=== PATIENT | male | born 1945 | race Caucasian/White ===

== ENCOUNTER 2021-01-29 20:56 | Emergency (ER) | payer MEDICARE, SELFPAY ==
[2021-01-29] VITALS (25 sets, daily range): BP systolic 125–192; BP diastolic 71–125; PULSE 84–116; RESP 18–32; TEMP 36.5–38.6; O2SAT 94–97
--- NOTE | 2021-01-29 20:45 | RT.EKG_ITS ---
APPROVED REPORT Exam: Resting ECG Reason for Exam: Syncope Patient Location: E HR:100 bpm ECG Measurements Heart Rate 100 AXIS NM 142 P 31 QRSd 95 QRS -26 QT 344 T 31 QTc 443 Conclusion Sinus tachycardia...rate> 99 Inferior infarct, old...Q >35mS, II III aVF Physician:Rate 100 sinus rhythm, no significant ST elevations or depressions. No evidence of STEMI. Slight atypical QRS morphology in V1.
--- NOTE | 2021-01-29 21:00 | DI.CT_ITS ---
Exam(s) CT THORAX ABDOMEN CTA EXAM: CT THORAX ABDOMEN CTA CLINICAL HISTORY: syncope, hx of AAA. TECHNIQUE: Imaging Protocol: Axial computed tomography images with coronal and sagittal reformatted images were created and reviewed CONTRAST MATERIAL: Intravenous: Omnipaque 350 Contrast volume:100 ml Oral: None COMPARISON: No exams were available for comparison FINDINGS: CHEST: The ascending thoracic aorta is slightly prominent exhibiting diameter of 4 cm. no dissection. diam eter of the aortic arch is 2.9 cm. diameter of the proximal descending thoracic aorta is 2.7 cm. de scending thoracic aorta is moderately atherosclerotic and exhibits an average luminal diameter of 3 c m. There is an abdominal aortic EVAR. Abdominal aorta and aortoiliac segments study is limited as this study does not include the pelvis. In addition, is difficult to assess for endoleaks as there is no delayed sequence. On the lower most image of this study there is a suggestion of possible endoleak. Please note that the limbs of the g raft are not entirely included to the level of their iliac anastomoses on this study. There is some atherosclerotic disease within the graft but without an obvious critical stenosis therein. The diame ter of the aortic sac is 7.8 cm which is somewhat prominent. There are bilateral renal artery ostial stents noted. These appear to be grossly patent. Significant stenosis seen at the origin of the ce liac artery. 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 Dissection flap does not appear to be occlusive and does not propagate more distally and ther e is no evidence of embolus in the SMA. LUNGS: No infiltrates nor pleural effusions. There is a 6 millimeter pleural base nodule in the ante rior basal segment left lower lobe. MEDIASTINUM: There is no hilar nor mediastinal adenopathy. Visualized thyroid unremarkable. CARDIAC: Heart size upper normal. No pericardial effusion. Coronary artery calcification noted. AORTA: As abovethere is no evidence of aortic dissection. ABDOMEN: There is no ascites. LIVER: There are no focal hepatic lesions nor dilatation of intrahepatic ducts. Hepatic steatosis is noted. GALLBLADDER/BILIARY: Multiple gallstones. No evidence of acute cholecystitis. CBD is not dilated. PANCREAS: Abnormal. There is significant area of hypodensity in the pancreatic head and uncinate pro cess concerning for neoplasm. This may be cystic. In addition, there is another lesion in the pancr eatic tail which measures 2 by 1.3 cm, appearing cystic. The main pancreatic duct is not dilated. N o obvious regional lymphadenopathy. No vascular encasement. SPLEEN: Spleen size upper normal. No intrasplenic lesions. Splenic and portal veins are patent. ADRENALS: There are no significant adrenal masses. KIDNEYS: Benign small cyst posterior cortex right kidney. Also a 3 millimeter nonobstructive calculu s in lower pole the right kidney. No other significant focal renal findings. No hydronephrosis. LYMPH NODES: There is no retroperitoneal nor para-aortic adenopathy. No obvious mesenteric masses. T here are few mesenteric densities below the lower pole the right kidney, largest of these measures 1. 3 x 1.0 cm, possibly lymph nodes. ABDOMINAL WALL: No evidence of significant anterior abdominal wall hernia. GI: There is no evidence of bowel obstruction, free air, nor abscess. OSSEOUS: No significant osseous lesions. IMPRESSION: 1. This study is limited because it does not include the pelvis and therefore does not include the di stal aspect of the EVAR graft limbs. In addition, there is no delayed sequence sided difficult to tr barber evaluate for EVAR endoleak. However, I do suspect the possibly of an endoleak here given the caty earance of the lower most image of this study. In addition, the diameter of the [place] aortic sac is 7.8 cm. 2. 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 There is also significant stenosis at the origin of the celiac artery. There ar e no ischemic appearing bowel loops.. No ascites. 3. There are 2 areas of concern in the pancreas. There is a large hypodense area in the pancreatic h ead and uncinate process, suspicious for neoplasm. There is also a smaller 2 x 1.3 centimeter probab le cystic neoplasm in the pancreatic tail. There are no obvious enlarged regional lymph nodes and no obvious vascular encasement. Nevertheless, these concerning pancreatic lesions are to be considered neoplastic and close follow-up recommended appropriate referral and MRI study. 4. Cholelithiasis. Multiple gallstones. No obvious acute cholecystitis. No gross dilatation of the biliary tree. This study was 1st read by [facility]. Report called by myself to emergency room 01/30/2021 at 9:12 a.m.. RADIATION DOSE DELIVERED: 793.94mGy.cm Total DLP DATA REPOSITORY: All CT scans at this facility are submitted to the National Radiology Data Registry (NRDR) Dose Index Registry (DIR) with the [employer] ([employer]). RADIATION OPTIMIZATION: All CT scans at this facility use at least one of these dose optimization te chniques: automated exposure control; mA and/or kV adjustment per patient size (includes targeted exa ms where dose is matched to clinical indication); or iterative reconstruction.
--- NOTE | 2021-01-29 21:00 | DI.CT_ITS ---
Exam(s) CT HEAD WO EXAM: CT HEAD WO CLINICAL HISTORY: dizzy, hit right brow, r/o stroke. TECHNIQUE: Imaging Protocol: Axial computed tomography images with coronal and sagittal reformatted images were created and reviewed COMPARISON: No exams were available for comparison FINDINGS: There are no skull fractures nor fluid in the visualized paranasal sinuses. There is no evidence of intracranial hemorrhage, mass effect, or shift of midline structures. There are no extra-axial fluid collections. The ventricles are not enlarged or shifted and there is no blo od within the ventricular system nor within the basal cisterns. There is symmetrical bifrontal atrophy noted. 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 IMPRESSION: No acute intracranial findings on this noninfused CT scan of the brain. Bifrontal atrophy noted Absence of the right ocular lens noted. RADIATION DOSE DELIVERED: 845.91mGy.cm Total DLP DATA REPOSITORY: All CT scans at this facility are submitted to the National Radiology Data Registry (NRDR) Dose Index Registry (DIR) with the [employer] ([employer]). RADIATION OPTIMIZATION: All CT scans at this facility use at least one of these dose optimization te chniques: automated exposure control; mA and/or kV adjustment per patient size (includes targeted exa ms where dose is matched to clinical indication); or iterative reconstruction.
[2021-01-29 21:25] LABS: Abs Immature Grans 0.02 10^3/uL (0.0-0.06); Absolute Basophil Count 0.02 10^3/uL (0.0-0.2); Absolute Eosinophil Count 0.02 10^3/uL (0.0-0.7); Absolute Monocyte Count 0.75 10^3/uL (0.1-0.8); Absolute Neutrophil Count 6.49 10^3/uL (1.2-6.7); Basophils % 0.2; Eosinophils % 0.2; HCT 47.8 % (40.0-50.0); HGB 15.9 g/dL (13.5-17.5); Immature Grans % 0.2; MCH 31.1 pg (27.0-33.0); MCHC 33.3 % (32.0-36.0); MCV 93.5 fL (80-95); MPV 9.7 fL (8.0-11.0); Monocytes % 8.5; Neutrophils % 73.9; Nucleated RBC 0 %; Platelet Count 183 10^3/uL (130-400); RBC 5.11 10^6/uL (4.36-5.78); RDW 12.9 % (11.8-14.1); RDW-SD 44.7 fL
[2021-01-29] MEDS: Normal Saline 1,000 ML 1000 ML IV ×2 (21:38→23:46)
[2021-01-29 21:39] LABS: INR 1.1 (0.9-1.1); Prothrombin Time 11.1 sec (9.3-11.0)
[2021-01-29 21:43] LABS: ALT 42 U/L (16-63); AST 30 U/L (15-37); Albumin 3.8 g/dL (3.4-5.0); Alkaline Phosphatase 72 U/L (46-116); BUN 22 mg/dL (7-18); Bilirubin, Total 0.9 mg/dL (0.2-1.0); CREATININE 1.6 mg/dL (0.70-1.30); Calcium 8.9 mg/dL (8.5-10.1); Chloride 101 mmol/L (98-107); Estimated GFR 42.12 (mL/min/1.73m2); Glucose 147 mg/dL (74-106); NT-proBNP 405 pg/mL (<300); Potassium 4.1 mmol/L (3.5-5.1); Sodium 137 mmol/L (136-145); Total Protein 8.7 g/dL (6.4-8.2)
[2021-01-29 21:44] LABS: Troponin I < 0.05 ng/mL (<0.06)
--- NOTE | 2021-01-29 22:11 | W.ED.GENAD ---
Discharge Plan Disposition Patient Disposition: HOME Condition: Good Discharge Details Clinical Impression: Fever, Dehydration, Lesion of pancreas Primary Care Provider: Zuleika Moreno ED Provider: Gurpreet Negro Home Meds and New Rx's Prescriptions: New doxycycline hyclate 100 mg tablet 100 mg PO BID Qty: 20 RF: 0 Continued ibuprofen 600 MG tablet 600 mg PO BID RF: 0 atenolol 50 MG tablet 50 mg PO DAILY RF: 0 oxycodone 10 MG tablet 10 mg PO Q6H PRN PRNQty: 14 RF: 0 ondansetron 4 MG tablet,disintegrating 4 mg PO Q8H PRN PRNQty: 30 RF: 0 metformin 1,000 mg tablet 1,000 mg PO DAILY RF: 0 Discharge Instructions Instructions: Dehydration (ED), Fever in Adults (ED) Additional Instructions: At this time the source of your fever is unknown. I have a high concern that it may be from a tickborne illness though. The results from the lab studies evaluating this will not be back for 3 to 5 days. In the meantime please take the antibiotic doxycycline as prescribed. [facility] has been [facility]. Make sure to take it with food to prevent nausea. Please drink plenty of fluid at home, stay well-hydrated. Take Tylenol or Motrin as needed for fever. You will be contacted if any of your results are positive. The CT imaging that we did perform did show evidence of your continued abdominal aneurysm but it also showed evidence of a small abnormality in one of the vessels in your stomach at the superior mesenteric artery. Although this is not the cause of your fever and symptoms today, it is an incidental finding. Please follow-up closely with your vascular surgeon for reassessment of this. Additionally there was evidence of pancreatic cysts/lesions on your CAT scan. This was also an incidental finding. It is unsure the exact etiology of these, so please follow-up closely with your primary care provider for reassessment and potential MRI of these lesions on a nonemergent basis. As we discussed together, you have expressed interest in the Covid vaccine. I would not recommend getting this vaccine while you are ill. Once you are feeling better and if you are still interested in the vaccine, please contact your primary care provider, our Covid center here at the hospital, or any of the local pharmacies or you can receive the coronavirus vaccine. As I discussed with your , my recommendations are for the Moderna vaccine or the Pfizer vaccine. There are risks and benefits with everything that we do in life, please also consider this as you make these decisions moving forward If you notice any worsening of your symptoms, or any new symptoms such as vomiting, diarrhea, fever, chills, shortness of breath, chest pain, numbness, weakness, or fainting , please return immediately to the emergency department for reevaluation. Please follow up with your primary care provider as soon as possible for reassessment and reevaluation. As always, it was a pleasure participating in your medical care today. Referrals: Zuleika Moreno MD [Primary Care Provider] - Medical Decision Making 75-year-old male with a past medical history of hypertension, abdominal aortic aneurysm, diabetes, presents today for chills for the last 3 days, dizziness and lightheadedness whenever he stands up. He has had a decreased appetite, and has not been drinking much. He has not been vaccinated for coronavirus. He denies any exposures though recently. He denies any nausea vomiting or diarrhea. He denies any focal abdominal pain. When the patient stands upright he states that he feels unbalanced, but he denies any room spinning sensation or tunnel vision. Patient did get imbalance and hit the right side of his face earlier tonight which brought about his call to EMS. He denies any headache or neck pain. He denies any other complaints at this time. Physical exam demonstrates unidirectional right-sided horizontal nystagmus, positive head impulse test. Negative test of skew. Dry mucous membranes. Orthostatics were performed by EMS and he had a notable 30 point drop in his blood pressure from lying to standing. No abdominal tenderness, no other focal neurologic. Differential at this time is highest for viral etiology causing diminished appetite and chills. Bacteremia is on the differential but less likely. Patient does have his history of aneurysm, so this certainly does increase the concern for worsening aneurysm and/or dissection although this feels unlikely given his current symptoms. We will rehydrate, CT scan for further aortic evaluation, evaluate for Covid, monitor closely and reassess. We will also add a tick and Lyme panel as the patient is outside often, and is in his garden working frequently. We will get a proBNP for evaluation of fluid status or heart strain status. 1:11 AM Patient was afebrile upon his arrival but did spike a temperature of 101 while here in the ED. Laboratory work-up demonstrates a negative Covid test, no white count bandemia or left shift. Electrolytes stable, creatinine 1.6, BUN 22. Clinically the patient does appear dehydrated. He was given 2 L of IV fluids, and after which point his tachycardia has resolved, his heart rate has normalized, he was given Toradol for his fever and the patient feels much better. proBNP normal, troponin normal. Urinalysis negative for evidence of infection, but there is elevation of ketones. Tick and Lyme send out test pending. Patient continues to demonstrate no meningeal signs, no abdominal tenderness. No vomiting or diarrhea. CT scan shows no evidence of dissection in the chest. CT scan does show continued AAA, with no evidence of leak. There is a small dissection flap in the proximal SMA but no other abnormalities there. Patient's symptoms are inconsistent with acute mesenteric ischemia or abdominal pain whatsoever. He does have 2 incidental cystic pancreatic lesions noted. Although virtual radiology does not discuss comparison to previous films, I did review the previous room from 2017, and the pancreatic lesions appear to be nearly the exact same size. We will recommend further evaluation though on an outpatient basis if indicated with MRI. Patient on reassessment feels much better now, no clear source of his illness. Did not demonstrate evidence of pneumonia or UTI or meningitis clinically at this time. Severe bacteremia less likely as the patient has no white count at this time. I did discuss with the patient his interactions with ticks, and he states that he sees ticks all the time and takes them off with him and his dog as he always is working in his garden. Am concerned that he may be demonstrating symptoms secondary to a tickborne illness. Out of an abundance of precaution as he had the symptoms for 3 days already, we will start the patient on doxycycline out of concern for tickborne illness. Prescription will be sent to his pharmacy. I had a long discussion with his about the plan, as well as red flags which to return. . Additionally the patient did ask for the Covid vaccine on this visit, however I did discuss with him that it was probably unwise to get the vaccine while currently clinically ill. I recommend holding off, but did provide him with options and resources on an outpatient basis if you would like to get the vaccine later when he is well. I have extensively reviewed the treatment plan and discharge instructions with the patient. I have addressed all patient concerns at this time. The patient was made aware of what symptoms to monitor for that would warrant a return to the emergency department. Discussed the plan with the patient, they demonstrate verbal understanding and agreement with our assessment and plan at this time. The documentation in this chart was dictated using [email or web address] dictation software. Please excuse any dictation errors. EKG 21: 09 Rate 100 sinus rhythm, no significant ST elevations or depressions. No evidence of STEMI. Slight atypical QRS morphology in V1. FINDINGS: Brain: Changes of cerebral and cerebellar atrophy. No acute focal intracranial lesions. Cerebral ventricles: No ventriculomegaly. Paranasal sinuses: Visualized sinuses are unremarkable. No fluid levels. Mastoid air cells: Unremarkable as visualized. No mastoid effusion. Bones/joints: No acute fracture. Soft tissues: Unremarkable. IMPRESSION: Changes of cerebral and cerebellar atrophy. No acute focal intracranial lesions. Thank you for allowing us to participate in the care of your patient. Dictated and Authenticated by: Ethan Javier MD 01/29/2021 11:12 PM Eastern Time ([place] & [place]) FINDINGS: Pulmonary arteries: Normal. No pulmonary emboli. Aorta: Aortic valvular calcifications noted. The thoracic aorta demonstrates mild atherosclerosis, but no aneurysm. No evidence of dissection or ulcerating plaque. Mild atheromatous plaque seen in the supra-aortic branches. Lungs: Mild emphysematous changes noted. Mild bilateral dependent atelectasis. A few sub 4 mm nodules are seen. Pleural spaces: Unremarkable. No pneumothorax. No pleural effusion. Heart: Coronary artery calcifications noted. Lymph nodes: Unremarkable. No enlarged lymph nodes. Bones/joints: Unremarkable. No acute fracture. Soft tissues: Unremarkable. IMPRESSION: No evidence of acute vascular abnormality in chest FINDINGS: Aorta: An infrarenal abdominal aortic aneurysm is present. It is incompletely included as the exam does not include the pelvis. The sac measures up to about 8.2 cm in trans luminal dimension. It was reported to measure 7.6 cm in 2017. Clinical correlation and correlation with intermediate priors is recommended. A bifurcated aortic stent graft is seen. There are subtle narrowings in the proximal portion of the proximal bilateral limbs. No evidence of endoleak on this study. Celiac trunk and mesenteric arteries: There is a moderate focal narrowing at the celiac origin. There is a mild narrowing at the origin of the SMA that appears to be due to a small dissection flap. Incidental note of a replaced right hepatic artery. Renal arteries: Bilateral renal artery stents appear to be patent, though some metal artifact does limit exam. Liver: Normal. No mass. Gallbladder and bile ducts: Gallstones noted. Probable phyrigian cap. Pancreas: There is a hypodense lesion in the tail of the pancreas that measures about 18 by 12 mm. Differential includes cystic neoplasm. There is another low-density lesion in the pancreatic neck. This measures about 32 x 14 mm. Again, neoplasm is in the differential. Spleen: Normal. No splenomegaly. Adrenals: Normal. No mass. Kidneys and ureters: Probable cysts in the bilateral kidneys are too small to further characterize. Stomach and bowel: Unremarkable. No obstruction. No mucosal thickening. Lymph nodes: Unremarkable. No enlarged lymph nodes. Bones/joints: Unremarkable. No acute fracture. No dislocation. Soft tissues: Unremarkable. IMPRESSION: 1. A treated infrarenal AAA measures about 8.2 cm in greatest trans luminal dimension no comparison is available. 2. Small dissection flap in the proximal SMA causes mild narrowing here. 3. Moderate narrowing at the origin of the celiac artery. 4. Incidental note of 2 cystic pancreatic lesions. Further characterization with pancreas protocol MRI or CT is recommended on a non emergent basis 5. Gallstones. No CT evidence of acute cholecystitis Thank you for allowing us to participate in the care of your patient. Dictated and Authenticated by: Manny Obrien MD 01/29/2021 11:21 PM Eastern Time ([place] & [place]) HPI General Date/Time Provider Initiated Documentation: 01/29/21 21:12. HPI Narrative: 75-year-old male with a past medical history of hypertension, abdominal aortic aneurysm, diabetes, presents today for chills for the last 3 days, dizziness and lightheadedness whenever he stands up. He has had a decreased appetite, and has not been drinking much. He has not been vaccinated for coronavirus. He denies any exposures though recently. He denies any nausea vomiting or diarrhea. He denies any focal abdominal pain. When the patient stands upright he states that he feels unbalanced, but he denies any room spinning sensation or tunnel vision. Patient did get imbalance and hit the right side of his face earlier tonight which brought about his call to EMS. He denies any headache or neck pain. He denies any other complaints at this time. Related Data Home Medications Medication Instructions Recorded Confirmed atenolol 50 mg PO DAILY 12/14/15 01/29/21 ibuprofen 600 mg PO BID 12/14/15 07/31/16 ondansetron 4 mg PO Q8H PRN PRN #30 tabef 07/31/16 oxycodone 10 mg PO Q6H PRN PRN #14 tab 07/31/16 metformin 1,000 mg PO DAILY 01/29/21 01/29/21 doxycycline hyclate 100 mg PO BID #20 tab 01/30/21 Previous Rx's Medication Instructions Recorded ondansetron 4 mg PO Q8H PRN PRN #30 tabef 07/31/16 oxycodone 10 mg PO Q6H PRN PRN #14 tab 07/31/16 doxycycline hyclate 100 mg PO BID #20 tab 01/30/21 Allergies Allergy/AdvReac Type Severity Reaction Status Date / Time No Known Allergies Allergy Unverified 07/31/16 06:46 General Stated Complaint: Dizzy/Sync JU: 3 Review of Systems All systems reviewed & are unremarkable except as noted in HPI and below PFSH Social History Smoking/Tobacco Use Status: Former Tobacco Use Smoking risk assessment performed?: Yes Drug use: Never Substance use type: does not use Do you feel safe at home: Yes Do you feel safe in your relationship?: Yes Exam Narrative Exam Narrative: 1.Const: Well-nourished, Well-developed, appearing stated age 2.Eyes: PERRL, no conjunctival injection, and symmetrical lids. Mild horizontal nystagmus. No rotatory or vertical nystagmus 3.ENT: Atraumatic external nose and ears. Notably dry MM. Neck: Symmetric, trachea midline, No thyromegaly. Patient demonstrates good movement of cervical neck. There is no nuchal rigidity, no nuchal tenderness. Patient is able to flex the neck without any difficulty or significant pain. Negative Kernig's and Brudzinski sign. 4.CVS: +S1/S2, No murmurs or gallops. Peripheral pulses 2+ and equal in all extremities. Brisk capillary refill in all extremities. 5.RESP: Unlabored respiratory effort. Clear to auscultation bilaterally. No wheezes rales or rhonchi 6.GI: Soft, Nontender/Nondistended, No hepatosplenomegaly. No guarding or rebound. 7.MSK: Normocephalic/Atraumatic, Extremities w/o deformity or ttp No cyanosis or clubbing, Normal movement of all extremities 8.Skin: Warm, Dry. No rashes or lesions. 9.Neuro: fiberglass ski maker II-XII grossly intact. Sensation grossly intact, no focal neurologic deficits. All 6 cardinal planes of vision are fully intact. No evidence of rotatory or vertical nystagmus. The patient demonstrated a normal [id number], good dexterity. There was no evidence of dysdiadochokinesia. Patient was able to ambulate without difficulty. There was no wide-based gait. Romberg testing was normal. Gxxo-pt-[id number] testing was normal. Sensation was intact bilaterally as well as muscle strength bilaterally for all extremities. Patient was able to verbalize butter cup with no slurring, or miss pronunciation. Cerebellar function testing is normal. The patient demonstrates a normal hints exam with no findings concerning for a central event. No vertical nystagmus. The head impulse test is positive with movement to the. Normal test of skew. No suggestion of a central cerebellar event. 10.Psych: (AAO) x3. Appropriate mood and affect Course Vital Signs Vital signs: Vital Signs Temperature 36.5 C 01/29/21 21:01 Pulse 100 H 01/29/21 21:01 Respiratory Rate 18 01/29/21 21:01 Blood Pressure 192/93 H 01/29/21 21:01 Pulse Oximetry 95 01/29/21 21:01 Temperature 36.5 C 01/29/21 21:01 Pulse 100 H 01/29/21 21:01 Respiratory Rate 18 01/29/21 21:05 Respiratory Effort Non-Labored 01/29/21 21:05 Respiratory Depth Normal 01/29/21 21:05 Respiratory Pattern Normal 01/29/21 21:05 Blood Pressure 192/93 H 01/29/21 21:01 Blood Pressure Position Supine 01/29/21 21:01 Pulse Oximetry 95 01/29/21 21:01 Oxygen Delivery Method Room Air 01/29/21 21:01 Oxygen Flow Rate 0 01/29/21 21:01 Pain Level 0 01/29/21 21:01 Lab/Test Results Lab/Test Results: 01/29/21 21:35 Blood Blood Culture - Pending 01/29/21 21:15 Blood Blood Culture - Pending Laboratory Tests Range/Units 01/29/21 01/29/21 01/29/21 20:45 20:45 20:45 WBC (4.4-10.8) 10^3/uL 8.80 RBC (4.36-5.78) 10^6/uL 5.11 Hgb (13.5-17.5) g/dL 15.9 Hct (40.0-50.0) % 47.8 MCV (80-95) fL 93.5 MCH (27.0-33.0) pg 31.1 MCHC (32.0-36.0) % 33.3 RDW (11.8-14.1) % 12.9 Plt Count (130-400) 10^3/uL 183 MPV (8.0-11.0) fL 9.7 Immature Gran % 0.2 Neutrophils % 73.9 Lymphocytes % 17.0 Monocytes % 8.5 Eosinophils % 0.2 Basophils % 0.2 Nucleated RBC % % 0 Absolute Neutrophils (1.2-6.7) 10^3/uL 6.49 Absolute Lymphocytes (1.2-3.4) 10^3/uL 1.50 Absolute Monocytes (0.1-0.8) 10^3/uL 0.75 Absolute Eosinophils (0.0-0.7) 10^3/uL 0.02 Absolute Basophils (0.0-0.2) 10^3/uL 0.02 PT (9.3-11.0) sec 11.1 H INR (0.9-1.1) 1.1 APTT (21.0-27.5) sec 35.0 H Sodium (136-145) mmol/L 137 Potassium (3.5-5.1) mmol/L 4.1 Chloride (98-107) mmol/L 101 Carbon Dioxide (21.0-32.0) mmol/L 27.0 Anion Gap (3-11) mmol/L 9.0 BUN (7-18) mg/dL 22 H Creatinine (0.70-1.30) mg/dL 1.6 H Estimated GFR/1.73 m2 (mL/min/1.73m2) 42.12 Glucose (74-106) mg/dL 147 H Calcium (8.5-10.1) mg/dL 8.9 Total Bilirubin (0.2-1.0) mg/dL 0.9 AST (15-37) U/L 30 ALT (16-63) U/L 42 Alkaline Phosphatase (46-116) U/L 72 Troponin I (<0.06) ng/mL < 0.05 NT-Pro-B Natriuret Pep (<300) pg/mL 405 H Total Protein (6.4-8.2) g/dL 8.7 H Albumin (3.4-5.0) g/dL 3.8 COVID-19 Source Range/Units 01/29/21 21:10 WBC (4.4-10.8) 10^3/uL RBC (4.36-5.78) 10^6/uL Hgb (13.5-17.5) g/dL Hct (40.0-50.0) % MCV (80-95) fL MCH (27.0-33.0) pg MCHC (32.0-36.0) % RDW (11.8-14.1) % Plt Count (130-400) 10^3/uL MPV (8.0-11.0) fL Immature Gran % Neutrophils % Lymphocytes % Monocytes % Eosinophils % Basophils % Nucleated RBC % % Absolute Neutrophils (1.2-6.7) 10^3/uL Absolute Lymphocytes (1.2-3.4) 10^3/uL Absolute Monocytes (0.1-0.8) 10^3/uL Absolute Eosinophils (0.0-0.7) 10^3/uL Absolute Basophils (0.0-0.2) 10^3/uL PT (9.3-11.0) sec INR (0.9-1.1) APTT (21.0-27.5) sec Sodium (136-145) mmol/L Potassium (3.5-5.1) mmol/L Chloride (98-107) mmol/L Carbon Dioxide (21.0-32.0) mmol/L Anion Gap (3-11) mmol/L BUN (7-18) mg/dL Creatinine (0.70-1.30) mg/dL Estimated GFR/1.73 m2 (mL/min/1.73m2) Glucose (74-106) mg/dL Calcium (8.5-10.1) mg/dL Total Bilirubin (0.2-1.0) mg/dL AST (15-37) U/L ALT (16-63) U/L Alkaline Phosphatase (46-116) U/L Troponin I (<0.06) ng/mL NT-Pro-B Natriuret Pep (<300) pg/mL Total Protein (6.4-8.2) g/dL Albumin (3.4-5.0) g/dL COVID-19 Source [facility]OP[facility]
[2021-01-29 22:37] LABS: COVID-19 PCR Negative (Negative)
--- NOTE | 2021-01-29 23:14 | DI.VRAD_ITS ---
PROCEDURE INFORMATION: Exam: CT Head Without Contrast Exam date and time: 01/29/2021 9:14 PM Age: 75 years old Clinical indication: Dizziness; Patient HX: Dizzy, hit right brow, R/O stroke TECHNIQUE: Imaging protocol: Computed tomography of the head without contrast. Radiation optimization: All CT scans at this facility use at least one of these dose optimization techniques: automated exposure control; mA and/or kV adjustment per patient size (includes targeted exams where dose is matched to clinical indication); or iterative reconstruction. COMPARISON: No relevant prior studies available. FINDINGS: Brain: Changes of cerebral and cerebellar atrophy. No acute focal intracranial lesions. Cerebral ventricles: No ventriculomegaly. Paranasal sinuses: Visualized sinuses are unremarkable. No fluid levels. Mastoid air cells: Unremarkable as visualized. No mastoid effusion. Bones/joints: No acute fracture. Soft tissues: Unremarkable. IMPRESSION: Changes of cerebral and cerebellar atrophy. No acute focal intracranial lesions. Dictated and Authenticated by: Ethan Javier MD. Ordering:OCTAVIA Vázquez MD
[2021-01-29] MEDS: Omnipaque 350 MG/ML 100 ML BTL IJ (23:16)
[2021-01-29] MEDS: Normal Saline Flush 10 ML SYR IVP (23:17)
--- NOTE | 2021-01-29 23:22 | DI.VRAD_ITS ---
PROCEDURE INFORMATION: Exam: CTA Chest With Contrast Exam date and time: 01/29/2021 9:14 PM Age: 75 years old Clinical indication: Other: Syncope; Fever; Prior surgery; Surgery date: 6+ months; Surgery type: Aaa; Additional info: Syncope, HX of aaa TECHNIQUE: Imaging protocol: Computed tomographic angiography of the chest with contrast. 3D rendering (Not supervised by radiologist): MIP and/or 3D reconstructed images were created by the technologist. Radiation optimization: All CT scans at this facility use at least one of these dose optimization techniques: automated exposure control; mA and/or kV adjustment per patient size (includes targeted exams where dose is matched to clinical indication); or iterative reconstruction. Contrast material: OMNIPAQUE 350; Contrast volume: 100 ml; Contrast route: INTRAVENOUS (IV); COMPARISON: No relevant prior studies available. FINDINGS: Pulmonary arteries: Normal. No pulmonary emboli. Aorta: Aortic valvular calcifications noted. The thoracic aorta demonstrates mild atherosclerosis, but no aneurysm. No evidence of dissection or ulcerating plaque. Mild atheromatous plaque seen in the supra-aortic branches. Lungs: Mild emphysematous changes noted. Mild bilateral dependent atelectasis. A few sub 4 mm nodules are seen. Pleural spaces: Unremarkable. No pneumothorax. No pleural effusion. Heart: Coronary artery calcifications noted. Lymph nodes: Unremarkable. No enlarged lymph nodes. Bones/joints: Unremarkable. No acute fracture. Soft tissues: Unremarkable. IMPRESSION: No evidence of acute vascular abnormality in chest PROCEDURE INFORMATION: Exam: CT Angiography Abdomen With Contrast Exam date and time: 01/29/2021 9:14 PM Age: 75 years old Clinical indication: Other: Syncope; Fever; Prior surgery; Surgery date: 6+ months; Surgery type: Aaa; Additional info: Syncope, HX of aaa TECHNIQUE: Imaging protocol: Computed tomographic angiography images of the abdomen with intravenous contrast material. 3D rendering (Not supervised by radiologist): MIP and/or 3D reconstructed images were created by the technologist. Radiation optimization: All CT scans at this facility use at least one of these dose optimization techniques: automated exposure control; mA and/or kV adjustment per patient size (includes targeted exams where dose is matched to clinical indication); or iterative reconstruction. Contrast material: OMNIPAQUE 350; Contrast volume: 100 ml; Contrast route: INTRAVENOUS (IV); COMPARISON: No relevant prior studies available. FINDINGS: Aorta: An infrarenal abdominal aortic aneurysm is present. It is incompletely included as the exam does not include the pelvis. The sac measures up to about 8.2 cm in trans luminal dimension. It was reported to measure 7.6 cm in 2017. Clinical correlation and correlation with intermediate priors is recommended. A bifurcated aortic stent graft is seen. There are subtle narrowings in the proximal portion of the proximal bilateral limbs. No evidence of endoleak on this study. Celiac trunk and mesenteric arteries: There is a moderate focal narrowing at the celiac origin. There is a mild narrowing at the origin of the SMA that appears to be due to a small dissection flap. Incidental note of a replaced right hepatic artery. Renal arteries: Bilateral renal artery stents appear to be patent, though some metal artifact does limit exam. Liver: Normal. No mass. Gallbladder and bile ducts: Gallstones noted. Probable phyrigian cap. Pancreas: There is a hypodense lesion in the tail of the pancreas that measures about 18 by 12 mm. Differential includes cystic neoplasm. There is another low-density lesion in the pancreatic neck. This measures about 32 x 14 mm. Again, neoplasm is in the differential. Spleen: Normal. No splenomegaly. Adrenals: Normal. No mass. Kidneys and ureters: Probable cysts in the bilateral kidneys are too small to further characterize. Stomach and bowel: Unremarkable. No obstruction. No mucosal thickening. Lymph nodes: Unremarkable. No enlarged lymph nodes. Bones/joints: Unremarkable. No acute fracture. No dislocation. Soft tissues: Unremarkable. IMPRESSION: 1. A treated infrarenal AAA measures about 8.2 cm in greatest trans luminal dimension no comparison is available. 2. Small dissection flap in the proximal SMA causes mild narrowing here. 3. Moderate narrowing at the origin of the celiac artery. 4. Incidental note of 2 cystic pancreatic lesions. Further characterization with pancreas protocol MRI or CT is recommended on a non emergent basis 5. Gallstones. No CT evidence of acute cholecystitis Dictated and Authenticated by: Manny Obrien MD. Ordering:OCTAVIA Vázquez MD
[2021-01-29] MEDS: Ketorolac 15 MG/ML VIAL IVP (23:46)
[2021-01-29 23:50] LABS: Bilirubin Negative (Negative); Blood Negative (Negative); Clarity Clear (Clear); Glucose Negative (Negative); Ketones 40 mg/dL (Negative); Leukocyte Esterase Negative (Negative); Nitrite Negative (Negative); Specific Gravity 1.015 (1.005-1.025); Urobilinogen 0.2 EU/dL (Up TO 0.2)
[2021-01-30] VITALS (13 sets, daily range): BP systolic 143–162; BP diastolic 76–87; PULSE 82–97; RESP 15–29; TEMP 37.7; O2SAT 93–98
[2021-01-30] MEDS: DOXYCYCLINE 100 MG in Normal Saline 100 ML IVPB (00:06)
--- NOTE | 2021-01-30 17:36 | ED.FU.B_ITS ---
Follow Up Plan: Call back received from Dr. Hancock of radiology regarding CTA performed at patient ED visit last night. Patient was discharged home. Dr. Hancock states that he is concerned that CTA of the aortic aneurysm is abnormal. He has no prior for comparison and request vascular surgery the contacted where patient surgery was performed for comparison to prior. Patient surgery was performed. CTA images were pushed to [facility]. I did discuss patient with Dr. Skelton of vascular surgery, who reviewed images. He states that aneurysm is somewhat larger and needs to be evaluated palpation but there is no acute emergent process based radiologic images at the time. Dr. Skelton states that he will personally call patient to ensure follow-up, I stated denies he was called patient to inform him of the need for follow-up. I called patient. Patient's answered the phone. She stated the patient was sleeping, and that he needed to sleep and she was not going to wake him up at this point for any reason. She is listed on the patient HIPAA form, and I did discuss with her the abnormal imaging and the need for outpatient follow-up with vascular surgery at [facility]. Number to [facility] was provided and all questions were answered. Patient was placed on care management list for outpatient follow-up with vascular surgery at [facility].
--- NOTE | 2021-01-31 09:12 | CMPROGNOTE_ITS ---
- If Service Date Differs Date of service: 01/31/21 Time of Service: 09:12 Care Management Progress Note Sebastien is seen in the ED for a fever. At the request of ED provider, CM coordinates an urgent [place] [facility] [place]
[2021-01-31 10:39] LABS: Lyme Ab w Rflx to Lyme Confirm Negative (Negative)
[2021-02-01 16:49] LABS: Anaplasma phagocytophilum Negative (Negative); B. miyamotoi PCR Negative (Negative); Babesia divergens/MO-1 Negative (Negative); Babesia duncani Negative (Negative); Babesia microti Negative (Negative); Ehrlichia chaffeensis Negative (Negative); Ehrlichia ewingii/canis Negative (Negative); Ehrlichia muris eauclairensis Negative (Negative)
== END 2021-01-30 01:27 | disposition home or self-care (01) ==
PROVIDERS: Emergency Provider Student in an Organized Health Care Education/Training Program
DX: R50.9 Fever, unspecified (principal); E86.0 Dehydration; K86.89 Other specified diseases of pancreas; R93.5 Abnormal findings on diagnostic imaging of other abdominal regions, including retroperitoneum; R55 Syncope and collapse; H55.09 Other forms of nystagmus; I77.811 Abdominal aortic ectasia; Z20.822 Contact with and (suspected) exposure to COVID-19
CPT/HCPCS: 71275; 74175; 80053; 87040; 87635; 87798; 93005; 96361; 96365; 96375; 99285; 70450; 81003; 83880; 84484; 85025; 85610; 85730; 86618; 93010; 99284; J1885; J3490

== ENCOUNTER 2021-08-30 02:17 | Outpatient (CLI) | payer MEDICARE, SELFPAY ==
[2021-08-30 12:06] LABS: Source Nasal/Nares
[2021-08-30 14:26] LABS: COVID-19 PCR Negative (Negative)
== END 2021-08-30 02:18 | disposition home or self-care (01) ==
LOC: LBO 02:17
PROVIDERS: Visit Provider Surgery
DX: Z20.822 Contact with and (suspected) exposure to COVID-19 (principal)
CPT/HCPCS: 87635; U0005

== ENCOUNTER 2022-04-15 06:01 | Emergency (ER) | payer MEDICARE, SELFPAY ==
[2022-04-15] VITALS (88 sets, daily range): BP systolic 61–188; BP diastolic 25–128; PULSE 65–182; RESP 12–35; TEMP 36.4; O2SAT 96–100
--- NOTE | 2022-04-15 06:00 | DI.CT_ITS ---
Exam(s) CT HEAD WO EXAM: CT HEAD WO CLINICAL HISTORY: ams, seizure?fall?. TECHNIQUE: Imaging Protocol: Axial computed tomography images with coronal and sagittal reformatted images were created and reviewed COMPARISON: CT CT HEAD WO from 01/29/2021 FINDINGS: Ventricles and Extra axial spaces: Normal in size and morphology for the patient's age. Hemorrhage: None. Cerebral parenchyma: There is no acute territorial infarct. There are areas of decreased attenuation in the white matter consistent with small vessel ischemic disease. Small lacunar infarcts are seen in the cerebellum. Midline shift: None. Brainstem/Cerebellum: Normal. Calvarium: Normal. Visualized Paranasal sinuses/Mastoids: Clear. Soft Tissues: Unremarkable. IMPRESSION: No acute intracranial process. RADIATION DOSE DELIVERED: Total DLP DATA REPOSITORY: All CT scans at this facility are submitted to the National Radiology Data Registry (NRDR) Dose Index Registry (DIR) with the [employer] (ACR). RADIATION OPTIMIZATION: All CT scans at this facility use at least one of these dose optimization te chniques: automated exposure control; mA and/or kV adjustment per patient size (includes targeted exa ms where dose is matched to clinical indication); or iterative reconstruction.
--- NOTE | 2022-04-15 06:00 | RT.EKG_ITS ---
APPROVED REPORT Exam: Resting ECG Reason for Exam: fall Patient Location: E HR:142 bpm ECG Measurements Heart Rate 142 AXIS IN [id number] P [id number] QRSd 100 QRS -8 QT 317 T 212 QTc 488 Conclusion Atrial fibrillation...? atrial activity Repolarization abnormality, prob rate related...ST dep, T neg, tachycardia afib rvr, normal axis, rate related lateral st segment depressions
--- NOTE | 2022-04-15 06:11 | ED.GENADUL_ITS ---
Discharge Plan Disposition Patient Disposition: Transfer-Acute Inpatient Care Specific Acute Inpt Facility: [facility] Condition: Serious Discharge Details Chief Complaint: Seizure Clinical Impression: Seizures, AMS (altered mental status), Acidemia, Acute hypokalemia Primary Care Provider: Zuleika Moreno ED Provider: Triston Vallejo Home Meds and New Rx's Prescriptions: No Action ibuprofen 600 MG tablet 600 mg PO BID atenolol 50 MG tablet 50 mg PO DAILY oxycodone 10 MG tablet 10 mg PO Q6H PRN PRNQty: 14 0RF ondansetron 4 MG tablet,disintegrating 4 mg PO Q8H PRN PRNQty: 30 0RF metformin 1,000 mg tablet 1,000 mg PO DAILY Label Comments: TAKE ONE TABLET BY MOUTH EVERY DAY doxycycline hyclate 100 mg tablet 100 mg PO BID Qty: 20 0RF Medical Decision Making 76-year-old male history of diabetes hypertension, presents brought in by EMS for altered mental status, possible seizure activity in route, hyperglycemic to greater than 300, hypertensive tachycardic A. fib RVR, right gaze preference, following commands on left side however not moving bilateral lower extremities or right side, superficial laceration to right maxillary soft tissue, consider seizure in the setting of hypertension versus seizure in the setting of hyperglycemia versus primary intracranial process such as hemorrhage or stroke versus metabolic derangement leading to altered mental status such as hyperosmolar nonketotic syndrome versus DKA versus viral syndrome versus less likely primary cardiac process. Screening labs, stat CT, EKG, fluids, diltiazem Keppra close reassessment of symptoms. Admission likely 6: 39 patient began to seize in route to CT. Patient brought back to room 3, patient intubated for airway protection; started on propofol infusion. Will be brought back to CT for stat imaging 7: 07 evidence of metabolic acidosis anion gap and hyperglycemia consider DKA with component of lactic acidosis. Given hypokalemia will need to replete K before administering insulin, will continue with fluid hydration with a second bolus of crystalloid in the interim. 7: 51 no evidence of intracranial hemorrhage. Patient sedated, hemodynamically stable persistently tachycardic A. fib RVR. Continue with fluid and potassium repletion before insulin ministration. Patient to be admitted to the ICU for DKA and seizure 8: 27 given unavailability of EEG services here at the hospital hospitalist team is recommending that patient be transferred to facility with these capabilities. I spoke with Dr. Holm of neurology who says that if patient is following basic commands with sedation reduction a spot EEG will suffice for the time being. In the interim patient became hypotensive to systolic blood pressure in the 60s, family endorses that he does have a history of an aortic aneurysm with a stent in the past, bedside ultrasound showing large hypoechoic structure surrounding stent in aorta concern for thrombus versus extravasation, stat CTA chest abdomen pelvis has been ordered to assess for aortic aneurysm rupture or dissection. 9: 26 patient's blood pressure was dipping, down titrated propofol, blood pressure currently 95/55 heart rate has decreased to what appears to be sinus rhythm 79 bpm, will repeat EKG. We will transition patient to fentanyl and midazolam drip for sedation. We will repeat basic metabolic panel and VBG. Awaiting discussion with residential leasing agent team at [facility] for transfer for DKA and seizures plan 10:04 due to capacity issues patient was not accepted at [facility]. Was able to speak with residential leasing agent team at [facility] Dr. Hurtado who has accepted patient for transfer. Family amenable to transfer. Patient's blood pressure is improving after discontinuing propofol and switching to fentanyl and midazolam. Patient has converted to sinus rhythm 72 bpm, blood pressure 109/62 with a MAP of 74 saturating 99% on the vent. Sign Out No HPI General Date/Time Provider Initiated Documentation: 04/15/22 06:07 . HPI Narrative: 76-year-old male history of hypertension, diabetes, presents brought in by EMS for altered mental status and possible seizure, hypoglycemic in the field, witnessed tonic-clonic seizure in route. Trauma to right face and head Related Data Home Medications Medication Instructions Recorded Confirmed atenolol 50 mg tablet 50 mg PO DAILY 12/14/15 01/29/21 ibuprofen 600 mg tablet 600 mg PO BID 12/14/15 07/31/16 ondansetron 4 mg disintegrating 4 mg PO Q8H PRN PRN ##30 07/31/16 tablet oxycodone 10 mg tablet 10 mg PO Q6H PRN PRN #14 tabs 07/31/16 metformin 1,000 mg tablet 1,000 mg PO DAILY 01/29/21 01/29/21 doxycycline hyclate 100 mg tablet 100 mg PO BID #20 tabs 01/30/21 Previous Rx's Medication Instructions Recorded ondansetron 4 mg disintegrating 4 mg PO Q8H PRN PRN ##30 07/31/16 tablet oxycodone 10 mg tablet 10 mg PO Q6H PRN PRN #14 tabs 07/31/16 doxycycline hyclate 100 mg tablet 100 mg PO BID #20 tabs 01/30/21 Allergies Allergy/AdvReac Type Severity Reaction Status Date / Time No Known Allergies Allergy Unverified 04/15/22 07:06 General JU: 3 Review of Systems Narrative: Review of Systems Constitutional: negative Eyes: negative ENT: Facial lac Cardiovascular: negative Respiratory: negative Gastrointestinal: negative : negative Musculoskeletal: negative Skin: negative Neurologic: Seizure Psych: negative PFSH All Active Problems (Updated 04/15/22 @ 10:07 by Triston Vallejo MD) Fever (Acute) Dehydration (Acute) Lesion of pancreas (Acute) Seizures (Acute) AMS (altered mental status) (Acute) Acidemia (Acute) Acute hypokalemia (Acute) Social History Smoking/Tobacco Use Status: Former Tobacco Use Smoking risk assessment performed?: Yes Drug use: Never Substance use type: does not use Do you feel safe at home: Yes Do you feel safe in your relationship?: Yes Exam Narrative Exam Narrative: Physical Examination General: Opening eyes spontaneously, following some commands, no verbal response HEENT: normocephalic, laceration to right face and maxillary region approximately 1 cm hemostatic, hematoma to right frontotemporal scalp, moist mucous membranes, right gaze preference Neck: supple, trachea midline; full ROM Chest: normal to inspection Respiratory: normal respiratory effort, speaking in full sentences, clear to auscultation, no wheezing, rales or rhonchi Cardiac: Tachycardia, irregular, S1S2 intact, no murmurs rubs or gallops GI: abdomen soft, non-tender, non-distended; no palpable mass or hepatosplenomegaly Skin: no lesions, rashes or trauma appreciated Neuro: Opening eyes spontaneously, no spontaneous speech, following basic commands on his left side upper extremity, not moving bilateral lower extremities or right upper extremity, appears to have right gaze preference Extremities: No signs of trauma Procedures Intubation Time out performed: No sedative: Etomidate Mg Given: 20 paralytic: Rocuronium Mg Given: 100 Laryngoscope: Tere ET Tube Size: 7.5 ET Tube Uncuffed: Yes Tube Placement Confirmation: visualized tube passing through cords, equal breath sounds bilaterally, no breath sounds over epigastrum and confirmation by capnometry Patient Tolerated Procedure: no complications Intubation Complications: none
[2022-04-15 06:19] LABS: HCO3 (Venous) 11 mmol/L (23-28); O2 Sat (Venous) 68 %; TCO2 (Venous) 11 mmol/L (24-29); pCO2 (Venous) 44 mmHg (41-51); pO2 (Venous) 49 mmHg
[2022-04-15 06:22] LABS: Abs Immature Grans 0.04 10^3/uL (0.0-0.06); Absolute Basophil Count 0.06 10^3/uL (0.0-0.2); Absolute Eosinophil Count 0.26 10^3/uL (0.0-0.7); Absolute Monocyte Count 0.77 10^3/uL (0.1-0.8); Basophils % 0.5; Eosinophils % 2.2; HCT 54.4 % (40.0-50.0); HGB 17.2 g/dL (13.5-17.5); Immature Grans % 0.3; Lymphocytes % 40.1; MCH 31.2 pg (27.0-33.0); MCHC 31.6 % (32.0-36.0); MCV 99 fL (80-95); MPV 10.1 fL (8.0-11.0); Monocytes % 6.4; Neutrophils % 50.5; Platelet Count 233 10^3/uL (130-400); RBC 5.52 10^6/uL (4.36-5.78); RDW 12.4 % (11.8-14.1); RDW-SD 45.1 fL; WBC 12.03 10^3/uL (4.4-10.8)
[2022-04-15 06:23] LABS: Absolute Lymphocyte Count 4.82 10^3/uL (1.2-3.4); Absolute Neutrophil Count 6.08 10^3/uL (1.2-6.7)
[2022-04-15] MEDS: LORazepam 2 MG/ML VIAL (06:25)
[2022-04-15] MEDS: Normal Saline 500 ML 1000 ML IV (06:25)
[2022-04-15 06:27] LABS: pH (Venous) 7.01 (7.31-7.41)
[2022-04-15] MEDS: Etomidate 20 MG/10 ML VIAL IVP (06:28)
[2022-04-15] MEDS: Rocuronium 50 MG/5 ML SYR 100 MG IVP (06:29)
--- NOTE | 2022-04-15 06:30 | DI.RAD_ITS ---
Exam(s) XR PORTABLE CHEST AP POST LINE EXAM: XR PORTABLE CHEST AP POST LINE CLINICAL HISTORY: rsi TECHNIQUE: 2D digital imaging was performed of the chest. One image was obtained. An AP view was ob tained. COMPARISON: No exams were available for comparison FINDINGS: MEDIASTINUM: Normal. HEART: Normal. PULMONARY VASCULATURE: Normal. LUNGS: Clear. PLEURAL SPACE: No pleural effusion or pneumothorax. BONE:Within normal limits for the patient's age. OTHER FINDINGS:The tip of the endotracheal tube is 4.7 cm above the raegan. The tip of the nasogastr ic tube is off the image below the diaphragm. IMPRESSION: No acute pulmonary findings. DATA REPOSITORY: RADIATION DOSE DELIVERED:
[2022-04-15 06:35] LABS: Salicylate < 2.8 mg/dL (<2.8)
[2022-04-15] MEDS: levETIRAcetam 1,000 MG in Normal Saline 100 ML 400 MG IVPB (06:35)
[2022-04-15] MEDS: Ondansetron 4 MG/2 ML VIAL IVP (06:35)
[2022-04-15] MEDS: PROPOFOL 1,000 MG/100 ML BTL 5.443 MG IV (06:40)
[2022-04-15 06:42] LABS: PTT Activated 35.2 sec (21.0-27.5); Prothrombin Time 10.1 sec (9.3-11.0)
[2022-04-15 06:51] LABS: ALT 37 U/L (16-63); AST 23 U/L (15-37); Albumin 4.3 g/dL (3.4-5.0); Alkaline Phosphatase 98 U/L (46-116); Anion Gap 28.1 mmol/L (3-11); BUN 21 mg/dL (7-18); Bilirubin, Total 0.8 mg/dL (0.2-1.0); CO2 13.9 mmol/L (21.0-32.0); CREATININE 1.7 mg/dL (0.70-1.30); Calcium 9.6 mg/dL (8.5-10.1); Chloride 96 mmol/L (98-107); Creatine Kinase 83 U/L (39-308); Estimated GFR 40.75 (mL/min/1.73m2); Glucose 364 mg/dL (74-106); Magnesium 2.2 mg/dL (1.8-2.4); Sodium 138 mmol/L (136-145); TSH (W/Ref FT4) 2.77 uIU/mL (0.36-3.74); Total Protein 9.3 g/dL (6.4-8.2); Troponin I < 50 ng/L (<or=60)
[2022-04-15 06:52] LABS: ETHANOL BLOOD < 3.0 mg/dL (<10); Potassium 2.9 mmol/L (3.5-5.1)
[2022-04-15] MEDS: dilTIAZem 25 MG/5 ML VIAL 15 MG IVP (06:52)
--- NOTE | 2022-04-15 07:10 | DI.VRAD_ITS ---
PROCEDURE INFORMATION: Exam: XR Chest Exam date and time: 04/15/2022 6:27 AM Age: 76 years old Clinical indication: Device placement; Other: Et and ng; Patient HX: Post intubation TECHNIQUE: Imaging protocol: Radiologic exam of the chest. Views: 1 view. COMPARISON: CT THORAX ABDOMEN CTA 01/29/2021 10:40 PM FINDINGS: Tubes, catheters and devices: A nasogastric tube is identified which courses below the left diaphragm, though its tip excluded from the field of view. An endotracheal tube is identified, its tip projecting 5 cm above the raegan. Lungs: The lungs are clear and well aerated bilaterally. There is no consolidation, infiltrate, or pulmonary edema. The pulmonary vasculature is normal in caliber. Pleural spaces: No visible pneumothorax or pleural effusion on this single supine view. Heart/Mediastinum: Heart size is normal. The thoracic aorta is uncoiled. Bones/joints: Degenerative changes. No acute osseous abnormality. IMPRESSION: 1. Tip of endotracheal tube projects 5 cm above the raegan. 2. Nasogastric tube courses below the left hemidiaphragm, its tip excluded from the field of view. Dictated and Authenticated by: Joyce Webb MD. Ordering:JOHANN Goldstein MD
[2022-04-15 07:23] LABS: *AMPHETAMINES SCREEN URINE Negative (Negative); *BARBITURATES SCREEN URINE Negative (Negative); *BENZODIAZEPINES SCREEN URINE Negative (Negative); Cannabinoids THC Negative (Negative); Cocaine Screen,Urine Negative (Negative); METHADONE URINE SCREEN Negative (Negative); OPIATES URINE SCREEN Negative (Negative)
[2022-04-15 07:36] LABS: Tricyclic Antidepressants Negative (Negative)
[2022-04-15] MEDS: POTASSIUM CHLORIDE 20 MEQ/100 ML BAG 50 MEQ IVPB (07:39)
[2022-04-15] MEDS: Lactated Ringers 1,000 ML 1000 ML IV (07:40)
--- NOTE | 2022-04-15 07:41 | DI.VRAD_ITS ---
PROCEDURE INFORMATION: Exam: CT Head Without Contrast Exam date and time: 04/15/2022 7:22 AM Age: 76 years old Clinical indication: Other: Seizure TECHNIQUE: Imaging protocol: Computed tomography of the head without contrast. Radiation optimization: All CT scans at this facility use at least one of these dose optimization techniques: automated exposure control; mA and/or kV adjustment per patient size (includes targeted exams where dose is matched to clinical indication); or iterative reconstruction. COMPARISON: CT HEAD WO 01/29/2021 10:37 PM FINDINGS: Brain: Diffuse sulcal enlargement is compatible with age-related cerebral volume loss. There is no intracranial hemorrhage, mass effect, midline shift, or extra-axial collection. King-white matter differentiation is preserved. There is no evidence of acute territorial infarct. Small chronic lacunar infarcts are again noted in both cerebellar hemispheres. Mild patchy hypoattenuation in the periventricular and subcortical white matter is most compatible with underlying mild chronic microangiopathy in a patient of this age. Cerebral ventricles: Diffuse mild ventricular enlargement compatible with age-related cerebral volume loss. No hydrocephalus. Paranasal sinuses: The paranasal sinuses are clear bilaterally, without air-fluid levels. Mastoid air cells: The mastoid air cells are clear bilaterally. Orbital cavities: A right lens prosthesis is noted. Bones/joints: Unremarkable. Soft tissues: Extracranial soft tissues are unremarkable. Vasculature: Atherosclerotic vascular calcifications are noted at the skull base. IMPRESSION: 1. No acute intracranial abnormality. No intracranial hemorrhage or mass effect. 2. 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 3. Age-related involutional changes. Dictated and Authenticated by: Joyce Webb MD. Ordering:JOHANN Goldstein MD
[2022-04-15 08:10] LABS: Bilirubin Negative (Negative); Blood Moderate (Negative); Clarity Clear (Clear); Glucose 500 mg/dL (Negative); Ketones Negative (Negative); Leukocyte Esterase Negative (Negative); Nitrite Negative (Negative); Specific Gravity >= 1.030 (1.005-1.025); Urobilinogen 0.2 EU/dL (Up TO 0.2); pH 5.5 (5-8)
[2022-04-15 08:12] LABS: Source Nasal/Nares
[2022-04-15 08:20] LABS: Bacteria Negative HPF (Negative); C & S Indicated? No; Casts Negative LPF (Negative); Crystals Negative HPF (Negative); Epithelial Cells Rare HPF (Negative); Mucus Trace (Negative); WBC 0-2 HPF (0-5)
--- NOTE | 2022-04-15 08:38 | NUR.NOTE ---
This film writer in patient chart with anticipation of admission to ICU Nursing Note:
--- NOTE | 2022-04-15 08:45 | DI.CT_ITS ---
Exam(s) CT HEAD WO EXAM: CT HEAD WO CLINICAL HISTORY: seizure. TECHNIQUE: Imaging Protocol: Axial computed tomography images with coronal and sagittal reformatted images were created and reviewed COMPARISON: CT CT HEAD WO from 04/15/2022 FINDINGS: The examination is limited due to patient motion artifact. Ventricles and Extra axial spaces: Normal in size and morphology for the patient's age. Hemorrhage: None. Cerebral parenchyma: No evidence of an acute territorial infarct is present. There are areas of decr eased attenuation in the white matter most consistent with small vessel ischemic disease. Lacunar in farcts are seen in the cerebellum. Midline shift: None. Brainstem/Cerebellum: Normal. Calvarium: Normal. Visualized Paranasal sinuses/Mastoids: Clear. Soft Tissues: Unremarkable. IMPRESSION: No acute intracranial process. RADIATION DOSE DELIVERED: Total DLP DATA REPOSITORY: All CT scans at this facility are submitted to the National Radiology Data Registry (NRDR) Dose Index Registry (DIR) with the [employer] (ACR). RADIATION OPTIMIZATION: All CT scans at this facility use at least one of these dose optimization te chniques: automated exposure control; mA and/or kV adjustment per patient size (includes targeted exa ms where dose is matched to clinical indication); or iterative reconstruction.
--- NOTE | 2022-04-15 08:55 | DI.CT_ITS ---
Exam(s) CT THORAX ABDOMEN CTA EXAM: CT THORAX ABDOMEN CTA CLINICAL HISTORY: ams, seizure, hypotension, hx of AAA. TECHNIQUE: Imaging Protocol: Axial CT angiography was performed with multi-slice acquisition and m ulti-planar and/or 3D reconstructions. CONTRAST MATERIAL: Intravenous: Omnipaque 350 contrast volume:100 mL Oral: No COMPARISON: CT CT THORAX ABDOMEN CTA from 01/29/2021 FINDINGS: The examination is limited due to patient motion artifact. CHEST: Tracheobronchial tree: There is an endotracheal tube. The tip lies 2.5 cm above the raegan. Pulmonary parenchyma: No consolidation or dominant measurable mass. Emphysematous changes are present in the lungs. There is dependent atelectasis. Pulmonary Arteries: No evidence of filling defect to suggest pulmonary emboli. Mediastinum and [place]: No dominant adenopathy or fluid collection. There is an orogastric tube. The t ip is in the body of the stomach. The esophagus is unremarkable. Visualized thyroid: Unremarkable. Pleura: No effusion or pneumothorax. Heart: Mild cardiomegaly. Mild coronary artery calcification. No pericardial effusion. Aorta: The ascending thoracic aorta measures 4.0 x 4.2 cm. There is atherosclerosis throughout the t horacic aorta. No evidence of dissection. 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 Soft Tissues: Unremarkable. Tubes, Catheters, and Lines: The patient has both an endotracheal tube and an orogastric tube is desc ribed above. Bones: Within normal limits for the patient's age. ABDOMEN AND PELVIS: Abdomen: The patient has a aorto bi-iliac stent. There are stents at the origins of both renal arter ies. Celiac axis/mesenteric arteries: No evidence of occlusion or significant stenosis. Renal Arteries: No evidence of occlusion or significant stenosis. There is a single renal artery per fusing each kidney. Aorta: No evidence of occlusion or significant stenosis. The aneurysmal sac measures 8.5 x 8.5 cm. Pelvis: Iliac Arteries: No evidence of occlusion or significant stenosis. Mild atherosclerosis is present. ABDOMEN: Liver: Normal density. No measurable mass. Gallbladder and Biliary Tract: Cholelithiasis. No biliary ductal dilatation. Pancreas: There is a 0.8 x 1.7 cm cyst in the tail of the pancreas. There is a persistent area of de creased attenuation in the head of the pancreas measuring at least 2 x 1.7 cm. Spleen: Normal. Adrenals: No masses seen. Kidneys: Bilateral renal cortical atrophy. There is a nonobstructing stone in the lower pole of the right kidney. There is a cyst in the superior pole of the right kidney. Bowel: No obstruction or bowel wall thickening. No evidence of appendicitis. There is diverticulosis in the colon, but no evidence of acute diverticulitis. Peritoneal Cavity: No ascites, collection or mesenteric inflammatory response. No free air. Lymph Nodes: Within normal limits. Bones: Within normal limits for the patient's age. Soft Tissues: Unremarkable. IMPRESSION: 1. In the chest, no evidence of a pulmonary embolism or thoracic aortic dissection. 2. Endotracheal tube and orogastric tube tips are in good position. 3. Mild dependent atelectasis in the lung bases. 4. No abdominal aortic aneurysm with an aorto bi-iliac stent in place. No complications are seen of the stent or the aneurysm. 5. Stable pancreatic cysts. Recommended continued imaging every 2 years x5. (Radha et al, 2017). 6. No acute abdominal process. 7. Findings were discussed with Dr. Vallejo at 9:15 a.m. on 04/15/2022. RADIATION DOSE DELIVERED: Total DLP DATA REPOSITORY: All CT scans at this facility are submitted to the National Radiology Data Registry (NRDR) Dose Index Registry (DIR) with the [employer] (ACR). RADIATION OPTIMIZATION: All CT scans at this facility use at least one of these dose optimization te chniques: automated exposure control; mA and/or kV adjustment per patient size (includes targeted exa ms where dose is matched to clinical indication); or iterative reconstruction.
[2022-04-15] MEDS: Omnipaque 350 MG/ML 100 ML BTL IJ (09:02)
[2022-04-15] MEDS: Normal Saline - Diluent 50 ML VIAL IJ (09:05)
[2022-04-15 09:09] LABS: COVID-19 PCR Negative (Negative)
[2022-04-15 09:33] LABS: BE (Venous) -8 mmol/L (-2-3); HCO3 (Venous) 20 mmol/L (23-28); O2 Sat (Venous) 71 %; TCO2 (Venous) 19 mmol/L (24-29); pCO2 (Venous) 55 mmHg (41-51); pO2 (Venous) 44 mmHg
[2022-04-15] MEDS: fentaNYL 1,000 MCG in Normal Saline 80 ML 2.5 MCG IV (09:33)
[2022-04-15] MEDS: MIDAZOLAM 50 MG in Normal Saline 90 ML IV (09:33)
[2022-04-15 09:38] LABS: pH (Venous) 7.18 (7.31-7.41)
[2022-04-15 09:50] LABS: Anion Gap 8.1 mmol/L (3-11); BUN 20 mg/dL (7-18); CO2 22.9 mmol/L (21.0-32.0); CREATININE 1.5 mg/dL (0.70-1.30); Calcium 7.6 mg/dL (8.5-10.1); Chloride 101 mmol/L (98-107); Estimated GFR 47.36 (mL/min/1.73m2); Glucose 422 mg/dL (74-106); Potassium 5.2 mmol/L (3.5-5.1); Sodium 132 mmol/L (136-145)
[2022-04-15] MEDS: PROPOFOL 1,000 MG/100 ML BTL 25.2 MG (10:20)
[2022-04-15 10:46] LABS: Troponin I 389 ng/L (<or=60)
[2022-04-15] MEDS: LORazepam 2 MG/ML VIAL IVP (10:57)
[2022-04-15] MEDS: INSULIN REGULAR IN 0.9 % NACL 100 UNIT/100 ML BAG IV (11:22)
[2022-04-15] MEDS: SODIUM BICARBONATE 150 MEQ in DEXTROSE 5%-WATER 850 ML IV (11:33)
--- NOTE | 2022-04-15 12:00 | NUR.NOTE ---
Nursing Note: [facility] staff did not want fentynal and midazolam drips, wasted in the waste bin, witnessed by Andrew Chavez RN.
--- NOTE | 2022-04-15 12:20 | NUR.NOTE ---
Witness was of Fentanyl and Versed infusion bags by WILL Palomares.Nursing Note:
--- NOTE | 2022-04-20 07:47 | NUR.NOTE ---
Nursing Note: Accessed patient chart to determine how many EKG orders were in the chart from the ED. There was an outstanding EKG in ordered status. There are no EKG's in the [facility] system that are outstanding. EKG order was deleted.
== END 2022-04-15 11:54 | disposition short-term general hospital (02) ==
PROVIDERS: Emergency Provider Emergency Medicine
DX: R56.9 Unspecified convulsions (principal); R41.82 Altered mental status, unspecified; E87.6 Hypokalemia; E87.20 Acidosis, unspecified; E11.65 Type 2 diabetes mellitus with hyperglycemia; I95.9 Hypotension, unspecified; Z20.822 Contact with and (suspected) exposure to COVID-19; S09.8XXA Other specified injuries of head, initial encounter; W18.39XA Other fall on same level, initial encounter; I48.91 Unspecified atrial fibrillation
CPT/HCPCS: 31500; 36415; 36416; 51702; 71045; 71275; 74175; 80048; 80053; 80307; 82550; 82805; 82962; 87635; 93005; 96361; 96365; 96366; 96367; 96368; 96375; 96376; 99285; 70450; 80320; 80329; 81003; 81015; 83735; 84443; 84484; 85025; 85610; 85730; 93010; J1953; J2060; J2405; J3010; J3480; J3490; J7060

== ENCOUNTER 2023-11-11 08:32 | Emergency (ER) | payer MEDICARE, SELFPAY ==
[2023-11-11 08:33] VITALS: BP 199/102; PULSE 70; RESP 18; TEMP 36.4; O2SAT 98
--- NOTE | 2023-11-11 08:45 | DI.CT_ITS ---
Exam(s) CT BRAIN NECK CTA EXAM: CT BRAIN NECK CTA CLINICAL HISTORY: L sided mild sensory deficit, onset 24 hours. TECHNIQUE: Imaging Protocol: Axial CT angiography was performed with multi-slice acquisition and mu lti-planar and MIP reconstructions. CONTRAST MATERIAL: Intravenous: Omnipaque 350 Contrast volume:85 mL COMPARISON: CT CT HEAD WO from 01/29/[address] THORAX ABDOMEN CTA from 04/15/[address] HEAD WO from 04/15/2022 FINDINGS: CT Head W/O and W contrast: Ventricles and Extra axial spaces: Normal in size and morphology for the patient's age. Hemorrhage: None. Cerebral parenchyma: No evidence of acute infarct or mass. Moderate atrophy. 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 White matter changes of small vessel disease. Midline shift: None. Brainstem/Cerebellum: No acute findings.. Calvarium: Normal. Visualized Paranasal sinuses/Mastoids: Clear. Soft Tissues: Unremarkable. Enhancement: Normal. CTA Brain W: Internal Carotid Arteries: Petrous: Normal. Cavernous: Normal. Cerebral: Normal. Middle Cerebral Arteries: Right: No aneurysm, occlusion or significant stenosis. Left: No aneurysm, occlusion or significant stenosis. Anterior Cerebral Arteries: Right: No aneurysm, occlusion or significant stenosis. Left: No aneurysm, occlusion or significant stenosis. Posterior cerebral Arteries: Right: No aneurysm, occlusion or significant stenosis. Left: No aneurysm, occlusion or significant stenosis. Vertebral Arteries: Right: No aneurysm, occlusion or significant stenosis. Left: No aneurysm, occlusion or significant stenosis. Basilar Artery: Supplied by the right vertebral. No aneurysm, occlusion or significant stenosis. CTA Neck W: Common Carotid: Right: . Plaque at the bulb. No dissection, occlusion or significant stenosis. Left: Plaque at origin, less than 50 percent stenosis. No dissection, occlusion. Heavy plaque at th e bifurcation. External Carotid: Right: No dissection, occlusion or significant stenosis. Left: No dissection, occlusion or significant stenosis. Internal Carotid: Right: No dissection, occlusion. Heavy plaque proximally causing approximately 50 percent stenosis Left: Proximal plaque. No significant stenosis or dissection. Vertebral Artery: Right: Dominant. No dissection, occlusion or significant stenosis. Left: Terminates in PICA. Lung Apices: No acute findings. Emphysematous changes. Bones: No acute abnormality. Degenerative changes. Soft Tissues: Normal. IMPRESSION: 1. CTA brain: Normal CTA examination of the [place]. 2. Head CT: Unremarkable CT Head. 3. CTA neck: Normal CTA examination of the neck. 4. Findings called to Gurpreet Smith of the emergency department. RADIATION DOSE DELIVERED: 2,266.25mGy.cm Total DLP DATA REPOSITORY: All CT scans at this facility are submitted to the National Radiology Data Registry (NRDR) Dose Index Registry (DIR) with the [employer] (ACR). RADIATION OPTIMIZATION: All CT scans at this facility use at least one of these dose optimization te chniques: automated exposure control; mA and/or kV adjustment per patient size (includes targeted exa ms where dose is matched to clinical indication); or iterative reconstruction.
--- NOTE | 2023-11-11 08:45 | RT.EKG_ITS ---
APPROVED REPORT Exam: Resting ECG Reason for Exam: baseline/screening Patient Location: E HR:63 bpm ECG Measurements Heart Rate 63 AXIS SC 162 P 28 QRSd 101 QRS -26 QT 404 T 25 QTc 414 Conclusion Sinus rhythm...normal P axis, V-rate 60- 99 Physician: no stemi
--- NOTE | 2023-11-11 08:48 | ED.GENADUL_ITS ---
Discharge Plan Disposition Patient Disposition: Against Medical Advice Condition: Stable Discharge Details Clinical Impression: Left sided numbness Primary Care Provider: Debbie Lopez ED Provider: Gurpreet Smith Home Meds and New Rx's Prescriptions: Continued ibuprofen 600 MG tablet 600 mg PO BID atenolol 50 MG tablet 50 mg PO DAILY oxycodone 10 MG tablet 10 mg PO Q6H PRN PRNQty: 14 0RF ondansetron 4 MG tablet,disintegrating 4 mg PO Q8H PRN PRNQty: 30 0RF metformin 1,000 mg tablet 1,000 mg PO DAILY Patient Comments: TAKE ONE TABLET BY MOUTH EVERY DAY doxycycline hyclate 100 mg tablet 100 mg PO BID Qty: 20 0RF Discharge Instructions Instructions: Transient ischemic attack, Stroke Additional Instructions: You were seen in the emergency department for your possible small vessel stroke with left-sided facial numbness and left arm numbness without motor deficit. Your NIH stroke score is 1. 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 You state that you do not want to be admitted, do not want an MRI. You do not want your blood pressure which is poorly controlled adjusted by his new medications from inpatient admission. You chose to leave AGAINST MEDICAL ADVICE acknowledging that there is a high risk for having another stroke and possibly coma or or permanent neurologic disability associated with failure to treat your condition. My recommendations would have been to be admitted for MRI, possibility of ultrasound of carotid vessels, medical management including adding a statin-this is a cholesterol-lowering drug, as well as dual antiplatelet therapy with aspirin and clopidogrel, and evaluation of your poorly controlled hypertension. I have placed you on a list to follow-up with our neurology service on an outpatient basis please talk to your primary care provider about all of the medications I have listed above. Please return to the emergency department for any further episodes of unresponsiveness, motor deficits, speech problems, cognitive functioning issues or other suspicions for possible stroke or any other emergent pathology like chest pain, near fainting, shortness of breath, severe abdominal pain. Referrals: [facility] [Provider Group] Debbie Lopez [Primary Care Provider] - Discharge Data Discharge Date/Time-TO BE ENTERED AT DEPARTURE: 11/11/23 11:38 HPI General Date/Time Provider Initiated Documentation: 11/11/23 08:39 . HPI Narrative: 77 year-old male presents to ED today with a chief complaint of left sided facial and arm tingling/numbness with onset yesterday morning upon awakening. Patient has a history of CVA in 2021. Quality described as isolated L sided facial numbness/tingling, and left arm diminished sensation, denies left leg symptoms, no radiation to slurred speech, motor weakness, unstable gait, confusion, visual changes, chest pain, vertigo, shortness of breath, altered mental status. Severity is described as unable to quantify. Palliating factors include nothing specific attempted. Provoking factors include nothing specific- woke up this way yesterday. Events leading up to the incident/Associated Symptoms: Patient is not on a statin, takes 81mg ASA daily, does not take clopidogrel. Patient states he took his atenolol this morning despite his uncontrolled HTN here on arrival- states he gets white coat HTN. Patient not anticoagulated. Related Data Home Medications Medication Instructions Recorded Confirmed atenolol 50 mg tablet 50 mg PO DAILY 12/14/15 01/29/21 ibuprofen 600 mg tablet 600 mg PO BID 12/14/15 07/31/16 ondansetron 4 mg disintegrating 4 mg PO Q8H PRN PRN ##30 07/31/16 tablet oxycodone 10 mg tablet 10 mg PO Q6H PRN PRN #14 tabs 07/31/16 metformin 1,000 mg tablet 1,000 mg PO DAILY 01/29/21 01/29/21 doxycycline hyclate 100 mg tablet 100 mg PO BID #20 tabs 01/30/21 Previous Rx's Medication Instructions Recorded ondansetron 4 mg disintegrating 4 mg PO Q8H PRN PRN ##30 07/31/16 tablet oxycodone 10 mg tablet 10 mg PO Q6H PRN PRN #14 tabs 07/31/16 doxycycline hyclate 100 mg tablet 100 mg PO BID #20 tabs 01/30/21 Allergies Allergy/AdvReac Type Severity Reaction Status Date / Time No Known Allergies Allergy Unverified 04/15/22 07:06 General Stated Complaint: GenMedical JU: 3 Review of Systems All systems reviewed & are unremarkable except as noted in HPI and below Exam Narrative Exam Narrative: GENERAL APPEARANCE: Well-nourished, non-toxic, awake and alert, atraumatic, no acute distress. SKIN: Warm, pink, dry, intact, without rashes/lesions/ulcerations. HEAD: Normocephalic, atraumatic, normal hair distribution for gender/age. EYES: Pupils PERRLA, EOMs intact without nystagmus, normal conjunctiva, no exudates on lids/lashes. ENT: Nares patent, no circumoral cyanosis, no facial swelling NECK: Supple, trachea midline, painless cervical ROM. LUNGS/CHEST: Lungs CTA bilaterally, non-labored respirations, normal A/P diameter, symmetrical expansion, no chest wall deformity HEART (CV/PV): Regular rate and rhythm without murmur, no peripheral edema, no J VD. ABDOMEN: Soft, non-distended, no guarding. MSK: Normal ROM, no swelling/deformity to bilateral UEs or LEs, moving all extremities without weakness, no cyanosis, spine midline without tenderness, n ormal curvature. NEURO: Mental Status AAOx4 - alert to person, place, time, events No facial droop, no forehead involvement, no dysmetria with FNF/heel-cordero Motor: No focal weakness - strength 5/5 in bilateral UEs and LEs, proximal and distal, symmetric, patella DTRs 2/4 bilaterally Sensory: sensation intact to light touch globally- diminished in the L face and L upper extremity, normal bilateral LEs Gait normal: patient ambulated without ataxia into ED room. PSYCH: euthymic, cooperative, pleasant, appropriate speech Course Vital Signs Vital signs: Vital Signs Temperature 36.4 C 11/11/23 08:33 Pulse 70 11/11/23 08:33 Respiratory Rate 18 11/11/23 08:33 Blood Pressure 199/102 H 11/11/23 08:33 Pulse Oximetry 98 11/11/23 08:33 Temperature 36.4 C 11/11/23 08:33 Pulse 70 11/11/23 08:33 Respiratory Rate 18 11/11/23 08:33 Blood Pressure 199/102 H 11/11/23 08:33 Blood Pressure Position Sitting 11/11/23 08:33 Pulse Oximetry 98 11/11/23 08:33 Oxygen Delivery Method Room Air 11/11/23 08:33 Oxygen Flow Rate 0 11/11/23 08:33 Pain Level 0 11/11/23 08:33 Medical Decision Making This dictation utilizes [id number] dictation software and may contain unedited grammatical errors. 77 year-old male presents to ED today with a chief complaint of left sided facial and arm tingling/numbness with onset yesterday morning upon awakening. Patient has a history of CVA in 2021. Quality described as isolated L sided facial numbness/tingling, and left arm diminished sensation, denies left leg symptoms, no radiation to slurred speech, motor weakness, unstable gait, confusion, visual changes, chest pain, vertigo, shortness of breath, altered mental status. Severity is described as unable to quantify. Palliating factors include nothing specific attempted. Provoking factors include nothing specific- woke up this way yesterday. Events leading up to the incident/Associated Symptoms: Patient is not on a statin, takes 81mg ASA daily, does not take clopidogrel. Patient states he took his atenolol this morning despite his uncontrolled HTN here on arrival- states he gets white coat HTN. Patients' medical history: T2DM, hypertension, denies cardiac history, endorses history of CVA. Family and social history: Lives at home with his , eats normal diet, no recent travel or sick contacts. Pertinent exam findings / vital signs include NIH: 1, due to subjective diminished sensation on the left side of the face and upper extremity, no motor weakness, no facial droop, no slurred speech, vision intact, benign cardiopulmonary status, noted poorly controlled hypertension. Differential / pathologies of concern include CVA, TIA, HTNsive Emergency, Neuropathy. Diagnostic studies of: -CBC, CMP, Lactate, Procalcitonin, Trop I, BNP, Magnesium, EKG, CTA Head & Neck w Contrast. -CBC shows no leukocytosis, no anemia -CMP shows no major electrolyte abnormality, baseline SUDHIR improved from priors -Trop I neg, BNP neg -Magnesium WNL -EKG without stemi -CTA shows 50% R ICA stenosis, no large vessel occlusion Interventions of: -none- patient refused admission, refused MRI, refused medical management for likely small CVA not seen on CTA. ED Course/Assessment/Plan: 77-year-old male presents with left-sided facial and arm diminished sensation without overt complete numbness onset yesterday upon awakening. He does have a history of stroke in 2021. He has no significant motor deficits, no visual deficits. Patient is mentating normally. His NIH score is 1 due to the diminished sensation of the face and left upper extremity. 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 I did counselor aide him that I would like him to be admitted for possible small stroke, the only definitive rule out would be MRI, he is not on optimal medications including statin and clopidogrel in combination with his daily baby aspirin. He refuses admission, refuses MRI, states he does not want any of these medicines by prescription, he would like me to put information in his discharge packet about what to talk to his regular doctor about, I did counselor aide him on at least trying to take 325 mg or 1 full-strength aspirin daily. Patient was of sound mind to refuse medical care, he is mentating normally, him and his are both comfortable with this disposition. I did counselor aide him that his blood pressure was likely [id number], he did take his atenolol this morning and is currently sitting at a systolic of 205. I did counselor aide him that this would be also better addressed from the inpatient admission. Patient refuses and states that his hypertension is whitecoat and as soon as he leaves the hospital it will self resolve. Patient did sign AGAINST MEDICAL ADVICE information, I did recommend that he see outpatient neurology here at this facility in the next 1 to 2 weeks. Findings not consistent with ACS, HTNsive Emergency. Disposition of Left Sided Numbness. Patient verbalized understanding of the plan and return to ED criteria and engaged in shared decision making. Medical Records Medical records reviewed: Yes I reviewed the patient's medical records. Imaging Data Radiologic Study: Attestation: I personally reviewed and interpreted this imaging study as follows: Imaging: CT Scan Radiologist's impression: EXAM: CT BRAIN NECK CTA CLINICAL HISTORY: L sided mild sensory deficit, onset 24 hours. TECHNIQUE: Imaging Protocol: Axial CT angiography was performed with multi- slice acquisition and multi-planar and MIP reconstructions. CONTRAST MATERIAL: Intravenous: Omnipaque 350 Contrast volume:85 mL COMPARISON: CT CT HEAD WO from 01/29/[address] THORAX ABDOMEN CTA from 04/15/[address] HEAD WO from 04/15/2022 FINDINGS: CT Head W/O and W contrast: Ventricles and Extra axial spaces: Normal in size and morphology for the patient's age. Hemorrhage: None. Cerebral parenchyma: No evidence of acute infarct or mass. Moderate atrophy. Old infarct left frontal lobe. White matter changes of small vessel disease. Midline shift: None. Brainstem/Cerebellum: No acute findings.. Calvarium: Normal. Visualized Paranasal sinuses/Mastoids: Clear. Soft Tissues: Unremarkable. Enhancement: Normal. CTA Brain W: Internal Carotid Arteries: Petrous: Normal. Cavernous: Normal. Cerebral: Normal. Middle Cerebral Arteries: Right: No aneurysm, occlusion or significant stenosis. Left: No aneurysm, occlusion or significant stenosis. Anterior Cerebral Arteries: Right: No aneurysm, occlusion or significant stenosis. Left: No aneurysm, occlusion or significant stenosis. Posterior cerebral Arteries: Right: No aneurysm, occlusion or significant stenosis. Left: No aneurysm, occlusion or significant stenosis. Vertebral Arteries: Right: No aneurysm, occlusion or significant stenosis. Left: No aneurysm, occlusion or significant stenosis. Basilar Artery: Supplied by the right vertebral. No aneurysm, occlusion or significant stenosis. CTA Neck W: Common Carotid: Right: . Plaque at the bulb. No dissection, occlusion or significant stenosis. Left: Plaque at origin, less than 50 percent stenosis. No dissection, occlusion. Heavy plaque at the bifurcation. External Carotid: Right: No dissection, occlusion or significant stenosis. Left: No dissection, occlusion or significant stenosis. Internal Carotid: Right: No dissection, occlusion. Heavy plaque proximally causing approximately 50 percent stenosis Left: Proximal plaque. No significant stenosis or dissection. Vertebral Artery: Right: Dominant. No dissection, occlusion or significant stenosis. Left: Terminates in PICA. Lung Apices: No acute findings. Emphysematous changes. Bones: No acute abnormality. Degenerative changes. Soft Tissues: Normal. IMPRESSION: 1. CTA brain: Normal CTA examination of the [place] of [place]. 2. Head CT: Unremarkable CT Head. 3. CTA neck: Normal CTA examination of the neck. 4. Findings called to Gurpreet Smith of the emergency department. Lab Data Lab results reviewed: Yes I reviewed the patient's lab results. Labs: Laboratory Tests Range/Units 11/11/23 11/11/23 11/11/23 08:45 08:45 08:45 WBC (4.4-10.8) 10^3/uL 8.18 RBC (4.36-5.78) 10^6/uL 4.96 Hgb (13.5-17.5) g/dL 16.0 Hct (40.0-50.0) % 47.8 MCV (80-95) fL 96 H MCH (27.0-33.0) pg 32.3 MCHC (32.0-36.0) % 33.5 RDW (11.8-14.1) % 12.8 Plt Count (130-400) 10^3/uL 218 MPV (8.0-11.0) fL 9.6 Immature Gran % % 0.2 Neutrophils % % 71.9 Lymphocytes % % 18.1 Monocytes % % 7.0 Eosinophils % % 2.3 Basophils % % 0.5 Nucleated RBC % (0.0-0.3) % 0.0 Absolute Neutrophils (1.2-6.7) 10^3/uL 5.88 Absolute Lymphocytes (1.2-3.4) 10^3/uL 1.48 Absolute Monocytes (0.1-0.8) 10^3/uL 0.57 Absolute Eosinophils (0.0-0.7) 10^3/uL 0.19 Absolute Basophils (0.0-0.2) 10^3/uL 0.04 VBG Lactate (0.6-1.4) mmol/L 1.2 Sodium Cancelled 140 Potassium Cancelled 4.8 Chloride Cancelled Carbon Dioxide Anion Gap BUN Creatinine Est GFR (CKD-EPI 2020) Glucose Calcium Magnesium (1.8-2.4) mg/dL Total Bilirubin AST ALT Alkaline Phosphatase Troponin I (< or =60) ng/L NT-Pro-B Natriuret Pep (<300) pg/mL Total Protein Albumin Procalcitonin ng/mL TSH (0.36-3.74) uIU/mL Range/Units 11/11/23 11/11/23 11/11/23 08:45 08:45 08:45 WBC (4.4-10.8) 10^3/uL RBC (4.36-5.78) 10^6/uL Hgb (13.5-17.5) g/dL Hct (40.0-50.0) % MCV (80-95) fL MCH (27.0-33.0) pg MCHC (32.0-36.0) % RDW (11.8-14.1) % Plt Count (130-400) 10^3/uL MPV (8.0-11.0) fL Immature Gran % % Neutrophils % % Lymphocytes % % Monocytes % % Eosinophils % % Basophils % % Nucleated RBC % (0.0-0.3) % Absolute Neutrophils (1.2-6.7) 10^3/uL Absolute Lymphocytes (1.2-3.4) 10^3/uL Absolute Monocytes (0.1-0.8) 10^3/uL Absolute Eosinophils (0.0-0.7) 10^3/uL Absolute Basophils (0.0-0.2) 10^3/uL VBG Lactate (0.6-1.4) mmol/L Sodium Potassium Chloride 105 Carbon Dioxide Cancelled 27.5 Anion Gap Cancelled 7.5 BUN Cancelled Creatinine Est GFR (CKD-EPI 2020) Glucose Calcium Magnesium (1.8-2.4) mg/dL Total Bilirubin AST ALT Alkaline Phosphatase Troponin I (< or =60) ng/L NT-Pro-B Natriuret Pep (<300) pg/mL Total Protein Albumin Procalcitonin ng/mL TSH (0.36-3.74) uIU/mL Range/Units 11/11/23 11/11/23 11/11/23 08:45 08:45 08:45 WBC (4.4-10.8) 10^3/uL RBC (4.36-5.78) 10^6/uL Hgb (13.5-17.5) g/dL Hct (40.0-50.0) % MCV (80-95) fL MCH (27.0-33.0) pg MCHC (32.0-36.0) % RDW (11.8-14.1) % Plt Count (130-400) 10^3/uL MPV (8.0-11.0) fL Immature Gran % % Neutrophils % % Lymphocytes % % Monocytes % % Eosinophils % % Basophils % % Nucleated RBC % (0.0-0.3) % Absolute Neutrophils (1.2-6.7) 10^3/uL Absolute Lymphocytes (1.2-3.4) 10^3/uL Absolute Monocytes (0.1-0.8) 10^3/uL Absolute Eosinophils (0.0-0.7) 10^3/uL Absolute Basophils (0.0-0.2) 10^3/uL VBG Lactate (0.6-1.4) mmol/L Sodium Potassium Chloride Carbon Dioxide Anion Gap BUN 25 H Creatinine Cancelled 1.4 H Est GFR (CKD-EPI 2020) Cancelled 51.13 Glucose Cancelled Calcium Magnesium (1.8-2.4) mg/dL Total Bilirubin AST ALT Alkaline Phosphatase Troponin I (< or =60) ng/L NT-Pro-B Natriuret Pep (<300) pg/mL Total Protein Albumin Procalcitonin ng/mL TSH (0.36-3.74) uIU/mL Range/Units 11/11/23 11/11/23 11/11/23 08:45 08:45 08:45 WBC (4.4-10.8) 10^3/uL RBC (4.36-5.78) 10^6/uL Hgb (13.5-17.5) g/dL Hct (40.0-50.0) % MCV (80-95) fL MCH (27.0-33.0) pg MCHC (32.0-36.0) % RDW (11.8-14.1) % Plt Count (130-400) 10^3/uL MPV (8.0-11.0) fL Immature Gran % % Neutrophils % % Lymphocytes % % Monocytes % % Eosinophils % % Basophils % % Nucleated RBC % (0.0-0.3) % Absolute Neutrophils (1.2-6.7) 10^3/uL Absolute Lymphocytes (1.2-3.4) 10^3/uL Absolute Monocytes (0.1-0.8) 10^3/uL Absolute Eosinophils (0.0-0.7) 10^3/uL Absolute Basophils (0.0-0.2) 10^3/uL VBG Lactate (0.6-1.4) mmol/L Sodium Potassium Chloride Carbon Dioxide Anion Gap BUN Creatinine Est GFR (CKD-EPI 2020) Glucose 138 H Calcium Cancelled 9.1 Magnesium (1.8-2.4) mg/dL 1.8 Total Bilirubin Cancelled 0.6 AST Cancelled ALT Alkaline Phosphatase Troponin I (< or =60) ng/L NT-Pro-B Natriuret Pep (<300) pg/mL Total Protein Albumin Procalcitonin ng/mL TSH (0.36-3.74) uIU/mL Range/Units 11/11/23 11/11/23 11/11/23 08:45 08:45 08:45 WBC (4.4-10.8) 10^3/uL RBC (4.36-5.78) 10^6/uL Hgb (13.5-17.5) g/dL Hct (40.0-50.0) % MCV (80-95) fL MCH (27.0-33.0) pg MCHC (32.0-36.0) % RDW (11.8-14.1) % Plt Count (130-400) 10^3/uL MPV (8.0-11.0) fL Immature Gran % % Neutrophils % % Lymphocytes % % Monocytes % % Eosinophils % % Basophils % % Nucleated RBC % (0.0-0.3) % Absolute Neutrophils (1.2-6.7) 10^3/uL Absolute Lymphocytes (1.2-3.4) 10^3/uL Absolute Monocytes (0.1-0.8) 10^3/uL Absolute Eosinophils (0.0-0.7) 10^3/uL Absolute Basophils (0.0-0.2) 10^3/uL VBG Lactate (0.6-1.4) mmol/L Sodium Potassium Chloride Carbon Dioxide Anion Gap BUN Creatinine Est GFR (CKD-EPI 2020) Glucose Calcium Magnesium (1.8-2.4) mg/dL Total Bilirubin AST 22 ALT Cancelled 34 Alkaline Phosphatase Cancelled 80 Troponin I (< or =60) ng/L < 50 NT-Pro-B Natriuret Pep (<300) pg/mL 159 Total Protein Cancelled Albumin Procalcitonin ng/mL TSH (0.36-3.74) uIU/mL Range/Units 11/11/23 11/11/23 08:45 08:45 WBC (4.4-10.8) 10^3/uL RBC (4.36-5.78) 10^6/uL Hgb (13.5-17.5) g/dL Hct (40.0-50.0) % MCV (80-95) fL MCH (27.0-33.0) pg MCHC (32.0-36.0) % RDW (11.8-14.1) % Plt Count (130-400) 10^3/uL MPV (8.0-11.0) fL Immature Gran % % Neutrophils % % Lymphocytes % % Monocytes % % Eosinophils % % Basophils % % Nucleated RBC % (0.0-0.3) % Absolute Neutrophils (1.2-6.7) 10^3/uL Absolute Lymphocytes (1.2-3.4) 10^3/uL Absolute Monocytes (0.1-0.8) 10^3/uL Absolute Eosinophils (0.0-0.7) 10^3/uL Absolute Basophils (0.0-0.2) 10^3/uL VBG Lactate (0.6-1.4) mmol/L Sodium Potassium Chloride Carbon Dioxide Anion Gap BUN Creatinine Est GFR (CKD-EPI 2020) Glucose Calcium Magnesium (1.8-2.4) mg/dL Total Bilirubin AST ALT Alkaline Phosphatase Troponin I (< or =60) ng/L NT-Pro-B Natriuret Pep (<300) pg/mL Total Protein 8.6 H Albumin Cancelled 4.2 Procalcitonin ng/mL < 0.1 TSH (0.36-3.74) uIU/mL 2.03 Quality:SDOH Health Related Social Needs: No Data to Display PFSH All Active Problems (Updated 11/11/23 @ 11:16 by NORBERT Mckeon) Left sided numbness (Acute) Lesion of pancreas (Acute) Dehydration (Acute) Fever (Acute) Social History Smoking/Tobacco Use Status: Former Tobacco Use Smoking risk assessment performed?: Yes Alcohol Intake: never Drug use: Never Substance use type: does not use Housing: house Do you feel safe at home: Yes Do you feel safe in your relationship?: Yes
[2023-11-11 09:02] VITALS: RESP 14
[2023-11-11 09:05] LABS: Lactate 1.2 mmol/L (0.6-1.4)
[2023-11-11 09:10] LABS: Abs Immature Grans 0.02 10^3/uL (0.0-0.06); Absolute Basophil Count 0.04 10^3/uL (0.0-0.2); Absolute Eosinophil Count 0.19 10^3/uL (0.0-0.7); Absolute Lymphocyte Count 1.48 10^3/uL (1.2-3.4); Absolute Monocyte Count 0.57 10^3/uL (0.1-0.8); Absolute Neutrophil Count 5.88 10^3/uL (1.2-6.7); Basophils % 0.5 %; Eosinophils % 2.3 %; HCT 47.8 % (40.0-50.0); Immature Grans % 0.2 %; Lymphocytes % 18.1 %; MCH 32.3 pg (27.0-33.0); MCHC 33.5 % (32.0-36.0); MCV 96 fL (80-95); MPV 9.6 fL (8.0-11.0); Neutrophils % 71.9 %; Platelet Count 218 10^3/uL (130-400); RBC 4.96 10^6/uL (4.36-5.78); RDW 12.8 % (11.8-14.1); RDW-SD 45.1 fL; WBC 8.18 10^3/uL (4.4-10.8)
[2023-11-11 09:37] LABS: ALT 34 U/L (16-63); AST 22 U/L (15-37); Albumin 4.2 g/dL (3.4-5.0); Alkaline Phosphatase 80 U/L (46-116); Anion Gap 7.5 mmol/L (3-11); BUN 25 mg/dL (7-18); Bilirubin, Total 0.6 mg/dL (0.2-1.0); CO2 27.5 mmol/L (21.0-32.0); CREATININE 1.4 mg/dL (0.70-1.30); Calcium 9.1 mg/dL (8.5-10.1); Chloride 105 mmol/L (98-107); Estimated GFR 51.13 (mL/min/1.73m2); Glucose 138 mg/dL (74-106); Magnesium 1.8 mg/dL (1.8-2.4); NT-proBNP 159 pg/mL (<300); Potassium 4.8 mmol/L (3.5-5.1); Sodium 140 mmol/L (136-145); TSH (W/Ref FT4) 2.03 uIU/mL (0.36-3.74); Total Protein 8.6 g/dL (6.4-8.2); Troponin I < 50 ng/L (< or =60)
[2023-11-11 09:40] LABS: Procalcitonin < 0.1 ng/mL
[2023-11-11] MEDS: Normal Saline - Diluent 50 ML VIAL IJ (09:53)
[2023-11-11] MEDS: Omnipaque 350 MG/ML 100 ML BTL IJ (09:54)
[2023-11-11 10:33] VITALS: BP 205/95; PULSE 57
[2023-11-11] MEDS: Normal Saline 1,000 ML 1000 ML IV (10:39)
[2023-11-11 11:01] VITALS: BP 209/88; PULSE 55
[2023-11-11 11:02] LABS: Bilirubin Negative (Negative); Blood Negative (Negative); Clarity Clear (Clear); Glucose Negative (Negative); Ketones Negative (Negative); Leukocyte Esterase Negative (Negative); Nitrite Negative (Negative); Specific Gravity 1.015 (1.005-1.025); Urobilinogen 0.2 mg/dL (Up to 0.2); pH 5.5 (5-8)
--- NOTE | 2023-11-11 11:27 | NUR.NOTE ---
Referral faxed to Neurology for an appointment within the next 1-2 weeks for leaving AMA while having a stroke.
== END 2023-11-11 11:38 | disposition left against medical advice (07) ==
LOC: ER 11:30
PROVIDERS: Emergency Provider Physician Assistant; PCP Family Medicine
DX: R20.2 Paresthesia of skin (principal); Z53.29 Procedure and treatment not carried out because of patient's decision for other reasons; Z86.73 Personal history of transient ischemic attack (TIA), and cerebral infarction without residual deficits
CPT/HCPCS: 36415; 70496; 70498; 80053; 84145; 93005; 96360; 99285; 81003; 83605; 83735; 83880; 84443; 84484; 85025; 93010; 99283; J3490

== ENCOUNTER → 2023-11-17 13:29 | Outpatient (BNVA) | payer MEDICARE, SELFPAY | PROVIDERS: PCP Family Medicine; Referring Provider Physician Assistant; Visit Provider Psychiatry & Neurology Neurology | DX: I63.9 Cerebral infarction, unspecified (principal); I48.0 Paroxysmal atrial fibrillation; I65.22 Occlusion and stenosis of left carotid artery | CPT/HCPCS: 99215; G2212 ==

== ENCOUNTER → 2024-01-19 09:59 | Outpatient (BNVA) | payer MEDICARE, SELFPAY | PROVIDERS: PCP Family Medicine; Referring Provider Family Medicine; Visit Provider Psychiatry & Neurology Neurology | DX: I63.9 Cerebral infarction, unspecified (principal); I48.0 Paroxysmal atrial fibrillation; I65.22 Occlusion and stenosis of left carotid artery | CPT/HCPCS: 99214 ==

== ENCOUNTER 2024-02-05 01:31 | Outpatient (CLI) | payer MEDICARE, SELFPAY ==
--- OUTSIDE RECORDS SUMMARY | 2024-02-05 01:37 | XMS_ITS | Referral Summary ---
Author Organization [facility] Address [address] [place] [address] Care Team Providers Care Real Estate Inspector Name Role Phone Debbie Lopez MD Primary Care Provider [phone] Medications Medication Sig Dispensed Refills Start Date End Date Status aspirin chewable 81 mg tablet Take 81 mg by mouth daily. Active insulin pen needles 31G x 3/16 (PEN NEEDLE)Indications:Othe r specified diabetes mellitus with other specified complication, unspecified whether bed bug exterminator insulin use ([facility]) by misc (non-drug; combo route) route daily. 100 Each 1 04/18/2022 Active blood glucose (ONETOUCH VERIO TEST STRIPS) test stripsIndications:Other specified diabetes mellitus with other specified complication, unspecified whether fpc insulin use ([facility]) 1 Strip by misc (non-drug; combo route) route 2 times daily. 70 Each 3 04/18/2022 Active lancets (ONETOUCH ULTRASOFT LANCETS)Indications:Oth er specified diabetes mellitus with other specified complication, unspecified whether bed bug exterminator insulin use ([facility]) Test blood sugar 1-2 times daily. 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 04/18/2022 Carotid stenosis, bilateral 04/18/2022 Lesion of parotid gland 04/18/2022 Hypertension 04/18/2022 DKA, type 2, not at goal ([facility]) 04/15/2022 Resolved Problems Problem Noted Date Diagnosed Date Resolved Date NSTEMI (non-ST elevated myoc ardial infarction) ([facility]) 04/18/2022 04/18/2022 Acute metabolic encephalopathy 04/15/2022 04/18/2022 Acute respiratory failure wi th hypoxia ([facility]) 04/15/2022 04/18/2022 Lactic acidosis 04/15/2022 04/18/2022 Seizure ([facility]) 04/15/2022 04/18/2022 Social History Tobacco Use Types Packs/Day Years Used Date Smoking Tobacco: Never Smokeless Tobacco: Never Tobacco Cessation:Counseling Given: Not Answered Sex and Gender Information Value Date Recorded Sex Assigned at Not on file Gender Identity Male 04/15/2022 10:37 EST Sexual Orientation Not on file Last Filed Vital Signs Vital Sign Reading Time Taken Comments Blood Pressure 130/93 04/18/2022 1104 EST Pulse - - Temperature 36.7 ??C (98.1 ??F) 04/18/2022 0445 EST Respiratory Rate 18 04/17/2022 1550 EST Oxygen Saturation 95% 04/18/2022 0445 EST Inhaled Oxygen Concentration - - Weight 93.1 kg (205 lb 4 oz) 04/15/2022 1317 EST Height 180.3 cm (5' 10.98) 04/16/2022 0500 EST Body Mass Index 28.64 04/15/2022 1317 EST Functional Status Functional Status Response Date of Assess ment Are you deaf or do you have serious difficulty h earing? No 04/16/2022 Are you blind or do you have serious difficulty seeing, even when wearing glasses? No 04/16/2022 Do you have serious difficul ty walking or climbing stairs? (5 years old or older) No 04/16/2022 Do you have difficulty dress ing or bathing? (5 years old or older) No 04/16/2022 Because of a physical, menta l, or emotional condition, do you have difficulty doing errands alone such as visiting a doctor's office or shopping? (15 years old or older) No 04/16/2022 Cognitive Status Response Date of Assessm ent Because of a physical, menta l, or emotional condition, do you have serious difficulty concentrating, remembering, or making decisions? (5 years old or older) No 04/16/2022 Plan of Treatment Not on file Medical Devices Implanted Type Area Machine Sole Leveler Device Identifier Shelf Expiration Date Model / Serial / Lot Icast Stents X2 Mr Conditional1.5 And 3t Stent Description:Patient has (2) 6 X 22 Icast stents. Non-clinical testing demonstrated that the implant/device is MR Conditional. A patient with this implant/device can be scanned safely immediately after placement under the following conditions: ? ? Static magnetic field of 1.5-Katia and 3-Katia, only ? ? Maximum spatial gradient magnetic field of 720-gauss/cm (a higher spatial gradient magnetic field value may apply if properly calculated) ? ? Maximum MR system reported weykp-ibxj-vufeghiy specific absorption rate (ANGIE) of 2-W/kg (i.e., the Normal Operating Mode) for 15 minutes of scanning (per pulse sequence) Per [employer] BSB/AL. Procedures Procedure Name Priority Date/Time Associated Diagnosis Comments HEMOGLOBIN A1C Routine 04/15/2022 13:46 EST from Last 3 Months or Most Recently Relevant to Health Maintenance Results * (ABNORMAL) HEMOGLOBIN A1C (04/15/2022 13:46 EST) Hemoglobin A1c 13.2(H) <5.7 % 04/15/2022 16:08 EST [facility] Comment: Glycemic Status References: Normal: ??<5.7% Pre-Diabetes: ??5.7% - 6.4% Diagnostic of Diabetes: ??> or = 6.5% (if confirmed) Est Avg Glucose 332 mg/dL 16:08 EST [facility] Comment:The eAG represents t he A1c result expressed as average glucose in mg/dL. Blood VENOUS BLOOD / Unknown Venipuncture / Unknown 04/15/2022 13:46 EST 04/15/2022 14:00 EST Fabienne Norris MD CHEMISTRY & BL OOD GAS ORDERABLES [facility] [address] [place] [address] from Last 3 Months or Most Recently Relevant to Health Maintenance Advance Directives For more information, please contact: [phone] Documents on File Type Date Recorded Patient Acid Regenerator Expl anation COLST/MOLST 04/23/2022 10:50 [place] DNR/COLST COLST/MOLST 04/23/2022 10:50 DNR/COLST * Limitation of Treatment (Latest Code Status on File) Date Activated Date Inactivated Comments 04/16/2022 13:40 04/18/2022 13:37 Question Answer Comments When the patient has NO PULSE: DNR When the patient HAS A PULSE and is in respiratory distress/failure: Do not intubate (DNI) Who Made the Decision? Patient * Full Code Date Activated Date Inactivated Comments 04/15/2022 13:03 04/16/2022 13:40 Question Answer Comments When the patient has NO PULSE: Full Code / CPR Who Made the Decision? Default/Not Discussed Care Teams Real Estate Inspector Relationship Specialty Start Date End Date Debbie Lopez MD [address] [place] [phone] PCP - General Family Medicine - Primary Care 04/16/22
--- OUTSIDE RECORDS SUMMARY | 2024-02-05 01:37 | XMS_ITS | Encounter Summary ---
Author Organization [facility] Address [address] [place] [address] Care Team Providers Care Carbon Setter Name Role Phone Debbie Lopez MD Primary Care Provider [phone] Reason for Visit * Auth/Cert (Routine) Specialty Diagnoses / Procedures Referred By Contac t Referred To Contact Diagnoses DKA, type 2, not at goal ([facility]) Seizures Referral ID Status Reason Start Date Expiration Date Visits Re quested Visits Authorized [id number] 1 1 Encounter Details Date Type Department Care Team (Late st Contact Info) Description 04/16/2022 13:35 EST Ancillary Procedure [facility] Vascular Surgery - [address] [address] Bautista Hurtado MD [address] [place] [place] [phone] aLtonya Marx MD [address] [place] [phone] Social History Tobacco Use Types Packs/Day Years Used Date Smoking Tobacco: Never Smokeless Tobacco: Never Sex and Gender Information Value Date Recorded Sex Assigned at Not on file Gender Identity Male 04/15/2022 10:37 EST Sexual Orientation Not on file COVID-19 Exposure Response Date Recorded In the last 10 days, have yo u been in contact with someone who was confirmed or suspected to have Coronavirus/COVID-19? Unable to assess 04/15/2022 10:04 EST documented as of this encounter Functional Status Functional Status Response Date of [...] (5 years old or older) No 04/16/2022 documented as of this encounter Plan of Treatment Not on file documented as of this encounter Procedures Procedure Name Priority Date/Time Associated Diagnosis Comments US CAROTID-VERTEBRAL DUPLEX Routine 04/16/2022 15:30 EST documented in this encounter Results * US CAROTID-VERTEBRAL DUPLEX BILATERAL (04/16/2022 15:30 EST) Left CCA dist sys 87 cm/s [facility] Left CCA dist rosado 25 cm/s [facility] Left CCA prox sys 71 cm/s [facility] Left CCA prox rosado 15 cm/s [facility] POINT [facility] Left ICA dist sys -55 cm/s [facility] POINT [facility] Left ICA dist rosado -21 cm/s [facility] POINT [facility] C[facility] Left ICA prox sys -255 cm/s [facility] POINT [facility] C[facility] Left ICA prox rosado -82 cm/s [facility] POINT OF CARE Left ECA sys 203 cm/s [facility] P OINT OF CARE LEFT EXTERNAL CAROTID ARTERY D 23 cm/s [facility] POINT OF C[facility] Left subclavian sys 92 cm/s [facility] POINT [facility] Left vertebral sys 25 cm/s [facility] LEFT VERTEBRAL ARTERY D 8 cm/s [facility] Left prox ICA/distal CCA sys ratio 2.93 [facility] POINT [facility] Right cca dist sys 156 cm/s [facility]INT [facility] Right CCA dist rosado 32 cm/s [facility] POINT [facility] Right CCA prox sys -88 cm/s [facility]INT [facility] Right CCA prox rosado -17 cm/s [facility] POINT [facility] Right ICA dist sys -83 cm/s [facility]INT [facility] Right ICA dist rosado -29 cm/s [facility] POINT [facility] C[facility] Right ICA prox sys -140 cm/s [facility] POINT OF [facility] Right ICA prox rosado -29 cm/s [facility] POINT OF C[facility] Right eca sys -181 cm/s [facility] POINT OF CARE RIGHT EXTERNAL CAROTID ARTERY D -23 cm/s [facility] POINT OF CARE Right subclavian sys 125 cm/s [facility] POINT O F CARE Right vertebral sys 63 cm/s [facility] POINT OF C[facility] RIGHT VERTEBRAL ARTERY D 21 cm/s [facility] POINT OF C[facility] Right CCA dist sys ratio 1.5 [facility] POINT OF C[facility] Right prox ICA/distal CCA sys ratio 1.39 [facility] POINT OF CARE Anatomical Region Laterality Modality Vascular Ultrasound Narrative 04/21/2022 9:28 EST ?The right proximal internal carotid artery demonstrated 50-79% stenosis. ?The left proximal internal carotid artery demonstrated 50-79% stenosis. ?The bilateral vertebral arteries demonstrated antegrade flow. Right Carotid The right proximal internal carotid artery demonstrated 50-79% stenosis. Plaque in the right proximal internal carotid was smooth and heterogeneous. The right vertebral artery had antegrade flow. Left Carotid The left proximal internal carotid artery demonstrated 50-79% stenosis. Plaque in the left proximal internal carotid was smooth and homogeneous. The left vertebral artery had antegrade flow. Cerebrovascular HPI and Indications Syncope Cerebrovascular Past Medical History Hypertension and Diabetes Mellitus. Kyree JONES VASCULAR FERNANDA BARRY documented in this encounter Visit Diagnoses Not on filedocumented in this encounter Care Teams Carbon Setter Relationship Specialty Start Date End Date Debbie Lopez MD [address] [place] [phone] PCP - General Family Medicine - Primary Care 04/16/22 documented as of this encounter
--- OUTSIDE RECORDS SUMMARY | 2024-02-05 01:37 | XMS_ITS | Encounter Summary ---
Author Organization [facility] Address [address] [place] [address] Care Team Providers Care Nursing Student Name Role Phone Zuleika Moreno MD Primary Care Provider [phone] Reason for Visit * (Routine/Next Available) - Receiving Office to Obtain Authorization Specialty Diagnoses / Procedures Referred By Lorenzo peralta Referred To Contact Procedures CT OUTSIDE IMAGES NEURO Imaging, External Referral ID Status Reason Start Date Expiration Date Visits Requested Visits Authorized [id number] Receiving Office to Obtain Authorization 2 1 1 Encounter Details Date Type Department Care Team (Latest Contact Info) Description 04/15/2022 9:55 EST Hospital Encounter [facility] Secondary Reads [place] Discharge Disposition: Home or Self Care Social History Tobacco Use Types Packs/Day Years Used Date Smoking Tobacco: Never Assessed Sex and Gender Information Value Date Recorded Sex Assigned at Not on file Gender Identity Male 04/15/2022 10:37 EST Sexual Orientation Not on file documented as of this encounter Medications at Time of Discharge Medication Sig Dispensed Refills Start Date End Date aspirin chewable 81 mg tablet Take 81 mg by mouth daily. blood glucose (ONETOUCH VERIO TEST STRIPS) test stripsIndications:Other specified diabetes mellitus with other specified complication, unspecified whether skilled nursing insulin use (HCC-CMS) 1 Strip by misc (non-drug; combo route) route 2 times daily. 70 Each 3 04/18/2022 insulin pen needles 31G x 3/16 (PEN NEEDLE)Indications:Othe r specified diabetes mellitus with other specified complication, unspecified whether skilled nursing insulin use (HCC-CMS) by misc (non-drug; combo route) route daily. 100 Each 1 04/18/2022 lancets (ONETOUCH ULTRASOFT LANCETS)Indications:Oth er specified diabetes mellitus with other specified complication, unspecified whether regional intermodal truck driver insulin use ([facility]) Test blood sugar 1-2 times daily. 100 Each 3 04/18/2022 atenoloL (TENORMIN) 50 mg tablet Take 50 mg by mouth daily. 04/18/2022 atorvastatin (LIPITOR) 40 mg tablet Take 1 Tablet by mouth daily for 30 days. 30 Tablet 3 04/19/2022 05/19/2022 blood glucose (ONETOUCH VERIO TEST STRIPS) test strips 1 Strip by misc (non-drug; combo route) route 2 times daily. 70 Each 3 04/18/2022 04/18/2022 insulin glargine (LANTUS SOLOSTAR/SEMGLEE) 100 unit/mL (3 mL) injection pen Inject 14 Units into the skin at bedtime for 30 days. 4 Each 3 04/18/2022 05/18/2022 lancets (ONETOUCH ULTRASOFT LANCETS) Test blood sugar 1-2 times daily. 100 Each 3 04/18/2022 04/18/2022 lisinopriL (PRINIVIL) 5 mg tablet Take 1 Tablet by mouth daily for 30 days. 30 Tablet 3 04/19/2022 05/19/2022 metFORMIN (GLUCOPHAGE) 500 mg tablet Take 1 Tablet by mouth 2 times daily with breakfast and dinner for 30 days. 60 Tablet 3 04/18/2022 05/18/2022 documented as of this encounter Discharge Disposition Disposition Code Departure Means Destination Home or Self Care documented in this encounter Plan of Treatment Not on file documented as of this encounter Procedures Procedure Name Priority Date/Time Associated Diagnosis Comments CT OUTSIDE IMAGES NEURO Routine 04/15/2022 9:57 EST documented in this encounter Results * CT OUTSIDE IMAGES NEURO (04/15/2022 9:57 EST) Narrative 04/15/2022 9:57 EST This is a non-reportable exam. External Imaging IMG OTHER IMAGING OR DERABLES documented in this encounter Visit Diagnoses Not on filedocumented in this encounter Care Teams Nursing Student Relationship Specialty Start Date End Date Zuleika Moreno MD [address] [place] [phone] PCP - General 04/15/22 04/15/22 documented as of this encounter
--- OUTSIDE RECORDS SUMMARY | 2024-02-05 01:37 | XMS_ITS | Encounter Summary ---
Author Organization [facility] Address [address] [place] [address] Care Team Providers Care Steel Box Toe Inserter Name Role Phone Zuleika Moreno MD Primary Care Provider [phone] Encounter Details Date Type Department Care Team (Latest Contact Info) Description 04/15/2022 Travel Social History Tobacco Use Types Packs/Day Years [...] 10:04 EST documented as of this encounter Plan of Treatment Not on file documented as of this encounter Visit Diagnoses Not on filedocumented in this encounter Care Teams Steel Box Toe Inserter Relationship Specialty Start Date End Date Zuleika Moreno MD [address] [place] [phone] PCP - General 04/15/22 04/15/22 documented as of this encounter
--- OUTSIDE RECORDS SUMMARY | 2024-02-05 01:37 | XMS_ITS | Encounter Summary ---
Author Organization [facility] Address [address] [place] [address] Care Team Providers Care Stone Banker Name Role Phone Zuleika Moreno MD Primary Care Provider [phone] Debbie Lopez MD Primary Care Provider [phone] Reason for Visit * Reason Onset Date Comments Discuss Possible Transfer 04/15/2022 Encounter Details Date Type Department Care Team (Late st Contact Info) Description 04/15/2022 Telephone [facility] [address] [place], [place] [address] Bautista Hurtado MD [address] [facility], [address] [place] [address] Discuss Possible Transfer Social History Tobacco Use Types Packs/Day Years [...] 10:04 EST documented as of this encounter Miscellaneous Notes * Telephone Encounter - Bautista Hurtado MD - 04/15/2022 0908 EST DATE: 04/15/2022 TIME: 9:48 REFERRING FACILITY: [facility] REFERRING PHYSICIAN: ED Provider REASON FOR TRANSFER (CC): DKA, seizures, intubated, [facility] refused transfer BRIEF HISTORY: 76 AAA s/p repair, DKA, hypertension, presented with seizure episode (witnessed) with fall, with multiple seizures en route, and in ED. Intubated for airway protection. CTH - negative for intracranial hemorrhage, old lacunar infarcts. 7.01 AG 20s Glu 300s Atrial fibrillation, converted to sinus rhythm Tox: negative CXR: no consolidation Swab: COVID neg Repeat CTA - mural thrombus without extravasation Loaded with chito mazariegos from CT - decision maker, notes if there is meaningful recovery, ok to continue. If futile care, wouldwant to transition to comfort measures. CODE STATUS: Full Code EXAM: Vitals: O2/airway: Vent settings: 480 12 5 50% Vascular access: 2 peripheral IVs, 20 and 18g Relevant physical exam: LABS: Electrolytes: Blood count: Blood gas: Trops/CK: Cultures (prior): EKG: Other procedures: IMAGING: CXR: CT: MRI: Images pushed? ASSESSMENT: Expectations for patient care at [employer]? (i.e. what will we do additionally or differently?) Goals of care? Does patient need to come? PRIOR TO TRANSPORT Abx given?: Fluid resuscitation?: Additional labs?: Need better access prior to transport?: Need better respiratory support/intubation prior to transport?: Precautions? (MRSA, VRE, airborne, etc.): Transport Considerations (outside facility coordinates) ALS ambulance What needs to go in the transport vehicle in case? (?pressors, blood, etc.) If not accepting to MICU, what is the disposition?: Bautista Hurtado MD 04/15/2022 documented in this encounter Plan of Treatment Not on file documented as of this encounter Visit Diagnoses Not on filedocumented in this encounter Care Teams Stone Banker Relationship Specialty Start Date End Date Zuleika Moreno MD [address] [place] [address] PCP - General 04/15/22 04/15/22 Debbie Lopez MD [address] [place] [phone] PCP - General Family Medicine - Primary Care 04/16/22 documented as of this encounter
--- OUTSIDE RECORDS SUMMARY | 2024-02-05 01:37 | XMS_ITS | Clinical Summary ---
Author Organization [facility] Address [address] [place] [address] Care Team Providers Care Primer Charging Tool Setter Name Role Phone Debbie Lopez MD Primary Care Provider [phone] Medications Medication Sig Dispensed Refills Start Date End Date Status aspirin chewable 81 mg tablet Take 81 mg by mouth daily. Active insulin pen needles 31G x 3/16 (PEN NEEDLE)Indications:Othe r specified diabetes mellitus with other specified complication, unspecified whether tip mender insulin use ([facility]) by misc (non-drug; combo route) route daily. 100 Each 1 04/18/2022 Active blood glucose (ONETOUCH VERIO TEST STRIPS) test stripsIndications:Other specified diabetes mellitus with other specified complication, unspecified whether fdc insulin use ([facility]) 1 Strip by misc (non-drug; combo route) route 2 times daily. 70 Each 3 04/18/2022 Active lancets (ONETOUCH ULTRASOFT LANCETS)Indications:Oth er specified diabetes mellitus with other specified complication, unspecified whether tip mender insulin use ([facility]) Test blood sugar 1-2 times daily. 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 04/18/2022 Carotid stenosis, bilateral 04/18/2022 Lesion of parotid gland 04/18/2022 Hypertension 04/18/2022 DKA, type 2, not at goal ([facility]) 04/15/2022 Resolved Problems Problem Noted Date Diagnosed Date Resolved Date NSTEMI (non-ST elevated myoc ardial infarction) ([facility]) 04/18/2022 04/18/2022 Acute metabolic encephalopathy 04/15/2022 04/18/2022 Acute respiratory failure wi th hypoxia ([facility]) 04/15/2022 04/18/2022 Lactic acidosis 04/15/2022 04/18/2022 Seizure ([facility]) 04/15/2022 04/18/2022 Social History Tobacco Use Types Packs/Day Years Used Date Smoking Tobacco: Never Smokeless Tobacco: Never Tobacco Cessation:Counseling Given: Not Answered Sex and Gender Information Value Date Recorded Sex Assigned at Not on file Gender Identity Male 04/15/2022 10:37 EST Sexual Orientation Not on file Obstetrics History Last Filed Vital Signs Vital Sign Reading [...] Body Mass Index 28.64 04/15/2022 1317 EST Plan of Treatment Health Maintenance Due Date Last Done Comments Eye Exam 1945 Foot Exam 1945 Microalbumin/Creatinine Ratio 1943 Lipid Profile Screening (Cholesterol) 12/24/1946 RSV Immunization ( o r 60+ Years) (1 - 1-dose 60+ series) 2003 Fall Risk Screening 12/24/2008 Hemoglobin A1C (Ha1C) 10/13/2022 04/15/2022 COVID-19 Vaccine ( season) 2024 Medical Devices Implanted Type Area Driver Education Road Instructor Device Identifier Shelf Expiration Date Model / [...] calculated) ? ? Maximum MR system reported hhjzp-cfld-ohcakuer specific absorption rate (ANGIE) of 2-W/kg (i.e., the Normal Operating Mode) for 15 minutes of scanning (per pulse sequence) Per [employer] BSB/AL. Procedures Procedure Name Priority Date/Time Associated Diagnosis Comments HEMOGLOBIN A1C Routine 04/15/2022 13:46 EST from Last 3 Months or Most Recently Relevant to Health Maintenance Results * (ABNORMAL) HEMOGLOBIN A1C (04/15/2022 13:46 EST) Hemoglobin A1c 13.2(H) <5.7 % 04/15/2022 16:08 EST [facility] Comment: Glycemic Status References: Normal: ??<5.7% Pre-Diabetes: ??5.7% - 6.4% Diagnostic of Diabetes: ??> or = 6.5% (if confirmed) Est Avg Glucose 332 mg/dL 16:08 EST [facility] Comment:The eAG represents t he A1c result expressed as average glucose in mg/dL. Blood VENOUS BLOOD / Unknown Venipuncture / Unknown 04/15/2022 13:46 EST 04/15/2022 14:00 EST Fabienne Norris MD CHEMISTRY & BL OOD GAS ORDERABLES [facility] [address] [place] [address] from Last 3 Months or Most Recently Relevant to Health Maintenance Advance Directives For more information, please contact: [phone] Documents on File Type Date Recorded Patient Pulp Screen Operator Expl anation COLST/MOLST 04/23/2022 10:50 [place] DNR/COLST [...] Made the Decision? Default/Not Discussed Care Teams Primer Charging Tool Setter Relationship Specialty Start Date End Date Debbie Lopez MD [address] [place] [phone] PCP - General Family Medicine - Primary Care 04/16/22
--- OUTSIDE RECORDS SUMMARY | 2024-02-05 01:37 | XMS_ITS | Encounter Summary ---
Author Organization [facility] Address [address] [place] [address] Care Team Providers Care Doper Name Role Phone Zuleika Moreno MD Primary Care Provider [phone] Debbie Lopez MD Primary Care Provider [phone] Encounter Details Date Type Department Care Team (Late st Contact Info) Description 01/30/2021 Lab Requisition [facility] Pathology & Laboratory Medicine - [address] [id number] Outr Resulting Lab, Provider Social History Tobacco Use Types Packs/Day Years Used Date Smoking Tobacco: Never Assessed Sex and Gender Information Value Date Recorded Sex Assigned at Not on file Gender Identity Male 04/15/2022 10:37 EST Sexual Orientation Not on file documented as of this encounter Plan of Treatment Not on file documented as of this encounter Procedures Procedure Name Priority Date/Time Associated Diagnosis Comments LYME AB Routine 01/29/2021 22:18 EDT documented in this encounter Results * LYME AB (01/29/2021 22:18 EDT) Lyme Ab Negative Negative 01/31/2021 10:34 EDT [facility] Blood VENOUS BLOOD / Unknown 01/29/2021 22:18 EDT 01/30/2021 16:39 EDT Provider Outr Resulting Lab IMMUNOLOGY A ND SEROLOGY ORDERABLES [facility] [address] [place] [id number] documented in this encounter Visit Diagnoses Not on filedocumented in this encounter Care Teams Doper Relationship Specialty Start Date End Date Zuleika Moreno MD [address] [place] [address] PCP - General 04/15/22 04/15/22 Debbie Lopez MD [address] [place] [id number] PCP - General Family Medicine - Primary Care 04/16/22 documented as of this encounter
--- OUTSIDE RECORDS SUMMARY | 2024-02-05 01:37 | XMS_ITS | Encounter Summary ---
Author Organization [facility] Address [address] [place] [address] Care Team Providers Care Charge Entry Specialist Name Role Phone Debbie Lopez MD Primary Care Provider [phone] Encounter Details Date Type Department Care Team (Late st Contact Info) Description 04/18/2022 Orders Only [facility] Radiology - [address] [place] [address] [place], [place] [id number] Darek Dubon MD [address] [place] [address] Social History Tobacco Use Types Packs/Day [...] on filedocumented in this encounter Care Teams Charge Entry Specialist Relationship Specialty Start Date End Date Debbie Lopez MD [address] [place] [address] PCP - General Family Medicine - Primary Care 04/16/22 documented as of this encounter
--- OUTSIDE RECORDS SUMMARY | 2024-02-05 01:37 | XMS_ITS | Encounter Summary ---
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 Referral ID Status Reason Start Date Expiration Date Visits Re quested Visits Authorized [id number] Closed 04/18/2022 05/24/2022 1 1 * Consult (Routine/Next Available) - Authorization Not Required Specialty Diagnoses / Procedures Referred By Contac t Referred To Contact Otolaryngology Diagnoses Mass of parotid gland Eunice Peck MD [address] [place] [phone] [facility] Ent [address] [place] [id number] Referral ID Status Reason Start Date Expiration Date Visits Requested Visits Authorized [id number] Authorization Not Required Specialty Services Required 04/18/20 22 1 1 Question Answer Reason for Request: Other Please specify: incidental finding of 1.3cm parotid gland nodule on MRI head Expected Discharge Date (Inpatient Only): 04/21/2022 * Consult (Routine/Next Available) - Authorization Not Required Specialty Diagnoses / Procedures Referred By Lorenzo t Referred To Contact Vascular Surgery Diagnoses 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 Carotid stenosis, bilateral Eunice Peck MD [address] [place] [phone] [facility] V[facility] Surgery [address] [place] [address] Referral ID Status Reason Start Date Expiration Date Visits Requested Visits Authorized [id number] Authorization Not Required Specialty Services Required 04/18/20 22 1 1 Question Answer Reason for Request: hospitalization follow-up; bilateral carotid stenosis 50-79%; recent embolic stroke Expected Discharge Date (Inpatient Only): 04/21/2022 * Follow Up (Routine/Next Available) - Authorization Not Required Specialty Diagnoses / Procedures Referred By Lorenzo t Referred To Contact Diagnoses Seizure ([facility]) Acute metabolic encephalopathy 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 Manage new DM, HTN, HLD meds. Coordinate vasc surg, ENT, endocrine (referrals sent). F/u repeat hea MRI and zio patch (orders placed) Expected Discharge Date (Inpatient Only): 04/21/2022 Reason for Visit * Auth/Cert (Routine) Specialty Diagnoses / Procedures Referred By Lorenzo t Referred To Contact Diagnoses DKA, type 2, not at goal ([facility]) Seizures Referral ID Status Reason Start Date Expiration Date Visits Re quested Visits Authorized [id number] 1 1 Encounter Details Date Type Department Care Team (Late st Contact Info) Description 04/15/2022 12:54 EST - 04/18/2022 11:32 EST Hospital Encounter [facility] 6 General Medicine Telemetry Unit [address] [place] [phone] Bautista Hurtado MD [address] [place] [phone] Latonya Marx MD [address] [place] [phone] Mattie Villanueva MD [address] [place] [phone] Matt Keen MD [address] [place] [phone] Eulogio Weller MD [address] [place] [phone] 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 (Primary Dx); Seizure ([facility]); Acute respiratory failure with hypoxia ([facility]); Acute metabolic encephalopathy; Lactic acidosis; DKA, type 2, not at goal ([facility]); Carotid stenosis, bilateral; Mass of parotid gland; Other specified diabetes mellitus with other specified complication, unspecified whether fpc insulin use ([facility]) Discharge Disposition: Home or Self Care Social [...] 10:04 EST documented as of this encounter Last Filed Vital Signs Vital Sign Reading [...] Body Mass Index 28.64 04/15/2022 1317 EST documented in this encounter Functional Status Functional Status Response [...] No 04/16/2022 documented as of this encounter Discharge Summaries * Eulogio Weller MD - 04/18/2022 1132 EST HOSPITAL MEDICINE DISCHARGE SUMMARY Primary Care Provider: Debbie Lopez Attending Physician: Eulogio Weller Admit Date: 04/15/22 Discharge Date: 04/18/2022 Disposition (location): Home/self care Condition at Discharge: Stable Reason for Admission (chief complaint): Altered mental status; concern for seizure vs syncope Principal/Final Diagnosis: Acute metabolic encephalopathy Additional Problems Managed in the Hospital: Active Hospital Problems Diagnosis Date Noted ??? *Acute metabolic encephalopathy 04/15/2022 ??? DKA, type 2, not at goal ([facility]) ([facility]) 04/15/2022 ??? Acute respiratory failure with hypoxia ([facility]) ([facility]) 04/15/2022 ??? Lactic acidosis 04/15/2022 ??? Seizure ([facility]) ([facility]) 04/15/2022 Resolved Hospital Problems No resolved problems to display. Transition of care: [facility] Transition of Care report automatically routed to PCP office on discharge. Clinical Issues Needing Follow-up 1. Pertinent medication changes: --Started: - Lisinopril 5mg once daily in place of FARM MACHINE OPERATOR atenolol for better BP control - Atorvastatin 40mg once daily - Metformin - FARM MACHINE OPERATOR med that pt had not been taking for several months. Restarted at reduced dose dueto concern for GI upset. - Glargine 14units once daily for better BG control --Stopped: - FARM MACHINE OPERATOR atenolol 2. Recommended follow-up tests/procedures needed: - Zio patch ordered - Repeat MRI head w &wo contrast in 3 weeks (has been ordered) - Ambulatory consult with ENT to follow up on parotid gland mass (incidental finding on MRI head) - Ambulatory consult with Vascular Surgery to follow up on bilateral carotid stenosis - Recommend consultation with Endocrinology for A1C 13.2 (referral was not placed as pt prefers to see an Dock Supervisor closer to his home) 3. Anticoagulation on discharge: No 4. Changes to goals of care at time of discharge (if applicable): None Hospital Course: Izabel Cloud is a 76 y.o. male with past medical history notable for AAA s/p repair, HTN and T2DM transferred from [facility] 04/15/22 after event concerning for syncope vs seizure. ?? Izabel was reportedly in his usual state of health when he was found to have worsening confusion on the day of admission. reported that he was standing in front of the fridge, started groaning and passed out. ?? At the [facility] ED, pt was hypotensive with BP 88/34, VS otherwise stable. Labs notable for WBC12, Hgb 17.2, VBG pH 7.01, pCO2 44, BG 364, Cr 1.7, bicarb 14.9, AG 28, trop 0.389 (peaked at 0.463, likely type 2 demand ischemia), BHB 0.5. UA was negative for ketones. Salicylate level was negative. EtOH undetectable. UDS was negative. COVID negative. CTA C/A/P revealed no acute pathology in thechest besides atelectasis, stable pancreatic cysts and a patent bi-iliac aortic stent in place. CT Head without contrast revealed no acute pathology. A sodium bicarbonate drip was started. ?? At [facility], he went into A fib which resolved with fluid resuscitation, potassium repletion, and a bolus of diltiazem. Pt was intubated, loaded with Keppra given concern for seizure in the setting of suspected DKA, and started on an insulin gtt. He was transferred to the [facility] MICU for furthercare. ?? Arrived to [facility] MICU intubated and sedation. Of note, anion gap had closed by the time of patient's arrival to [facility]. Insulin gtt was stopped given low concern for DKA. LP performed, CSF studies were bland. Neurology was consulted, recommended 24-hr continuous EEG monitoring, which did not show any seizure activity, as well as MRI head w/ & w/o contrast which pt initially declined due to claustrophobia. Neurology decided to hold of on initiating antiseizure meds given negative EEG and probability that seizure event was provoked in the setting of DKA. Pt was successfully extubated on the morning of 04/16 and weaned to room air. He was subsequently transferred to the General Medicine service for continued care. Syncope work-up included carotid duplex US which revealed stenosis of bilateral carotid arteries of50-79%. TTE demonstrated normal EF (55-60%), dilated RV, and dilated ascending aorta. No arrhythmias recorded on telemetry throughout pt's hospitalization. Pt eventually agreed to have MRI of his head with pre-medication. This revealed a subacute left frontal lobe ischemic stroke with associated cerebral microbleeds. Neurology was re-engaged given thesenew findings. Etiology of stroke was felt to be embolic. Recommended risk factor optimization with daily ASA, good BP control (started lisinopril), tighter BG control, addition of statin, as well as extended cardiac monitoring for arrhythmia with Zio patch. Pt met with Mission Systems Engineer prior to DC. Prescriptions were routed to his local pharmacy (including Diabetes supplies), medication changes/additions as outlined above. Referrals to Vascular Surgery and ENT place. Order for repeat MRI head w/ & w/o contrast in 3 weeks per Neurology recommendations to assess evolution of stroke (no ambulatory follow-up with Neurology required). Pt expressed concern regarding possible need for life-long insulin. Recommended discussing starting non-insulin med (GLP-1, SGLT2) with PCP. Also recommended follow-up with Endocrinology, but pt declined referral to [facility] provider, preferred to set up appointment with physician closer to his home. Relevant Imaging/Procedures Performed: MRI HEAD W/ W/O CONTRAST 04/17 IMPRESSION Irregular region of enhancement and signal abnormality in the left frontal lobe centered in the middle frontal gyrus, favored to represent a region of evolving subacute infarction with evidence of petechial hemorrhage. Additional adjacent foci of cortical enhancement also likely represent subacute infarcts. A short interval follow-up MRI is recommended to exclude an alternate etiology. 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 ?? 1.3 cm circumscribed lesion in the right parotid gland which could represent an enlarged lymph nodeor parotid neoplasm. Additional smaller lesions in both parotid glands likely represent lymph nodes. ENT consultation suggested for further management, including assessment by ultrasound and possiblebiopsy. US BILATERAL CAROTID DUPLEX 04/16 ??? The right proximal internal carotid artery demonstrated 50-79% stenosis. ??? The left proximal internal carotid artery demonstrated 50-79% stenosis. ??? The bilateral vertebral arteries demonstrated antegrade flow. TTE 04/16 ??? Left??Ventricle: Left ventricular systolic function was normal with an ejection fraction of 55-60%. There was mild hypertrophy of the left ventricle. Left ventricular wall motion was normal; there were no regional wall motion abnormalities. ??? Right??Ventricle: Right ventricle was suboptimally visualized but appeared mildly dilated in size. Right ventricular systolic function was mildly reduced. ??? Aorta: The aortic root was normal in size. The ascending aorta was mildly dilated (4.3cm). Results Pending at Discharge: Test results still pending from this admission Procedure Component Value Units Date/Time Bacterial Culture, Blood [[id number]] Collected: 04/16/22 0306 Lab Status: In process Specimen: Blood, Venous Updated: 04/16/22 035 Bacterial Culture/Smear, Fluid [[id number]] Collected: 04/15/221817 Lab Status: Preliminary result Specimen: Fluid, Cerebrospinal Fluid Updated: 04/15/222106 Smear No Neutrophils Seen No bacteria seen Bacterial Culture, Blood [[id number]] Collected: 04/15/221838 Lab Status: In process Specimen: Blood, Venous Updated: 04/15/221913 LDH, CSF [[id number]] Collected: 04/15/221817 Lab Status: In process Specimen: Fluid, Cerebrospinal Fluid Updated: 04/15/221832 [employer] PLUMBING AND HEATING MECHANIC Infection IgG with Ab Index Reflex [[id number]] Collected: 04/15/221817 Lab Status: In process Specimen: Fluid, Cerebrospinal Fluid Updated: 04/15/221832 Upcoming Appointments May 02, 2022 10:45 (Arrive by 10:35) [facility] [address] [place] [phone] Please arrive 10 minutes early to allow for time to complete new patient paperwork. Follow-up appointments and procedures Amb Consult/Follow Up ENT Reason for Request: Other Please specify: incidental finding of 1.3cm parotid gland nodule on MRI head Expected Discharge Date (Inpatient Only): 04/21/2022 Authorizing Provider: Eunice Peck MD Amb Consult/Follow Up Primary Care Physician Outside of Network Reason for Request: Follow up hospitalization. Manage new DM, HTN, HLD meds. Coordinate vasc surg, ENT, endocrine (referrals sent). F/u repeat hea MRI and zio patch (orders placed) Expected Discharge Date (Inpatient Only): 04/21/2022 Authorizing Provider: Eunice Peck MD Amb Consult/Follow Up Vascular Surgery Reason for Request: hospitalization follow-up; bilateral carotid stenosis 50- 79%; recent embolic stroke Expected Discharge Date (Inpatient Only): 04/21/2022 Authorizing Provider: Eunice Peck MD Follow-up labs and tests ZIO PATCH Complete by: Apr 25, 2022 (Approximate) Authorizing Provider: Eunice Peck MD MR HEAD W WO CONTRAST Complete by: May 09, 2022 Process Instructions: Each individual MRI exam takes 30-45 minutes. Outpatients should bring meds for pain and/or claustrophobia so they can remain still for the entire exam. They must also have a safe ride home should they require medication. All metal will need to be removed (hair pins, piercings, jewelry, dentures). Patients are required to change from their street clothes into a hospital gown. Patients receiving contrast with their MRI and have risk factors for renal disease (including: Dialysis, Kidney transplant, Single kidney, Kidney surgery, History of known renal cancer, HTN requiringmedical therapy, Diabetes mellitus). They need to be screened for estimated GFR (eGFR) using serum creatinine within 60 days of MRI exam. For patients with severe renal disease (eGFR <30 ml/min or on dialysis), recommended to perform MRI without gadolinium due to risks of Nephrogenic Systemic Fibrosis (NSF). A consultation with Nephrology is required for approval of the use of gadolinium and to ensure prompt scheduling of dialysisafter MRI (within 2 hours). Authorizing Provider: Eunice Peck MD SABRINA WIRTH, MD 04/20/2022 20:26 Attending Attestation I interviewed and examined the patient. I have personally reviewed interval events, laboratory data, and imaging. I discussed the case with the resident team and agree with the plan of care as documented in the resident discharge summary above (or have edited in blue). The patient is medically stable for discharge today. I reviewed the discharge instructions and follow up plan with the patient. I personally spent >30 minutes reviewing the chart, evaluating and examining the patient, and counseling and preparing the patient for discharge. Eulogio Weller MD Internal Medicine Hospitalist 04/21/22 21:55 documented in this encounter Discharge Instructions * Discharge Instr - AVS First Page* Mikayla Hallman MD - 04/18/2022 7:23 EST Follow-up: Please follow-up (referral has been ordered) with your Primary Care Physician (PCP) Dr. Debbie Lopez as soon as able, preferably within 1 week. We have also referred you for follow up with: - Vascular Surgery clinic (for narrowing of the blood vessels in your neck) - Ear Nose & Throat clinic (for follow up on the parotid gland nodule) You should receive phone calls in the next few days regarding scheduling your appointments. If you do not hear anything, please reach out to their office directly, or call the [facility] general number [phone]. We did not place a referral to the Endocrinology clinic (for follow up on the diabetes). Please reach out to the local bottle inspector to schedule your appointment. Imaging/Procedures/Testing: We have ordered a repeat MRI scan of your head to be done in approximately 3 weeks to follow up on your stroke. You will be contacted by schedulers in the next few days regarding scheduling your appointment. If you do not hear anything, please reach out to their office directly, or call the [facility] general number at [phone]. Please speak to your PCP about these results. We have ordered a Zio patch, a 24-hour heart rate monitor that you should wear for a total of 7 days. This monitor will be mailed to your home with specific instructions on how to apply it. You should follow up with your PCP about the results of this study. Medication changes: Please speak to your PCP about any questions you have regarding your medications. Please START taking: Lisinopril 5mg 1 tablet once daily for blood pressure Atorvastatin 40mg 1 tablet once daily for cholesterol Metformin - please take one 500mg tablet twice daily for diabetes Glargine insulin daily for diabetes It is also very important that you continue taking your daily baby aspirin (81mg tablet). Please STOP taking: Atenolol It is recommended that you test your blood sugar at least once daily, preferably in the morning before breakfast. You should also test your blood sugar if you feel symptoms of low blood sugar (sweats, dizziness, lightheadedness, confusion, headache, fast heartbeat, feeling shaky). Otherwise, please continue taking your other medications as you were prior to being admitted. Return criteria: Please call your primary care physician with any questions or concerns, including if you experienceany new or concerning symptoms. If you feel these symptoms could possibly represent a medical emergency, please seek urgent care such as at an emergency department. Thank you for choosing [facility] for your care! * Attachments The following attachments cannot be sent through Care Everywhere. * Statins: Diabetes: General Info (Haitian) * Insulin Pen: How to Use: General Info (Haitian) * CHARLES Inhibitors and ARBs: General Info (Haitian) * Diabetes: Type 2: General Info (Haitian) * Diabetes: Type 2: Metformin: General Info (Haitian) documented in this encounter Medications at Time of Discharge Medication Sig Dispensed Refills Start Date End Date aspirin chewable 81 mg tablet Take 81 mg by mouth daily. blood glucose (ONETOUCH VERIO TEST STRIPS) test stripsIndications:Other specified diabetes mellitus with other specified complication, unspecified whether exterminator helper termite insulin use ([facility]) 1 Strip by misc (non-drug; combo route) route 2 times daily. 70 Each 3 04/18/2022 insulin pen needles 31G x 3/16 (PEN NEEDLE)Indications:Othe r specified diabetes mellitus with other specified complication, unspecified whether fpc insulin use ([facility]) by misc (non-drug; combo route) route daily. 100 Each 1 04/18/2022 lancets (ONETOUCH ULTRASOFT LANCETS)Indications:Oth er specified diabetes mellitus with other specified complication, unspecified whether exterminator helper termite insulin use ([facility]) Test blood sugar 1-2 times daily. 100 Each 3 04/18/2022 atorvastatin (LIPITOR) 40 mg tablet Take 1 Tablet by mouth daily for 30 days. 30 Tablet 3 04/19/2022 05/19/2022 insulin glargine (LANTUS SOLOSTAR/SEMGLEE) 100 unit/mL (3 mL) injection pen Inject 14 Units into the skin at bedtime for 30 days. 4 Each 3 04/18/2022 05/18/2022 lisinopriL (PRINIVIL) 5 mg tablet Take 1 Tablet by mouth daily for 30 days. 30 Tablet 3 04/19/2022 05/19/2022 metFORMIN (GLUCOPHAGE) 500 mg tablet Take 1 Tablet by mouth 2 times daily with breakfast and dinner for 30 days. 60 Tablet 3 04/18/2022 05/18/2022 documented as of this encounter Ordered Prescriptions Prescription Sig Dispensed Refills Start Date End Da te lancets (ONETOUCH ULTRASOFT LANCETS)Indications:Oth er specified diabetes mellitus with other specified complication, unspecified whether exterminator helper termite insulin use ([facility]) Test blood sugar 1-2 times daily. 100 Each 3 04/18/2022 blood glucose (ONETOUCH VERIO TEST STRIPS) test stripsIndications:Other specified diabetes mellitus with other specified complication, unspecified whether exterminator helper termite insulin use ([facility]) 1 Strip by misc (non-drug; combo route) route 2 times daily. 70 Each 3 04/18/2022 insulin pen needles 31G x 3/16 (PEN NEEDLE)Indications:Othe r specified diabetes mellitus with other specified complication, unspecified whether fpc insulin use ([facility]) by misc (non-drug; combo route) route daily. 100 Each 1 04/18/2022 lancets (ONETOUCH ULTRASOFT LANCETS) Test blood sugar 1-2 times daily. 100 Each 3 04/18/2022 04/18/2022 blood glucose (ONETOUCH VERIO TEST STRIPS) test strips 1 Strip by misc (non-drug; combo route) route 2 times daily. 70 Each 3 04/18/2022 04/18/2022 metFORMIN (GLUCOPHAGE) 500 mg tablet Take 1 Tablet by mouth 2 times daily with breakfast and dinner for 30 days. 60 Tablet 3 04/18/2022 05/18/2022 lisinopriL (PRINIVIL) 5 mg tablet Take 1 Tablet by mouth daily for 30 days. 30 Tablet 3 04/19/2022 05/19/2022 insulin glargine (LANTUS SOLOSTAR/SEMGLEE) 100 unit/mL (3 mL) injection pen Inject 14 Units into the skin at bedtime for 30 days. 4 Each 3 04/18/2022 05/18/2022 atorvastatin (LIPITOR) 40 mg tablet Take 1 Tablet by mouth daily for 30 days. 30 Tablet 3 04/19/2022 05/19/2022 documented in this encounter Discharge Disposition Disposition Code Departure Means Destination Home or Self Longterm documented in this encounter Progress Notes * Keya Suazo, PT - 04/18/2022 0659 EST [facility] Rehabilitation Therapy Acute Therapy [facility] Physical Therapy Contact Note Date of Service: 04/18/2022 PT referral discontinued by team. Please re refer if a PT evaluation is indicated. KEYA SUAZO, PT 04/18/2022 6:59 * Sena Hawthorne RN - 04/17/2022 1810 EST D: Patient transferred from and admission database was completed. A: (Sena RN 1) and (Gillian RN 2) performed a complete assessment of the patient's skin on admission and skin breakdown was noted, LDA was entered, and wound consult was entered. Small scab on face,and small birthmark on L foot. R: Will continue to monitor skin integrity and if Edison Scale is below 18 will implement the q2 hour pink paper initiative * Jr Hendrix MD - 04/17/2022 0641 EST MICU Progress Note Admission Date: 04/15/2022 PCP: Debbie Lopez Date of Service: 04/17/2022 Hospital Day: LOS: 2 days Room: [place] [id number] Time of Evaluation:6:41 CC: Izabel Cloud is a 76 y.o. male with past medical history notable for AAA s/p repair, HTN and T2DM transferred from [facility] 04/15/22 after seizure. Subjective When we spoke, patient was lying in bed. He wanted to go home. He had no other complaints. Review of Systems: A complete 10 point ROS was performed and pertinent positive and negative findings listed in HPI, otherwise negative. Objective VITALS: BP (!) 164/96 Temp 36.7 ??C (98 ??F) (Axillary) Resp 18 Ht 180.3 cm (70.98) Wt 93.1 kg (205 lb 4 oz) SpO2 97% BMI 28.64 kg/m?? I&O: Intake/Output Summary (Last 24 hours) at 04/17/2022 0641 Last data filed at 04/17/2022 0600 Gross per 24 hour Intake 200 ml Output 1775 ml Net -1575 ml Physical Exam: ??? Gen: AAOx3, no acute distress ??? HEENT: Atraumatic, pupils equally round and reactive to light, no scleral icterus, Oropharynx benign ??? Neck: Supple with full range of motion, trachea midline ??? Pulm: Clear to auscultation bilaterally, no rhonchi, rales or wheezes ??? CV: No JVD, no carotid bruits, regular rate and rhythm, no murmurs, rubs, or gallops, S1 and [id number] ??? Abd: Soft, non-tender, non-distended, positive bowel sounds, no splenohepatomegaly ??? : west in place, No CVA tenderness ??? Neuro: No focal deficits, Moving all extremities ??? Ext: No lower extremity edema, good distal pulses, normal cap refill, no clubbing or cyanosis noted Lines: PIV x2 CBC: Recent Labs 04/16/22 0306 WBC 9.05 HGB 13.4* HCT 37.5* MCV 90 PLT 148 BMP: Recent Labs 04/15/22 1346 04/16/22 0306 NA 137 139 K 4.6 3.4* CL 104 107 CO2 23 21* BUN 16 14 CREATININE 1.16 1.12 MG -- 2.1 PHOS 2.1* 2.9 CALCIUM 7.6* 7.8* SERGLU 251* 173* Coagulation: No results for input(s): PROTIME, INR, PTT in the last 72 hours. LFTs: Recent Labs 04/15/22 1346 04/16/22 0306 ALT 26 26 AST 28 41 ALKPHOS 61 61 TBIL <0.5 0.8 TP 5.2* 5.7* LABALBU 2.9* 3.0* Cardiac Biomarkers: Recent Labs 04/15/22 1346 04/15/22 1835 04/16/22 0306 04/16/22 1441 CK 208 -- 636* -- TROPONINI 0.463* 0.783* 0.812* 0.606* Hemoglobin A1C: Lab Results Component Value Date HGBA1C 13.2 (H) 04/15/2022 FSBS: No results for input(s): GLUCOSEFINGE in the last 72 hours. ABGs: Recent Labs 04/15/22 1237 POCFIO2 40 VBGs: No results for input(s): PHVENOUS, [id number] in the last 72 hours. Incorrect component name entered: [id number] Lactic Acid: Recent Labs 04/15/22 1346 04/15/22 1835 LACTICACID 2.5* 2.2* Incorrect component name entered: POCTLACTATE RADIOLOGY: XR OUTSIDE IMAGES CHEST Result Date: 04/15/2022 This is a non-reportable exam. CT OUTSIDE IMAGES BODY Result Date: 04/15/2022 This is a non-reportable exam. CT OUTSIDE IMAGES NEURO Result Date: 04/15/2022 This is a non-reportable exam. ASSESSMENT: Izabel Cloud is a 76 y.o. male with past medical history notable for AAA s/p repair, HTN and T2DM transferred from [facility] 04/15/22 after seizure of unclear etiology. Patient has been extubatedand is mentating well. We will try to transfer him back to [facility] for further management of syncope. PLAN: Pulmonology # No acute concerns Cardiology # Suspected syncope Per patient's family, he has had multiple episodes of syncope in the past. - Carotid artery duplex US revealed: ??? The right proximal internal carotid artery demonstrated 50-79% stenosis. ??? The left proximal internal carotid artery demonstrated 50-79% stenosis. ??? The bilateral vertebral arteries demonstrated antegrade flow. 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 He was loaded with Keppra before arrival to [facility]. Labs at [facility] were notable for negative UDS and salicylate level. LP unrevealing for infection. Ethanol level negative. - Ordered MRI Head, however patient is refusing Endocrine # T2DM Initially there was concern for DKA given elevated anion gap however gap resolved at the time of admission and BHB was minimally elevated at 0.5. - Continue insulin glargine at 0.15 units/kg - SSI Prophylaxis ??? Enoxaparin ??? HOB elevated ??? Maintain SCDs ??? Famotidine / pepcid Consults: # Neurology Safety Planning ??? Code: Full but does not want life sustaining interventions ??? Discharge Plan: TBD ??? Contact: Debbie Cloud ([phone]) is his and DPOA. Jr Hendrix MD Internal Medicine PGY-3 04/17/22 6:41 Associated attestation - Mattie Villanueva MD - 04/17/2022 3434 EST Attending attestation statement: I saw and examined the patient with the resident/medical student and agree with the findings and plans as documented, and as amended in blue. Clinical Condition: Izabel Cloud is a critically ill 76 y.o. male. Over the past 24 hours, there has been a high probability of sudden, clinically significant or life threatening deterioration in the patient???s condition, which include the following diagnoses which I have managed: 1. Seizure (HCC-CMS) (HCC) 2. Acute respiratory failure with hypoxia (HCC-CMS) (HCC) 3. Acute metabolic encephalopathy 4. Lactic acidosis Mattie Villanueva MD Pulmonary & Critical Care Medicine 04/17/2022 * Navjot Becerra - 04/16/2022 1058 EST Initial Case Management/Social Work Assessment and Discharge Plan/Readmission Risk Assessment REASON FOR ADMISSION: Acute metabolic encephalopathy Patient understands reason for admission: PATIENT INFO VERIFIED: PCP, Contact Info, Address Type of housing (single family, condo, apartment, longterm, single room occupancy, [facility] funded hotel room, group long term) Single family home Who does the patient live with? His , Debbie. Does the patient have access to their own bedroom/bathroom/kitchen - or is it shared with others? Shared Name of housing complex (ex [place], [facility], etc)- N/A Housing Authority/Managing Organization - N/A Community Care Providers (business case analyst, [facility] nurse, etc) name and contact information- None noted LIVING ARRANGEMENTS AND ACCESSIBILITY ISSUES: Living Arrangements: Private residence, Spouse / significant other Levels: 1 Stairs to enter: 1 Handicap access: None Bathroom located on bedroom level?: Yes What in home social supports are available to the patient? Spouse / significant other Is / care available? No (Depends on level of care needed.) ADVANCED DIRECTIVES, POA &/or COLST IN PLACE: Healthcare Directive: Yes, patient has advance directive for healthcare treatment Copy in Chart: No, copy requested from family I called [facility] and they are faxing over patients COLST from 2017 stating he is DNR. DIRECTIVES FOR FINANCES: TRANSPORTATION: Transportation: Family, Self Expected Discharge on IV Antibiotics: No Transportation Additional Details: Patients or dtr. Final Discharge Destination: To be determined pending clinical course Patient expects to be discharged to: To be determined CULTURAL, CONGREGATIONAL and/or LANGUAGE factors affecting health care/discharge planning: Sabianism. Declined visit from [facility]. Insurance Information: Medicare and [email or web address] [facility] AAR Nutrition: DISCHARGE RISK ASSESSMENT: Diagnosis of Diabetes Total # selected above: Score of 1 - 2: This patient is at LOW RISK for re-hospitalization Tentative plan to address the risk of re-hospitalization for those at HIGH MODERATE RISK: RAPT TOOL: Age: >75 Gender: Male Ambulation distance: 2 or more blocks (600ft) Gait device: None Community Services: Home health, MOW, SASH-none of one time a week Will you live with someone who will care for you?: No (depends on the level of care needed.) RAPT Tool Score: 7 Patient expects to be discharged to: To be determined SBIRT: SASQ (Single Alcohol Screening Question) How many times in the past year have you had 5 or more drinks in a single day?: Never How many times in the past year have you used an illegal drug or used a prescription medication fornon-medical reasons?: Never Intervention in place/initiated?: No, not indicated FUNCTIONAL STATUS: Activities patient requires assistance: None Assistive Devices: None COMMUNITY RESOURCES/SUPPORTS: Primary Care Provider: Debbie Lpoez PCP Verified: [place] [facility] [place] Type of Home Health Services: None DME Provider: Pharmacy: No Pharmacies Listed Home Health: Other: POST HOSPITAL TRANSITION PLAN: To be determined pending clinical course. CM will follow and assist as needed. Chart reviewed. From H & P Izabel Cloud is a 76 y.o. male with past medical history notable for AAA s/p repair, HTN and T2DM transferred from [facility] 04/15/22 after seizure of unclear etiology. We will admit, start video EEG monitoring and consult Neurology for further recommendations. I met with patient, his , Debbie and their dtr. Carin this morning to explain CMSW role and to complete the above. Patient was awake and alert. When I asked him who was visiting with him he stated my mother and father. In reality it was his and dtr.. Patient lives with his in a singlefloor home that has 1 step to enter. He is normally independent. He uses a walking stick when he walks his small dog who they call Pug. Otherwise he hasn't needed any DME. He and his still drive. 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 They have one dtr. Carin who lives about 45 minutes from them. NAVJOT BECERRA 04/16/2022 10:58 * Maverick Smith, RT - 04/16/2022 0904 EST Respiratory Consult/Progress Note Indications for Respiratory therapy: ICU ADMISSION Data Vitals: Heart Rate: 87 BPM, Resp: 22, SpO2: 97 % FIO2/O2 Device: O2 Flow Rate (L/min): 2 l/min, , O2 Device: Nasal cannula, FIO2 %: 50 % RT Orders: Q12 EVAL Protocol Scoring: Bronchodilator/Inhalation Therapy Frequency Bronchodilator - Clinical Indications: No clinical indications Breath Sounds: Clear Response: No change / no treatment Pulse: <100 Resp Rate: <18 SOB: None Total Score: 0 Comment:: no hx Frequency Based On Total Score: 0-4 = PRN 5-7 = QID 8-10 = Q4H 11-12 = Q2H Airway Clearance Therapy Frequency Airway Clearance - Clinical Indications: No clinical indications Breath Sounds: Clear / diminished Sputum: Small (tsp) / None Consistency: None Cough Effort: Strong/ non-productive Color: None Total Score: 0 Frequency Based On Total Score: 0-3 = PRN 4-6 = QID and PRN 7-9 = Q4H and PRN 10-11 = Q2H and PRN Hyperinflation Therapy Frequency Hyperinflation - Clinical Indications: Prevent atelectasis Breath Sounds: Clear Surgery: No X-Ray / Atelectasis: No O2 Requirements: 0-2 L above baseline Mobility Status: In bed Total: 4 Comment: is at bedside Frequency Based On Total Score: 0-3 = PRN 4-6 = QID and PRN 7-9 = Q4H and PRN 10-12 = Q2H and PRN Action/Events Respiratory events; 0900: Patient denies home 02, resp meds, lorrie or smoking hx. BBS clear/diminished. Patient able to use IS well, pulling 750mL consistently. Q12 eval at this time for RT. MAVERICK SMITH, RT 04/16/22 * Jr Hendrix MD - 04/16/2022 0857 EST MICU Progress Note Admission Date: 04/15/2022 PCP: Debbie Lopez Date of Service: 04/16/2022 Hospital Day: LOS: 1 day Room: [place] [id number] Time of Evaluation:11:35 CC: Izabel Cloud is a 76 y.o. male with past medical history notable for AAA s/p repair, HTN and T2DM transferred from [facility] 04/15/22 after seizure. Subjective When we spoke, patient was resting comfortably in bed. He did not have any complaints at this time. Review of Systems: A complete 10 point ROS was performed and pertinent positive and negative findings listed in HPI, otherwise negative. Objective VITALS: BP 123/75 Temp 37 ??C (98.6 ??F) (Axillary) Resp 21 Ht 180.3 cm (70.98) Wt 93.1 kg (205 lb4 oz) SpO2 96% BMI 28.64 kg/m?? I&O: Intake/Output Summary (Last 24 hours) at 04/16/2022 1135 Last data filed at 04/16/2022 0933 Gross per 24 hour Intake 1548.35 ml Output 2225 ml Net -676.65 ml Physical Exam: ??? Gen: AAOx3, no acute distress ??? HEENT: Atraumatic, pupils equally round and reactive to light, no scleral icterus, Oropharynx benign ??? Neck: Supple with full range of motion, trachea midline ??? Pulm: Clear to auscultation bilaterally, no rhonchi, rales or wheezes ??? CV: No JVD, no carotid bruits, regular rate and rhythm, no murmurs, rubs, or gallops, S1 and [id number] ??? Abd: Soft, non-tender, non-distended, positive bowel sounds, no splenohepatomegaly ??? : west in place, No CVA tenderness ??? Neuro: No focal deficits, Moving all extremities ??? Ext: No lower extremity edema, good distal pulses, normal cap refill, no clubbing or cyanosis noted Lines: PIV x2 CBC: Recent Labs 04/16/22 0306 WBC 9.05 HGB 13.4* HCT 37.5* MCV 90 PLT 148 BMP: Recent Labs 04/15/22 1346 04/16/22 0306 NA 137 139 K 4.6 3.4* CL 104 107 CO2 23 21* BUN 16 14 CREATININE 1.16 1.12 PHOS 2.1* 2.9 CALCIUM 7.6* 7.8* SERGLU 251* 173* Coagulation: No results for input(s): PROTIME, INR, PTT in the last 72 hours. LFTs: Recent Labs 04/15/22 1346 04/16/22 0306 ALT 26 26 AST 28 41 ALKPHOS 61 61 TBIL <0.5 0.8 TP 5.2* 5.7* LABALBU 2.9* 3.0* Cardiac Biomarkers: Recent Labs 04/15/22 1346 04/15/22 1835 04/16/22 0306 CK 208 -- -- TROPONINI 0.463* 0.783* 0.812* Hemoglobin A1C: Lab Results Component Value Date HGBA1C 13.2 (H) 04/15/2022 FSBS: No results for input(s): GLUCOSEFINGE in the last 72 hours. ABGs: Recent Labs 04/15/22 1237 POCFIO2 40 VBGs: No results for input(s): PHVENOUS, [id number] in the last 72 hours. Incorrect component name entered: [id number] Lactic Acid: Recent Labs 04/15/22 1346 04/15/22 1835 LACTICACID 2.5* 2.2* Incorrect component name entered: POCTLACTATE RADIOLOGY: XR OUTSIDE IMAGES CHEST Result Date: 04/15/2022 This is a non-reportable exam. CT OUTSIDE IMAGES BODY Result Date: 04/15/2022 This is a non-reportable exam. CT OUTSIDE IMAGES NEURO Result Date: 04/15/2022 This is a non-reportable exam. ASSESSMENT: Izabel Cloud is a 76 y.o. male with past medical history notable for AAA s/p repair, HTN and T2DM transferred from [facility] 04/15/22 after seizure of unclear etiology. Patient has been extubatedand is mentating well. PLAN: Pulmonology # No acute concerns Cardiology # Elevated troponin # Suspected syncope Per patient's family, he has had multiple episodes of syncope in the past. Most recent troponin was0.789 -> 0.812. 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 He was loaded with Keppra before arrival to [facility]. Labs at [facility] were notable for negative UDS and salicylate level. LP unrevealing for infection. Ethanol level negative. - Neurology following, no need for further AED therapy and may be able to DC video EEG later this afternoon - Ordered MRI Head Endocrine # T2DM Initially there was concern for DKA given elevated anion gap however gap resolved at the time of admission and BHB was minimally elevated at 0.5. - Continue insulin glargine at 0.15 units/kg Prophylaxis ??? Enoxaparin ??? HOB elevated ??? Maintain SCDs ??? Famotidine / pepcid Consults: # Neurology Safety Planning ??? Code: Full but does not want life sustaining interventions ??? Discharge Plan: TBD ??? Contact: Debbie Cloud ([phone]) is his and DPOA. Jr Hendrix MD Internal Medicine PGY-3 04/16/22 11:35 Associated attestation - Latonya Marx MD - 04/16/20221956 EST Attending attestation statement: I saw and examined the patient with the resident and agree with the findings and plans as documented, and as amended in blue. Clinical Condition: Izabel Cloud is a critically ill 76 y.o. male. Over the past 24 hours, there has been a high probability of sudden, clinically significant or life threatening deterioration in the patient???s condition, which include the following diagnoses which I have managed: Principal Problem: Acute metabolic encephalopathy - likely post-ictal from seizure prior to admission - LP negative - passed sedation interruption and extubated this morning. - declining MRI of brain (Neuro recommendation). Active Problems: Acute respiratory failure with hypoxia - passed SBT and extubated this morning. - Seizure ([facility]) - presentation sounds much more like syncope - no tonic clonic activity, woke up one minute later (not postictal). - seizure noted at OSH and en route (in setting of head trauma during fall). - two other episodes predated this one. - ordered Echo and carotid ultrasound (known PVDz). - may need event monitor DKA, type 2, not at goal - billed as DKA, but no AG and negative betaHB Lactic acidosis - resolved. Critical Care time was provided in the form of interventions to treat and prevent further life threatening deterioration of the patient???s condition including: Management of mechanical ventilation, Observation before/during/after ventilator weaning, Management of pain and sedation, Fluid and electrolyte management, and Updating family during rounds, and high complexity decision making regarding candidacy for extubation and the need for critical procedures, such as: MRI, Echo, and Carotid US . My bedside involvement was required to monitor and direct the critical care that has been provided.Exclusive of procedures, my critical care time is 40 minutes. Latonya Marx III, MD MICU Attending 04/16/2022 * Nancy Miller, RT - 04/16/2022 0635 EST Respiratory Extubation Note Pre-procedure - The extubation order and correct patient verified. The procedure was coordinated with the RN. Procedure - The patient's oral pharynx and ETT were suctioned for Secretion Amount: Moderate Secretion Color: White, Clear and Secretion Consistency: Thick, Thin. A cuff leak was present. The patientwas placed on 100% resuscitation bag and the ventilator placed in standby. The patient was extubated and placed on nc @ 2L No stridor was noted and the patient was able to produce voice. BBS clear Comments : tolerated well Continue to monitor and eval Q12 RT BRAVO 04/16/22 * Tahir Dan RN - 04/15/2022 2153 EST Spoke with regarding MRI screening. Updated on pt condition. Paperwork faxed to MRI. * Tahir Dan RN - 04/15/2022 1939 EST Data: pt extremely restless, Vent continiously alarming asyncronous attempting to pull ET tube. Action: Attempted redirect and increased propofol infusion. See MAR Response: Was unable to redirect but did become more somnolent with increased Vent compliance. Appears comfortable. TAHIR DAN RN 04/16/2022 5:29 * Jaelyn Pierson RN - 04/15/2022 1842 EST Pt arrived to MICU this afternoon, intubated and sedated on propofol. When propofol off, pt able tofollow commands in all extremities. EEG started, LP completed at bedside. VS per flowsheet. BG controlled with subcutaneous insulin. Adequate UOP. Pt turned q2 for PI prevention. FOUR EYES SKIN ASSESSMENT Four Eyes skin assessment was performed on admission to the unit by Jaelyn Cooper RN and Annemarie Schrader RN Scattered bruising present as well as scabbed facial abrasion. Patient has the following devices at the time of this assessment: x2 PIV, ICU Suzie, West. Device related pressure injury present? No ??? identified 04/15/2022 18:44 * Shaina Terry, RT - 04/15/2022 1611 EST Respiratory Progress Note Indications for Respiratory therapy: VENT Data Vitals: Heart Rate: 63 BPM (Simultaneous filing. User may not have seen previous data.), Resp: 20 (Simultaneous filing. User may not have seen previous data.), SpO2: 100 % (Simultaneous filing. User may not have seen previous data.) FIO2/O2 Device: , , O2 Device: Intubated, FIO2 %: 50 % RT Orders: AC 600x16 +5 50% #7.5@ 24cm Action/Events Respiratory events; Pt arrived from OSH intubated on AC 480x20 +5 50%, VBG obtained on these settings 7.33/43/15/24/17/-3. VT increased to 600 (8cckg) and RR decreased to 16bpm (maintaining the same MV as previous settings). ET tube withdrawn 2cm, now taped at 24cm. [facility] Shaina Terry, RT 04/15/22 * Leslie Clay MD - 04/15/2022 1600 EST vEEG PRELIM REPORT This study has been reviewed from 15:20-15:57. The background in this intubated and sedated patientis diffusely slow, continuous, poorly organized and poorly reactive. There are no interictal discharges, seizures or clinical push button events. Recording ongoing with full report to follow. Alexandra Clay MD, MSCE Oracle Technical Architect, Epilepsy Division Department of Neurological Sciences documented in this encounter H&P Notes * Eulogio Weller MD - 04/17/2022 1225 EST Adult Hospital Medicine Transfer Summary Service Date: 04/17/2022 Admit Date: 04/15/22 Primary Care Provider: Debbie Lopez Chief Complaint: syncope HPI From Dr. Hurtado's H&P on 04/15/2022: Izabel Cloud is a 76 y.o. male with past medical history notable for AAA s/p repair, HTN and [id number] from [facility] 04/15/22 after seizure. ?? Izabel was reportedly in his usual state of health when he was found to have worsening confusion on the day of admission. He was reportedly at his fridge and groaning before passing out. He had lostconsciousness. He did not have loss of bladder or bowel function. He tried to get back into bed buthe was very lethargic and did not know his name. He called EMS, who sent him to the [facility] ED for further management. ?? At the [facility] ED, vitals were notable for hypotension with BP 88/34, HR 68, RR 12, O2 saturation 100. Labs were notable for WBC 12, Hb 17.2, INR 1, PTT 35.2. VBG pH 7.01, pCO2 44. Electrolytes were notable for glucose 364, Cr 1.7, K 2.9, bicarbonate 14.9, AG 28.1, AST 23, ALT 37, ethyl alcohol level wnl, Mg 2.2, TSH 2.77, troponin wnl -> 0.389. UA was negative for ketones. Salicylate level was negative. UDS was negative. A sodium bicarbonate drip was started and subsequent VBG revealedpH 7.18 and pCO2 55. COVID negative. CTA C/A/P revealed no acute pathology in the chest besides atelectasis, stable pancreatic cysts and a patent bi-iliac aortic stent in place. CT Head without contrast revealed no acute pathology. ?? At [facility], he reportedly went into atrial fibrillation which resolved with fluid resuscitation with 1L NS and 1L LR, potassium repletion and a bolus of diltiazem. He was intubated and sedated with ativan, midazolam, fentanyl and propofol. He was loaded with Keppra given concern for seizure inthe setting of suspected DKA and was started on an insulin dtt. He was transferred to the [facility] MICU for further evaluation. ?? Patient was intubated and sedated at the time of arrival to the MICU. Per his , he was more tired and spacy over the past week. She reports that this has happened a few times over the past few years but has never dizzy. She did not know why he was taking an antibiotic. He is a rare drinker, with his last two weeks ago. He has not smoked in 40 years. He denies illicit drug use. No recent travel history. Neurology was consulted on arrival and recommended continuous EEG & MRI head. No epileptiform activity observed on EEG, thus was discontinued after 24hrs. LP performed on 04/15 was bland. Neurology recommended against continuing treatment with antiseizure medications with contingency to add keppra if pt seizure recurrence. Syncope work-up notable for 50-79% stenosis on ultrasound of bilateralcarotid arteries. TTE revealed EF 55-60% with dilated RV & ascending aorta. When I saw patient he was initially requesting to leave the hospital. Prolonged discussion with patient, , and daughter outlining my concerns about patient leaving the hospital today. Discussed waiting for MRI results to see if there were further neurology recommendations regarding his syncope/seizure episodes, need to teach insulin given his poorly controlled diabetes, and further time to optimize medications for HTN, HLD, etc. Also need to ensure patient is strong enough to get around at home with assistance of . Ultimately patient agreed to stay overnight in the hospital but insists he will leave in the AM. Reports he currently takes a baby aspirin, atenolol, an OTC pain medication (unsure name/brand). Patient lives with who helps provide for him, not interested in PT eval. Would be willing to take once daily insulin and some oral medications but does not want too many pills. Review of Systems A complete 10 point ROS was performed and pertinent positive and negative findings listed in HPI, otherwise negative. No past medical history on file. No past surgical history on file. Social History Tobacco Use ??? Smoking status: Never ??? Smokeless tobacco: Never Substance Use Topics ??? Alcohol use: Not on file No family history on file. Not on File Objective Vitals Temp: [36.7 ??C (98 ??F)-37.2 ??C (99 ??F)] , Heart Rate: [70 BPM-112 BPM] , Pulse: --, Resp: [17-26] , BP: (104-188)/(56-115) , SpO2: [94 %-98 %] , O2 Flow Rate (L/min): 2 l/min Numeric Pain Level (Scale 1-10): 0 Weight: Weight : 93.1 kg (205 lb 4 oz) Body mass index is 28.64 kg/m??. Physical Exam General: Awake, alert, no acute distress. HEENT: Small ecchymosis on cheek, MMM, no scleral icterus, PERRL, EOMI. Neck: Supple, trachea midline, full range of motion. CVS: RRR, S1+S2 normal, no murmurs/rubs/gallops appreciated. Resp: Normal work of breathing, speaking in full sentences. Clear to ausculation bilaterally, no adventitious lung sounds. Abdomen: Soft, non-tender, non-distended. No organomegaly or masses appreciated, normoactive bowel sounds. Extremities: No cyanosis or peripheral edema, strong distal pulses. Warm & well perfused. Neuro: Alert and oriented x4, answers questions appropriately, cranial nerves II-XII grossly in tact, moving all extremities symmetrically against gravity, light touch sensation grossly in tact in distal upper and lower extremities, follows commands. Skin: No rashes, lesions, petechiae on exposed skin. No jaundice. Psych: Appropriate mood and affect. Labs CBC: Recent Labs 04/16/22 0306 WBC 9.05 RBC 4.17* HGB 13.4* HCT 37.5* MCV 90 MCH 32.1 MCHC 35.7 PLT 148 BMP: Recent Labs 04/15/22 1346 04/16/22 0306 NA 137 139 K 4.6 3.4* CL 104 107 CO2 23 21* BUN 16 14 CREATININE 1.16 1.12 CALCIUM 7.6* 7.8* MG -- 2.1 PHOS 2.1* 2.9 LABALBU 2.9* 3.0* LFT: Recent Labs 04/15/22 1346 04/16/22 0306 TBIL <0.5 0.8 ALKPHOS 61 61 AST 28 41 ALT 26 26 Cardiac Markers: Recent Labs 04/15/22 1346 04/15/22 1835 04/16/22 0306 04/16/22 1441 CK 208 -- 636* -- TROPONINI 0.463* 0.783* 0.812* 0.606* Hemoglobin A1c: Recent Labs 04/15/22 1346 HGBA1C 13.2* Imaging MRI HEAD W/WO 04/17 IMPRESSION Irregular region of enhancement and signal abnormality in the left frontal lobe centered in the middle frontal gyrus, favored to represent a region of evolving subacute infarction with evidence of petechial hemorrhage. Additional adjacent foci of cortical enhancement also likely represent subacute infarcts. A short interval follow-up MRI is recommended to exclude an alternate etiology. 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 ?? 1.3 cm circumscribed lesion in the right parotid gland which could represent an enlarged lymph nodeor parotid neoplasm. Additional smaller lesions in both parotid glands likely represent lymph nodes. ENT consultation suggested for further management, including assessment by ultrasound and possiblebiopsy. Micro Data 04/15/22 blood cultures x2 NGTD Cardiology Data TTE 04/16/22 ??? Left??Ventricle: Left ventricular systolic function was normal with an ejection fraction of 55-60%. Left ventricular wall motion was normal; there were no regional wall motion abnormalities. ??? Right??Ventricle: Right ventricle was suboptimally visualized but appeared mildly dilated in size. Right ventricular systolic function was mildly reduced. ??? Aorta: The aortic root was normal in size. The ascending aorta was mildly dilated (4.3cm). Assessment Izabel Cloud is a 76 y.o. male with a PMHx notable for AAA s/p repair, HTN, poorly controlled T2DM(A1c 13.2) transferred from [facility] after multiple episodes concerning for syncope vs seizure in the setting of suspected DKA. New finding on MRI Head today of evolving left frontal lobe subacute infarction with evidence of hemorrhagic transformation. Pt remains neurologically intact with resolution of encephalopathy. Will plan to re-engage Neurology for further management recommendations inlight of these new imaging findings and work on treatments of diabetes and HTN that patient will accept. Plan Suspected Seizures vs. Syncopal episodes Subacute left frontal lobe ischemic stroke with associated cerebral microbleeds Acute metabolic encephalopathy, resolved - Neurology following, we appreciate recommendations - Will re-engage with Neurology regarding timing of repeat imaging and need for long-term AED due to new stroke finding - holding DVT ppx given imaging evidence of hemorrhagic transformation - risk factor optimization with continuation of FARM MACHINE OPERATOR daily ASA, addition of lisinopril for BP control, addition of glargine for better glucose control - patient initially refused statin, we re-address in AM - Recommend zio patch or alternative on discharge to evaluate for paroxysmal afib given mutliple infarcts if patient accepts NSTEMI Likely Type 2 demand ischemia. Trop peak 0.812. EKG without ischemic changes. TTE w/ RWMA. - Trop trended to peak - ASA daily, statin if patient accepts Bilateral carotid stenosis - Risk factor modification is mainstay of medical management (BP control, glucose control, control) - Recommend starting high-intensity statin (pt refusing) - Switch from FARM MACHINE OPERATOR atenolol to lisinopril - Recommend follow-up with PCP for potential referral to Vascular surgery for possible carotid revascularization (recommended for symptomatic pts with > 50% stenosis) Right parotid gland lesion Incidental finding on MRI head. 1.3cm circumscribed. - Recommend follow-up with PCP for potential referral to ENT for ultrasound & possible biopsy HTN - DC FARM MACHINE OPERATOR atenolol - start lisinopril 5mg daily T2DM Poorly controlled. A1C 13.2 - 14u glargine once daily - SSI aspart, will not do mealtime insulin on discharge to simplify regimen for patient - start FARM MACHINE OPERATOR metformin at reduced dose 500mg BID to minimize side effects (FARM MACHINE OPERATOR dose 1g BID, but pt states he hasn't been taking it since june) - Diabetes education consult ordered but pt requesting to leave early tomorrow morning. Will provide diabetes educational materials to pt and his if not able to meet with development educator priorto discharge. RN providing insulin administration education in the interim. - F/u with PCP for consideration of additional non-insulin daibetic medications (GLP1, SGLT2, etc) Checklist: Consults: Neurology Diet: DIET REGULAR VTE Prophylaxis: Holding as above Med rec status: Completed on admission Lines: Telemetry: Required Code status: Full code PT/OT: Patient refuses Discharge Plan: Patient reports he will go home tomorrow morning Mikayla Hallman MD PGY-1, Internal Medicine Pager# [phone] Attending Attestation I interviewed and examined the patient. I have personally reviewed interval events, laboratory data, and imaging. I discussed the case with the inpatient resident team. I agree with findings and planof care as documented by the resident (or have edited in blue). Eulogio Weller MD Internal Medicine Hospitalist 04/17/22 16:30 * Bautista Hurtado MD - 04/15/2022 1318 EST MICU Admission H&P Admission Date: 04/15/2022 PCP: Zuleika Moreno Date of Service: 04/15/2022 Hospital Day: LOS: 0 days Room: [place] [id number] Time of Evaluation:15:42 CC: No chief complaint on file. HPI: Izabel Cloud is a 76 y.o. male with past medical history notable for AAA s/p repair, HTN and T2DM transferred from [facility] 04/15/22 after seizure. Izabel was reportedly in his usual state of health when he was found to have worsening confusion on the day of admission. He was reportedly at his fridge and groaning before passing out. He had lostconsciousness. He did not have loss of bladder or bowel function. He tried to get back into bed buthe was very lethargic and did not know his name. He called EMS, who sent him to the [facility] ED for further management. At the [facility] ED, vitals were notable for hypotension with BP 88/34, HR 68, RR 12, O2 saturation 100. Labs were notable for WBC 12, Hb 17.2, INR 1, PTT 35.2. VBG pH 7.01, pCO2 44. Electrolytes were notable for glucose 364, Cr 1.7, K 2.9, bicarbonate 14.9, AG 28.1, AST 23, ALT 37, ethyl alcohol level wnl, Mg 2.2, TSH 2.77, troponin wnl -> 0.389. UA was negative for ketones. Salicylate level was negative. UDS was negative. A sodium bicarbonate drip was started and subsequent VBG revealedpH 7.18 and pCO2 55. COVID negative. CTA C/A/P revealed no acute pathology in the chest besides atelectasis, stable pancreatic cysts and a patent bi-iliac aortic stent in place. CT Head without contrast revealed no acute pathology. At [facility], he reportedly went into atrial fibrillation which resolved with fluid resuscitation with 1L NS and 1L LR, potassium repletion and a bolus of diltiazem. He was intubated and sedated with ativan, midazolam, fentanyl and propofol. He was loaded with Keppra given concern for seizure inthe setting of suspected DKA and was started on an insulin dtt. He was transferred to the [facility] MICU for further evaluation. Patient was intubated and sedated at the time of arrival to the MICU. Per his , he was more tired and spacy over the past week. She reports that this has happened a few times over the past few years but has never dizzy. She did not know why he was taking an antibiotic. He is a rare drinker, with his last two weeks ago. He has not smoked in 40 years. He denies illicit drug use. No recent travel history. Home Medications - Ibuprofen 600mg BID - Atenolol 50mg daily - Oxycodone 10mg q6h - Zofran 4mg PO q8h - Metformin 1g BID - Doxycycline 100mg BID Review of Systems: A complete 10 point ROS was performed and pertinent positive and negative findings listed in HPI, otherwise negative. PMH PSH No past medical history on file. No past surgical history on file. Social History Family History Social History Tobacco Use ??? Smoking status: Not on file ??? Smokeless tobacco: Not on file Substance Use Topics ??? Alcohol use: Not on file No family history on file. Allergies Not on File Objective VITALS: BP 122/75 Temp 36.7 ??C (98.1 ??F) (Oral) Resp 20 Ht 180.3 cm (71) Wt 93.1 kg (205 lb 4 oz) SpO2 100% BMI 28.63 kg/m?? I&O: Intake/Output Summary (Last 24 hours) at 04/15/2022 1542 Last data filed at 04/15/2022 1400 Gross per 24 hour Intake 176.55 ml Output 100 ml Net 76.55 ml Physical Exam: ??? Gen: AAOx0, intubated and sedated ??? HEENT: Atraumatic, pupils equally round and reactive to light, no scleral icterus, Oropharynx benign ??? Neck: Supple with full range of motion, trachea midline ??? Pulm: Clear to auscultation bilaterally, no rhonchi, rales or wheezes ??? CV: No JVD, no carotid bruits, regular rate and rhythm, no murmurs, rubs, or gallops, S1 and I5rweue ??? Abd: Soft, non-tender, non-distended, positive bowel sounds, no splenohepatomegaly ??? : west in place, No CVA tenderness ??? Neuro: No focal deficits, Moving all extremities ??? Ext: No lower extremity edema, good distal pulses, normal cap refill, no clubbing or cyanosis noted Ventilator Settings Mode: VC-AC RR: 20 Tidal volume: 480 PEEP: 5 FiO2: 40 Lines: PIV x2 CBC: No results for input(s): WBC, HGB, HCT, MCV, PLT in the last 72 hours. BMP: Recent Labs 04/15/22 1346 NA 137 K 4.6 CL 104 CO2 23 BUN 16 CREATININE 1.16 PHOS 2.1* CALCIUM 7.6* SERGLU 251* Coagulation: No results for input(s): PROTIME, INR, PTT in the last 72 hours. LFTs: Recent Labs 04/15/22 1346 ALT 26 AST 28 ALKPHOS 61 TBIL <0.5 TP 5.2* LABALBU 2.9* Cardiac Biomarkers: Recent Labs 04/15/22 1346 CK 208 TROPONINI 0.463* Hemoglobin A1C: No results found for: HGBA1C FSBS: No results for input(s): GLUCOSEFINGE in the last 72 hours. ABGs: Recent Labs 04/15/22 1237 POCFIO2 40 VBGs: No results for input(s): PHVENOUS, [id number] in the last 72 hours. Incorrect component name entered: [id number] Lactic Acid: Recent Labs 04/15/22 1346 LACTICACID 2.5* Incorrect component name entered: [id number] RADIOLOGY: XR OUTSIDE IMAGES CHEST Result Date: 04/15/2022 This is a non-reportable exam. CT OUTSIDE IMAGES BODY Result Date: 04/15/2022 This is a non-reportable exam. CT OUTSIDE IMAGES NEURO Result Date: 04/15/2022 This is a non-reportable exam. ASSESSMENT: Izabel Cloud is a 76 y.o. male with past medical history notable for AAA s/p repair, HTN and T2DM transferred from [facility] 04/15/22 after seizure of unclear etiology. We will admit, start videoEEG monitoring and consult Neurology for further recommendations. PLAN: Pulmonology # Airway protection - Currently intubated and sedated with propofol, wean as able following neuro assessment Cardiology # Hypotension Concern that this may be related to propofol. - Weaned off levophed - Trend lactate - Ordered blood and urine cultures - Ordered CXR # Elevated troponin Noted to have a troponin increase from 0.389 -> 0.463. Etiology unknown. Could be ACS v Type 2 demand ischemia in the setting of suspected seizure. EKG revealed sinus bradycardia. - Trend troponin to peak # HTN - Hold FARM MACHINE OPERATOR atenolol Nephrology # Lactic acidosis Admission lactate 2.5. Could be elevated in the setting of seizure. - Trend lactate for now # MONICA Reportedly had a gap of 28 at [facility] but has now improved to 10. Concern that this may have been related to DKA but could have been related to seizure as well. - CTM CMP daily # Hypophosphatemia Admission phosphate 2.1. - CTM phosphate # General information - Strict I/Os - Daily weights - IVF / diuresis - Monitor daily Ca, Mg, Phos - Replete electrolytes as needed GI / Nutrition - Start GI prophylaxis given intubation and coagulopathy - OG is in place, ordered AXR to confirm placement Infectious Disease - No clear evidence of infection - Patient is afebrile Hematology # Leukocytosis - CTM CBC daily Neurology # Suspected seizure # Acute metabolic encephalopathy Noted to have seizure en route to [facility] as well as at the ED. He was loaded with Keppra before arrival to [facility]. Labs at [facility] were notable for negative UDS and salicylate level. - Consult Neurology for seizure management - Patient will likely need a LP - Ordered a video EEG - Follow up ethanol level Endocrine # T2DM # Hyperglycemia Initially there was concern for DKA given elevated anion gap however gap resolved at the time of admission and BHB was minimally elevated at 0.5. - Stopped insulin dtt - Start insulin glargine at 0.15 units/kg Prophylaxis ??? Enoxaparin ??? HOB elevated ??? Maintain SCDs ??? Famotidine / pepcid Consults: # Neurology Safety Planning ??? Code: Full but does not want life sustaining interventions ??? Discharge Plan: TBD ??? Contact: Debbie Cloud ([phone]) is his and DPOA. Jr Hendrix MD Internal Medicine PGY-3 04/15/22 15:42 ATTENDING ATTESTATION STATEMENT: I saw and examined the patient with the resident and agree with the findings and plans as documented, and as amended in blue. CLINICAL CONDITION: Izabel Cloud is a critically ill 76 y.o. male. Over the past 24 hours, there has been a high probability of sudden, clinically significant or life threatening deterioration in the patient???s condition, which include the following diagnoses which I have managed: 1. Seizure (HCC-CMS) (HCC) 2. Acute respiratory failure with hypoxia (HCC-CMS) (HCC) Critical Care time was provided in the form of interventions to treat and prevent further life threatening deterioration of the patient???s condition including: Management of mechanical ventilation, Observation before/during/after ventilator weaning, Neurological monitoring, Anticonvulsive therapy,Management of pain and sedation, Fluid and electrolyte management, Antimicrobial therapy and Management of vasopressors, and high complexity decision making regarding candidacy for extubation and need for additional imaging studies and / or interventional radiology interventions and the need for critical procedures, such as: lumbar puncture. My bedside involvement was required to monitor and direct the critical care that has been provided.Exclusive of procedures, my critical care time is 60 minutes. Bautista Hurtado MD Attending Physician Critical Care Medicine [facility] 04/15/2022 documented in this encounter Procedure Notes * Leslie Clay MD - 04/15/2022 5702 ESTAssociated Order(s): EEG WITH PROLONGED BEDSIDE VIDEO MONITORING Procedure(s): EEG WITH PROLONGED BEDSIDE VIDEO MONITORING Images from the original note were not included. [facility] Name: Izabel Cloud Clinical Neurophysiology Laboratory [address] : 1945 [place], [place] Date: 04/15/2022 Video-Electroencephalographic Monitoring Report Referring Physician: Triston Vallejo V, * Clinical Indication: 76 y.o.??male??with past medical history notable for AAA s/p repair, HTN and T2DM, transferred from an outside hospital after having DKA and seizure witnessed by EMS. Medications: Current Facility-Administered Medications Medication Route Frequency ??? acetaminophen (TYLENOL) tablet 650 mg oral Q4H PRN ??? dextrose 50 % solution 12.5 g intravenous PRN ??? enoxaparin (LOVENOX) injection 40 mg subcutaneous DAILY ??? famotidine (PEPCID) injection 20 mg intravenous BID ??? glucagon injection 1 mg intramuscular PRN ??? insulin glargine (LANTUS SOLOSTAR/SEMGLEE) injection pen 14 Units subcutaneous DAILY ??? insulin regular (NOVOLIN R) injection subcutaneous Q6H ??? lidocaine (PF) 10 mg/mL (1 %) injection 2 mg intradermal PRN ??? magnesium sulfate 2 g in water 50 mL intravenous PRN ??? potassium chloride in water infusion 20 mEq intravenous PRN Technical Description: Continuous digital video-digital electroencephalographic monitoring is performed. Silver/silver chloride EEG electrodes are placed according to the International 10-20 system as well as anterior temporal electrodes, a CPz recording reference and FCz ground contract. An ECG channel is also monitored. Caregivers are encouraged to maintain an event diary and to press and Event Button in the event ofa seizure-like spell (Target Event). The entire EEG dataset is reviewed by the attending physician.No pain assessment for this procedure is necessary. Findings: The monitoring period begins 04/15/2022 at 15:15 and ends 04/16/2022 at 13:26. The background in this intubated and sedated patient is diffusely slow, continuous, poorly organized and poorly reactive, composed of medium amplitude alpha-beta frequencies. The patient is extubatedaround 06:30 with improvement in reactivity of the background and a posterior dominant rhythm of 7-8 Hz. There is occasional intermittent polymorphic delta-theta frequencies, lasting on average 1-5 seconds in the left temporal chain as shown below: State changes are seen. After extubation, brief N2 sleep is represented by vertex waves. There are no interictal discharges, seizures or clinical push button events. ?? Single lead EKG shows regular rhythm. Impression: This is an abnormal EEG due to diffuse severe slowing in an intubated and sedated patient with further left temporal focal slowing seen occasionally. After extubation, the background markedly improves. Clinical Correlation: Generalized global dysfunction is nonspecific but can be seen in the context of centrally acting medications, metabolic or toxic encephalopathy, postictal state, among other considerations.Focal slowing indicates focal cerebrocortical dysfunction and can be seen in the contextof an underlying structural abnormality, post-ictal state, etc. Leslie Clay MD ABPN Certified, Neurology and Epilepsy 10:16 04/16/2022 * Shruti Garvin MBBS - 04/15/2022 1758 ESTProcedure(s): LUMBAR PUNCTURE BEDSIDE OR CLINIC PERFORMED Pre-Procedure Diagnose(s): Seizure ([facility] Pulmonary/Critical Care Medicine MICU Fellow Procedure Note Procedure Type: Bedside Lumbar Puncture Date Performed: 04/15/2022. Time Performed: 1800 Performed by: Dr Shruti Garvin Procedure Details: Consent: Informed consent was obtained. Risks of the procedure were discussed including: infection,bleeding, pain, and bowel perforation. A time out was performed. Indications and/or Provisional Diagnosis: Rule out PLUMBING AND HEATING MECHANIC infection Type of Anesthesia/Sedation: Propofol Time Out: A time-out was completed prior to procedure verifying correct patient, procedure, site, positioning, and special equipment if applicable. Fluids Given: Not applicable Procedure Technique/Description of Procedure: Izabel Cloud was prepped with CHG and patient was draped in usual sterile fashion. A 22 gauge spinal needle was inserted at the L 4-5 interspace. 10 cc of Lidocaine 1% was used. Findings: An opening pressure of 23 cm H2O was obtained. Clear fluid was obtained after 5 attempt(s). A total of 10 ml of spinal fluid was obtained and sent for pertinent studies. Complications: None; patient tolerated the procedure well. Post Procedure Diagnosis and Findings:Pending fluid analysis. Complications: None. Condition: stable. Attending: Dr Latonya Marx. Unless otherwise noted, there was no blood loss, specimens removed, cultures obtained, or drains retained. SHRUTI GARVIN MD PGY-4, Pager: [phone] Pulmonary & Critical Care Medicine Fellow Associated attestation - Latonya Marx MD - 04/15/2022 2119 EST I was present during the entire course of the Procedure and agree with the above documentation. LATONYA MARX MD MICU Attending 04/15/2022 documented in this encounter Consult Notes * Rossy Viveros, RN - 04/18/2022 5256 ESTAssociated Order(s): CONSULT DIABETES EDUCATION Diabetes Nurse Clinician Consult/Education Note: current A1C= 13.2 Type of DM: T2DM SMBG: not checking FARM MACHINE OPERATOR Medications: metformin FARM MACHINE OPERATOR states not taking DM Provider: PCP DM Hx: T2DM few years Assessment/Education: Met with patient and daughter at bedside for consult for diabetes ed andinsulin pen. Ricci Tells me he is ready to go home and he is accepting to take a one shot of lantus a day check his blood sugar and takes metformin. Ricci tells me he is pretty big on his candy of all kinds in the evening. Discussed with him consideration of cutting down or perhaps cutting out sweetson particular days or to only one day and how important this is to him and his lifestyle managementof his diabetes care.Ricci will consider. Provided Caring for Diabetes Packet and review of diabetessurvival skill curriculum. Provided one touch verio reflect meter with R/D and teach.Ricci is happy about this new meter and will check BG 3 times a day and when he feels unwell and report out of target BGs to PCP. Provided information review and R/D of how to give an insulin injection with 6 step method. Provided easy 6 step sheet for to have as resource at home. Reviewed both hypo and hyperglycemia and when to call for out of range results. Reviewed a sick day plan. Insulin Pen Injection six step method for patients 1. Clean stopper with alcohol attach the needle remove 2 caps. 2. Clear the air by priming the pen with 2 units check the window (return to zero.). 3. Dial desired dose cleanse your skin with alcohol prep pad. 4. Inject, push, count to ten. 5. Check the window that it returned to zero to ensure you received all your dose. 6. Remove the pen needle with larger plastic cap and dispose safely in sharps container.( If you are using 2 different insulins make sure you are injecting at least 2 inches apart on your body. Also important to mykel pens using a rubber band to avoid mixing them up. Injection location sites Abdomen Upper and outer arm Front and sides of thighs Buttocks Keep your unopened pens in the refrigerator they are good until expiration on box. After open can be left out room temperature for up to 28 days. Avoid very hot or very cold temperatures. Can try keeping your supplies in a pouch such as pencil case to keep it all together and place on your placemat while setting the table for meals. This will be your reminder to check your BG and take your insulin just prior to your meal. Hypoglycemia - what is it and how to treat ? This is low blood sugar generally we consider this to be below 70 mg/dl or below this may vary fromperson to person. The only sure way to know whether you are experiencing low blood sugar is to check your blood sugar. Some symptoms you might notice are shaking sweating clamminess anxiety rapid heartbeat chills or feeling lightheaded. Blurred vision difficulty concentrating, slurred speech numbness drowsiness, cancome on when the blood sugar level continues to drop, the brain does not get enough glucose and stops functioning as it should. Treatment-- 15-15 Rule The 15-15 rule--have 15 grams of carbohydrate to raise your blood sugar and check it after 15 minutes. If it's still below 70 mg/dL, have another serving. Repeat these steps until your blood sugar is at least 70 mg/dL. Once your blood sugar is back to normal, eat a meal or snack to make sure it doesn't lower again. This may be: ??? Glucose tablets 3-4 ??? Gel tube ??? 4 ounces (1/2 cup) of juice or regular soda (not diet) ??? 1 tablespoon of sugar, honey, or corn syrup ??? Hard candies, jellybeans or gumdrops--see food label for how many to consume Monitoring blood sugar, with either a meter or a CGM, is the tried and true method for preventing hypoglycemia. Studies consistently show that the more a person checks blood sugar, the lower his or her risk of hypoglycemia. This is because you can see when blood sugar levels are dropping and can treat it before it gets too low. If you can, check often! Check before and after meals. ??? Check before and after exercise (or during, if it's a long or intense session). ??? Check before bed. ??? After intense exercise, also check in the middle of the night. ??? Check more if things around you change such as, a new insulin routine, a different work schedule, an increase in physical activity, or travel across time zones. Hyperglycemia (high blood sugar)-what is it and how to treat? You may have no symptoms, which is why it is important to check blood sugars! Hyperglycemia is a blood sugar over 150 mg/dl. How you might feel: Tired Dry mouth or skin Thirsty Frequent urination Headache Frequent infection Irritable Poor healing What to do: 1. Drink 6-8 ounces of water or sugar free fluids every 1-2 hours. 2. Eat less food. 3. Be more physically active; go for a walk. 4. Be sure you have taken your diabetes medication. a. Call your health care provider for advice if you forgot to take it. 5. Check your blood sugar 3-4 times a day for 3-5 days in a row to see if blood sugars remain high. 6. If you have type 1 diabetes, check urine ketones when blood sugar is over 250 mg/dl 7. Call your doctor if: a. Blood sugar numbers stay over 150 mg/dl for 5 days. b. You have unexplained blood sugar of 300 mg/dl or higher. c. You are sick: ill, infection, injury, or are unable to keep fluids down. d. Urine ketones are moderate or large. What causes Hyperglycemia? Food: more food than usual; hidden sugars; too many carbohydrates or fats. Activity: less activity than usual or not exercising enough. Diabetes Medication: not enough insulin or diabetes medication; forgetting to take it. Other medication: taking other medications especially steroids. Illness, Infection or Injury: short or fpc illness, even a migraine. Sick Day Management Handout Review: ?? Why worry about sick days? High blood sugars may occur when you're sick or stressed ?? Examples of a sick day ?? Illness ?? Infection ?? Surgery ?? Injury ?? Major emotional stress ?? Sick Day Plan ?? Take your diabetes medication ?? Check your blood sugar before meals and bedtime ?? If you have T1DM, check urine ketones when blood sugar is 250 or higher ?? If you can eat your meals: Every 1-2 hours drink 6-8 ounces of fluids ( sugar and caffeine free) ?? If you are unable to eat your usual meal plan: Replace the carbohydrates in your meal plan by eating small amounts of the list of items provided on the handout. (15 grams of carbohydrate) ?? REST! ?? When to call your health care provider: vomiting or diarrhea that lasts for 4 hours or more, blood sugar values of 250 or greater on 2 or more occasions in one day, a temperature >101, and moderate or large ketones. ?? Blood sugar goals Fastin-130 mg/dl During the day: 100-180 mg/dl Before bed: less than 140 mg/dl Use of the Pointstic Reflect Blood Glucose Monitoring System 8. WASH your hands with soap and water and dry well. Contaminants on the skin may affect the results 9. Prepare the testing supplies: The meter, a test strip, a lancet, the Delica lancing device and atissue to wipe the first drop of blood off from your finger 10. Prepare the Delica lancing device by rotating the cap - then pulling it straight off, and inserting a new lancet until it clicks in place for each test. Twist the lancet cover one full turn untilit separates from the lancet 11. Replace the lancing device cap by snapping it on 12. Adjust the depth setting on the base of the lancing device 13. Cock the lancing device by pulling the slider back until it clicks 14. Prepare the meter by inserting a new test strip, silver prongs first, gold side up - to turn the meter ON 15. Puncture either side of your finger by holding the lancing device firmly against your finger, press the round green release button, and remove the lancing device from your finger. 16. Gently squeeze your finger tip until a round drop of blood forms, and wipe that first drop off,and test the second drop by touching it to the dark channel on the side of the strip, wicking it upcompletely. The channel turns red, and the meter will count down from 5 to1. It is recommended to remove the lancet over plastic receptacle by sliding the slider forward towards the round green release button, until it drops out 17. View the result, and write it down in a logbook if desired. Your meter stores 750 test results.Refer to the Compliance Analyst's Booklet for acquiring control solution from your pharmacy see page 68, 74, 76 for more details. 18. A new feature of this meter provides the ColorSure Dynamic Range Indicator and Blood Sugar [place] Messages along with other feature you can explore in your cia agent's manual. Recommendations: Please order one touch verio gold test strips and delica plus lancets at d/c. Would recommend close f/u with PCP /consider referral to OP endocrinology if pt willing. Rossy JEANN pumping station engineer Nurse Clinician #[id number] * Ean Mosquera MD - 04/15/2022 1451 EST Neurology Consult Note Admit Date: 04/15/2022 Date of Service: 04/15/2022 Hospital Day: LOS: 0 days PCP: Zuleika Moreno Specialty Completing Consult: Neurology Code Status: Full Code Reason for Consult: Seizure HPI: Izabel Cloud is a 76 y.o. male with past medical history notable for AAA s/p repair, HTN and T2DM , transferred from [facility] 04/15/22 after having DKA and seizure witnessed by EMS. ?? He woke up at 4 AM this morning. A little later his heard him moaning. When she arrived he wason the floor unresponsive. He slowly gained the consciousness and got up and tried to go back to bed. When EMS arrived, he was still lethargic and confused. This is his 3rd episode of LOC ( describes as seizure) over past few years. has never witnessed any tonic clonic activity or shaking or tongue bite, foaming out of mouth etc. She describes it as being unresponsive on the floor and some confusion afterwards. is reporting that he has stopped his diabetes and BP medications recently. He usually does not check his BG at home and she is not sure if his BG is high or low. Sh does not know why he has stopped his metformin but she will call his PCP. From chart review: At the [facility] ED, vitals were notable for hypotension with BP 88/34, HR 68, RR 12, O2 saturation 100. Labs were notable for WBC 12, Hb 17.2. Electrolytes were notable for glucose 364, Cr 1.7, K2.9, bicarbonate 14.9, AG 28.1, UDS was negative. A sodium bicarbonate drip was started and subsequent VBG revealed pH 7.18 and pCO2 55. COVID negative. CT C/A/P revealed no acute pathology in the chest besides atelectasis, stable pancreatic cysts and a patent bi-iliac aortic stent in place. CT Head without contrast revealed no acute pathology. Reportedly he had some shaking at [facility]. ?? He also had episode of atrial fibrillation which resolved with fluid resuscitation with 1L NS and 1L LR, potassium repletion and a bolus of diltiazem. He was intubated and sedated with ativan, midazolam, fentanyl and propofol. He was loaded with Keppra given concern for seizure in the setting of suspected DKA and was started on an insulin dtt. He was transferred to the [facility] MICU for further evaluation. ?? Neurology consulted for possible seizure activity. No history of seizure found on chart review. No h/o head trauma. 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 No h/o known stroke. Review of Systems: Unable to assess Objective/Physical Exam: Vital Signs: Temp: 36.7 ??C (98.1 ??F) Resp: 20 BP: 122/75 SpO2: 100 % FIO2 %: 50 % Pain: No data found. Weight: Patient Vitals for the past 24 hrs: Weight 04/15/22 1317 93.1 kg (205 lb 4 oz) Body mass index is 28.63 kg/m??. Exam: Intubated and sedated on Propofol Pupils reactive to light and symmetric Corneal reflex present Gag reflex present Babinski down He is withdrawing from pian stimuli symmetrically Data Review: Latest Reference Range & Units 04/15/22 13:46 Lactic Acid <=2.0 mmol/L 2.5 (HH) Sodium 136 - 145 mmol/L 137 Potassium 3.5 - 5.0 mmol/L 4.6 Chloride 96 - 110 mmol/L 104 CO2 22 - 32 mmol/L 23 Anion Gap 5 - 14 10 BUN 10 - 26 mg/dL 16 Creatinine 0.66 - 1.25 mg/dL 1.16 GFR, Calculated >60 mL/min/1.73m2 64 Glucose, Serum 70 - 100 mg/dL 251 (H) Calcium 8.5 - 10.5 mg/dL 7.6 (L) Phosphorus 2.5 - 4.5 mg/dL 2.1 (L) Total Protein 6.3 - 8.2 g/dL 5.2 (L) Albumin 3.4 - 4.9 g/dL 2.9 (L) ALBUMIN/GLOBULIN RATIO - PMC 1.0 - 2.5 1.3 ALT <50 U/L 26 AST 15 - 46 U/L 28 Bilirubin, Total <1.4 mg/dL <0.5 Total Alkaline Phosphatase 38 - 126 U/L 61 Osmolality Marli 275 - 295 mOsm/kg 301 (H) CK <=250 U/L 208 Troponin I (ng/mL) <0.034 ng/mL 0.463 (H) Beta Hydroxybutyrate <0.4 mmol/L 0.5 (H) Ethanol <10 mg/dL mg/dL <10 (HH): Data is critically high (H): Data is abnormally high (L): Data is abnormally low Assessment: Izabel Cloud is a 76 y.o. male with past medical history notable for AAA s/p repair, HTN and T2DM , transferred from [facility] 04/15/22 after having DKA and seizure witnessed by EMS. Per his , he had an episode of syncope (LOC) earlier today. Per [facility] report, pt had some shaking while doing CT scan and was loaded with Keppra concern for seizure. Labs notable for DKA(AG 28) and he was started on Bicarb and insulin gtt. Per his , he has not been taking his diabetes medications recently. HbA1c>13 Patient' episode of loss of consciousness and possible shaking most likley in setting of hyperglycemia however I would recommend considering MRI head w/wo contrast to r/o any intracranial abnormalityas cause of his possible seizure. He has been already loaded with Keppra at [facility], can hold on continuing Keppra for now. Recommendations: -- Start VEEG monitoring -- Hold AED for now -- Consider MRI head w/wo contrast seizure protocol -- Low threshold for LP if developed fever or any other concern for infectious causes -- Treating underlying metabolic causes per MICU team JENNIFER SANON MD 04/15/2022 14:51 04/16/22 AM Addendum: Exubated to MI overnight. This AM patient is feeling ok other than throat soreness from intubation.States that he was brought to the hospital because he was weak. I asked him about his 's reportof recurrent episodes of LOC over the past few years, but he does not recall this. Per review of paper documents from [facility] patient reportedly had witnessed tonic-clonic seizure en route to the hospital. At [facility] exam was reportedly notable for R gaze preference, not following commands w/ R side. Hadanother witnessed seizure en route to CT. CT head reportedly unremarkable at OSH, but images not available for review. Exam today notable for hypophonia and leftward-beating end-gaze nystagmus when looking towards L, but otherwise nonfocal w/ intact mentation, full strength, sensation, hyporeflexia throughout, no pathologic reflexes. The multiple episodes of LOC witnessed by over the past few years sound more consistent w/ syncope than seizure. While the witnessed seizure events by EMS and at [facility] were described as generalized tonic-clonic activity, his exam at [facility] (post- ictal R gaze preference and R sided deficits) would suggest L hemispheric seizure focus. Despite that semiology-suggested localization, his CT head reportedly did not show any focal lesion and his EEG did not show asymmetry. FATOU mendoza.Would be reasonable to obtain MR head w/ and w/o contrast, but patient told me that he is not amenable 2/2 claustrophobia even w/ pre-medication. Therefore to our best approximation his presentation is most consistent w/ provoked seizure in setting of DKA. No indication for antiseizure medication at this time, but if recurrent seizure would start keppra. Recommendations: - Discontinue EEG - Ideally MR head w/ and w/o contrast, but patient not amenable - No further antiseizure medications unless further seizure activity Ean Mosquera MD Chief Resident, Neurology Pager [phone] after 7PM Discussed and seen w/ Neurology attending, Dr. Pollard. Associated attestation - Eva Pollard MD - 04/16/2022 1225 EST Attestation: I performed or was present during the chun or critical portions of the visit and participated in the management of the patient on 04/16/2022. I agree with the findings and plan of care documented in the resident's/fellow's note and ADDENDUM from when patient was seen this am. Call with any questions. Eva Pollard MD 04/16/2022 12:24 documented in this encounter Miscellaneous Notes * Plan of Care - Kandi Bridges RN - 04/18/2022 1114 EST Nursing Discharge Note D: Patient noted with discharge orders to: Home. A: Prescriptions faxed to pharmacy. Reviewed discharge instructions and prescriptions with Patient and Family IV d/c'd. Belongings collected and sent home with patient. R: Patient and Family verbalized understanding of discharge instructions and denied further questions. KANDI BRIDGES RN 04/18/2022 11:15 Problem: High Fall Risk: Goal: Patient will Remain Free of Falls due to Med. Side Effects Outcome: Completed Problem: High Fall Risk: Goal: Patient Will Remain Free from Fall-Related Injury Outcome: Completed Problem: High Fall Risk: Goal: Patient will Remain Free of Falls due to Altered Elimination Outcome: Completed Problem: High Fall Risk: Goal: Patient will Remain Free of Falls due to Altered Mobility Outcome: Completed Problem: High Fall Risk: Goal: Patient will Remain Free of Falls due to Confusion Outcome: Completed Problem: SKIN INTEGRITY Goal: Skin integrity will improve or be maintained Outcome: Completed Problem: Pressure Ulcer Prevention Goal: Absence Of Pressure Ulcer Outcome: Completed Problem: Risk For Imapaired Skin Integrity Goal: Incontinence Is Managed Outcome: Completed Problem: Impaired Skin Integrity Goal: Signs of wound healing will improve Outcome: Completed Problem: Safety: Description: Module scope: For the purpose of this module, the definition for restraint comes from the Medicare and Medicaid Programs; Hospital Conditions of Participation. A restraint is any manual,physical, or mechanical device, material, or equip ... Goal: Complications related to restraint use will be avoided or minimized Outcome: Completed Problem: Daily Care Plan Goals Goal: Care Plan Documentation Outcome: Completed Problem: GLYCEMIA IMBALANCE Goal: Clinical Indication Of Glycemia Balance Is Achieved Outcome: Completed Goal: Patient's Continuum Of Care Needs Are Met Outcome: Completed Problem: High Fall Risk: Goal: Patient will Remain Free of Falls due to Dizziness/Vertigo Outcome: Completed Problem: Safety: Goal: Will remain free from falls Outcome: Completed Goal: Will remain free from infection Outcome: Completed Goal: Ability to remain free from injury will improve Outcome: Completed Problem: Pain: Goal: Pain level will decrease Outcome: Completed Problem: Infection: Goal: Signs and symptoms of infection will decrease Outcome: Completed Problem: Cognitive/ Neuro: Goal: Will regain or maintain usual level of consciousness Outcome: Completed Goal: Mental status will return to base line Outcome: Completed Goal: Ability to maintain clinical measurements within normal limits will improve Outcome: Completed Problem: Cardiac: Goal: Ability to maintain clinical measurements within defined limits will improve Outcome: Completed Goal: Risk of venous thrombosis will decrease Outcome: Completed Problem: Respiratory: Goal: Ability to maintain a clear airway will improve Outcome: Completed Goal: Ability to maintain adequate ventilation will improve Outcome: Completed Problem: Bowel/Gastric: Goal: Gastrointestinal status for postoperative course will improve Outcome: Completed Goal: Occurrences of nausea will decrease Outcome: Completed Goal: Occurrences of diarrhea will decrease Outcome: Completed Goal: Ability to achieve a regular elimination pattern will improve Outcome: Completed Goal: Occurrences of constipation will decrease Outcome: Completed Problem: Nutritional: Goal: Ability to attain and maintain optimal nutritional status will improve Outcome: Completed Goal: Ability to chew and swallow food without choking will improve Outcome: Completed Problem: Urinary Elimination: Goal: Ability to reestablish a normal urinary elimination pattern will improve Outcome: Completed Goal: Ability to recognize the need to void and respond appropriately will improve Outcome: Completed Goal: Will remain free from infection Outcome: Completed Problem: Activity: Goal: Ability to avoid complications of mobility impairment will improve Outcome: Completed Goal: Ability to tolerate increased activity will improve Outcome: Completed Problem: Physical Regulation: Goal: Complications related to the disease process, condition or treatment will be avoided or minimized Outcome: Completed Goal: Diagnostic test results will improve Outcome: Completed Problem: Coping: Goal: Patient's and family's ability to cope will improve Outcome: Completed Goal: Level of anxiety will decrease Outcome: Completed Goal: Ability to develop realistic plans in adapting to changes will improve Outcome: Completed Problem: Role Relationship: Goal: Ability to express an understanding of role expectations in relation to illness will improve Outcome: Completed Goal: Ability to interact with others will improve Outcome: Completed * Plan of Care - Saturnino Cortes RN - 04/18/2022 0401 EST Problem: Daily Care Plan Goals Goal: Care Plan Documentation Flowsheets (Taken 04/17/2022 2019) Area of Focus: Safety Goal This Shift: Pt remains free of falls during shift Data: A/OX3, pt resistant to hospitalization, expressed want to leave AMA on previous shift, recentfall with head strike, T2DM (new DX), on room air, continent. Action: Bed alarm on, Q4 vitals, T2DM education, call nix within reach. Response: Pt remained free of falls during shift. SATURNINO CORTES RN 04/18/2022 4:01 * Plan of Care - Sj Hein RN - 04/17/2022 1103 EST Problem: High Fall Risk: Goal: Patient Will Remain Free from Fall-Related Injury Outcome: Ongoing Problem: SKIN INTEGRITY Goal: Skin integrity will improve or be maintained Outcome: Ongoing Problem: Daily Care Plan Goals Goal: Care Plan Documentation Outcome: Ongoing Assumed care at 0700. Data: Pt admitted 04/15 for syncopal and seizure activity. Action: Pt transferred to medicine service. Pt refusing morning labs. Tried multiple times. MD aware. Pt refused Lovenox. Pt transported to MRI on monitor with nursing. 0.5mg ativan given prior. Vitals stable. Pt's and daughter at bedside. Multiple updates given regarding pts course of care. Pt transferred to . RN report given. Pt transported on monitor. Response: Planning on transferring to [facility]. SJ HEIN RN 04/17/2022 11:03 * Plan of Care - Magalys Queen RN - 04/17/2022 0531 EST Data: Assumed care 1900, pt AOx3 but drowsy. VSS on RA-2L Action: Pt able to reposition independently. Refused am lab draw and hygiene. Response: Pt remains asleep and withdrawn with flat affect during reassessments. Continuing to monitor. MAGALYS QUEEN RN 04/17/2022 5:31 * Plan of Care - Sj Hein RN - 04/16/2022 3617 EST Problem: High Fall Risk: Goal: Patient Will Remain Free from Fall-Related Injury Outcome: Ongoing Problem: Impaired Skin Integrity Goal: Signs of wound healing will improve Outcome: Ongoing Problem: Daily Care Plan Goals Goal: Care Plan Documentation Outcome: Ongoing Assumed care at 0700. Data: Pt admitted 04/15 for syncopal and seizure activity. Action: West discontinued. Pt refusing MRI. MD at bedside to discuss reasons and options. Pt still refusing. Bilateral carotid ultrasound. Bedside swallow performed by RN. Pt passed. Regular diet started. Continuous EEG discontinued. Code status changed to DNR/DNI per pt. Response: Pt not longer requiring ICU level care but still being followed by MICU team. Plan to transfer soon. SJ HEIN RN 04/16/2022 14:57 * Plan of Care - Tahir Dan RN - 04/16/2022 0520 EST Problem: High Fall Risk: Goal: Patient will Remain Free of Falls due to Med. Side Effects Outcome: Ongoing Problem: High Fall Risk: Goal: Patient Will Remain Free from Fall-Related Injury Outcome: Ongoing Problem: High Fall Risk: Goal: Patient will Remain Free of Falls due to Altered Elimination Outcome: Ongoing Problem: High Fall Risk: Goal: Patient will Remain Free of Falls due to Altered Mobility Outcome: Ongoing Problem: High Fall Risk: Goal: Patient will Remain Free of Falls due to Confusion Outcome: Ongoing Problem: SKIN INTEGRITY Goal: Skin integrity will improve or be maintained Outcome: Ongoing Problem: Pressure Ulcer Prevention Goal: Absence Of Pressure Ulcer Outcome: Ongoing Problem: Risk For Imapaired Skin Integrity Goal: Incontinence Is Managed Outcome: Ongoing Problem: Impaired Skin Integrity Goal: Signs of wound healing will improve Outcome: Ongoing Problem: Safety: Description: Module scope: For the purpose of this module, the definition for restraint comes from the Medicare and Medicaid Programs; Hospital Conditions of Participation. A restraint is any manual,physical, or mechanical device, material, or equip ... 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 Expected: 04/25/2022 (Approximate), Expires: 04/18/2024 Scheduled Referrals Name Type Priority Associated Diagnoses Orde r Schedule AMB CONS/FOLLOW UP PRIMARY CARE PHYSICIAN - EXTERNAL Outpatient Referral Routine/Next Available Seizure ([facility]) Acute metabolic encephalopathy 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 DKA, type 2, not at goal ([facility]) Expected: 04/25/2022 (Approximate), Expires: 04/18/2023 AMB CONS/FOLLOW UP VASCULAR SURGERY Outpatient Referral Routine/Next Available 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 Carotid stenosis, bilateral Expected: 04/25/2022 (Approximate), Expires: 04/18/2023 AMB CONS/FOLLOW UP ENT Outpatient Referral Routine/Next Available Mass of parotid gland Expected: 04/25/2022 (Approximate), Expires: 04/18/2023 documented as of this encounter Procedures Procedure Name Priority Date/Time Associated Diagnosis Comments ECG REPORT - SCANNED 04/22/2022 10:57 EST ECG REPORT - SCANNED 04/22/2022 10:57 EST ECG REPORT - SCANNED 04/21/2022 6:31 EST COMPLETE BLOOD COUNT Routine 04/18/2022 10:41 EST MAGNESIUM Routine 04/18/2022 10:41 EST COMPREHENSIVE METABOLIC PANEL (CMP) Routine 04/18/2022 10:41 EST POCT GLUCOSE, INTERFACED Routine 04/18/2022 9:41 EST COMPLETE BLOOD COUNT Routine 04/17/2022 21:01 EST COMPREHENSIVE METABOLIC PANEL (CMP) Routine 04/17/2022 21:01 EST POCT GLUCOSE, INTERFACED Routine 04/17/2022 20:03 EST POCT GLUCOSE, INTERFACED Routine 04/17/2022 17:42 EST MR HEAD W WO CONTRAST STAT 04/17/2022 14:19 EST POCT GLUCOSE, INTERFACED Routine 04/17/2022 11:54 EST ZZCOVID-19 TEST [facility] PCR Today 04/17/2022 9:44 EST COVID-19 TESTING Routine 04/17/2022 9:44 EST POCT GLUCOSE, INTERFACED Routine 04/17/2022 8:05 EST POCT GLUCOSE, INTERFACED Routine 04/16/2022 23:42 EST POCT GLUCOSE, INTERFACED Routine 04/16/2022 17:21 EST TRANSTHORACIC ECHO (TTE) COMPLETE Routine 04/16/2022 15:30 EST US CAROTID-VERTEBRAL DUPLEX Routine 04/16/2022 15:30 EST TROPONIN I Routine 04/16/2022 14:41 EST POCT GLUCOSE, INTERFACED Routine 04/16/2022 11:54 EST EXTUBATION Routine 04/16/2022 6:00 EST POCT GLUCOSE, INTERFACED Routine 04/16/2022 5:16 EST BACTERIAL CULTURE, BLOOD Routine 04/16/2022 3:06 EST TROPONIN I Routine 04/16/2022 3:06 EST COMPLETE BLOOD COUNT Routine 04/16/2022 3:06 EST PHOSPHORUS Add-On 04/16/2022 3:06 EST MAGNESIUM Add-On 04/16/2022 3:06 EST CK Add-On 04/16/2022 3:06 EST COMPREHENSIVE METABOLIC PANEL (CMP) Routine 04/16/2022 3:06 EST POCT GLUCOSE, INTERFACED Routine 04/16/2022 0:34 EST EEG WITH PROLONGED BEDSIDE VIDEO MONITORING STAT 04/15/2022 23:59 EST POCT GLUCOSE, INTERFACED Routine 04/15/2022 20:09 EST BACTERIAL CULTURE, BLOOD STAT 04/15/2022 18:39 EST TROPONIN I Routine 04/15/2022 18:35 EST LACTIC ACID Routine 04/15/2022 18:35 EST CSF MANUAL DIFFERENTIAL Today 04/15/20 18:18 EST CELL COUNT, CSF Routine 04/15/2022 18:18 EST VARICELLA ZOSTER VIRUS MOLECULAR DETECTION, PCR Routine 04/15/2022 18:18 EST HSV (HERPES SIMPLEX VIRUS) MOLECULAR DETECTION, PCR Routine 04/15/2022 18:18 EST ENTEROVIRUS MOLECULAR DETECTION PCR, CSF Routine 04/15/2022 18:18 EST BACTERIAL CULTURE/SMEAR Routine 04/15/20 18:18 EST LDH, CSF Routine 04/15/2022 18:18 EST VDRL,CSF Routine 04/15/2022 18:18 EST HOLD FLUID Routine 04/15/2022 18:18 EST CELL COUNT TUBE 1, CSF - RBC ONLY, INDICATED FOR A BLOODY TAP Routine 04/15/2022 18:18 EST IGG, CSF Routine 04/15/2022 18:18 EST LYME PLUMBING AND HEATING MECHANIC INFECTION IGG WITH AB INDEX REFLEX, CSF Routine 04/15/2022 18:18 EST CELL COUNT,CSF Routine 04/15/2022 18:18 EST TOTAL PROTEIN, CSF Routine 04/15/2022 18 :18 EST LACTIC ACID, CSF Routine 04/15/2022 18:1 8 EST GLUCOSE CSF Routine 04/15/2022 18:18 EST POCT GLUCOSE, INTERFACED Routine 04/15/2022 17:47 EST POCT GLUCOSE, INTERFACED Routine 04/15/2022 16:01 EST POCT BLOOD GAS, EG6 I-STAT STAT 04/15/2022 16:00 EST POCT GLUCOSE, INTERFACED Routine 04/15/2022 15:21 EST XR CHEST PORTABLE 1 VIEW STAT 04/15/2022 15:18 EST EKG 12-LEAD STAT 04/15/2022 14:57 EST XR FEEDING TUBE PLACEMENT STAT 04/15/2022 14:18 EST URINE CHEMICAL (DIP) & SEDIMENT (MICRO) WITH REFLEX TO CULTURE Routine 04/15/2022 14:17 EST POCT GLUCOSE, INTERFACED Routine 04/15/2022 14:13 EST MRSA PCR Routine 04/15/2022 13:48 EST HOLD SST Routine 04/15/2022 13:46 EST BETA HYDROXYBUTYRATE STAT 04/15/2022 13:46 EST TROPONIN I Routine 04/15/2022 13:46 EST LACTIC ACID Routine 04/15/2022 13:46 EST OSMOLALITY Routine 04/15/2022 13:46 EST PHOSPHORUS Routine 04/15/2022 13:46 EST HEMOGLOBIN A1C Routine 04/15/2022 13:46 EST CK STAT Add-on 04/15/2022 13:46 EST ETHANOL, BLOOD STAT Add-on 04/15/2022 13:46 EST COMPREHENSIVE METABOLIC PANEL (CMP) Routine 04/15/2022 13:46 EST POCT GLUCOSE, INTERFACED Routine 04/15/2022 13:11 EST POCT BLOOD GAS, CG8 I-STAT Routine 04/15/2022 12:37 EST POCT BLOOD GAS, CG8 I-STAT Routine 04/15/2022 11:22 EST documented in this encounter Results * ECG REPORT - SCANNED (04/22/2022 10:57 EST) 04/22/2022 10:5 7 EST Scan 2 Box Blank Machine Operator PROCEDURE/MINOR BALDEMAR GICAL ORDERABLES * ECG REPORT - SCANNED (04/22/2022 10:57 EST) 04/22/2022 10:5 7 EST Scan 2 Box Blank Machine Operator PROCEDURE/MINOR BALDEMAR GICAL ORDERABLES * ECG REPORT - SCANNED (04/21/2022 6:31 EST) 04/21/2022 6:31 EST Scan 2 Box Blank Machine Operator PROCEDURE/MINOR BALDEAMR GICAL ORDERABLES * COMPLETE BLOOD COUNT (04/18/2022 10:41 EST) WBC 6.91 4.00 - 10.40 K/cmm 04/18/2022 11:[address] [facility] RBC 4.89 4.36 - 5.78 M/cmm 04/18/2022 11:[address] [facility] Hemoglobin 15.5 13.8 - 17.3 gm/dL 04/18/2022 11:[address] [facility] HCT 45.1 39.5 - 50.2 % 04/18/2022 11:[address] [facility] MCV 92 81 - 95 fl 04/18/2022 11:[address] [facility] MCH 31.7 27.6 - 33.0 pg 04/18/2022 11:[address] [facility] MCHC 34.4 32.8 - 36.4 gm/dL 04/18/2022 11:[address] [facility] RDW-CV 12.3 <14.2 % 04/18/2022 11:[address] [facility] RDW-SD 41.4 <46.0 fl 04/18/2022 11:[address] [facility] PLT 166 141 - 377 K/cmm 04/18/2022 11:[address] [facility] MPV 10.1 9.5 - 12.7 fl 04/18/2022 11:[address] [facility] Blood VENOUS BLOOD / Unknown Venipuncture / Unknown 04/18/2022 10:41 EST 04/18/2022 11:29 EST Fabienne Norris MD HEMATOLOGY & P F4 ORDERABLES [facility] [address] [place] [address] * (ABNORMAL) COMPREHENSIVE METABOLIC PANEL (CMP) (04/18/2022 10:41 EST) Sodium 139 136 - 145 mmol/L 04/18/2022 12:[address] [facility] Potassium 4.4 3.5 - 5.0 mmol/L 04/18/2022 12:[address] [facility] Chloride 104 96 - 110 mmol/L 04/18/2022 12:[address] [facility] CO2 Total 25 22 - 32 mmol/L 04/18/2022 12:[address] [facility] Glucose 211(H) 70 - 100 mg/dL 04/18/2022 12:[address] [facility] BUN 16 10 - 26 mg/dL 04/18/2022 12:[address] [facility] Creatinine 1.02 0.66 - 1.25 mg/dL 04/18/2022 12:[address] [facility] eGFR 75 >60 mL/min/1.7 3m2 04/18/2022 12:[address] [facility] Total Protein 6.3 6.3 - 8.2 g/dL 04/18/2022 12:[address] [facility] Albumin 3.4 3.4 - 4.9 g/dL 04/18/2022 12:[address] [facility] Alkaline Phosphatase 75 38 - 126 U/L 04/18/2022 12:[address] [facility] AST 33 15 - 46 U/L 04/18/2022 12:[address] [facility] ALT 23 <50 U/L 04/18/2022 12:[address] [facility] Bilirubin, Total 1.0 <1.4 mg/dL 04/18/20 12:[address] [facility] Calcium 8.7 8.5 - 10.5 mg/dL 04/18/2022 12:[address] [facility] Albumin/Globulin Ratio 1.2 1.0 - 2.5 04/18/2022 12:[address] [facility] Anion Gap 10 5 - 14 04/18/2022 12:[address] [facility] Blood VENOUS BLOOD / Unknown Venipuncture / Unknown 04/18/2022 10:41 EST 04/18/2022 11:31 EST Fabienne Norris MD CHEMISTRY & BL OOD GAS ORDERABLES Performing Organization Address City/[facility]/ZIP Co de Phone Number [facility] [address] [place] [address] * MAGNESIUM (04/18/2022 10:41 EST) Pathologist [facility] Magnesium 1.8 1.7 - 2.8 mg/dL 04/18/2022 12:04 EST [facility] Blood VENOUS BLOOD / Unknown Venipuncture / Unknown 04/18/2022 10:41 EST 04/18/2022 11:31 EST Mikayla Hallman MD CHEMISTRY & BLOOD GA S ORDERABLES Performing Organization Address [facility] de Phone Number [facility] [address] [place] [address] * (ABNORMAL) POCT GLUCOSE, INTERFACED (04/18/2022 9:41 EST) Pathologist [facility] Glucose, POC 184(H) 70 - 100 mg/dL 04/18/2022 9:42 EST [facility] HN LAB POC COMMENT (GLUCOSE) Test Performed by Nursing Services 04/18/2022 9:42 EST [facility] Blood CAPILLARY BLOOD / Unknown 04/18/2022 9:41 EST 04/18/2022 9:42 EST Adeel Cohen MD POINT OF CARE TEST O RDERABLES Performing Organization Address City/[facility]/ZIP Co de Phone Number [facility] [address] [place] [address] * COMPLETE BLOOD COUNT (04/17/2022 21:01 EST) WBC 9.22 4.00 - 10.40 K/cmm 04/17/2022 21:24 EST [facility] RBC 4.78 4.36 - 5.78 M/cmm 04/17/2022 21:24 EST [facility] Hemoglobin 15.3 13.8 - 17.3 gm/dL 04/17/2022 21:[address] [facility] HCT 42.7 39.5 - 50.2 % 04/17/2022 21:[address] [facility] MCV 89 81 - 95 fl 04/17/2022 21:[address] [facility] MCH 32.0 27.6 - 33.0 pg 04/17/2022 21:[address] [facility] MCHC 35.8 32.8 - 36.4 gm/dL 04/17/2022 21:[address] [facility] RDW-CV 12.2 <14.2 % 04/17/2022 21:[address] [facility] RDW-SD 40.3 <46.0 fl 04/17/2022 21:[address] [facility] PLT 166 141 - 377 K/cmm 04/17/2022 21:[address] [facility] MPV 9.9 9.5 - 12.7 fl 04/17/2022 21:[address] [facility] Blood VENOUS BLOOD / Unknown Venipuncture / Unknown 04/17/2022 21:01 EST 04/17/2022 21:16 EST Fabienne Norris MD HEMATOLOGY & P F4 ORDERABLES [facility] [address] [place] [address] * (ABNORMAL) COMPREHENSIVE METABOLIC PANEL (CMP) (04/17/2022 21:01 EST) Sodium 141 136 - 145 mmol/L 04/17/2022 21:[address] [facility] Potassium 4.2 3.5 - 5.0 mmol/L 04/17/2022 21:[address] [facility] Chloride 105 96 - 110 mmol/L 04/17/2022 21:[address] [facility] CO2 Total 25 22 - 32 mmol/L 04/17/2022 21:[address] [facility] Glucose 177(H) 70 - 100 mg/dL 04/17/2022 21:[address] [facility] BUN 15 10 - 26 mg/dL 04/17/2022 21:[address] [facility] Creatinine 1.10 0.66 - 1.25 mg/dL 04/17/2022 21:[address] [facility] eGFR 69 >60 mL/min/1.7 3m2 04/17/2022 21:[address] [facility] Total Protein 6.1(L) 6.3 - 8.2 g/dL 04/17/2022 21:[address] [facility] Albumin 3.3(L) 3.4 - 4.9 g/dL 04/17/2022 21:[address] [facility] Alkaline Phosphatase 70 38 - 126 U/L 04/17/2022 21:[address] [facility] AST 38 15 - 46 U/L 04/17/2022 21:[address] [facility] ALT 24 <50 U/L 04/17/2022 21:[address] [facility] Bilirubin, Total 0.8 <1.4 mg/dL 04/17/20 21:[address] [facility] Calcium 8.9 8.5 - 10.5 mg/dL 04/17/2022 21:[address] [facility] Albumin/Globulin Ratio 1.2 1.0 - 2.5 04/17/2022 21:[address] [facility] Anion Gap 11 5 - 14 04/17/2022 21:[address] [facility] Blood VENOUS BLOOD / Unknown Venipuncture / Unknown 04/17/2022 21:01 EST 04/17/2022 21:16 EST Fabienne Norris MD CHEMISTRY & BL OOD GAS ORDERABLES [facility] [address] [place] [address] * (ABNORMAL) POCT GLUCOSE, INTERFACED (04/17/2022 20:03 EST) Glucose, POC 189(H) 70 - 100 mg/dL 04/17/2022 20:[address] [facility] HN LAB POC COMMENT (GLUCOSE) Test Performed by Nursing Services 04/17/2022 20:04 EST [facility] Blood CAPILLARY BLOOD / Unknown 04/17/2022 20:03 EST 04/17/2022 20:04 EST Adeel Cohen MD POINT OF CARE TEST O RDERABLES Performing Organization Address [facility] Co de Phone Number [facility] [address] [place] [address] * (ABNORMAL) POCT GLUCOSE, INTERFACED (04/17/2022 17:42 EST) Glucose, POC 219(H) 70 - 100 mg/dL 04/17/2022 17:46 EST [facility] HN LAB POC COMMENT (GLUCOSE) Test Performed by Nursing Services 04/17/2022 17:46 EST [facility] Blood CAPILLARY BLOOD / Unknown 04/17/2022 17:42 EST 04/17/2022 17:46 EST Adeel Cohen MD POINT OF CARE TEST O RDERABLES Performing Organization Address [facility] Co de Phone Number [facility] [address] [place] [address] * MR HEAD W WO CONTRAST (04/17/2022 14:19 EST) Anatomical Region Laterality Modality Head Magnetic Resonan ce 04/17/2022 14:4 3 EST Impressions 04/17/2022 14:43 EST Irregular region of enhancement and signal abnormality in the left frontal lobe centered in the middle frontal gyrus, favored to represent a region of evolving subacute infarction with evidence of petechial hemorrhage. Additional adjacent foci of cortical enhancement also likely represent subacute infarcts. A short interval follow-up MRI is recommended to exclude an alternate etiology. 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 1.3 cm circumscribed lesion in the right parotid gland which could represent an enlarged lymph node or parotid neoplasm. Additional smaller lesions in both parotid glands likely represent lymph nodes. ENT consultation suggested for further management, including assessment by ultrasound and possible biopsy. Narrative 04/17/2022 14:43 EST EXAM: MRI HEAD WO/W CONTRAST HISTORY: Mental status change, unknown cause; to rule out structural brain issues TECHNIQUE: MRI head without and with intravenous gadolinium contrast. Structured report code: [id number] COMPARISON: Head CT 04/15/2022. FINDINGS: PARENCHYMA: A small area of DWI hyperintensity, irregular FLAIR hyperintensity, and susceptibility artifact in the left frontal lobe, centered in the middle frontal gyrus, enhances heterogeneously and corresponds to a region of hypodensity on the prior CT. A few additional foci of enhancement in the adjacent cortex show corresponding T2-FLAIR hyperintensity without restricted diffusion. Regions of signal abnormality are largely volume neutral, without significant local mass effect. 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 No midline shift. Mild diffuse parenchymal volume loss. Scattered foci of T2-FLAIR hyperintensity in the supratentorial white matter are non-specific but typically represent the sequela of chronic microangiopathy. EXTRA-AXIAL SPACES: No evidence of extra-axial hemorrhage. No extra-axial collection. No extra-axial mass. VENTRICLES: No obstructive hydrocephalus. No evidence of intraventricular hemorrhage. VESSELS: The flow voids of the major intracranial vasculature are present. Asymmetric FLAIR hyperintensity in the left sigmoid sinus likely represents artifact from slow flow. BONES: Unremarkable. ORBITS: No concerning abnormality. Prior lens replacement on the right. PARANASAL SINUSES/MASTOID AIR CELLS: Minor mural thickening in the paranasal sinuses and mastoid air cells. EXTRACRANIAL SOFT TISSUES: A 1.3 cm circumscribed T2 hypointense lesion is present in the right parotid gland, not significantly changed compared to the preceding CT (e.g. series 501, image 1). Several additional, smaller FLAIR hyperintense lesions in the parotid glands likely represent lymph nodes. Mild edema noted in the premaxillary soft tissues on the right. Procedure Note Steve West MD - 04/17/2022 EXAM: MRI HEAD WO/W CONTRAST HISTORY: Mental status change, unknown cause; to rule out structural brainissues TECHNIQUE: MRI head without and with intravenous gadolinium contrast.Structured report code: [id number] COMPARISON: Head CT 04/15/2022. FINDINGS: PARENCHYMA: A small area of DWI hyperintensity, irregular FLAIR hyperintensity, andsusceptibility artifact in the left frontal lobe, centered in the middlefrontal gyrus, enhances heterogeneously and corresponds to a region ofhypodensity on the prior CT. A few additional foci of enhancement in theadjacent cortex show corresponding T2-FLAIR hyperintensity withoutrestricted diffusion. Regions of signal abnormality are largely volumeneutral, without significant local mass effect. Remote infarcts arepresent in the cerebellum and left thalamus. No midline shift. Mild diffuse parenchymal volume loss. Scattered foci of T2-FLAIRhyperintensity in the supratentorial white matter are non-specific buttypically represent the sequela of chronic microangiopathy. EXTRA-AXIAL SPACES: No evidence of extra-axial hemorrhage. No extra-axial collection. Noextra-axial mass. VENTRICLES: No obstructive hydrocephalus. No evidence of intraventricularhemorrhage. VESSELS: The flow voids of the major intracranial vasculature are present.Asymmetric FLAIR hyperintensity in the left sigmoid sinus likelyrepresents artifact from slow flow. BONES: Unremarkable. ORBITS: No concerning abnormality. Prior lens replacement on the right. PARANASAL SINUSES/MASTOID AIR CELLS: Minor mural thickening in the paranasal sinuses and mastoid air cells. EXTRACRANIAL SOFT TISSUES: A 1.3 cm circumscribed T2 hypointense lesion is present in the rightparotid gland, not significantly changed compared to the preceding CT(e.g. series 501, image 1). Several additional, smaller FLAIR hyperintenselesions in the parotid glands likely represent lymph nodes. Mild edemanoted in the premaxillary soft tissues on the right. IMPRESSION Irregular region of enhancement and signal abnormality in the left frontallobe centered in the middle frontal gyrus, favored to represent a regionof evolving subacute infarction with evidence of petechial hemorrhage.Additional adjacent foci of cortical enhancement also likely representsubacute infarcts. A short interval follow-up MRI is recommended toexclude an alternate etiology. Remote infarcts are present in thecerebellum and left thalamus. 1.3 cm circumscribed lesion in the right parotid gland which couldrepresent an enlarged lymph node or parotid neoplasm. Additional smallerlesions in both parotid glands likely represent lymph nodes. ENTconsultation suggested for further management, including assessment byultrasound and possible biopsy. Fabienne Norris MD IMG MRI ORDERA BLES * (ABNORMAL) POCT GLUCOSE, INTERFACED (04/17/2022 11:54 EST) Glucose, POC 258(H) 70 - 100 mg/dL 04/17/2022 11:56 EST [facility] HN LAB POC COMMENT (GLUCOSE) Test Performed by Nursing Services 04/17/2022 11:56 EST [facility] Blood CAPILLARY BLOOD / Unknown 04/17/2022 11:54 EST 04/17/2022 11:56 EST Adeel Cohen MD POINT OF CARE TEST O RDERABLES Performing Organization Address [facility] Co de Phone Number [facility] [address] [place] [address] * COVID-19 TEST [facility] PCR (04/17/2022 9:44 EST) Swab ENTIRE NASOPHARYNX / Unknown Swab / Unknown 04/17/2022 9:44 EST 04/17/2022 9:53 EST Fabienne Norris MD MICROBIOLOGY - GENERAL ORDERABLES Performing Organization Address [facility] Co de Phone Number [facility] [address] [place] [address] * COVID-19 TESTING (04/17/2022 9:44 EST) Pathologist [facility] COVID-19 rt-PCR Result Negative Negative 04/17/2022 13:19 EST [facility] Comment: This test has not been FDA cleared or approved. This test has been authorized by FDA under an EUA for use by authorized laboratories. This test has been authorized only for detection of nucleic acid from 2019-nCoV, not for any other viruses or pathogens. This test is only authorized for the duration of the declaration that circumstances exist justifying the authorization of emergency use of in vitro diagnostic tests for detection and/or diagnosis of 2019-nCoV under section 564(b)(1) of Act, 21 U.S.C ?? 360bbb-3(b) (1), unless the authorization is terminated or revoked sooner. Negative results do not preclude 2019-nCoV infection and should not be used as the sole basis for treatment or other patient management decisions. Negative results must be combined with clinical observations, patient history, and epidemiological information. Performed on the [facility] Fusion instrument Performing Lab [place] 04/17/2022 13:19 EST [facility] Swab ENTIRE NASOPHARYNX / Unknown Swab / Unknown 04/17/2022 9:44 EST 04/17/2022 9:53 EST Fabienne Norris MD MICROBIOLOGY - GENERAL ORDERABLES Performing Organization Address City/[facility] Co de Phone Number [facility] [address] [place] [address] * (ABNORMAL) POCT GLUCOSE, INTERFACED (04/17/2022 8:05 EST) Glucose, POC 134(H) 70 - 100 mg/dL 04/17/2022 8:16 EST [facility] HN LAB POC COMMENT (GLUCOSE) Test Performed by Nursing Services 04/17/2022 8:16 EST [facility] Blood CAPILLARY BLOOD / Unknown 04/17/2022 8:05 EST 04/17/2022 8:16 EST Adeel Cohen MD POINT OF CARE TEST O RDERABLES Performing Organization Address [facility] Co de Phone Number [facility] [address] [place] [address] * (ABNORMAL) POCT GLUCOSE, INTERFACED (04/16/2022 23:42 EST) Glucose, POC 112(H) 70 - 100 mg/dL 04/16/2022 23:43 EST [facility] HN LAB POC COMMENT (GLUCOSE) Test Performed by Nursing Services 04/16/2022 23:43 EST [facility] Blood CAPILLARY BLOOD / Unknown 04/16/2022 23:42 EST 04/16/2022 23:43 EST Fabienne Norris MD POINT OF CARE TEST ORDERABLES Performing Organization Address City/[facility]/ZIP Co de Phone Number [facility] [address] [place] [address] * (ABNORMAL) POCT GLUCOSE, INTERFACED (04/16/2022 17:21 EST) Pathologist [facility] Glucose, POC 205(H) 70 - 100 mg/dL 04/16/2022 17:22 EST [facility] HN LAB POC COMMENT (GLUCOSE) Test Performed by Nursing Services 04/16/2022 17:22 EST [facility] Blood CAPILLARY BLOOD / Unknown 04/16/2022 17:21 EST 04/16/2022 17:22 EST Fabienne Norris MD POINT OF CARE TEST ORDERABLES [facility] [address] [place] [address] * TRANSTHORACIC ECHO (TTE) COMPLETE W/DOPPLER W/CF W/ CONTRAST (04/16/2022 15:30 EST) Pathologist [facility] [place] Atrial Length A2C 3.9 cm [facility] [place] Atrial Area A4C 11.0 cm2 [facility] LA ID/bsa, A-P 1.8 cm/m2 [facility] LV ID, ED, PLAX 4.8 3.5 - 6.0 cm [facility] LVIDD BY MMODE 4.8 cm [facility] LV ID, ES, PLAX 3.5 2.1 - 4.0 cm [facility] LA ID, A-P, ES 3.8 cm [facility] LV PW thickness, ED, PLAX 1.1 0.6 - 1.1 cm [facility] Aortic root ID 3.4 cm [facility] LV ejection fraction, 1-p A4C 60 % [facility] LVOT mean gradient, S 3 mmHg [facility] AV LVOT peak gradient 5 mmHg [facility] LV e', lateral 0.06 m/s [facility] Mitral deceleration time 271 ms [facility] LVOT area 3.1 cm2 [facility] LVOT peak velocity, S 1.2 m/s [facility] LVOT VTI, S 22.3 cm [facility] PO INT OF CARE Stroke volume (SV), LVOT DP 70 ml [facility] LVOT mean velocity, S 0.9 m/s [facility] Mitral E-wave peak velocity 0.6 m/s [facility] Mitral A-wave peak velocity 1.0 m/s [facility] LV Systolic Volume Index 15.0 mL/m2 [facility] LV Diastolic Volume Index 35.0 mL/m2 [facility] LA Atrial Length A4C 4.3 cm [facility] LVOT ID, S 2.0 cm [facility] POI NT OF CARE EF 56 % [facility] LA volume, ES, BP 23.0 ml [facility] LA volume/bsa, ES, A4C 11.0 ml/m2 [facility] LA volumes, ES, A4C 24.0 ml [facility] LA volume/bsa, ES, BP 11.0 ml/m2 [facility] LV Systolic Volume 33 mL [facility] LV Diastolic Volume 74 mL [facility] Stroke index (SV/bsa) LVOT DP 33.0 ml/m2 [facility] Interventricular Septum to Posterior Wall Thickness Ratio 0.9 [facility] P OINT OF CARE IVS thickness, ED, PLAX 1.0 cm [facility] LV e', medial 0.05 m/s [facility] LV e', average 0.06 m/s [facility] Pulmonic valve mean velocity, S 1 cm/s [facility] Ascending aorta ID, a-p 4.3 cm [facility] LA Atrial Area A2C 11.0 cm2 [facility] LA/aortic root ratio 1.12 [facility] LV end diastolic volume 1-p A2C 65 ml [facility] LV ejection fraction, 1-p A2C 54 % [facility] LV E/e', lateral 9.0 [facility] LV E/e', medial 0.1 [facility] POINT OF C[facility] LV E/e', average 5 [facility] LV end-diastolic volume, 1-p A4C 82 ml [facility] Anatomical Region Laterality Modality Ultrasound Narrative 04/16/2022 16:00 EST ?Left??Ventricle: Left ventricular systolic function was normal with an ejection fraction of 55-60%. Left ventricular wall motion was normal; there were no regional wall motion abnormalities. ?Right??Ventricle: Right ventricle was suboptimally visualized but appeared mildly dilated in size. Right ventricular systolic function was mildly reduced. ?Aorta: The aortic root was normal in size. The ascending aorta was mildly dilated (4.3cm). Left Ventricle The left ventricular cavity was normal in size. Left ventricular systolic function was normal with an ejection fraction of 55-60%. Left ventricular diastolic parameters were not diagnostic. There was mild hypertrophy of the left ventricle. Left ventricular wall motion was normal; there were no regional wall motion abnormalities. Right Ventricle Right ventricle was suboptimally visualized but appeared mildly dilated in size. Right ventricular systolic function was mildly reduced. Left Atrium The left atrium was normal in size. Right Atrium Right atrium was not well visualized. IVC/SVC The inferior vena cava was not well visualized. Mitral Valve Mitral valve structure was grossly normal. There was no significant mitral valve stenosis or regurgitation. Tricuspid Valve The tricuspid valve was not well visualized. There was no evidence of significant tricuspid valve regurgitation. There was no tricuspid valve stenosis. Aortic Valve The aortic valve structure was probably trileaflet. The aortic leaflets were mildly thickened and mildly calcified. There was no aortic valve stenosis. There was no aortic valve regurgitation. Pulmonic Valve There was trace pulmonic valve regurgitation. There was no pulmonic valve stenosis. Ascending Aorta The aortic root was normal in size. The ascending aorta was mildly dilated (4.3cm). Pericardium There was no significant pericardial effusion. Pulmonic Artery Unable to assess PA pressure. Study Details Study status: Routine. Transthoracic echocardiography. M-Mode, complete 2D, complete spectral Doppler, and color Doppler.The study was interpreted by [facility]. Pertinent images and digital data are archived for permanent storage and are available for subsequent review. Scanning was performed from the apical, parasternal and subcostal acoustic windows. Definity contrast was used during the study. Overall the study quality was adequate. Images were obtained using cardiac ultrasound machine EPIQ #[id number]. Kyree Walker CARDIAC ECHO ORDERAB LES * US CAROTID-VERTEBRAL DUPLEX BILATERAL (04/16/2022 15:30 [...] Medical History Hypertension and Diabetes Mellitus. Kyree Walker [facility] V[facility]ULAR ORDBela BARRY * (ABNORMAL) TROPONIN I (04/16/2022 14:41 EST) [facility] Troponin I (ng/mL) 0.606(H) <0.034 ng/mL 04/16/2022 15:19 EST [facility] Blood VENOUS BLOOD / Unknown Venipuncture / Unknown 04/16/2022 14:41 EST 04/16/2022 14:52 EST Narrative [facility] - 04/16/2022 15:19 EST The results of this assay can be falsely lowered due to the consumption of Biotin. Fabienne Norris MD CHEMISTRY & BL OOD GAS ORDERABLES [facility] [address] [place] [address] * (ABNORMAL) POCT GLUCOSE, INTERFACED (04/16/2022 11:54 EST) Pathologist [facility] Glucose, POC 154(H) 70 - 100 mg/dL 04/16/2022 11:57 EST [facility] HN LAB POC COMMENT (GLUCOSE) Test Performed by Nursing Services 04/16/2022 11:57 EST [facility] Blood CAPILLARY BLOOD / Unknown 04/16/2022 11:54 EST 04/16/2022 11:57 EST Fabienne Norris MD POINT OF CARE TEST ORDERABLES Performing Organization Address City/[facility]/ZIP Co de Phone Number [facility] [address] [place] [address] * (ABNORMAL) POCT GLUCOSE, INTERFACED (04/16/2022 5:16 EST) Glucose, POC 173(H) 70 - 100 mg/dL 04/16/2022 5:38 EST [facility] HN LAB POC COMMENT (GLUCOSE) Test Performed by Nursing Services 04/16/2022 5:38 EST [facility] Blood CAPILLARY BLOOD / Unknown 04/16/2022 5:16 EST 04/16/2022 5:38 EST Fabienne Norris MD POINT OF CARE TEST ORDERABLES Performing Organization Address City/[facility]/ZIP Co de Phone Number [facility] [address] [place] [address] * MAGNESIUM (04/16/2022 3:06 EST) Magnesium 2.1 1.7 - 2.8 mg/dL 04/16/2022 12:26 EST [facility] Blood VENOUS BLOOD / Unknown Venipuncture / Unknown 04/16/2022 3:06 EST 04/16/2022 3:12 EST Fabienne Norris MD CHEMISTRY & BL OOD GAS ORDERABLES [facility] [address] [place] [address] * (ABNORMAL) CK (04/16/2022 3:06 EST) CK 636(H) <=250 U/L 04/16/2022 12:26 EST [facility] Blood VENOUS BLOOD / Unknown Venipuncture / Unknown 04/16/2022 3:06 EST 04/16/2022 3:12 EST Shruti KAYE CHEMISTRY & BLOOD GAS ORDERABLES Performing Organization Address City/[facility]/ZIP Co de Phone Number [facility] [address] [place] [address] * PHOSPHORUS (04/16/2022 3:06 EST) Pathologist [facility] Phosphorus 2.9 2.5 - 4.5 mg/dL 04/16/2022 7:51 EST [facility] Blood VENOUS BLOOD / Unknown Venipuncture / Unknown 04/16/2022 3:06 EST 04/16/2022 3:12 EST Surendra Claros MD CHEMISTRY & BLOOD GA S ORDERABLES Performing Organization Address [facility] Co de Phone Number [facility] [address] [place] [address] * (ABNORMAL) TROPONIN I (04/16/2022 3:06 EST) [facility] Troponin I (ng/mL) 0.812(H) <0.034 ng/mL 04/16/2022 3:52 EST [facility] Blood VENOUS BLOOD / Unknown Venipuncture / Unknown 04/16/2022 3:06 EST 04/16/2022 3:12 EST Narrative [facility] - 04/16/2022 3:52 EST The results of this assay can be falsely lowered due to the consumption of Biotin. Fabienne Norris MD CHEMISTRY & BL OOD GAS ORDERABLES Performing Organization Address [facility]/ZIP Co de Phone Number [facility] [address] [place] [address] * (ABNORMAL) COMPLETE BLOOD COUNT (04/16/2022 3:06 EST) WBC 9.05 4.00 - 10.40 K/cmm 04/16/2022 3:[address] [facility] RBC 4.17(L) 4.36 - 5.78 M/cmm 04/16/2022 3:[address] [facility] Hemoglobin 13.4(L) 13.8 - 17.3 gm/dL 04/16/2022 3:[address] [facility] HCT 37.5(L) 39.5 - 50.2 % 04/16/2022 3:[address] [facility] MCV 90 81 - 95 fl 04/16/2022 3:[address] [facility] MCH 32.1 27.6 - 33.0 pg 04/16/2022 3:[address] [facility] MCHC 35.7 32.8 - 36.4 gm/dL 04/16/2022 3:[address] [facility] RDW-CV 12.6 <14.2 % 04/16/2022 3:[address] [facility] RDW-SD 41.1 <46.0 fl 04/16/2022 3:[address] [facility] PLT 148 141 - 377 K/cmm 04/16/2022 3:[address] [facility] MPV 10.3 9.5 - 12.7 fl 04/16/2022 3:[address] [facility] Blood VENOUS BLOOD / Unknown Venipuncture / Unknown 04/16/2022 3:06 EST 04/16/2022 3:12 EST Fabienne Norris MD HEMATOLOGY & P F4 ORDERABLES [facility] [address] [place] [address] * (ABNORMAL) COMPREHENSIVE METABOLIC PANEL (CMP) (04/16/2022 3:06 EST) Sodium 139 136 - 145 mmol/L 04/16/2022 3:[address] [facility] Potassium 3.4(L) 3.5 - 5.0 mmol/L 04/16/2022 3:[address] [facility] Chloride 107 96 - 110 mmol/L 04/16/2022 3:[address] [facility] CO2 Total 21(L) 22 - 32 mmol/L 04/16/2022 3:[address] [facility] Glucose 173(H) 70 - 100 mg/dL 04/16/2022 3:[address] [facility] BUN 14 10 - 26 mg/dL 04/16/2022 3:[address] [facility] Creatinine 1.12 0.66 - 1.25 mg/dL 04/16/2022 3:[address] [facility] eGFR 67 >60 mL/min/1.7 3m2 04/16/2022 3:[address] [facility] Total Protein 5.7(L) 6.3 - 8.2 g/dL 04/16/2022 3:[address] [facility] Albumin 3.0(L) 3.4 - 4.9 g/dL 04/16/2022 3:[address] [facility] Alkaline Phosphatase 61 38 - 126 U/L 04/16/2022 3:[address] [facility] AST 41 15 - 46 U/L 04/16/2022 3:[address] [facility] ALT 26 <50 U/L 04/16/2022 3:[address] [facility] Bilirubin, Total 0.8 <1.4 mg/dL 04/16/20 3:[address] [facility] Calcium 7.8(L) 8.5 - 10.5 mg/dL 04/16/2022 3:[address] [facility] Albumin/Globulin Ratio 1.1 1.0 - 2.5 04/16/2022 3:[address] [facility] Anion Gap 11 5 - 14 04/16/2022 3:[address] [facility] Blood VENOUS BLOOD / Unknown Venipuncture / Unknown 04/16/2022 3:06 EST 04/16/2022 3:12 EST Fabienne Norris MD CHEMISTRY & BL OOD GAS ORDERABLES [facility] [address] [place] [address] * BACTERIAL CULTURE, BLOOD (04/16/2022 3:06 EST) Organism ID No Growth at 5 days 04/21/2022 4:01 EST [facility] Blood VENOUS BLOOD / Unknown Venipuncture / Unknown 04/16/2022 3:06 EST 04/16/2022 3:57 EST Fabienne Norris MD MICROBIOLOGY - GENERAL ORDERABLES [facility] [address] [place] [address] * (ABNORMAL) POCT GLUCOSE, INTERFACED (04/16/2022 0:34 EST) Glucose, POC 124(H) 70 - 100 mg/dL 04/16/2022 0:36 EST [facility] HN LAB POC COMMENT (GLUCOSE) Test Performed by Nursing Services 04/16/2022 0:36 EST [facility] Blood CAPILLARY BLOOD / Unknown 04/16/2022 0:34 EST 04/16/2022 0:36 EST Fabienne Norris MD POINT OF CARE TEST ORDERABLES [facility] [address] [place] [address] * EEG WITH PROLONGED BEDSIDE VIDEO MONITORING (04/15/2022 23:59 EST) Narrative [facility] POINT OF CARE - 04/15/2022 23:59 EST Leslie Clay MD ? 04/16/2022 19:25 [facility] ??Name: [facility] ?? [address] [place] [address] ? : 1945 [place], [place] ?Date: 04/15/2022 Video-Electroencephalographic Monitoring Report Referring Physician: Triston Vallejo V, * Clinical Indication: ?? 76 y.o.??male??with past medical history notable for AAA s/p repair, HTN and T2DM, transferred from an outside hospital after having DKA and seizure witnessed by EMS. Medications: Current Facility-Administered Medications Medication Route Frequency ? ? acetaminophen (TYLENOL) tablet 650 mg oral Q4H PRN ? ? dextrose 50 % solution 12.5 g intravenous PRN ? ? enoxaparin (LOVENOX) injection 40 mg subcutaneous DAILY ? ? famotidine (PEPCID) injection 20 mg intravenous BID ? ? glucagon injection 1 mg intramuscular PRN ? ? insulin glargine (LANTUS SOLOSTAR/SEMGLEE) injection pen 14 Units subcutaneous DAILY ? ? insulin regular (NOVOLIN R) injection subcutaneous Q6H ? ? lidocaine (PF) 10 mg/mL (1 %) injection 2 mg intradermal PRN ? ? magnesium sulfate 2 g in water 50 mL intravenous PRN ? ? potassium chloride in water infusion 20 mEq intravenous PRN Technical Description: Continuous digital video-digital electroencephalographic monitoring is performed. Silver/silver chloride EEG electrodes are placed according to the International 10-20 system as well as anterior temporal electrodes, a CPz recording reference and FCz ground contract. An ECG channel is also monitored. Caregivers are encouraged to maintain an event diary and to press and Event Button in the event of a seizure-like spell (Target Event). The entire EEG dataset is reviewed by the attending physician. No pain assessment for this procedure is necessary. Findings: The monitoring period begins 04/15/2022 at 15:15 and ends 04/16/2022 at 13:26. The background in this intubated and sedated patient is diffusely slow, continuous, poorly organized and poorly reactive, composed of medium amplitude alpha-beta frequencies. The patient is extubated around 06:30 with improvement in reactivity of the background and a posterior dominant rhythm of 7-8 Hz. There is occasional intermittent polymorphic delta-theta frequencies, lasting on average 1-5 seconds in the left temporal chain as shown below: State changes are seen. After extubation, brief N2 sleep is represented by vertex waves. There are no interictal discharges, seizures or clinical push button events. ?? Single lead EKG shows regular rhythm. Impression: This is an abnormal EEG due to diffuse severe slowing in an intubated and sedated patient with further left temporal focal slowing seen occasionally. After extubation, the background markedly improves. Clinical Correlation: ??Generalized global dysfunction is nonspecific but can be seen in the context of centrally acting medications, metabolic or toxic encephalopathy, postictal state, among other considerations.Focal slowing indicates focal cerebrocortical dysfunction and can be seen in the context of an underlying structural abnormality, post-ictal state, etc. Leslie Clay MD ABPN Certified, Neurology and Epilepsy 10:16 ??04/16/2022 Fabienne Norris MD NEUROLOGY ORDE RABLES Performing Organization Address City/[facility] Co de Phone Number [facility] POINT OF CARE * (ABNORMAL) POCT GLUCOSE, INTERFACED (04/15/2022 20:09 EST) Glucose, POC 139(H) 70 - 100 mg/dL 04/15/2022 20:13 EST [facility] HN LAB POC COMMENT (GLUCOSE) Test Performed by Nursing Services 04/15/2022 20:13 EST [facility] Blood CAPILLARY BLOOD / Unknown 04/15/2022 20:09 EST 04/15/2022 20:13 EST Bautista Hurtado MD POINT OF CARE TEST O RDERABLES Performing Organization Address [facility] Co de Phone Number [facility] [address] [place] [address] * BACTERIAL CULTURE, BLOOD (04/15/2022 18:39 EST) Organism ID No Growth at 5 days 04/20/2022 19:16 EST [facility] Blood VENOUS BLOOD / Unknown Venipuncture / Unknown 04/15/2022 18:39 EST 04/15/2022 19:14 EST Fabienne Norris MD MICROBIOLOGY - GENERAL ORDERABLES Performing Organization Address [facility] Co de Phone Number [facility] [address] [place] [address] * (ABNORMAL) TROPONIN I (04/15/2022 18:35 EST) Troponin I (ng/mL) 0.783(H) <0.034 ng/mL 04/15/2022 19:22 EST [facility] Blood VENOUS BLOOD / Unknown Venipuncture / Unknown 04/15/2022 18:35 EST 04/15/2022 18:50 EST Narrative [facility] - 04/15/2022 19:22 EST The results of this assay can be falsely lowered due to the consumption of Biotin. Fabienne Norris MD CHEMISTRY & BL OOD GAS ORDERABLES Performing Organization Address [facility] Co de Phone Number [facility] [address] [place] [address] * (ABNORMAL) LACTIC ACID (04/15/2022 18:35 EST) Lactic Acid 2.2(HH) <=2.0 mmol/L 04/15/2022 19:14 EST [facility] Blood VENOUS BLOOD / Unknown Venipuncture / Unknown 04/15/2022 18:35 EST 04/15/2022 18:50 EST Fabienne Norris MD CHEMISTRY & BL OOD GAS ORDERABLES Performing Organization Address [facility] Co de Phone Number [facility] [address] [place] [address] * CSF MANUAL DIFFERENTIAL (04/15/2022 18:18 EST) Lymphocytes, CSF 71 40 - 80 % 04/15/2022 20:35 EST [facility] Riley/Macro, CSF 29 15 - 45 % 04/15/2022 20:35 EST [facility] Fluid CEREBROSPINAL FLUID SPECIMEN / Unknown 04/15/2022 18:18 EST 04/15/2022 18:33 EST Kyree Walker HEMATOLOGY & PF4 ORD ERABLES Performing Organization Address [facility] Co de Phone Number [facility] [address] [place] [address] * CELL COUNT, CSF (04/15/2022 18:18 EST) RBC, CSF 1 /cmm 04/15/2022 19:19 EST [facility] Nucleated Cells, CSF 2 0 - 5 /cmm 04/15/2022 19:19 EST [facility] Total Volume CSF 10.0 ml 04/15/2022 19:19 EST [facility] Tube Cntd. 4 04/15/2022 19:19 EST [facility] Comment, CSF Clear and colorless 04/15/2022 19:19 EST [facility] Tube Vol. 2.0 ml 04/15/2022 19:19 EST [facility] Fluid CEREBROSPINAL FLUID SPECIMEN / Unknown 04/15/2022 18:18 EST 04/15/2022 18:33 EST Kyree Walker HEMATOLOGY & PF4 ORD ERABLES Performing Organization Address City/[facility]/ZIP Co de Phone Number [facility] [address] [place] [address] * VDRL,CSF (04/15/2022 18:18 EST) Pathologist [facility] VDRL,CSF Negative Negative 04/16/2022 15:25 EST [facility] Comment: Test Performed by: [facility] [address] [place] [id number] Chief Controller Center: Maurisio Mazariegos M.D. Ph.D.; CLIA# [id number] Fluid CEREBROSPINAL FLUID SPECIMEN / Unknown 04/15/2022 18:18 EST 04/15/2022 18:33 EST Kyree Walker GEN LAB UNIT COLLECT ORDERABLES [facility] [address] [place] [address] * LYME PLUMBING AND HEATING MECHANIC INFECTION IGG WITH AB INDEX REFLEX (04/15/2022 18:18 EST) LymeCNSInfectionIgG,CSF Negative Negative 1 2 17:07 EST [facility] LymeCNSInfectionIgGInterp SEE NOTE 2 17:07 EST [facility] Comment: No antibodies to Lyme Borrelia species detected in cerebrospinal fluid. A negative result in a patient with appropriate exposure history and symptoms consistent with neuroinvasive Lyme disease should not be used to exclude infection. If not already performed, testing for antibodies to Lyme Borrelia species in serum should be performed. ADDITIONAL INFORMATION This test was developed and its performance characteristics determined by [facility] in a manner consistent with CLIA requirements. This test has not been cleared or approved by the U.S. Food and Drug Administration. LymeCNSInfectionIgG,S SEE NOTE 2 17:07 EST [facility] Comment: CSF screen was negative for IgG-class antibodies to Lyme Borrelia species. Testing for IgG-class antibodies to Borrelia in serum is not indicated and was not performed. Test Performed by: [place] [address] Chief Controller Center: Maurisio Mazariegos M.D. Ph.D.; CLIA# [id number] Fluid CEREBROSPINAL FLUID SPECIMEN / Unknown 04/15/2022 18:18 EST 04/15/2022 18:33 EST yKree Walker GEN LAB UNIT COLLECT ORDERABLES Performing Organization Address City/[facility]/ZIP Co de Phone Number [facility] [address] [place] [address] * ENTEROVIRUS MOLECULAR DETECTION PCR, CSF (04/15/2022 18:18 EST) Enterovirus PCR Rslt (ENVRES) Negative Negative 04/15/2022 22:14 EST [facility] Fluid CEREBROSPINAL FLUID SPECIMEN / Unknown 04/15/2022 18:18 EST 04/15/2022 18:33 EST Kyree Walker MICROBIOLOGY - GENER AL ORDERABLES [facility] [address] [place] [address] * VARICELLA ZOSTER VIRUS MOLECULAR DETECTION, PCR (04/15/2022 18:18 EST) VARICELLA ZOSTER VIRUS MOLECULAR DETECTION, PCR Negative Negative, Invalid 04/16/2022 0:09 EST [facility] [facility] Fluid CEREBROSPINAL FLUID SPECIMEN / Unknown 04/15/2022 18:18 EST 04/15/2022 18:33 EST Narrative [facility] - 04/16/2022 0:09 EST This test was developed and its performance characteristics determined by [facility]. It has not been cleared or approved by the US Food and Drug Administration. FDA does not require this test to go through premarket FDA review. This test is used for clinical purposes. It should not be regarded as investigational or research. This laboratory is certified under the Clinical Laboratory Improvement Amendments (CLIA) as qualified to perform high complexity clinical laboratory testing. Kyree Walker MICROBIOLOGY - GENER AL ORDERABLES Performing Organization Address [facility] Co de Phone Number [facility] [address] [place] [address] * HSV (HERPES SIMPLEX VIRUS) MOLECULAR DETECTION, PCR (04/15/2022 18:18 EST) Herpes Simplex Virus Molecular Detection 1, PCR Negative Negative 04/16/2022 0:08 EST [facility] Herpes Simplex Virus Molecular Detection 2, PCR Negative Negative 04/16/2022 0:08 EST [facility] Fluid CEREBROSPINAL FLUID SPECIMEN / Unknown 04/15/2022 18:18 EST 04/15/2022 18:33 EST Narrative [facility] - 04/16/2022 0:08 EST This test was developed and its performance characteristics determined by [facility]. It has not been cleared or approved by the US Food and Drug Administration. FDA does not require this test to go through premarket FDA review. This test is used for clinical purposes. It should not be regarded as investigational or research. This laboratory is certified under the Clinical Laboratory Improvement Amendments (CLIA) as qualified to perform high complexity clinical laboratory testing. Kyree Walker MICROBIOLOGY - GENER AL ORDERABLES Performing Organization Address [facility] Co de Phone Number [facility] [address] [place] [address] * HOLD FLUID (04/15/2022 18:18 EST) Hold Hold 04/15/2022 19:46 EST [facility] Fluid BODY FLUID / Unknown 04/15/2022 18:18 EST 04/15/2022 18:33 EST Kyree Walker LAB INFO SERVICE AND SUPPORT & PHONE RESULT Performing Organization Address City/[facility] Co de Phone Number [facility] [address] [place] [address] * BACTERIAL CULTURE/SMEAR (04/15/2022 18:18 EST) Organism ID No Growth 04/17/2022 10:31 EST [facility] Smear No Neutrophils Seen 04/17/2022 10:31 EST [facility] Smear No bacteria seen 04/17/2022 10:31 EST [facility] Fluid CEREBROSPINAL FLUID SPECIMEN / Unknown 04/15/2022 18:18 EST 04/15/2022 18:33 EST Kyree Walker MICROBIOLOGY - GENER AL ORDERABLES Performing Organization Address [facility] Co de Phone Number [facility] [address] [place] [address] * LDH, CSF (04/15/2022 18:18 EST) FluidType CSF 04/18/2022 7:42 EST [facility] [employer] [employer] Comment: Test Performed by: [facility] [employer] - [address] [address] Chief Controller Center: Maurisio Mazariegos M.D. Ph.D.; CLIA# [id number] Lactate Dehydrogenase (LD), BF 17 See Comment U/L 04/18/2022 7:42 EST [facility] [employer] Comment: ADDITIONAL INFORMATION Pleural fluid lactate dehydrogenase (LDH) to serum LDH ratio >0.6 are most consistent with exudative effusions. Peritoneal fluid LDH > 220 U/L suggest secondary rather than spontaneous bacterial peritonitis in conjunction with other laboratory, imaging, and clinical findings. Synovial fluid lactate dehydrogenase (LDH) may be elevated greater than plasma or serum LDH due to inflammatory causes. Values should be interpreted in conjunction with other clinical findings. All other fluids refer to [email or web address] for further interpretive information. This test has been modified from the play reader's instructions. Its performance characteristics were determined by [facility] in a manner consistent with CLIA requirements. This test has not been cleared or approved by the U.S. Food and Drug Administration. Fluid CEREBROSPINAL FLUID SPECIMEN / Unknown 04/15/2022 18:18 EST 04/15/2022 18:33 EST [facility] LAB UNIT COLLECT ORDERABLES [facility] [address] [place] [address] * (ABNORMAL) IGG, CSF (04/15/2022 18:18 EST) IgG, CSF 6.60(H) <=5.00 mg/dL 04/16/2022 8:56 EST [facility] Fluid CEREBROSPINAL FLUID SPECIMEN / Unknown 04/15/2022 18:18 EST 04/15/2022 18:33 EST [facility] LAB UNIT COLLECT ORDERABLES [facility] [address] [place] [address] * LACTIC ACID, CSF (04/15/2022 18:18 EST) Lactic Acid, CSF 2.9 See Comment mmol/L 04/15/2022 19:23 EST [facility] Comment: A Reference Range for this assay for CSF has not been defined. ?? Interpretation of this result depends on the context in which it is used. Reference range unavailable. Clinical correlation required. This CSF Lactic Acid assay was developed and its performance characteristics determined by [facility]. ??It has not been cleared or approved by the US Food and Drug Administration. Fluid CEREBROSPINAL FLUID SPECIMEN / Unknown 04/15/2022 18:18 EST 04/15/2022 18:33 EST Kyree Walker GEN LAB UNIT COLLECT ORDERABLES [facility] [address] [place] [address] * (ABNORMAL) TOTAL PROTEIN, CSF (04/15/2022 18:18 EST) Total Protein, CSF 84(H) 12 - 60 mg/dL 04/15/2022 19:22 EST [facility] Fluid CEREBROSPINAL FLUID SPECIMEN / Unknown 04/15/2022 18:18 EST 04/15/2022 18:33 EST Kyree Weir[employer] Duck [employer]ryan GEN LAB UNIT COLLECT ORDERABLES Performing Organization Address City/[facility] Co de Phone Number [facility] [address] [place] [address] * GLUCOSE CSF (04/15/2022 18:18 EST) Glucose, CSF 188 See Note mg/dL 04/15/2022 19:22 EST [facility] Comment: NOTE: Reference range for Glucose in CSF: 60% - 80% of the Serum/Plasma Glucose Fluid CEREBROSPINAL FLUID SPECIMEN / Unknown 04/15/2022 18:18 EST 04/15/2022 18:33 EST Kyree Walker [email or web address] LAB UNIT COLLECT ORDERABLES Performing Organization Address City/[facility]/ZIP Co de Phone Number [facility] [address] [place] [address] * CELL COUNT TUBE 1, CSF - RBC ONLY, INDICATED FOR A BLOODY TAP (04/15/2022 18:18 EST) RBC, CSF Tube#1 3 /cmm 04/15/2022 19:18 EST [facility] Specimen Volume 2.0 ml 04/15/2022 19:18 EST [facility] Fluid CEREBROSPINAL FLUID SPECIMEN / Unknown 04/15/2022 18:18 EST 04/15/2022 18:33 EST Shruti KAYE GEN LAB UNIT COLLE CT ORDERABLES Performing Organization Address [facility]/ZIP Co de Phone Number [facility] [address] [place] [address] * (ABNORMAL) POCT GLUCOSE, INTERFACED (04/15/2022 17:47 EST) Glucose, POC 144(H) 70 - 100 mg/dL 04/15/2022 17:48 EST [facility] HN LAB POC COMMENT (GLUCOSE) Test Performed by Nursing Services 04/15/2022 17:48 EST [facility] Blood CAPILLARY BLOOD / Unknown 04/15/2022 17:47 EST 04/15/2022 17:48 EST Bautista Hurtado MD POINT OF CARE TEST O RDERABLES Performing Organization Address [facility]/ZIP Co de Phone Number [facility] [address] [place] [address] * (ABNORMAL) POCT GLUCOSE, INTERFACED (04/15/2022 16:01 EST) Glucose, POC 190(H) 70 - 100 mg/dL 04/15/2022 16:03 EST [facility] HN LAB POC COMMENT (GLUCOSE) Test Performed by Nursing Services 04/15/2022 16:03 EST [facility] Blood CAPILLARY BLOOD / Unknown 04/15/2022 16:01 EST 04/15/2022 16:03 EST Fabienne Norris MD POINT OF CARE TEST ORDERABLES Performing Organization Address [facility] Co de Phone Number [facility] [address] [place] [address] * (ABNORMAL) POCT BLOOD GAS, EG6 I-STAT (04/15/2022 16:00 EST) pH, Venous, i-STAT 7.33 7.31 - 7.41 04/15/2022 16:[address] [facility] pCO2, Venous, i-STAT 43 41 - 51 mmHg 04/15/2022 16:[address] [facility] pO2, Venous, i-STAT 15(L) 30 - 50 mmHg 04/15/2022 16:[address] [facility] TCO2, Venous, i-STAT 24 22 - 28 mmol/L 04/15/2022 16:[address] [facility] O2 Saturation, Venous, i-STAT 17(L) 60 - 85 % 04/15/2022 16:[address] [facility] Base Excess(+) / Deficit(-), Venous, i-STAT -3(L) -2 - 3 mmol/L 04/15/2022 16:[address] [facility] Blood VENOUS BLOOD / Unknown 04/15/2022 16:00 EST 04/15/2022 16:09 EST Narrative [facility] - 04/15/2022 16:09 EST Test Performed by Respiratory Fabienne Norris MD POINT OF CARE TEST ORDERABLES Performing Organization Address City/[facility]/ZIP Co de Phone Number [facility] [address] [place] [address] * (ABNORMAL) POCT GLUCOSE, INTERFACED (04/15/2022 15:21 EST) Glucose, POC 239(H) 70 - 100 mg/dL 04/15/2022 15:23 EST [facility] HN LAB POC COMMENT (GLUCOSE) Test Performed by Nursing Services 04/15/2022 15:23 EST [facility] Blood CAPILLARY BLOOD / Unknown 04/15/2022 15:21 EST 04/15/2022 15:23 EST Fabienne Norris MD POINT OF CARE TEST ORDERABLES Performing Organization Address City/[facility]/ZIP Co de Phone Number [facility] [address] [place] [address] * XR CHEST PORTABLE 1 VIEW (04/15/2022 15:18 EST) Anatomical Region Laterality Modality Computed Radiogr aphy 04/15/2022 15:5 7 EST Impressions 04/15/2022 15:57 EST 1. ??Endotracheal tube projects in the distal trachea courses toward the right mainstem bronchus. Recommend retraction. 2. ??Trace right pleural effusion. I have personally reviewed the images and the above interpretation and agree with the findings. Narrative 04/15/2022 15:57 EST XR CHEST PORTABLE 1 VIEW ??04/15/2022 2:45 PM CLINICAL HISTORY/COMMENTS: to rule out aspiration COMPARISON: Chest x-ray 04/15/2022 at 0627. TECHNIQUE: Single portable AP view of the chest. FINDINGS: Lines/tubes: ??Endotracheal tube projects in the distal trachea, coursing towards the right mainstem bronchus. Transesophageal tube with the side-port beyond the GE junction. Soft tissues, bones and extrathoracic findings: Partially visualized aortic stent graft. Cardiac and mediastinal contours: The cardiomediastinal contours likely normal considering low lung volumes and portable technique Lungs: The lungs are clear accounting for low lung volumes. Linear opacities in the left lower lung, likely atelectasis. Pleura: Likely trace right pleural effusion Procedure Note Varun Wade MD - 04/15/2022 XR CHEST PORTABLE 1 VIEW 04/15/2022 2:45 PM CLINICAL HISTORY/COMMENTS: to rule out aspiration COMPARISON: Chest x-ray 04/15/2022 at 0627. TECHNIQUE: Single portable AP view of the chest. FINDINGS: Lines/tubes: Endotracheal tube projects in the distal trachea, coursingtowards the right mainstem bronchus. Transesophageal tube with theside-port beyond the GE junction. Soft tissues, bones and extrathoracic findings: Partially visualizedaortic stent graft. Cardiac and mediastinal contours: The cardiomediastinal contours likelynormal considering low lung volumes and portable technique Lungs: The lungs are clear accounting for low lung volumes. Linearopacities in the left lower lung, likely atelectasis. Pleura: Likely trace right pleural effusion IMPRESSION 1. Endotracheal tube projects in the distal trachea courses toward theright mainstem bronchus. Recommend retraction. 2. Trace right pleural effusion. I have personally reviewed the images and the above interpretation andagree with the findings. Fabienne Norris MD IMG DIAGNOSTIC IMAGING ORDERABLES * EKG 12-LEAD (04/15/2022 14:57 EST) 04/15/2022 14:5 7 EST Narrative [facility] E[facility] - 04/16/2022 13:49 EST ? [facility] ? Test Date: ?2022-04-15 Pat Name: ? IZABEL CLOUD ?Department: ?? PRIEST 4 ? Room: ? M420 Gender: ? Male ? 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 [id number] : ?1945 ? Requested By: CARYL NORRIS Order Number: [id number] ? Sabrina MARIE: ?? MAHESH DO MD ? Measurements Intervals ?[place] ? Rate: ? 58 ? P: ?19 NE: ? 148 ?QRS: ?-13 QRSD: ? 102 ?T: ?8 QT: ? 398 ? QTc: ?391 ? Interpretive Statements SINUS BRADYCARDIA Otherwise Within Normal Limits No previous ECG available for comparison I reviewed the tracing and have either agreed or edited the findings in this report. Electronically Signed On 04-16-2022 13:49:46 EST by MAHESH DO MD. Procedure Note Mahesh Do MD - 04/16/2022 [facility] Test Date: 2022-04-15 Pat Name: IZABEL CLOUD Department: [place] [address] Room: 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 Electronically Signed On 04-16-2022 13:49:46 EST by MAHESH MCDOWELL. Fabienne Norris MD CARDIAC ECG OR DERABLES [facility] EKG * XR FEEDING TUBE PLACEMENT (04/15/2022 14:18 EST) Anatomical Region Laterality Modality Abdomen Computed Radiogr aphy 04/15/2022 14:4 6 EST Impressions 04/15/2022 14:46 EST Interval placement of a transesophageal tube that passes through the GE junction with tip projecting over the gastric body an side port below the diaphragm. I have personally reviewed the images and the above interpretation and agree with the findings. Narrative 04/15/2022 14:46 EST XR FEEDING TUBE PLACEMENT ??04/15/2022 2:10 PM CLINICAL HISTORY/COMMENTS: to assess OG tube placement. TECHNIQUE: AP portable radiograph abdomen COMPARISON: CT abdomen and pelvis 04/15/2022 FINDINGS: Interval placement of a transesophageal tube that passes through the GE junction with tip projecting over the gastric body and side port below the diaphragm. Status post abdominal aortic aneurysm stent. No small or large bowel distention in the visualized portion of the abdomen. Procedure Note Digna Bah MD - 04/15/2022 XR FEEDING TUBE PLACEMENT 04/15/2022 2:10 PM CLINICAL HISTORY/COMMENTS: to assess OG tube placement. TECHNIQUE: AP portable radiograph abdomen COMPARISON: CT abdomen and pelvis 04/15/2022 FINDINGS: Interval placement of a transesophageal tube that passes through the GEjunction with tip projecting over the gastric body and side port below thediaphragm. Status post abdominal aortic aneurysm stent. No small or large bowel distention in the visualized portion of theabdomen. IMPRESSION Interval placement of a transesophageal tube that passes through the GEjunction with tip projecting over the gastric body an side port below thediaphragm. I have personally reviewed the images and the above interpretation andagree with the findings. Fabienne Norris MD IMG DIAGNOSTIC IMAGING ORDERABLES * (ABNORMAL) URINE CHEMICAL (DIP) & SEDIMENT (MICRO) WITH REFLEX TO CULTURE (04/15/2022 14:17 EST) Color UA Yellow Colorless, Yellow 04/15/2022 14:[address] [facility] Clarity UA Hazy(A) Clear 04/15/2022 14:[address] [facility] Glucose UA 3+(A) Negative 04/15/2022 14:[address] [facility] Bilirubin UA Negative Negative 04/15/2022 14:[address] [facility] Ketones UA Negative Negative 04/15/2022 14:[address] [facility] Specific [place], Urine 1.034 1.001 - 1.035 04/15/2022 14:[address] [facility] Blood UA 1+(A) Negative 04/15/2022 14:[address] [facility] Urobilinogen UA Normal Normal mg/dL 04/15/2022 14:[address] [facility] Nitrite UA Negative Negative 04/15/2022 14:[address] [facility] Leukocyte Esterase UA Negative Negative 04/15/2022 14:[address] [facility] Protein UA Trace(A) Negative 04/15/2022 14:[address] [facility] pH, UA 5.5 4.6 - 8.0 04/15/2022 14:[address] [facility] Urine RBC Count, Auto 11 - 50(A) 0 - 2 Cells/HPF 04/15/2022 14:[address] [facility] Urine WBC Count, Auto 0 - 3 0 - 3 Cells/HPF 04/15/2022 14:[address] [facility] Urine Squamous Count, Auto Few(A) None Seen Cells/HPF 04/15/2022 14:[address] [facility] Urine Hyaline Cast Count, Auto <=10 <=10 Casts/LPF 04/15/2022 14:[address] [facility] Urine Bacteria Count, Auto None Seen None Seen Bacteria/HP F 04/15/2022 14:[address] [facility] Urine Crystals Few Uric Acid Crystals(A) None Seen 04/15/2022 14:[address] [facility] Urine URINE SPECIMEN COLLECTION, CLEAN CATCH / Unknown Urine Collect / Unknown 04/15/2022 14:17 [facility] 04/15/2022 14:31 EST Narrative [facility] - 04/15/2022 14:46 EST NOTE: Reflex to Urine Culture test is not indicated based on Urine Sediment Analysis results. Urine Sediment Analysis results are unreliable on urines that are unrefrigerated for >2 hrs or refrigerated >8 hrs. Fabienne Norris MD URINALYSIS ORD ERABLES Performing Organization Address City/[facility]/ZIP Co de Phone Number [facility] [address] [place] [address] * (ABNORMAL) POCT GLUCOSE, INTERFACED (04/15/2022 14:13 EST) Glucose, POC 252(H) 70 - 100 mg/dL 04/15/2022 14:14 EST [facility] HN LAB POC COMMENT (GLUCOSE) Test Performed by Nursing Services 04/15/2022 14:14 EST [facility] Blood CAPILLARY BLOOD / Unknown 04/15/2022 14:13 EST 04/15/2022 14:14 EST Fabienne Norris MD POINT OF CARE TEST ORDERABLES Performing Organization Address City/[facility]/ZIP Co de Phone Number [facility] [address] [place] [address] * MRSA PCR (04/15/2022 13:48 EST) MRSA/Staph aureus Result No Staphylococcus aureus detected by PCR 04/15/2022 20:31 EST [facility] Swab ENTIRE NARIS / Unknown Swab / Unknown 04/15/2022 13:48 EST 04/15/2022 15:42 EST Fabienne Norris MD MICROBIOLOGY - GENERAL ORDERABLES Performing Organization Address City/[facility]/ZIP Co de Phone Number [facility] [address] [place] [address] * ETHANOL, BLOOD (04/15/2022 13:46 EST) Ethanol, Blood <10 <10 mg/dL mg/dL 04/15/2022 14:54 EST [facility] Comment:Healthy, non-drinkin g individuals will have an ethanol concentration of <10 mg/dL. Blood VENOUS BLOOD / Unknown Venipuncture / Unknown 04/15/2022 13:46 EST 04/15/2022 13:53 EST Fabienne Norris MD CHEMISTRY & BL OOD GAS ORDERABLES Performing Organization Address City/[facility]/ZIP Co de Phone Number [facility] [address] [place] [address] * CK (04/15/2022 13:46 EST) CK 208 <=250 U/L 04/15/2022 14:54 EST [facility] Blood VENOUS BLOOD / Unknown Venipuncture / Unknown 04/15/2022 13:46 EST 04/15/2022 13:53 EST Fabienne Norris MD CHEMISTRY & BL OOD GAS ORDERABLES Performing Organization Address City/[facility]/ZIP Co de Phone Number [facility] [address] [place] [address] * HOLD SST (04/15/2022 13:46 EST) Hold Hold 04/15/2022 15:00 EST [facility] Blood VENOUS BLOOD / Unknown 04/15/2022 13:46 EST 04/15/2022 13:53 EST Bautista Hurtado MD LAB INFO SERVICE AND SUPPORT & PHONE RESULT Performing Organization Address [facility] Co de Phone Number [facility] [address] [place] [address] * (ABNORMAL) TROPONIN I (04/15/2022 13:46 EST) Troponin I (ng/mL) 0.463(H) <0.034 ng/mL 04/15/2022 14:26 EST [facility] Blood VENOUS BLOOD / Unknown Venipuncture / Unknown 04/15/2022 13:46 EST 04/15/2022 13:54 EST Narrative [facility] - 04/15/2022 14:26 EST The results of this assay can be falsely lowered due to the consumption of Biotin. Fabienne Norris MD CHEMISTRY & BL OOD GAS ORDERABLES Performing Organization Address City/[facility]/ZIP Co de Phone Number [facility] [address] [place] [address] * (ABNORMAL) LACTIC ACID (04/15/2022 13:46 EST) Lactic Acid 2.5(HH) <=2.0 mmol/L 04/15/2022 14:15 EST [facility] Blood VENOUS BLOOD / Unknown Venipuncture / Unknown 04/15/2022 13:46 EST 04/15/2022 13:54 EST Fabienne Norris MD CHEMISTRY & BL OOD GAS ORDERABLES Performing Organization Address [facility] Co de Phone Number [facility] [address] [place] [address] * (ABNORMAL) BETA HYDROXYBUTYRATE (04/15/2022 13:46 EST) Beta Hydroxybutyrate 0.5(H) <0.4 mmol/L 04/15/2022 14:19 EST [facility] Blood VENOUS BLOOD / Unknown Venipuncture / Unknown 04/15/2022 13:46 EST 04/15/2022 13:53 EST Fabienne Norris MD CHEMISTRY & BL OOD GAS ORDERABLES Performing Organization Address [facility]/ZIP Co de Phone Number [facility] [address] [place] [address] * (ABNORMAL) PHOSPHORUS (04/15/2022 13:46 EST) Phosphorus 2.1(L) 2.5 - 4.5 mg/dL 04/15/2022 14:13 EST [facility] Blood VENOUS BLOOD / Unknown Venipuncture / Unknown 04/15/2022 13:46 EST 04/15/2022 13:53 EST Fabienne Norris MD CHEMISTRY & BL OOD GAS ORDERABLES Performing Organization Address [facility] de Phone Number [facility] [address] [place] [address] * (ABNORMAL) OSMOLALITY (04/15/2022 13:46 EST) Osmolality, Serum 301(H) 275 - 295 mOsm/kg 04/15/2022 14:46 EST [facility] Blood VENOUS BLOOD / Unknown Venipuncture / Unknown 04/15/2022 13:46 EST 04/15/2022 13:53 EST Fabienne Norris MD CHEMISTRY & BL OOD GAS ORDERABLES Performing Organization Address [facility] [facility] de Phone Number [facility] [address] [place] [address] * (ABNORMAL) HEMOGLOBIN A1C (04/15/2022 13:46 EST) Hemoglobin A1c 13.2(H) <5.7 % 04/15/2022 16:[address] [facility] Comment: Glycemic Status References: Normal: ??<5.7% Pre-Diabetes: ??5.7% - 6.4% Diagnostic of Diabetes: ??> or = 6.5% (if confirmed) Est Avg Glucose 332 mg/dL 16:[address] [facility] Comment:The eAG represents t he A1c result expressed as average glucose in mg/dL. Blood VENOUS BLOOD / Unknown Venipuncture / Unknown 04/15/2022 13:46 EST 04/15/2022 14:00 EST Fabienne Norris MD CHEMISTRY & BL OOD GAS ORDERABLES [facility] [address] [place] [address] * (ABNORMAL) COMPREHENSIVE METABOLIC PANEL (CMP) (04/15/2022 13:46 EST) Sodium 137 136 - 145 mmol/L 04/15/2022 14:[address] [facility] Potassium 4.6 3.5 - 5.0 mmol/L 04/15/2022 14:[address] [facility] Chloride 104 96 - 110 mmol/L 04/15/2022 14:[address] [facility] CO2 Total 23 22 - 32 mmol/L 04/15/2022 14:[address] [facility] Glucose 251(H) 70 - 100 mg/dL 04/15/2022 14:[address] [facility] BUN 16 10 - 26 mg/dL 04/15/2022 14:[address] [facility] Creatinine 1.16 0.66 - 1.25 mg/dL 04/15/2022 14:[address] [facility] eGFR 64 >60 mL/min/1.7 3m2 04/15/2022 14:[address] [facility] Total Protein 5.2(L) 6.3 - 8.2 g/dL 04/15/2022 14:[address] [facility] Albumin 2.9(L) 3.4 - 4.9 g/dL 04/15/2022 14:[address] [facility] Alkaline Phosphatase 61 38 - 126 U/L 04/15/2022 14:[address] [facility] AST 28 15 - 46 U/L 04/15/2022 14:[address] [facility] ALT 26 <50 U/L 04/15/2022 14:[address] [facility] Bilirubin, Total <0.5 <1.4 mg/dL 04/15/20 14:[address] [facility] Calcium 7.6(L) 8.5 - 10.5 mg/dL 04/15/2022 14:[address] [facility] Albumin/Globulin Ratio 1.3 1.0 - 2.5 04/15/2022 14:[address] [facility] Anion Gap 10 5 - 14 04/15/2022 14:[address] [facility] Blood VENOUS BLOOD / Unknown Venipuncture / Unknown 04/15/2022 13:46 EST 04/15/2022 13:53 EST Fabienne Norris MD CHEMISTRY & BL OOD GAS ORDERABLES [facility] [address] [place] [address] * (ABNORMAL) POCT GLUCOSE, INTERFACED (04/15/2022 13:11 EST) Glucose, POC 285(H) 70 - 100 mg/dL 04/15/2022 13:[address] [facility] HN LAB POC COMMENT (GLUCOSE) Test Performed by Nursing Services 04/15/2022 13:[address] [facility] Blood CAPILLARY BLOOD / Unknown 04/15/2022 13:11 EST 04/15/2022 13:12 EST Fabienne Norris MD POINT OF CARE TEST ORDERABLES [facility] [address] [place] [address] * (ABNORMAL) POCT BLOOD GAS, CG8 I-STAT (04/15/2022 12:37 EST) pH, Venous, i-STAT 7.28(L) 7.31 - 7.41 04/15/2022 13:[address] [facility] pCO2, Venous, i-STAT 56(H) 41 - 51 mmHg 04/15/2022 13:[address] [facility] pO2, Venous, i-STAT 16(L) 30 - 50 mmHg 04/15/2022 13:[address] [facility] TCO2, Venous, i-STAT 28 22 - 28 mmol/L 04/15/2022 13:[address] [facility] O2 Saturation, Venous, i-STAT 18(L) 60 - 85 % 04/15/2022 13:[address] [facility] Sodium, Venous, i-STAT 138 136 - 145 mmol/L 04/15/2022 13:[address] [facility] Potassium, Venous, i-STAT 5.1(H) 3.5 - 5 mmol/L 04/15/2022 13:[address] [facility] Glucose, Venous, i-STAT 303(H) 70 - 100 mg/dL 04/15/2022 13:[address] [facility] Hematocrit, Venous, i-STAT 37(L) 40 - 50 % PCV 04/15/2022 13:[address] [facility] Ionized Calcium, Venous, i-STAT 1.18 1.12 - 1.32 mmol/L 04/15/2022 13:[address] [facility] Base Excess(+) / Deficit(-), Venous, i-STAT -1 -2 - 3 mmol/L 04/15/2022 13:[address] [facility] FIO2, Venous, i-STAT 40 % 04/15/2022 13:[address] [facility] Blood VENOUS BLOOD / Unknown 04/15/2022 12:37 EST 04/15/2022 13:00 EST Narrative [facility] - 04/15/2022 13:00 EST Test Performed by [facility] Critical Care Transport Provider Unknown POINT OF CARE TEST O RDERABLES Performing Organization Address City/State/[facility] Co de Phone Number [facility] [address] [place] [address] * (ABNORMAL) POCT BLOOD GAS, CG8 I-STAT (04/15/2022 11:22 EST) pH, Venous, i-STAT 7.20(L) 7.31 - 7.41 04/21/2022 9:[address] [facility] pCO2, Venous, i-STAT 56(H) 41 - 51 mmHg 04/21/2022 9:[address] [facility] pO2, Venous, i-STAT 37 30 - 50 mmHg 04/21/2022 9:[address] [facility] TCO2, Venous, i-STAT 23 22 - 28 mmol/L 04/21/2022 9:[address] [facility] O2 Saturation, Venous, i-STAT 57(L) 60 - 85 % 04/21/2022 9:[address] [facility] Sodium, Venous, i-STAT 136 136 - 145 mmol/L 04/21/2022 9:[address] [facility] Potassium, Venous, i-STAT 5.6(H) 3.5 - 5 mmol/L 04/21/2022 9:[address] [facility] Glucose, Venous, i-STAT 380(H) 70 - 100 mg/dL 04/21/2022 9:[address] [facility] Hematocrit, Venous, i-STAT 42 40 - 50 % PCV 04/21/2022 9:[address] [facility] Ionized Calcium, Venous, i-STAT 1.18 1.12 - 1.32 mmol/L 04/21/2022 9:[address] [facility] Base Excess(+) / Deficit(-), Venous, i-STAT -6(L) -2 - 3 mmol/L 04/21/2022 9:[address] [facility] Blood VENOUS BLOOD / Unknown 04/15/2022 11:22 EST 04/21/2022 9:05 EST Narrative [facility] - 04/21/2022 9:05 EST Test Performed by [facility] Critical Care Transport Provider Unknown MD POINT OF CARE TEST O RDERABLES [facility] [address] [place] [address] documented in this encounter Visit Diagnoses Diagnosis Acute metabolic encephalopathy- Primary Seizure (HCC-CMS) Other convulsions Acute respiratory failure with hypoxia ([facility]) Acute respiratory failure Acute metabolic encephalopathy Lactic acidosis Acidosis 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 DKA, type 2, not at goal ([facility]) Type II or unspecified type diabetes mellitus with ketoacidosis, uncontrolled Carotid stenosis, bilateral Occlusion and stenosis of carotid artery without mention of cerebral infarction Mass of parotid gland Swelling, mass, or lump in head and neck Other specified diabetes mellitus with other specified complication, unspecified whether fpc insulin use ([facility]) DKA, type 2, not at goal ([facility]) Type II or unspecified type diabetes mellitus with ketoacidosis, uncontrolled Acute respiratory failure with hypoxia ([facility]) Acute respiratory failure Lactic acidosis Acidosis Seizure ([facility]) Other convulsions 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 NSTEMI (non-ST elevated myocardial infarction) ([facility]) Acute myocardial infarction, subendocardial infarction, episode of care unspecified Carotid stenosis, bilateral Occlusion and stenosis of carotid artery without mention of cerebral infarction Lesion of parotid gland Hypertension Unspecified essential hypertension documented in this encounter Admitting Diagnoses Diagnosis DKA, type 2, not at goal ([facility]) Type II or unspecified type diabetes mellitus with ketoacidosis, uncontrolled documented in this encounter Administered Medications Inactive Administered Medications - up to 3 most recent administrations Medication Order MAR Action Action Date Dose Rate Site acetaminophen (TYLENOL) tablet 650 mg 650 mg, oral, EVERY 4 HOURS PRN, Starting on Thu04/16/22 at 0132, Until Thu04/18/22 at 1332, Pain, Routine aspirin chewable tablet 81 mg 81 mg, oral, DAILY, First dose (after last modification) on Thu04/17/22 at 1415, Until Discontinued, Routine Given 04/18/2022 8:32 EST 81 mg Given 04/17/2022 17:02 EST 81 mg atorvastatin (LIPITOR) tablet 40 mg 40 mg, oral, DAILY, First dose (after last modification) on Thu04/17/22 at 1415, Until Discontinued, Routine Given 04/18/2022 8:32 EST 40 mg dextrose 5 %-0.45 % sodium chloride infusion 150 mL/hr, intravenous, CONTINUOUS, Starting on Thu04/15/22 at 1330, Until Thu04/15/22 at 1532, Routine New Bag 04/15/2022 13:52 EST 150 mL/hr 150 mL/ hr dextrose 50 % solution 12.5 g 12.5 g (25 mL), intravenous, PRN, Starting on Thu04/15/22 at 1533, Until Thu04/18/22 at 1332, Low Blood Sugar, Routine enoxaparin (LOVENOX) injection 40 mg 40 mg, subcutaneous, DAILY, First dose on Thu04/16/22 at 0900, Until Discontinued, Routine Given 04/16/2022 8:35 EST 40 mg famotidine (PEPCID) injection 20 mg 20 mg, intravenous, 2 TIMES DAILY, First dose on Thu04/15/22 at 2100, Until Discontinued, Routine Given 04/16/2022 8:35 EST 20 mg Given 04/15/2022 20:16 EST 20 mg gadoterate meglumine solution 1-30 mL 1-30 mL, intravenous, Once in imaging, 1 dose, Starting on Thu04/17/22 at 1346, Until Thu04/17/22 at 1355, Routine, Imaging Protocol Orders Given 04/17/2022 13:55 EST 18 mL glucagon injection 1 mg 1 mg, intramuscular, PRN, Starting on Thu04/15/22 at 1533, Until Thu04/18/22 at 1332, Other, Low blood sugar, Routine insulin aspart U-100 (NOVOLOG FLEXPEN) injection subcutaneous, 3 TIMES DAILY WITH MEALS, First dose on Thu04/17/22 at 0800, Until Discontinued, Routine Given 04/18/2022 9:42 EST 3 Units Given 04/17/2022 17:44 EST 5 Units Given 04/17/2022 13:11 EST 7 Units insulin aspart U-100 (NOVOLOG FLEXPEN) injection subcutaneous, AT BEDTIME, First dose on Thu04/17/22 at 2100, Until Discontinued, Routine insulin glargine (LANTUS SOLOSTAR/SEMGLEE) injection pen 14 Units 14 Units (rounded from 13.965 Units = 0.15 Units/kg/day ? 93.1 kg), subcutaneous, DAILY, First dose on Thu04/15/22 at 1600, Until Discontinued, Routine Given 04/17/2022 18:19 EST 14 Units Given 04/16/2022 16:24 EST 14 Units Given 04/15/2022 16:13 EST 14 Units insulin regular (NOVOLIN R) 100 Units in sodium chloride (NS) 0.9 % 100 mL infusion 0.1 Units/kg/hr ? 93.1 kg (9.31 mL/hr), intravenous, CONTINUOUS, Starting on Thu04/15/22 at 1330, Until Thu04/15/22 at 1532, STAT New Bag 04/15/2022 13:52 EST 9 Units/hr 9 mL/hr insulin regular (NOVOLIN R) injection subcutaneous, EVERY 6 HOURS, First dose on Thu04/15/22 at 1800, Until Discontinued Given 04/16/2022 17:45 EST 3 Units Given 04/16/2022 11:55 EST 2 Units Given 04/16/2022 5:23 EST 2 Units lactated ringers (LR) infusion 300 mL/hr, intravenous, CONTINUOUS, Starting on Thu04/15/22 at 1330, Until Thu04/15/22 at 1532, Routine New Bag 04/15/2022 13:30 EST 300 mL/hr 300 mL/ hr lidocaine (PF) 10 mg/mL (1 %) injection 5 mL 5 mL, other, NOW X1, 1 dose, On Thu04/15/22 at 1730, STAT Given 04/15/2022 17:49 EST 5 mL lidocaine (PF) 10 mg/mL (1 %) injection 1 dose, Starting on Thu04/15/22 at 1702, Until Thu04/15/22 at 1749 lisinopriL (PRINIVIL) tablet 5 mg 5 mg, oral, DAILY, First dose (after last modification) on Thu04/17/22 at 1615, Until Discontinued, Routine Given 04/18/2022 8:32 EST 5 mg Given 04/17/2022 17:02 EST 5 mg LORazepam (ATIVAN) injection 0.5 mg 0.5 mg, intravenous, NOW X1, 1 dose, On Thu04/17/22 at 1100, Routine Given 04/17/2022 13:16 EST 0.5 mg metFORMIN (GLUCOPHAGE) tablet 500 mg 500 mg, oral, 2 TIMES DAILY WITH BREAKFAST & DINNER, First dose on Thu04/17/22 at 1700, Until Discontinued, Routine Given 04/18/2022 10:35 EST 500 mg Given 04/17/2022 17:03 EST 500 mg norepinephrine (LEVOPHED) 8 mg in D5W 250 mL infusion 2-30 mcg/min (3.75-56.25 mL/hr, rounded to 3.8-56.3 mL/hr), intravenous, CONTINUOUS, Starting on Thu04/15/22 at 1400, Until Thu04/16/22 at 0133, Routine Rate Change 04/15/2022 14:00 EST 1 mcg/min 1.9 mL/ hr New Bag 04/15/2022 13:37 EST 2 mcg/min 3.8 mL/hr norepinephrine (LEVOPHED) in D5W 32 mcg/ml 250 ml 8 mg/250 mL (32 mcg/mL) infusion solution 1 dose, Starting on Thu04/15/22 at 1333, Until Thu04/15/22 at 1337 perflutren lipid microspheres (DEFINITY) 0.165 mg in sodium chloride (PF) 1 mL 0.165 mg, intravenous, Once (Without Time Specified), 1 dose, Starting on Thu04/16/22 at 1530, Until Thu04/16/22 at 1531, Routine Given 04/16/2022 15:31 EST 2 mL polyethylene glycol 3350 (MIRALAX) packet 17 g 17 g, oral, DAILY, First dose on Lilly 04/17/22 at 0900, Until Discontinued, Routine Given 04/18/2022 8:33 EST 17 g potassium chloride (KLOR-CON) packet 40 mEq 40 mEq, oral, EVERY HOUR, 2 doses, First dose on Thu04/16/22 at 1415, Last dose on Thu04/16/22 at 1500, Routine Given 04/16/2022 15:45 EST 40 mEq Given 04/16/2022 13:52 EST 40 mEq propOFol (DIPRIVAN) 10 mg/mL injection 1 dose, Starting on Thu04/15/22 at 1259, Until Thu04/15/22 at 1311 propOFol (DIPRIVAN) 1000 mg in 100 mL infusion 5-83 mcg/kg/min ? 93.1 kg (2.793-46.3638 mL/hr, rounded to 2.8-46.4 mL/hr), intravenous, CONTINUOUS, Starting on Thu04/15/22 at 1330, Until Thu04/16/22 at 0815, Routine Rate Documented 04/16/2022 4:00 EST 30 mcg/kg/min 16.8 mL/hr Rate Documented 04/16/2022 3:00 EST 30 mcg/kg/min 16.8 mL/ hr New Bag 04/16/2022 2:54 EST 30 mcg/kg/min 16.8 mL/hr senna (SENOKOT) tablet 1 Tablet 1 Tablet, oral, AT BEDTIME, First dose on Thu04/16/22 at 2100, Until Discontinued, Routine sodium chloride 0.9 % (NS) infusion 10 mL/hr, intravenous, CONTINUOUS, Starting on Thu04/15/22 at 1330, Until Thu04/15/22 at 1532, Routine New Bag 04/15/2022 13:56 EST 10 mL/hr 10 mL/hr sodium phosphate 15 mmol in sodium chloride (NS) 0.9 % 150 mL infusion 15 mmol, intravenous, Administer over 4 Hours, NOW X1, 1 dose, On Thu04/15/22 at 1445, Routine Given 04/15/2022 15:30 EST 15 mmol 37. 5 mL/hr documented in this encounter Discontinued Medications Medication Sig Discontinue Reason Start Date End Da te atenoloL (TENORMIN) 50 mg tablet Take 50 mg by mouth daily. 04/18/2022 blood glucose (ONETOUCH VERIO TEST STRIPS) test strips 1 Strip by misc (non-drug; combo route) route 2 times daily. Reorder 04/18/2022 04/18/2022 lancets (ONETOUCH ULTRASOFT LANCETS) Test blood sugar 1-2 times daily. Reorder 04/18/2022 04/18/2022 documented as of this encounter Historical Medications * This list may reflect changes made after this encounter. Medication Sig Dispensed Refills Start Date End Date aspirin chewable 81 mg tablet Take 81 mg by mouth daily. atenoloL (TENORMIN) 50 mg tablet Take 50 mg by mouth daily. 04/18/2022 added in this encounter Active and Recently Administered Medications Times are shown in EST. Scheduled Medication Order 04/16/2022 04/17/2022 04/18/2022 aspirin chewable tablet 81 mg 81 mg, oral, DAILY, First dose (after last modification) on Lilly 04/17/22 at 1415, Until Discontinued, Routine 1702 (Given - Provider: Sena Hawthorne RN) 0832 (Given - Provider: Kandi Bridges, WILL) atorvastatin (LIPITOR) tablet 40 mg 40 mg, oral, DAILY, First dose (after last modification) on Lilly 04/17/22 at 1415, Until Discontinued, Routine 1545 (Not Given - Provider: Sena Hawthorne RN - Reason: Discontinued) 0832 (Given - Provider: Kandi Bridges, WILL) enoxaparin (LOVENOX) injection 40 mg (CANCELED) 40 mg, subcutaneous, DAILY, First dose on Thu04/16/22 at 0900, Until Discontinued, Routine 0835 (Given - Provider: Sj Hein RN) 0806 (Not Given - Provider: Sj Hein RN - Reason: Patient/family refused) famotidine (PEPCID) injection 20 mg (CANCELED) 20 mg, intravenous, 2 TIMES DAILY, First dose on Thu04/15/22 at 2100, Until Discontinued, Routine 0835 (Given - Provider: Sj Hein RN) gadoterate meglumine solution 1-30 mL (COMPLETED) 1-30 mL, intravenous, Once in imaging, 1 dose, Starting on Thu04/17/22 at 1346, Until Thu04/17/22 at 1355, Routine, Imaging Protocol Orders 1355 (Given - Provider: Thania Hobbs) insulin aspart U-100 (NOVOLOG FLEXPEN) injection subcutaneous, 3 TIMES DAILY WITH MEALS, First dose on Thu04/17/22 at 0800, Until Discontinued, Routine 0806 (Not Given - Provider: Sj Hein RN - Reason: Order parameters not met)1311 (Given - Provider: Sj Hein RN)1744 (Given - Provider: Sena Hawthorne, WILL - Comment: blood sugar: 219) 0942 (Given - Provider: Kandi Bridges, WILL)1200 (Canceled Entry - Provider: Batch Job User Admin - Comment: Automatically canceled at discontinue of medication order) insulin aspart U-100 (NOVOLOG FLEXPEN) injection subcutaneous, AT BEDTIME, First dose on Thu04/17/22 at 2100, Until Discontinued, Routine 2020 (Not Given - Provider: Saturnino Cortes RN - Reason: Order parameters not met) insulin glargine (LANTUS SOLOSTAR/SEMGLEE) injection pen 14 Units 14 Units (rounded from 13.965 Units = 0.15 Units/kg/day ? 93.1 kg), subcutaneous, DAILY, First dose on Thu04/15/22 at 1600, Until Discontinued, Routine 1624 (Given - Provider: Sj Hein RN) 1819 (Given - Provider: Sena Hawthorne, WILL) insulin regular (NOVOLIN R) injection (CANCELED) subcutaneous, EVERY 6 HOURS, First dose on Thu04/15/22 at 1800, Until Discontinued 0035 (Not Given - Provider: Tahir Dan RN - Reason: Order parameters not met)0523 (Given - Provider: Tahir Dan RN)1155 (Given - Provider: Sj Hein, WILL)1745 (Given - Provider: Sj Hein RN) 0042 (Not Given - Provider: Magalys Queen RN - Reason: Order parameters not met) lisinopriL (PRINIVIL) tablet 5 mg 5 mg, oral, DAILY, First dose (after last modification) on Thu04/17/22 at 1615, Until Discontinued, Routine 170 (Given - Provider: Sena Hawthorne RN) 0832 (Given - Provider: Kandi Bridges, WILL) LORazepam (ATIVAN) injection 0.5 mg (COMPLETED) 0.5 mg, intravenous, NOW X1, 1 dose, On Thu04/17/22 at 1100, Routine 1316 (Given - Provider: Sj Hein RN - Comment: given for MRI) metFORMIN (GLUCOPHAGE) tablet 500 mg 500 mg, oral, 2 TIMES DAILY WITH BREAKFAST & DINNER, First dose on Thu04/17/22 at 1700, Until Discontinued, Routine 1703 (Given - Provider: Sena Hawthorne RN) 1035 (Given - Provider: Kandi Bridges, WILL) perflutren lipid microspheres (DEFINITY) 0.165 mg in sodium chloride (PF) 1 mL (COMPLETED) 0.165 mg, intravenous, Once (Without Time Specified), 1 dose, Starting on Thu04/16/22 at 1530, Until Thu04/16/22 at 1531, Routine 1531 (Given - Provider: Que Morales) polyethylene glycol 3350 (MIRALAX) packet 17 g 17 g, oral, DAILY, First dose on Thu04/17/22 at 0900, Until Discontinued, Routine 0924 (Not Given - Provider: Sj Hein RN - Reason: Patient/family refused) 0833 (Given - Provider: Kandi Bridges, WILL) potassium chloride (KLOR-CON) packet 40 mEq (COMPLETED) 40 mEq, oral, EVERY HOUR, 2 doses, First dose on Thu04/16/22 at 1415, Last dose on Thu04/16/22 at 1500, Routine 1352 (Given - Provider: Sj Hein RN)1545 (Given - Provider: Sj Hein RN) senna (SENOKOT) tablet 1 Tablet 1 Tablet, oral, AT BEDTIME, First dose on Thu04/16/22 at 2100, Until Discontinued, Routine 2038 (Not Given - Provider: Sena Abdi RN - Reason: Patient/family refused) 2018 (Not Given - Provider: Saturnino Cortes RN - Reason: Patient/family refused) Continuous Medication Order 04/16/2022 04/17/2022 04/18/2022 propOFol (DIPRIVAN) 1000 mg in 100 mL infusion (CANCELED) 5-83 mcg/kg/min ? 93.1 kg (2.793-46.3638 mL/hr, rounded to 2.8-46.4 mL/hr), intravenous, CONTINUOUS, Starting on Thu04/15/22 at 1330, Until Thu04/16/22 at 0815, Routine 0000 (Rate Documented - Provider: Tahir Dan RN)0056 (Rate Change-ICU/L&D Only - Provider: Elvira Solis RN)0100 (Rate Documented - Provider: Tahir Dan RN)0200 (Rate Documented - Provider: Tahir Dan RN)0254 (New Bag - Provider: Elvira Solis RN)0300 (Rate Documented - Provider: Tahir Dan RN)0400 (Rate Documented - Provider: Tahir Dan RN)0430 (IV Stopped - Provider: Tahir Dan RN - Comment: for sbt) PRN Medication Order 04/16/2022 04/17/2022 04/18/2022 acetaminophen (TYLENOL) tablet 650 mg 650 mg, oral, EVERY 4 HOURS PRN, Starting on Thu04/16/22 at 0132, Until Thu04/18/22 at 1332, Pain, Routine dextrose 50 % solution 12.5 g 12.5 g (25 mL), intravenous, PRN, Starting on Thu04/15/22 at 1533, Until Thu04/18/22 at 1332, Low Blood Sugar, Routine glucagon injection 1 mg 1 mg, intramuscular, PRN, Starting on Thu04/15/22 at 1533, Until Thu04/18/22 at 1332, Other, Low blood sugar, Routine lidocaine (PF) 10 mg/mL (1 %) injection 2 mg 2 mg, intradermal, PRN, 4 doses, Starting on Thu04/15/22 at 1303, Until Thu04/18/22 at 1332, peripheral intravenous catheter placement, Routine documented in this encounter Orders Medications Ordered That Gilberto ht Not Have Been Administered Count Last Ordered Date First Ordered Date aspirin chewable tablet 81 mg 1 04/17/2022 atorvastatin (LIPITOR) tablet 40 mg 1 04/17 insulin aspart U-100 (NOVOLO G FLEXPEN) injection 1 04/17/2022 lisinopriL (PRINIVIL) tablet 5 mg 1 022 acetaminophen (TYLENOL) tablet 650 mg 1 senna (SENOKOT) tablet 1 Tablet 1 dextrose 50 % solution 12.5 g 1 04/15/2022 dextrose 50 % solution 12.5-25 g 1 04/15/20 glucagon injection 1 mg 1 04/15/2022 lidocaine (PF) 10 mg/mL (1 % ) injection 2 mg 1 04/15/2022 magnesium sulfate 2 g in water 50 mL 2 03/26 potassium chloride in water infusion 20 mEq 2 04/15/2022 Nursing Count Last Ordered Date First Orde red Date CONTRAINDICATION TO ANTICOAG ULATION THERAPY 1 04/17/2022 Consult Count Last Ordered Date First Orde red Date CONSULT DIABETES EDUCATION 1 04/17/2022 Respiratory Care Count Last Ordered Date First Ordered Date EXTUBATION 1 04/16/2022 Admission Count Last Ordered Date First Orde red Date ADMIT TO INPATIENT 1 04/15/2022 Transfer Count Last Ordered Date First Orde red Date TRANSFER PATIENT 1 04/17/2022 Discharge Count Last Ordered Date First Orde red Date DISCHARGE PATIENT 1 04/18/2022 documented in this encounter Care Teams Rehab Spec Relationship Specialty Start Date End Date Zuleika Moreno MD [address] [place] [address] PCP - General 04/15/22 04/15/22 Debbie Lopez MD [address] [place] [id number] PCP - General Family Medicine - Primary Care 04/16/22 documented as of this encounter
--- OUTSIDE RECORDS SUMMARY | 2024-02-05 01:37 | XMS_ITS | Encounter Summary ---
Author Organization [facility] Address [address] [place] [address] Care Team Providers Care Supply Cataloguer Name Role Phone Zuleika Moreno MD Primary Care Provider [phone] Reason for Visit * (Routine/Next Available) - Receiving Office to Obtain Authorization Specialty Diagnoses / Procedures Referred By Lorenzo peralta Referred To Contact Procedures CT OUTSIDE IMAGES BODY Imaging, External Referral ID Status Reason Start Date Expiration Date Visits Requested Visits Authorized [id number] Receiving Office to Obtain Authorization 2 1 1 Encounter Details Date Type Department Care Team (Latest Contact Info) Description 04/15/2022 9:54 EST Hospital Encounter 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 70 Each 3 04/18/2022 insulin pen needles 31G x 3/16 (PEN NEEDLE)Indications:Othe r specified diabetes mellitus with other specified complication, unspecified whether custodial insulin use (HCC-CMS) by misc (non-drug; combo route) route daily. 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 [...] Date/Time Associated Diagnosis Comments CT OUTSIDE IMAGES BODY Routine 04/15/2022 9:57 EST documented in this encounter Results * CT OUTSIDE IMAGES BODY (04/15/2022 9:57 EST) Narrative 04/15/2022 9:57 EST This is a non-reportable exam. External Imaging IMG OTHER IMAGING OR DERABLES documented in this encounter Visit Diagnoses Not on filedocumented in this encounter Care Teams Supply Cataloguer Relationship Specialty Start Date End Date Zuleika Moreno MD [address] [place] [id number] PCP - General 04/15/22 04/15/22 documented as of this encounter
--- OUTSIDE RECORDS SUMMARY | 2024-02-05 01:37 | XMS_ITS | Encounter Summary ---
Author Organization [facility] Address [address] [place] [address] Care Team Providers Care Pulverizer Feeder Name Role Phone Zuleika Moreno MD Primary Care Provider [phone] Reason for Visit * (Routine/Next Available) - Receiving Office to Obtain Authorization Specialty Diagnoses / Procedures Referred By Lorenzo peralta Referred To Contact Procedures XR OUTSIDE IMAGES CHEST Imaging, External Referral ID Status Reason Start Date Expiration Date Visits Requested Visits Authorized [id number] Receiving Office to Obtain Authorization 2 1 1 Encounter Details Date Type Department Care Team (Latest Contact Info) Description 04/15/2022 9:56 EST - 04/15/2022 12:53 EST Hospital Encounter [facility] Secondary Reads [place] Discharge Disposition: Home [...] 10:04 EST documented as of this encounter Medications at Time of Discharge Medication Sig Dispensed Refills Start Date End Date aspirin chewable 81 mg tablet Take 81 mg by mouth daily. blood glucose (ONETOUCH VERIO TEST STRIPS) test stripsIndications:Other specified diabetes mellitus with other specified complication, unspecified whether termination clerk insulin use ([facility]) 1 Strip by misc (non-drug; combo route) route 2 times daily. 70 Each 3 04/18/2022 insulin pen needles 31G x 3/16 (PEN NEEDLE)Indications:Othe r specified diabetes mellitus with other specified complication, unspecified whether assisted insulin use ([facility]) by misc (non-drug; combo route) route daily. 100 Each 1 04/18/2022 lancets (ONETOUCH ULTRASOFT LANCETS)Indications:Oth er specified diabetes mellitus with other specified complication, unspecified whether termination clerk insulin use ([facility]) Test blood sugar 1-2 times daily. [...] Procedure Name Priority Date/Time Associated Diagnosis Comments XR OUTSIDE IMAGES CHEST Routine 04/15/2022 9:57 EST documented in this encounter Results * XR OUTSIDE IMAGES CHEST (04/15/2022 9:57 EST) Narrative 04/15/2022 9:57 EST This is a non-reportable exam. External Imaging IMG OTHER IMAGING OR DERABLES documented in this encounter Visit Diagnoses Not on filedocumented in this encounter Care Teams Pulverizer Feeder Relationship Specialty Start Date End Date Zuleika Moreno MD [address] [place] [id number] PCP - General 04/15/22 04/15/22 documented as of this encounter
[2024-02-05 14:06] LABS: Calculated LDL 75 mg/dL (<100); Cholesterol 150 mg/dL (<200); HDL Cholesterol 44 mg/dL (40-60); Triglyceride 156 mg/dL (<150)
== END 2024-02-05 01:32 | disposition home or self-care (01) ==
LOC: LBO 01:32
PROVIDERS: PCP Family Medicine; Visit Provider Psychiatry & Neurology Neurology
DX: I63.9 Cerebral infarction, unspecified (principal)
CPT/HCPCS: 36415; 80061

== ENCOUNTER → 2024-03-22 09:30 | Outpatient (BNVA) | payer MEDICARE, SELFPAY | PROVIDERS: PCP Family Medicine; Referring Provider Family Medicine; Visit Provider Psychiatry & Neurology Neurology | DX: I63.9 Cerebral infarction, unspecified (principal); I48.0 Paroxysmal atrial fibrillation; I65.22 Occlusion and stenosis of left carotid artery | CPT/HCPCS: 99214 ==

== ENCOUNTER 2024-05-10 01:45 | Outpatient (CLI) | payer MEDICARE, SELFPAY ==
--- NOTE | 2024-05-10 07:15 | DI.RAD_ITS ---
Exam(s) XR ANKLE RT COMPLETE EXAM: XR ANKLE RT COMPLETE CLINICAL HISTORY: Right ankle pain,M25.571. TECHNIQUE: 2D digital imaging was performed of the right ankle. Three images were obtained. AP, la teral and oblique views were obtained. COMPARISON: No exams were available for comparison FINDINGS: BONES: No acute fracture is present. No bony destructive lesion is seen. There is an enthesophyte at the posterior calcaneus. JOINTS: The ankle mortise is normally aligned. Mild degenerative changes are seen about the ankle. T here is a well corticated osseous density seen at the tip of the medial malleolus. SOFT TISSUE: Normal. IMPRESSION: Mild degenerative changes seen in the right ankle. No acute abnormality. DATA REPOSITORY: RADIATION DOSE DELIVERED:
== END 2024-05-10 02:05 ==
LOC: DI 01:45
PROVIDERS: PCP Family Medicine; Visit Provider Podiatrist
DX: M25.571 Pain in right ankle and joints of right foot (principal)
CPT/HCPCS: 73610

== ENCOUNTER → 2024-11-08 09:54 | Outpatient (BNVA) | payer MEDICARE, SELFPAY | PROVIDERS: PCP Family Medicine; Referring Provider Family Medicine; Visit Provider Podiatrist | DX: M25.571 Pain in right ankle and joints of right foot (principal); E11.42 Type 2 diabetes mellitus with diabetic polyneuropathy; I87.2 Venous insufficiency (chronic) (peripheral); I83.93 Asymptomatic varicose veins of bilateral lower extremities; R60.0 Localized edema; L65.9 Nonscarring hair loss, unspecified; R23.8 Other skin changes; R20.2 Paresthesia of skin | CPT/HCPCS: 11719; 20600; J0702; J1100 ==

== ENCOUNTER → 2024-11-15 09:49 | Outpatient (BNVA) | payer MEDICARE, SELFPAY | PROVIDERS: PCP Family Medicine; Referring Provider Family Medicine; Visit Provider Psychiatry & Neurology Neurology | DX: I63.9 Cerebral infarction, unspecified (principal); I48.0 Paroxysmal atrial fibrillation; I65.22 Occlusion and stenosis of left carotid artery; Z79.01 Long term (current) use of anticoagulants; Z79.02 Long term (current) use of antithrombotics/antiplatelets | CPT/HCPCS: 99214 ==

== ENCOUNTER → 2024-12-13 10:25 | Outpatient (BNVA) | payer MEDICARE, SELFPAY | PROVIDERS: PCP Family Medicine; Referring Provider Family Medicine; Visit Provider Podiatrist | DX: E11.42 Type 2 diabetes mellitus with diabetic polyneuropathy (principal); M25.571 Pain in right ankle and joints of right foot; I87.2 Venous insufficiency (chronic) (peripheral) | CPT/HCPCS: 99213 ==

== ENCOUNTER 2025-01-12 07:34 | Emergency (ER) | payer MEDICARE, SELFPAY ==
[2025-01-12 07:38] VITALS: BP 194/101; PULSE 81; RESP 18; O2SAT 98
[2025-01-12 07:49] VITALS: TEMP 36.4
--- NOTE | 2025-01-12 08:20 | W.ED.GENAD ---
Discharge Plan Disposition Patient Disposition: Home Discharge Details Clinical Impression: Local reaction to hymenoptera sting Primary Care Provider: Debbie Lopez ED Provider: Florencio Ornelas Home Meds and New Rx's Prescriptions: Continued apixaban 2.5 mg tablet 2.5 mg PO BID Qty: 180 3RF insulin glargine [Lantus Solostar U-100 Insulin] 100 unit/mL (3 mL) insulin pen 10 unit subcut QPM aspirin [Adult Aspirin Regimen] 81 mg tablet,delayed release (DR/EC) 81 mg PO DAILY atorvastatin 40 mg tablet 40 mg PO DAILY cephalexin 500 mg capsule 500 mg PO BID Rx Instructions: Take 4 capsules by mouth 1 hour prior to dental procedure atenolol 50 MG tablet 50 mg PO DAILY metformin 1,000 mg tablet 500 mg PO BID Patient Comments: TAKE ONE TABLET BY MOUTH EVERY DAY Discharge Instructions Additional Instructions: You were seen in the emergency department for your allergic reaction to bee stings. Please return to the emergency department as we discussed if you develop worsening pain worsening swelling or cannot move your hands. Please elevate your hands today. You received a steroid medication which should decrease your swelling. As we discussed please touch base with your primary care provider concerning your insulin use given your improved A1c. Discharge Data Discharge Date/Time-TO BE ENTERED AT DEPARTURE: 01/12/25 08:40 HPI General Date/Time Provider Initiated Documentation: 01/12/25 07:46. HPI Narrative: MDM This is a quite well-appearing normothermic and not tachycardic 79-year-old male with local site reactions to hymenoptera stings for which he will receive dexamethasone cetirizine and empiric trial of discharge with expectant outpatient management. No posterior oropharynx swelling nausea nor rash to suggest anaphylaxis so no indication for epinephrine. Patient and I discussed the risks and benefits of steroids given his diabetes. He had a hemoglobin A1c of 5.8 last fall and, as a result I am not concerned about the single dose of dexamethasone. I spoke with the patient about touching base with his PCP concerning risks and the benefits of ongoing insulin use given his age and reassuring A1c. His compartments were soft so I was not concerned for compartment syndrome. He had no erythema to suggest cellulitis so indication for antibiotics. No fluctuance to suggest abscess. No significant trauma to suggest benefit from plain films as my suspicion for any acute osseous abnormality was quite low. No pain out of proportion to suggest necrotizing soft tissue infection. Patient his and I discussed that he should elevate his hands today. We did discuss that he should return if he developed worsening pain swelling or could not move his hands. He understood his return indications and was discharged with empiric trial of expectant outpatient management. HPI This is a [id number]-hbga-ggneozvy 79-year-old male presenting for evaluation of a bee sting. He experienced a bee sting on his right hand yesterday while trimming weeds, which resulted in swelling and pain upon waking up this morning. He is right-handed. He reports no swelling in the back of his mouth or feelings of nausea. He has no known history of allergic reactions to bee stings and does not carry an EpiPen. His primary concern is the swelling in his hand, which has slightly limited his mobility. He also reports no fevers, chills, vomiting, or diarrhea. Supplemental Information He has type 2 diabetes and is on insulin. Exam General: Well-appearing in no acute distress speaking in complete sentences. Head: Normocephalic, atraumatic. Eye: Extraocular eye movements intact. No conjunctival injection. No scleral icterus. Ear, nose, mouth, throat: Grossly normal inspection. Normal voice, handling secretions normally. Neck: Trachea midline. Cardiovascular: Well-perfused distal extremities. Respiratory: Nonlabored respiration. Gastrointestinal: Nondistended abdomen. Musculoskeletal: Right upper extremity Generalized swelling throughout right hand. Small punctate area consistent with hymenoptera sting on the radial aspect of the proximal long finger just distal to the MCP joint. Full range of motion right hand across the radial, median, and ulnar nerve distributions. Sensation intact in the right hand. Cap refill less than 2 seconds in the right hand. 2+ right radial pulse. Left upper extremity: Mild swelling primarily over the dorsal surface of the left hand. On the radial aspect of the left index finger just distal to the MCP joint on the dorsal aspect there is a small punctate area consistent with hymenoptera sting. Full range of motion in left hand across the radial, median, and ulnar nerve distributions. Sensation intact in the left hand. Cap refill less than 2 seconds in the left hand. 2+ left radial pulse. Skin: Normal for age and race, grossly normal temperature and turgor. No acute rash. Neurologic: Alert and appropriate, no apparent acute deficits. Psychiatric: Mood and manner are appropriate. Grooming and personal hygiene are appropriate. Related Data Home Medications ?Medication ?Instructions ?Recorded ?Confirmed atenolol 50 mg tablet 50 mg PO DAILY 12/14/15 01/12/25 aspirin 81 mg tablet,delayed 81 mg PO DAILY 11/17/23 01/12/25 release (Adult Aspirin Regimen) atorvastatin 40 mg tablet 40 mg PO DAILY 11/17/23 01/12/25 insulin glargine 100 unit/mL (3 10 unit subcut QPM 11/17/23 01/12/25 mL) subcutaneous pen (Lantus Solostar U-100 Insulin) metformin 1,000 mg tablet 500 mg PO BID 11/17/23 01/12/25 cephalexin 500 mg capsule 500 mg PO BID 04/28/24 01/12/25 apixaban 2.5 mg tablet 2.5 mg PO BID #180 tabs 11/15/24 01/12/25 Previous Rx's ?Medication ?Instructions ?Recorded apixaban 2.5 mg tablet 2.5 mg PO BID #180 tabs 11/15/24 Allergies Allergy/AdvReac Type Severity Reaction Status Date / Time No Known Allergies Allergy Verified 01/12/25 07:41 General Stated Complaint: InsectBite JU: 4 Course Vital Signs Vital signs: Vital Signs Pulse 81 01/12/25 07:38 Respiratory Rate 18 01/12/25 07:38 Blood Pressure 194/101 H 01/12/25 07:38 Pulse Oximetry 98 01/12/25 07:38 Temperature 36.4 C 01/12/25 07:49 Temperature Source Tympanic 01/12/25 07:49 Pulse 81 01/12/25 07:38 Respiratory Rate 18 01/12/25 07:38 Blood Pressure 194/101 H 01/12/25 07:38 Pulse Oximetry 98 01/12/25 07:38 Oxygen Delivery Method Room Air 01/12/25 07:38 Oxygen Flow Rate 0 01/12/25 07:38 PFSH All Active Problems (Updated 01/12/25 @ 08:22 by Florencio Ornelas MD) Local reaction to hymenoptera sting (Acute) Pain, joint, foot, right (Acute) Venous insufficiency (Acute) Diabetes mellitus with neuropathy (Acute) Peripheral neuropathy (Acute) Pain in right ankle (Acute) Right ankle sprain (Acute) Left carotid stenosis (Acute) Paroxysmal A-fib (Acute) Stroke (Chronic) Lesion of pancreas (Acute) Dehydration (Acute) Fever (Acute) Medical History Chronic kidney disease Aortic aneurysm Hypertension Diabetes Surgical History S/P hip replacement S/P AAA repair Social History Smoking/Tobacco Use Status: Former Tobacco Use Smoking risk assessment performed?: Yes Alcohol Intake: never Drug use: Never Substance use type: does not use Household members: spouse Housing: house Number of Children: 1 Do you feel safe at home: Yes Do you feel safe in your relationship?: Yes
[2025-01-12] MEDS: Cetirizine 10 MG TAB PO (08:32)
[2025-01-12] MEDS: Dexamethasone 4 MG TAB 8 MG PO (08:32)
[2025-01-12 08:35] VITALS: BP 181/128; PULSE 81; RESP 16; O2SAT 97
--- NOTE | 2025-01-24 07:26 | NUR.NOTE ---
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
== END 2025-01-12 08:40 | disposition home or self-care (01) ==
PROVIDERS: Emergency Provider Emergency Medicine; PCP Family Medicine
DX: T63.441A Toxic effect of venom of bees, accidental (unintentional), initial encounter (principal)
CPT/HCPCS: 99284; 99283; 96374; J8540

== ENCOUNTER 2025-03-08 23:18 | Emergency (ER) | payer MEDICARE, SELFPAY ==
[2025-03-08] VITALS (8 sets, daily range): BP systolic 62–172; BP diastolic 43–91; PULSE 102–125; RESP 15–32; TEMP 37; O2SAT 90–98
--- NOTE | 2025-03-08 23:15 | RT.EKG_ITS ---
APPROVED REPORT Exam: Resting ECG Reason for Exam: Chest/abd pain Patient Location: E HR:122 bpm ECG Measurements Heart Rate 122 AXIS TX 155 P 59 QRSd 90 QRS -16 QT 325 T 29 QTc 452 Conclusion Sinus tachycardia...rate> 99 Physician: no stemi
--- NOTE | 2025-03-08 23:27 | W.ED.GENAD ---
Discharge Plan Disposition Patient Disposition: Transfer-Acute Inpatient Care Specific Acute Inpt Facility: [facility] Condition: Critical Discharge Details Clinical Impression: AAA (abdominal aortic aneurysm, ruptured), Hemorrhagic shock Primary Care Provider: Debbie Lopez ED Provider: Gurpreet Negro Home Meds and New Rx's Prescriptions: No Action apixaban 2.5 mg tablet 2.5 mg PO BID Qty: 180 3RF insulin glargine [Lantus Solostar U-100 Insulin] 100 unit/mL (3 mL) insulin pen 10 unit subcut QPM aspirin [Adult Aspirin Regimen] 81 mg tablet,delayed release (DR/EC) 81 mg PO DAILY atorvastatin 40 mg tablet 40 mg PO DAILY cephalexin 500 mg capsule 500 mg PO BID Rx Instructions: Take 4 capsules by mouth 1 hour prior to dental procedure atenolol 50 MG tablet 50 mg PO DAILY metformin 1,000 mg tablet 500 mg PO BID Patient Comments: TAKE ONE TABLET BY MOUTH EVERY DAY HPI General Date/Time Provider Initiated Documentation: 03/08/25 23:25. HPI Narrative: This is an 79-year-old male with a past medical history of abdominal aortic aneurysm status post repair, hypertension, CKD, diabetes mellitus type 2, paroxysmal atrial fibrillation on apixaban, who presents today for abdominal and back pain. History is limited, patient presents via EMS, but allegedly patient had a sudden onset of sharp lower abdominal and back pain. He denies vomiting, or chest pain. Pain seems to come and go in severity, he was given 200 mcg of fentanyl and route which only slightly improved his pain. Patient is not able to add anything to history otherwise. He states that the pain is severe. He states that the pain does feel different than when he had his AAA repair. No other complaints at this time. Related Data Home Medications ?Medication ?Instructions ?Recorded ?Confirmed atenolol 50 mg tablet 50 mg PO DAILY 12/14/15 03/08/25 aspirin 81 mg tablet,delayed 81 mg PO DAILY 11/17/23 03/08/25 release (Adult Aspirin Regimen) atorvastatin 40 mg tablet 40 mg PO DAILY 11/17/23 03/08/25 insulin glargine 100 unit/mL (3 10 unit subcut QPM 11/17/23 03/08/25 mL) subcutaneous pen (Lantus Solostar U-100 Insulin) metformin 1,000 mg tablet 500 mg PO BID 11/17/23 03/08/25 cephalexin 500 mg capsule 500 mg PO BID 04/28/24 03/08/25 apixaban 2.5 mg tablet 2.5 mg PO BID #180 tabs 11/15/24 03/08/25 Previous Rx's ?Medication ?Instructions ?Recorded apixaban 2.5 mg tablet 2.5 mg PO BID #180 tabs 11/15/24 Allergies Allergy/AdvReac Type Severity Reaction Status Date / Time No Known Allergies Allergy Verified 03/08/25 23:27 General Stated Complaint: Abd Prob JU: 3 Exam Narrative Exam Narrative: 1.Const: Well-nourished, Well-developed, appearing stated age 2.Eyes: PERRL, no conjunctival injection, and symmetrical lids. 3.ENT: Atraumatic external nose and ears. Moist MM. Neck: Symmetric, trachea midline, No thyromegaly. 4.CVS: +S1/S2, Peripheral pulses 2+ and equal in all extremities including dorsalis pedis and radial pulses bilaterally. Capillary refill in the lower extremities is around 3 seconds. 5.RESP: Unlabored respiratory effort. Clear to auscultation bilaterally. No wheezes rales or rhonchi 6.GI: Slightly distended abdomen, tender in the lower abdominal region. Nonpulsatile 7.MSK: Normocephalic/Atraumatic, Extremities w/o deformity or ttp No cyanosis or clubbing, Normal movement of all extremities. 8.Skin: Diffusely cold and clammy skin 9.Neuro: strike on machine operator II-XII grossly intact. Sensation grossly intact, no focal neurologic deficits. 10.Psych: (AAO) x3. Appropriate mood and affect Course Vital Signs Vital signs: Vital Signs Temperature 37.0 C 03/08/25 23:21 Pulse 122 H 03/08/25 23:21 Respiratory Rate 18 03/08/25 23:21 Blood Pressure 172/91 H 03/08/25 23:21 Pulse Oximetry 93 03/08/25 23:21 Temperature 37.0 C 03/08/25 23:21 Temperature Source Oral 03/08/25 23:21 Pulse 125 H 03/08/25 23:24 Respiratory Rate 20 03/08/25 23:24 Blood Pressure 172/91 H 03/08/25 23:24 Pulse Oximetry 90 L 03/08/25 23:24 Oxygen Delivery Method Room Air 03/08/25 23:24 Oxygen Flow Rate 0 03/08/25 23:21 Pain Level 3 03/08/25 23:24 Procedure Airway Management Date of Procedure: 03/09/25 Time of Procedure: 01:50 Patient Consented: Emergent Case Indication: Reduced level of consciousness Provider that performed the procedure: Gurpreet Negro Mallampati Class: 2 Sedation administered by provider performing procedure: Yes Sedation Given: Etomidate (20) Route of Administration: IV. Etomidate dose(mg): 20. Preparation: tombstone erector helper applied, pulse oximeter, capnometry used, supplemental O2 applied, reversal agents at bedside, suction/airway equipment at bedside and IV secured. ASA Class: IV.. Induction setup: Pt. evaluated prior to induction, Pt. Ramped, Head of Bed Elevated and Rapid Sequence Induction Ultrasound: Not used Airway Type: Intubation Laryngoscopy: Atraumatic Laryngoscopy, Teeth Intact and Poor Dentition. Grade: Airway Grade: 1. Airway Blades: Glidescope 3. Endotracheal Tube: Oral, Cuffed and 7.5mm. Secured at(cm): 22. Placement Confirmation: Cuff inflated with minimally occlusive pressure, Secured with commercial device, Bilateral breath sounds and ETCO2 waveform present Paralytic(indicate dose given): Succinylcholine Procedure Complications: None Procedure Outcome: Successful Arterial Line Date of Procedure: 03/09/25 Time of Procedure: 01:46 Provider that performed the procedure: Gurpreet R Sruthi Indication: BP Monitoring and Hypotension Patient Consented: Emergent Case Standard Time Out Performed: Yes Sterility: Sterile Local Anesthetic: Lidocaine 1% Amount of anesthetic used(mL): 3 Laterality: Left Insertion Site: Radial Arterial Line Catheter: 20G Arrow Arterial Line Procedure: 1% Lidocaine to skin and subcutaneous tissue with 25g needle, Vessel accessed with needle, Vessel accessed with catheter over needle, Guidewire placed with ease, Catheter placed without resistance and Guidewire removed Ultrasound: Used/Image Saved Number of Attempts( see previous attempts in note section): 1 Dressing: Tegaderm Applied, Chlorhexidine Dressing and BioPatch Applied Procedure Tolerated: No Complications and Patient tolerated well Procedure Outcome: Successful Central Line Placement Date of Procedure: 03/09/25 Time of Procedure: 01:47 Provider that performed the procedure: Gurpreet Lobo Negro Indication: Central venous access, Definitive access, Emergent access and Hypotension Patient Consented: Verbally, Written and Emergent Case Standard Time Out Performed: Yes Sterility: Sterile Local Anesthetic: Lidocaine 1% Amount of anesthetic used(mL): 3 Laterality: Right Insertion Site: Internal Jugular (IJ) Central Line Type: Triple Lumen Catheter Insertion Procedure: 1% Lidocaine to skin and subcutaneous tissue with 25g needle, Vessel accessed with needle, Vessel accessed with catheter over needle, catheter advanced, Guidewire placed with ease, Extension tubing fills with blood, then empties easily with gravity, Dermatotomy (skin ayala) made with scalpel, Dilator placed without resistance, Introducer/Catheter placed without resistance, Guidewire removed and Claves placed, blood withdrawn, ports flushed and clamped Ultrasound: Used/Image Saved Number of Attempts(see previous attempts in note section): 1 Post Procedure: good blood return, all ports aspirated, flushed, capped and sutured in place with 2-0 silk Post Procedure X-Ray: tip of catheter in good position Dressing: Tegaderm applied and BioPatch applied Reason for Blood draw by Provider: MD to place line Obtained blood via: during central line insertion Estimated cc's Blood Obtained: 5 Procedure Tolerated: No Complications and Patient tolerated well Procedure Outcome: Successful Medical Decision Making This is an 79-year-old male with a past medical history of abdominal aortic aneurysm status post repair, hypertension, CKD, diabetes mellitus type 2, paroxysmal atrial fibrillation on apixaban, who presents today for abdominal and back pain. History is limited, patient presents via EMS, but allegedly patient had a sudden onset of sharp lower abdominal and back pain. He denies vomiting, or chest pain. Pain seems to come and go in severity, he was given 200 mcg of fentanyl and route which only slightly improved his pain. Patient is not able to add anything to history otherwise. He states that the pain is severe. He states that the pain does feel different than when he had his AAA repair. No other complaints at this time. Exam demonstrates distended tender lower abdomen, pulses are intact distally, capillary refill is around 3 seconds. Differential includes ruptured AAA, dissection, kidney stone. Bedside ultrasound was performed and shows evidence of a large AAA and free fluid. Differential became notably high for ruptured AAA. Second IV was established, massive transfusion protocol was started, PRBCs were ordered and immediately started. TXA 1 g was administered. I discussed my concern of this life-threatening etiology with the patient and family, and they have requested that all be done to ensure potential survival. They also confirmed that the patient would like CPR and intubation if needed. We will get CT imaging, work to establish central access, central monitoring, and reach out to [facility] for emergent transfer. 1:33 AM Right IJ was placed without complication. Left art line was placed without complication. Patient received 3 units of PRBCs, and 2 L of normal saline. On his initial arrival his blood pressure was in the low 100s systolic, but shortly thereafter it rapidly transition to the 70s and then 50s systolic. With blood and fluid he came up to the mid to high 70s/low 80s which I felt would be an appropriate place for permissive hypotension to reduce potential increased shearing of the rupture. Patient required multiple fentanyl doses for pain management. CT scan shows evidence of AAA rupture. I did speak with Dr. Rach pa at [facility], she accepts the patient for emergent transfer. [facility] was dispatched, prior to their arrival the patient had continued worsening pain and need for pain management. The dosing required of fentanyl to help mitigate the pain was causing him transient episodes of significant sedation in between the interval dosings. Out of concern for continued challenges with pain management inflight, the decision was made to intubate the patient for airway securement to reduce potential for aspiration. Patient was intubated without complication. Patient did become hypotensive shortly thereafter, Levophed was started to maintain a blood pressure in the 80s. Once the transient hypotension postintubation resolved the Levophed was titrated down. Patient will be sedated with propofol. Discussed life-threatening potential of his current process with family and they understand. They will be heading directly to [facility] via car. I have extensively reviewed the treatment plan with the patient. I have addressed all patient concerns at this time. I have also discussed the plan with the admitting physician and they agree with the current assessment and plan and have agreed to assume responsibility for the patient. All parties demonstrate verbal understanding and agreement with our assessment and plan at this time. The documentation in this chart was dictated using Tiendeo dictation software. Please excuse any dictation errors. IMPRESSION: 1. Suprarenal aortic bi-iliac stent graft in expected position. 2. Endoleak, midportion of the excluded aneurysm which measures up to 13 cm AP. 3. Ruptured infrarenal aortic aneurysm. Retroperitoneal, right paracolic and right upper quadrant blood products as above. 4. 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 5. Additional findings as described. Thank you for allowing us to participate in the care of your patient. Dictated and Authenticated by: Danika Waite MD 03/09/2025 12:01 AM Eastern Time ([place] & [place] FINDINGS: Tubes, catheters and devices: Right jugular catheter, satisfactory position. Tip is close to the upper cavoatrial junction. Lungs: Low lung volumes. No mari[place] airspace consolidation on portable imaging. Pleural spaces: No pleural effusion. No pneumothorax. Heart/Mediastinum: No significant cardiomegaly for position and projection. Bones/joints: No acute fracture. IMPRESSION: Right jugular catheter, satisfactory position. Thank you for allowing us to participate in the care of your patient. Dictated and Authenticated by: Danika Waite MD 03/09/2025 12:35 AM Eastern Time ([place] & [place] IMPRESSION: Endotracheal catheter in-situ terminating 5.2 cm above the raegan. Thank you for allowing us to participate in the care of your patient. Critical Care Time Critical Care Time Critical Care Time: Yes Total Critical Care Time: 110 Attestation: Upon my evaluation, this patient had a high probability of imminent or life-threatening deterioration, which required my direct attention, intervention, and personal management. I have personally provided 110 minutes of critical care time exclusive of time spent on separately billable procedures. Time includes review of laboratory data, radiology results, discussion with consultants, and monitoring for potential decompensation. Interventions were performed as documented. [facility] All Active Problems (Updated 03/09/25 @ 01:54 by Gurpreet Negro DO) Hemorrhagic shock (Acute) AAA (abdominal aortic aneurysm, ruptured) (Acute) Pain, joint, foot, right (Acute) Venous insufficiency (Acute) Diabetes mellitus with neuropathy (Acute) Peripheral neuropathy (Acute) Pain in right ankle (Acute) Right ankle sprain (Acute) Left carotid stenosis (Acute) Paroxysmal A-fib (Acute) Stroke (Chronic) Lesion of pancreas (Acute) Dehydration (Acute) Fever (Acute) Medical History Chronic kidney disease Aortic aneurysm Hypertension Diabetes Surgical History S/P hip replacement S/P AAA repair Social History Smoking/Tobacco Use Status: Former Tobacco Use Smoking risk assessment performed?: Yes Alcohol Intake: never Drug use: Never Substance use type: does not use Household members: spouse Housing: house Number of Children: 1 Do you feel safe at home: Yes Do you feel safe in your relationship?: Yes
[2025-03-08 23:32] LABS: Abs Immature Grans 0.04 10^3/uL (0.0-0.06); HCT 35.0 % (40.0-50.0); HGB 11.4 g/dL (13.5-17.5); Immature Grans % 0.4 %; MCH 30.4 pg (27.0-33.0); MCHC 32.6 % (32.0-36.0); MCV 93 fL (80-95); MPV 9.9 fL (8.0-11.0); Platelet Count 229 10^3/uL (130-400); RBC 3.75 10^6/uL (4.36-5.78); RDW 13.5 % (11.8-14.1); RDW-SD 46.3 fL; WBC 11.39 10^3/uL (4.4-10.8)
[2025-03-08 23:48] LABS: INR 1.1 (0.9-1.1); Prothrombin Time 10.8 sec (9.1-11.1)
[2025-03-08] MEDS: Normal Saline 1,000 ML 1000 ML IV (23:50)
[2025-03-08] MEDS: Omnipaque 350 MG/ML 100 ML BTL IJ (23:50)
[2025-03-08] MEDS: Normal Saline Flush 10 ML SYR IVP (23:51)
[2025-03-08] MEDS: Normal Saline - Diluent 50 ML VIAL IJ (23:51)
--- NOTE | 2025-03-08 23:51 | DI.CT_ITS ---
Exam(s) CT THORAX ABD/PEL CTA EXAM: CT THORAX ABD/PEL CTA CLINICAL HISTORY: Severe abdominal/back pain, hx AAA, eval dissectio. TECHNIQUE: Imaging Protocol: Axial CT angiography was performed with multi- slice acquisition and multi-planar and/or 3D reconstructions. CONTRAST MATERIAL: Intravenous: Omnipaque 350 Contrast volume:100 ml Oral/ no COMPARISON: CT CT THORAX ABDOMEN CTA from 04/15/[address] BRAIN NECK CTA from 11/11/2023 CR,XR XR PORTABLE CHEST AP from 03/09/2025 FINDINGS: CHEST: Pulmonary Arteries: No evidence of filling defect to suggest pulmonary emboli. Tracheobronchial tree: Patent where visualized. Mediastinum and [place]: No dominant adenopathy or fluid collection. Pulmonary parenchyma: No consolidation or dominant measurable mass. Mild emphysematous changes. Pleura: No effusion or pneumothorax. Heart: The heart is moderately dilated. No visible coronary artery calcifications . Aorta: Ascending aorta measures 4.1 cm. Irregular atherosclerotic changes along the thoracic aorta which is somewhat tortuous. No evidence of dissection. Bones: Normal. Tubes, Catheters, and Lines: ABDOMEN AND PELVIS: Abdomen: Celiac axis: Severe stenosis at the proximal celiac artery, worsening from prior Mesenteric arteries: Focal dissection flap at the proximal SMA, causing significant stenosis, unchanged from prior.. Renal Arteries: Bilateral stents at the origins. No evidence of occlusion or significant stenosis. There is a single renal artery perfusing each kidney. Aorta: Aortic stent graft is again noted within the [place] aneurysm. There is a visible area of active extravasation of contrast within the [place] aneurysm sac. The date of aneurysm sac has increased in size significantly, now measuring 13 x 11 cm. There is also a large amount of hemorrhage in the surrounding retroperitoneum. Pelvis: Iliac Arteries: Bi-iliac stents which appear patent. Common Femoral Arteries: Atherosclerotic changes but no significant stenosis. ABDOMEN: Liver: Normal density. No measurable mass. Hemorrhage noted around the liver. Portal, Superior Mesenteric, and Splenic Veins: Unremarkable. Gallbladder and Biliary Tract: Multiple gallstones again noted. No wall thickening. No biliary dilatation. Pancreas: Normal density, no abnormal calcifications or inflammatory process. Spleen: Normal. Adrenals: No masses seen. Kidneys: Somewhat atrophic with multifocal scarring. No radiodense stones or obstructive uropathy. No masses seen. Bowel: Large quantity of stool in the rectosigmoid. Diverticulosis of the lower descending colon. No obstruction or bowel wall thickening. Appendix is unremarkable. Peritoneal Cavity: Hemorrhage noted around the liver and the long the right paracolic gutter. Lymph Nodes: Within normal limits. Soft Tissues: Unremarkable small bilateral fat containing inguinal hernias. Bladder: Symmetric distention, no gross wall thickening. Reproductive Organs: Unremarkable as visualized. Lymph Nodes: Within normal limits. Bones: Right hip prosthesis. No fractures. IMPRESSION: Prior aorta bi-iliac stent graft within the [place] aneurysm. There is active contrast extravasation within the [place] aneurysm sac as well as a significant amount of hemorrhage in the adjacent retroperitoneum. Hemorrhage is also noted around the liver. Severe stenosis at the origin of the celiac trunk. Dissection flap of the proximal SMA also causing severe stenosis. The preliminary [facility] report was reviewed. RADIATION DOSE DELIVERED: 1,160.55mGy.cm Total DLP DATA REPOSITORY: All CT scans at this facility are submitted to the National Radiology Data Registry (NRDR) Dose Index Registry (DIR) with the [employer] (ACR). RADIATION OPTIMIZATION: All CT scans at this facility use at least one of these dose optimization techniques: automated exposure control; mA and/or kV adjustment per patient size (includes targeted exams where dose is matched to clinical indication); or iterative reconstruction.
[2025-03-08 23:52] LABS: ALT 24 U/L (16-63); AST 20 U/L (15-37); Albumin 3.2 g/dL (3.4-5.0); Alkaline Phosphatase 75 U/L (46-116); Anion Gap 10.4 mmol/L (3-11); BUN 25 mg/dL (7-18); Bilirubin, Total 0.4 mg/dL (0.2-1.0); CO2 26.6 mmol/L (21.0-32.0); Calcium 8.7 mg/dL (8.5-10.1); Chloride 105 mmol/L (98-107); Estimated GFR 50.49 (mL/min/1.73m2); Glucose 187 mg/dL (74-106); Potassium 3.5 mmol/L (3.5-5.1); Sodium 142 mmol/L (136-145); Total Protein 6.7 g/dL (6.4-8.2); Troponin I 22 ng/L (<or=76)
[2025-03-09] VITALS (22 sets, daily range): BP systolic 68–142; BP diastolic 41–75; PULSE 97–138; RESP 13–31; O2SAT 94–100
[2025-03-09] LABS: PTT Activated 28.1 sec (20.6-30.2)
--- NOTE | 2025-03-09 00:03 | DI.[facility]_ITS ---
Addendum created by Danika Waite MD on 03/09/2025 12:01:42 AM EDT: This report contains findings that may be critical to patient care. The pertinent findings were communicated via telephone with RUSS PETERS at 00:01 EDT on 03/09/2025. The findings were acknowledged and understood. Initial report created on 03/09/2025 12:01:31 AM EDT: PROCEDURE INFORMATION: Exam: CTA Chest With Contrast CTA Abdomen and Pelvis With Contrast Exam date and time: 03/08/2025 23:28 Age: 79 years old Clinical indication: Abdominal pain; Prior surgery; Surgery date: 6+ months; Surgery type: Hip replacement. Aaa repair; Severe abdominal/back pain, HX aaa, eval dissection TECHNIQUE: Imaging protocol: Computed tomographic angiography of the chest with contrast. Exam focused on the arteries. Computed tomographic angiography of the abdomen and pelvis with contrast. Exam focused on the arteries. 3D rendering (Not supervised by radiologist): MIP and/or 3D reconstructed images were created by the technologist. Radiation optimization: All CT scans at this facility use at least one of these dose optimization techniques: automated exposure control; mA and/or kV adjustment per patient size (includes targeted exams where dose is matched to clinical indication); or iterative reconstruction. Contrast material: [id number]; Contrast volume: 100 ml; Contrast route: INTRAVENOUS (IV); COMPARISON: CT THORAX ABDOMEN CTA 04/15/2022 08:46 FINDINGS: VASCULATURE: Great vessels off aortic arch: Atherosclerosis of the left proximal subclavian artery without significant appearing stenosis. Pulmonary arteries: No pulmonary emboli. Aorta: The ascending aorta measures 41 mm. Moderate thoracic atherosclerosis with calcified and noncalcified somewhat irregular components in the descending aorta which is mildly tortuous. No aneurysm or dissection. Suprarenal aortic bi-iliac stent graft in expected position. Endoleak, midportion of the excluded aneurysm which measures up to 13 cm AP. There is a large volume of blood products within the excluded infrarenal aortic aneurysm sac. 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 Renal arteries: Very difficult to tell if there are tiny stents at the ostium of the renal artery bilaterally which are grossly patent. Right iliac arteries: No occlusion or significant stenosis. Left iliac arteries: No occlusion or significant stenosis. CHEST: Lungs: Mild pulmonary emphysema. No airspace consolidation. Pleural spaces: No pneumothorax. No pleural effusion. Heart: Moderate cardiomegaly. ABDOMEN AND PELVIS: Liver: See Intraperitoneal space finding. Gallbladder and biliary ducts: No calcified stones. No ductal dilation. Pancreas: No mass. No ductal dilation. Spleen: No splenomegaly. Adrenal glands: No mass. Kidneys and ureters: Punctate left nephrolithiasis. Moderate bilateral renal cortical atrophy. Symmetric edema around the kidneys without obstruction; could relate to medical renal disease. Stomach and bowel: Colonic diverticulosis without diverticulitis. No focal pathology in the small bowel. Appendix: No evidence of appendicitis. Intraperitoneal space: Moderate retroperitoneal hemorrhage, measuring up to 4 cm AP, trace hemorrhage extending into right paracolic gutter; trace right upper quadrant hemorrhage, perihepatic space. Urinary bladder: No mass. Reproductive: Prostate gland poorly assessed due to streak artifact in the pelvis. Lymph nodes: No enlarged lymph nodes. Bones/joints: Right hip hemiarthroplasty, intact as visualized. No acute fracture or subluxation. Soft tissues: Unremarkable. Other findings: Tortuous bilateral iliac arterial system without aneurysm or extravasation. IMPRESSION: 1. Suprarenal aortic bi-iliac stent graft in expected position. 2. Endoleak, midportion of the excluded aneurysm which measures up to 13 cm AP. 3. Ruptured infrarenal aortic aneurysm. Retroperitoneal, right paracolic and right upper quadrant blood products as above. 4. 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 5. Additional findings as described. Dictated and Authenticated by: Danika Waite MD. Orderin Sruthi Vázquez MD
[2025-03-09] MEDS: fentaNYL 100 MCG/2 ML VIAL IVP ×2 (00:09→00:52)
--- NOTE | 2025-03-09 00:15 | DI.RAD_ITS ---
Exam(s) XR PORTABLE CHEST AP EXAM: XR PORTABLE CHEST AP CLINICAL HISTORY: Central line placement TECHNIQUE: 2D digital imaging was performed. COMPARISON: CT CT THORAX ABD/PEL CTA from 03/08/2025 CR,XR XR PORTABLE CHEST AP from 03/09/2025 FINDINGS: The exam is limited by poor pulmonary inflation or and overlying monitoring leads. LUNGS: Well inflated but grossly clear. No pleural abnormality seen. HEART: Normal size for projection and degree of inflation.. A right jugular catheter has been inserted. The tip projects near the caval atrial junction. AORTA: Tortuous. BONES: Unremarkable for age. Soft tissues: Unremarkable. IMPRESSION: Satisfactory placement of right internal jugular catheter The preliminary [facility] report was reviewed. DATA REPOSITORY: RADIATION DOSE DELIVERED:
--- NOTE | 2025-03-09 00:17 | NUR.NOTE ---
central line placed Nursing Note:
[2025-03-09] MEDS: TRANEXAMIC ACID/SOD. CHL. 1,000 MG/100 ML BAG 600 MG IV (00:20)
--- NOTE | 2025-03-09 00:26 | NUR.NOTE ---
code blood started at 0012 first bag complete at 0016 second bag started at 0016 and complete at 0020 see paper charting Nursing Note:
[2025-03-09] MEDS: Normal Saline 1,000 ML 1000 ML IV (00:30)
[2025-03-09] MEDS: fentaNYL 100 MCG/2 ML VIAL (00:30)
--- NOTE | 2025-03-09 00:34 | NUR.NOTE ---
arterial line placed by ED MD Nursing Note:
--- NOTE | 2025-03-09 00:36 | DI.VRAD_ITS ---
PROCEDURE INFORMATION: Exam: XR Chest Exam date and time: 03/09/2025 00:32 Age: 79 years old Clinical indication: Device placement; Other: Central line placement TECHNIQUE: Imaging protocol: Radiologic exam of the chest. Views: 1 view. COMPARISON: CT THORAX ABD/PEL CTA 03/08/2025 23:28 FINDINGS: Tubes, catheters and devices: Right jugular catheter, satisfactory position. Tip is close to the upper cavoatrial junction. Lungs: Low lung volumes. No [place] airspace consolidation on portable imaging. Pleural spaces: No pleural effusion. No pneumothorax. Heart/Mediastinum: No significant cardiomegaly for position and projection. Bones/joints: No acute fracture. IMPRESSION: Right jugular catheter, satisfactory position. Dictated and Authenticated by: Danika Waite MD. Orderin Sruthi Vázquez MD
[2025-03-09] MEDS: TRANEXAMIC ACID/SOD. CHL. 1,000 MG/100 ML BAG 12.5 MG IV (00:42)
[2025-03-09] MEDS: Etomidate 20 MG/10 ML VIAL (01:07)
[2025-03-09] MEDS: Succinylcholine 100 MG/5 ML SYR (01:08)
[2025-03-09] MEDS: Norepinephrine in D5W 8 MG/250 ML BAG 9.375 MG IV (01:10)
--- NOTE | 2025-03-09 01:19 | DI.RAD_ITS ---
Exam(s) XR PORTABLE CHEST AP EXAM: XR PORTABLE CHEST AP CLINICAL HISTORY: Intubation placement TECHNIQUE: 2D digital imaging was performed. COMPARISON: CR,XR XR PORTABLE CHEST AP from 03/09/2025 FINDINGS: An endotracheal tube has been inserted. The tip lies the level of the clavicles. No change in position of right internal jugular catheter. LUNGS: Suboptimally inflated but clear. The right costophrenic angle is: From view. No pleural abnormality seen. HEART: Normal size for projection and degree inflation AORTA: Tortuous. BONES: Unremarkable for age. Soft tissues: Unremarkable. IMPRESSION: Satisfactory placement of endotracheal tube. DATA REPOSITORY: RADIATION DOSE DELIVERED:
[2025-03-09] MEDS: Calcium Chloride 1000 MG/10 ML SYR (01:23)
[2025-03-09] MEDS: PROPOFOL 1,000 MG/100 ML BTL 83 MG IV_INF (01:41)
--- NOTE | 2025-03-09 01:45 | RESPIRATORY ---
Pt intubated w/7.5 ett 22@ teeth, bilateral bs, etco2 and cxr confirmation of tube. Pt was bagged until Transport team arrived. Etco2 maintained at 36-42, spo2 100%. RT handed off pt at [facility].
--- NOTE | 2025-03-09 01:52 | DI.VRAD_ITS ---
PROCEDURE INFORMATION: Exam: XR Chest Exam date and time: 03/09/2025 1:14 AM Age: 79 years old Clinical indication: Device placement; Other: Intubation placement TECHNIQUE: Imaging protocol: Radiologic exam of the chest. Views: 1 view. COMPARISON: CR XR PORTABLE CHEST AP 03/09/2025 12:32 AM FINDINGS: Limitations: There is nonstandard patient positioning. Tubes, catheters and devices: There is an endotracheal catheter in-situ, terminating 5.2 cm above the raegan. There is a right internal jugular central venous catheter terminating near the cavoatrial junction. Lungs: The right lower lung zone is partially excluded from view. Otherwise, no pulmonary consolidation is seen. Pleural spaces: The right costophrenic angle is excluded from view. Otherwise, no pleural effusion is seen. No pneumothorax is demonstrated. Heart/Mediastinum: The heart is enlarged. Bones/joints: The visualized bony structures appear grossly intact. IMPRESSION: Endotracheal catheter in-situ terminating 5.2 cm above the raegan. Dictated and Authenticated by: Jeancarlos Goldman MD. Orderin Sruthi Vázquez MD
--- NOTE | 2025-03-09 01:54 | NUR.NOTE ---
0120 3rd unit blood started and completed at 0130. 1 unit of FFP started at 0125 and continued when PT left department by REPLACED BY [facility] Nursing Note:
--- NOTE | 2025-03-09 01:56 | NUR.NOTE ---
0109 PT intubated 7.5 tube 22 at the teeth positive end title Nursing Note:
== END 2025-03-09 01:38 | disposition short-term general hospital (02) ==
PROVIDERS: Emergency Provider Student in an Organized Health Care Education/Training Program; PCP Family Medicine
DX: I71.30 Abdominal aortic aneurysm, ruptured, unspecified (principal); R57.8 Other shock
CPT/HCPCS: 31500; 36415; 36556; 71275; 76937; 80053; 86850; 86900; 86901; 86920; 93005; 96365; 96375; 96376; 99291; 99292; 36620; 71045; 74174; 83605; 84484; 85025; 85610; 85730; 93010; J0330; J2704; J3010; J3490; P9016; P9059

== ENCOUNTER 2025-04-04 18:14 | Inpatient (IN) | payer MEDICARE, SELFPAY ==
[2025-04-04] VITALS (53 sets, daily range): BP systolic 158–230; BP diastolic 77–154; PULSE 68–116; RESP 0–33; TEMP 36.3–36.5; O2SAT 88–99
--- NOTE | 2025-04-04 18:00 | RT.EKG_ITS ---
APPROVED REPORT Exam: Resting ECG Reason for Exam: Back Pain Patient Location: E HR:83 bpm ECG Measurements Heart Rate 83 AXIS [place] 148 P 48 QRSd 101 QRS -8 QT 407 T 18 QTc 480 Conclusion Sinus rhythm, rate [address] depression <1mm diffuse leads, noted on prior. Compared to prior, rate has decreased. No STEMI
--- NOTE | 2025-04-04 18:15 | DI.CT_ITS ---
Exam(s) CT THORAX ABD/PEL CTA EXAM: CT THORAX ABD/PEL CTA CLINICAL HISTORY: recent AAA graft/rupture on 03/08,chest/back pain. TECHNIQUE: Imaging Protocol: Axial computed tomography images with coronal and sagittal reformatted images were created and reviewed. Computer aided detection (CAD) was utilized. CONTRAST MATERIAL: Intravenous: Omnipaque 350 Contrast volume:100 mL Oral: No COMPARISON: CT CT THORAX ABD/PEL CTA from 03/08/2025 FINDINGS: CHEST: Pulmonary parenchyma: Mild emphysematous changes. Mild bibasilar atelectasis. No consolidation. No dominant measurable mass. Tracheobronchial tree: No bronchiectasis. No mucous plugging.No bronchial wall thickening. Pleura: No effusion or pneumothorax. Mediastinum: Within normal limits. Pulmonary arteries: No visible emboli. Cardiovascular: Normal heart size. Mild coronary artery calcifications. No pericardial effusion. Ascending thoracic aorta measures 4 cm. No dissection. Atherosclerotic changes. Bones: Unremarkable for age. No lytic or blastic lesions. No compression fractures. Soft tissues: Unremarkable. ABDOMEN and PELVIS: Liver: Normal density. No suspicious mass. Gallbladder and biliary tract: Multiple stones are again noted in the gallbladder. The gallbladder now appears abnormally distended. No evidence of wall thickening. There is mild intrahepatic biliary dilatation. Pancreas: Atrophic. Cyst again noted the tail. Cysts also noted in the head of the pancreas. Mild dilatation of the common bile duct and intrahepatic biliary ducts when compared with the previous exam. No visible obstructing stone. Spleen: Normal. Kidneys: Bilateral renal scarring. Cyst at the upper pole of the right kidney. No radiodense stones. No obstructive uropathy. No suspicious masses seen. Adrenal glands: No masses seen. Vasculature: [place] aortic aneurysm with aortoiliac bypass graft in place. The there is now air seen within the [place] aorta which may be secondary to recent surgery. Infection is not excluded. No evidence of active contrast extravasation. The graft appears patent. Bilateral renal artery stents are noted. 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 Small dissection flap noted at the proximal SMA. Lymph nodes: Within normal limits. Soft tissues: Midline surgical scar with mild stress soft tissue stranding. No abnormal collection or abscess. Bladder: Unremarkable. Bowel: No obstruction or bowel wall thickening. Peritoneal cavity: Small amount of fluid in the right pericolic gutter. No focal collection. No mesenteric inflammatory response. No free air. Bones: No acute abnormalities. Right hip prosthesis. Reproductive organs: Prostate somewhat obscured by artifact from hip prosthesis IMPRESSION: No acute abnormality in the chest. Abdominal aortic aneurysm with patent stent graft. No evidence of abnormal contrast extravasation. Air seen within the [place] aneurysm cavity likely postsurgical. Infection not entirely excluded. Multiple gallstones. The gallbladder is now distended. This could indicate acute cholecystitis. There is now mild dilatation of the common bile duct and intrahepatic ducts. The preliminary VRAD report was reviewed. RADIATION DOSE DELIVERED: 1,498.44mGy.cm Total DLP 1,498.44mGy.cm Total DLP DATA REPOSITORY: All CT scans at this facility are submitted to the National Radiology Data Registry (NRDR) Dose Index Registry (DIR) with the [employer] (A[employer]). RADIATION OPTIMIZATION: All CT scans at this facility use at least one of these dose optimization techniques: automated exposure control; mA and/or kV adjustment per patient size (includes targeted exams where dose is matched to clinical indication); or iterative reconstruction.
[2025-04-04] MEDS: fentaNYL 100 MCG/2 ML VIAL 25 MCG IVP ×2 (18:42→19:16)
[2025-04-04] MEDS: Normal Saline - Diluent 50 ML VIAL IJ (18:45)
[2025-04-04] MEDS: Normal Saline Flush 10 ML SYR IVP ×2 (18:45→23:56)
[2025-04-04] MEDS: Omnipaque 350 MG/ML 100 ML BTL IJ (19:05)
[2025-04-04 19:23] LABS: Abs Immature Grans 0.02 10^3/uL (0.0-0.06); HCT 35.0 % (40.0-50.0); HGB 11.1 g/dL (13.5-17.5); Immature Grans % 0.2 %; MCH 29.6 pg (27.0-33.0); MCHC 31.7 % (32.0-36.0); MCV 93 fL (80-95); MPV 9.5 fL (8.0-11.0); Platelet Count 240 10^3/uL (130-400); RBC 3.75 10^6/uL (4.36-5.78); RDW 15.5 % (11.8-14.1); RDW-SD 53.0 fL; WBC 9.79 10^3/uL (4.4-10.8)
[2025-04-04] MEDS: MORPHine 10 MG/ML VIAL 4 MG IVP ×2 (19:29→20:17)
[2025-04-04] MEDS: ESMOLOL 2,500 MG/250 ML BAG 13.6 MG IV (19:33)
[2025-04-04 19:42] LABS: ALT 14 U/L (10-49); AST 24 U/L (<34); Albumin 3.5 g/dL (3.4-5.0); Alkaline Phosphatase 118 U/L (46-116); Anion Gap 2.6 mmol/L (3-11); BUN 21 mg/dL (9-23); Bilirubin, Total 0.70 mg/dL (0.2-1.2); CO2 28.4 mmol/L (20.0-31.0); Calcium 8.3 mg/dL (8.3-10.6); Chloride 104 mmol/L (98-107); Glucose 129 mg/dL (74-106); Potassium 4.2 mmol/L (3.5-5.1); Sodium 135 mmol/L (136-145); Total Protein 6.5 g/dL (5.7-8.2); Troponin I 15 ng/L (<54)
[2025-04-04 19:52] LABS: Lipase 30 U/L (<53)
--- NOTE | 2025-04-04 20:04 | DI.VRAD_ITS ---
Addendum created by Drea Salinas MD on 04/04/2025 8:05:32 PM EST: THIS REPORT CONTAINS FINDINGS THAT MAY BE CRITICAL TO PATIENT CARE. The findings were verbally communicated via telephone conference with Amira Marsh at 8:05 PM EST on 04/04/2025. The findings were acknowledged and understood. Initial report created on 04/04/2025 8:04:01 PM EST: PROCEDURE INFORMATION: Exam: CTA Chest With Contrast CTA Abdomen and Pelvis With Contrast Exam date and time: 04/04/2025 7:01 PM Age: 79 years old Clinical indication: Other: Chest/back pain; Prior surgery; Surgery date: <1 month; Surgery type: Recent aaa graft/rupture on 03/08; Additional info: Recent aaa graft/rupture on 03/08, chest/back pain TECHNIQUE: Imaging protocol: Computed tomographic angiography of the chest with contrast. Exam focused on the arteries. Computed tomographic angiography of the abdomen and pelvis with contrast. Exam focused on the arteries. 3D rendering (Not supervised by radiologist): MIP and/or 3D reconstructed images were created by the technologist. Contrast material: OMNI 350; Contrast volume: 100 ml; Contrast route: INTRAVENOUS (IV); COMPARISON: CT THORAX ABD/PEL CTA 03/08/2025 11:28 PM FINDINGS: VASCULATURE: Pulmonary arteries: No evidence of pulmonary embolus to the segmental level. Aorta: Unruptured aneurysm of the ascending aorta 4 cm. No dissection of the aorta. 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 This was present on the prior study. Lucency in the proximal SMA artery could indicate a short segment of dissection. (Series 10, image 76 [id number] ). This was present on the prior study. Renal arteries: No occlusion or significant stenosis. 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 Bibasilar atelectasis Pleural spaces: Unremarkable. No pneumothorax. No pleural effusion. Heart: Unremarkable. No cardiomegaly. No pericardial effusion. Coronary arteries: Coronary artery calcifications may indicate coronary artery disease. ABDOMEN AND PELVIS: Liver: No mass. Gallbladder and biliary ducts: Multiple gallstones in a distended gallbladder. Gallbladder measures 11 cm. No pericholecystic inflammatory changes. Pancreas: Unremarkable. No mass. No ductal dilation. Spleen: Unremarkable. No splenomegaly. Adrenal glands: Unremarkable. No mass. Kidneys and ureters: 2.1 cm simple cyst right kidney. . No follow-up imaging recommended . There is no evidence of renal or ureteral calcifications. Stomach and bowel: Unremarkable. No obstruction. No mucosal thickening. Appendix: No evidence of appendicitis. Intraperitoneal space: Mild free fluid in the right paracolic gutter Urinary bladder: Unremarkable. No mass. Reproductive: Unremarkable as visualized. Lymph nodes: Unremarkable. No enlarged lymph nodes. Bones/joints: Right total hip replacement Soft tissues: Unremarkable. Other findings: Aortoiliac bypass. The [place] aneurysm measures 8.68 x 10 cm. It contains a 5.5 x 2.3 x7cm collection of air which represent postoperative sequelae versus infection.. IMPRESSION: 1. Aortoiliac bypass. The [place] aneurysm measures 8.68 x 10 cm. It contains a 5.5 x 2.3 x7cm collection of air which represent postoperative sequelae versus infection.. 2. No evidence of pulmonary embolus to the segmental level. 3. Unruptured aneurysm of the ascending aorta 4 cm. 4. No dissection of the aorta. 5. Multiple gallstones in a distended gallbladder. Gallbladder measures 11 cm. No pericholecystic inflammatory changes. This could represent acute cholecystitis 6. 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 This was present on the prior study. 7. Lucency in the proximal SMA artery could indicate a short segment of dissection. (Series 10, image 76 74 ). This was present on the prior study. Dictated and Authenticated by: Drea Salinas MD. Orderin Salma Collier MD
--- NOTE | 2025-04-04 20:39 | W.ED.GENAD ---
Discharge Plan Disposition Patient Disposition: Admit to [facility] Discharge Details Clinical Impression: Complication of aortic graft, Hypertensive emergency, Cholelithiasis Primary Care Provider: Debbie Lopez ED Provider: Amira Marsh Home Meds and New Rx's Prescriptions: No Action apixaban 2.5 mg tablet 2.5 mg PO BID Qty: 180 3RF insulin glargine [Lantus Solostar U-100 Insulin] 100 unit/mL (3 mL) insulin pen 10 unit subcut QPM aspirin [Adult Aspirin Regimen] 81 mg tablet,delayed release (DR/EC) 81 mg PO DAILY atorvastatin 40 mg tablet 40 mg PO DAILY cephalexin 500 mg capsule 500 mg PO BID Rx Instructions: Take 4 capsules by mouth 1 hour prior to dental procedure atenolol 50 MG tablet 50 mg PO DAILY metformin 1,000 mg tablet 500 mg PO BID Patient Comments: TAKE ONE TABLET BY MOUTH EVERY DAY HPI General Date/Time Provider Initiated Documentation: 04/04/25 18:40. HPI Narrative: This 79-year-old complex gentleman presents after rupture of previous endovascular graft on 08 March with restenting and complicated stay with subsequent CVA at [facility] but discharged on March 24 presenting today with chest and back pain that came on suddenly approximately 2 hours prior to arrival while patient was being transferred back into his bed post shower. EMS reports that the pain has been constant and patient was receiving 25 mcg of fentanyl x 4 with good relief. Patient initially said that he did not want any intervention pain meds only but then on arrival in the emergency department wanted assessment. Patient states the pain radiates through to his back he denies any headache or new strength or sensation change. He does state he has right sided weakness post CVA during his stay at [facility]. He is currently taking all his prescribed medications including Eliquis and blood pressure meds. He denies any pain in his legs. He denies any shortness of breath nausea or vomiting. He denies any diarrhea bloody stool. He states he was feeling well prior to onset of symptoms denies known exacerbating or alleviating factors. Related Data Home Medications Medication Instructions Recorded Confirmed atenolol 50 mg tablet 50 mg PO DAILY 12/14/15 03/08/25 aspirin 81 mg tablet,delayed 81 mg PO DAILY 11/17/23 03/08/25 release (Adult Aspirin Regimen) atorvastatin 40 mg tablet 40 mg PO DAILY 11/17/23 03/08/25 insulin glargine 100 unit/mL (3 10 unit subcut QPM 11/17/23 03/08/25 mL) subcutaneous pen (Lantus Solostar U-100 Insulin) metformin 1,000 mg tablet 500 mg PO BID 11/17/23 03/08/25 cephalexin 500 mg capsule 500 mg PO BID 04/28/24 03/08/25 apixaban 2.5 mg tablet 2.5 mg PO BID #180 tabs 11/15/24 03/08/25 Previous Rx's Medication Instructions Recorded apixaban 2.5 mg tablet 2.5 mg PO BID #180 tabs 11/15/24 Allergies Allergy/AdvReac Type Severity Reaction Status Date / Time No Known Allergies Allergy Verified 04/04/25 18:16 General Stated Complaint: Chest Pain JU: 3 Exam Narrative Exam Narrative: 79-year-old male alert and oriented chronically ill in appearance with healing abdominal wound, no dehiscence tenderness in the epigastrium cardiac rate rhythm regular distal pulses intact all 4 extremities no murmur lungs clear to auscultation answering questions appropriately no visible sign of trauma no respiratory distress lungs clear to auscultation Course Vital Signs Vital signs: Vital Signs Temperature 36.3 C L 04/04/25 18:08 Pulse 86 04/04/25 18:08 Respiratory Rate 18 04/04/25 18:08 Blood Pressure 210/110 H 04/04/25 18:08 Pulse Oximetry 96 04/04/25 18:08 Temperature 36.3 C L 04/04/25 18:08 Temperature Source Oral 04/04/25 18:08 Pulse 86 04/04/25 18:08 Respiratory Rate 18 04/04/25 19:53 Respiratory Effort Normal, Non-Labored 04/04/25 19:53 Blood Pressure 210/110 H 04/04/25 18:08 Pulse Oximetry 96 04/04/25 18:08 Pain Level 10 04/04/25 20:17 Lab/Test Results Lab/Test Results: Laboratory Tests Range/Units 04/04/25 19:17 WBC (4.4-10.8) 10^3/uL 9.79 RBC (4.36-5.78) 10^6/uL 3.75 L Hgb (13.5-17.5) g/dL 11.1 L Hct (40.0-50.0) % 35.0 L MCV (80-95) fL 93 MCH (27.0-33.0) pg 29.6 MCHC (32.0-36.0) % 31.7 L RDW (11.8-14.1) % 15.5 H Plt Count (130-400) 10^3/uL 240 MPV (8.0-11.0) fL 9.5 Immature Gran % % 0.2 Neutrophils % % 81.6 Lymphocytes % % 9.5 Monocytes % % 6.8 Eosinophils % % 1.6 Basophils % % 0.3 Nucleated RBC % (0.0-0.3) % 0.0 Absolute Neutrophils (1.2-6.7) 10^3/uL 7.98 H Absolute Lymphocytes (1.2-3.4) 10^3/uL 0.93 L Absolute Monocytes (0.1-0.8) 10^3/uL 0.67 Absolute Eosinophils (0.0-0.7) 10^3/uL 0.16 Absolute Basophils (0.0-0.2) 10^3/uL 0.03 VBG Lactate (<or=2.0) mmol/L 1.7 Sodium (136-145) mmol/L 135 L Potassium (3.5-5.1) mmol/L 4.2 Chloride (98-107) mmol/L 104 Carbon Dioxide (20.0-31.0) mmol/L 28.4 Anion Gap (3-11) mmol/L 2.6 L BUN (9-23) mg/dL 21 Creatinine (0.73-1.18) mg/dL 1.0 Est GFR (CKD-EPI 2020) (mL/min/1.73m2) 74.23 Glucose (74-106) mg/dL 129 H Calcium (8.3-10.6) mg/dL 8.3 Total Bilirubin (0.2-1.2) mg/dL 0.70 AST (<34) U/L 24 ALT (10-49) U/L 14 Alkaline Phosphatase (46-116) U/L 118 H Troponin I (<54) ng/L 15 Total Protein (5.7-8.2) g/dL 6.5 Albumin (3.4-5.0) g/dL 3.5 Lipase (<53) U/L 30 Medical Decision Making Results: Patient with air surrounding aortic graft and 11 mm distended gallbladder. This was discussed with the radiologist for virtual radiology, CBC and chemistry are within normal limits, hemoglobin 11.1 hematocrit 35 Assessment and plan: Complex patient with ruptured AAA with aortic graft placement complicated by CVA with right-sided hemiaplasia during his stay presenting with chest and back pain with air surrounding aortic graft concerning for possible infection versus other pathologies. Patient has required extensive doses of analgesia throughout his stay, he received 200 mcg of fentanyl and 12 mg of morphine and is still in discomfort, these last approximately half an hour. His blood pressure is quite elevated at 200/98, as well started given hypertensive emergency. I discussed the case with Dr. Bryan, vascular surgeon at [facility] and he recommends the patient be transferred to their facility for further management and care. I discussed [facility] request for transfer for further evaluation with patient his and daughter and patient wishes to transition to hospice. He does not want any additional interventions and only to be kept comfortable. They understand that this could result in patient's demise and are comfortable with this plan. Patient states that he has been suffering too long and he is comfortable with dying at this time. Patient's and daughter are supportive of patient's request and understanding that we will discontinue additional treatment aside from pain medications at this time. PFSH All Active Problems (Updated 03/09/25 @ 01:54 by Gurpreet Negro DO) Hemorrhagic shock (Acute) AAA (abdominal aortic aneurysm, ruptured) (Acute) Pain, joint, foot, right (Acute) Venous insufficiency (Acute) Diabetes mellitus with neuropathy (Acute) Peripheral neuropathy (Acute) Pain in right ankle (Acute) Right ankle sprain (Acute) Left carotid stenosis (Acute) Paroxysmal A-fib (Acute) Stroke (Chronic) Lesion of pancreas (Acute) Dehydration (Acute) Fever (Acute) Medical History Chronic kidney disease Aortic aneurysm Hypertension Diabetes Surgical History S/P hip replacement S/P AAA repair Social History Smoking/Tobacco Use Status: Former Tobacco Use Smoking risk assessment performed?: Yes Alcohol Intake: never Drug use: Never Substance use type: does not use Household members: spouse Housing: house Number of Children: 1 Do you feel safe at home: Yes Do you feel safe in your relationship?: Yes
[2025-04-04 20:59] LABS: Troponin I 17 ng/L (<54)
--- NOTE | 2025-04-04 21:08 | W.PM.HP.N ---
Date of service: 04/04/25 Time of Service: 21:08 Assessment and Plan Assessment and plan (1) Abdominal aortic aneurysm dissection: Start date: 04/04/25 Status: Acute Assessment and plan: This is an 79-year-old gentleman with presentation of back pain suggesting dissection of his abdominal aorta though CT scan shows no acute dissection of that area of his very large aneurysm. There is air which may be causing some of his discomfort and this may or may not be associate with his postoperative findings with infection being a possibility but patient not wanting any medical therapy for his acute process. He will be admitted for pain management and APPIAN BPM DEVELOPER care. His family does want to speak to palliative care team and apply for hospice if he survives this hospitalization. He is a clear DNR/DNI wanting only APPIAN BPM DEVELOPER treatment. (2) Hypertension: Assessment and plan: Acutely exacerbated with severe back pain though patient is not tachycardic on atenolol. (3) Stroke: Status: Chronic Assessment and plan: Recent left cerebral CVA postoperatively the patient having history of paroxysmal atrial fibrillation on anticoagulation because of previous multiple strokes prior to diagnosis of PAF. Rehabilitation as appropriate with patient APPIAN BPM DEVELOPER care at this time and wanting Hospice (4) Paroxysmal A-fib: Status: Chronic Assessment and plan: Patient wanted to stop all medical therapy which will be done. Lab monitoring and cardiac monitoring will not be performed per family and patient's request. (5) Diabetes: Assessment and plan: No treatment or monitoring the patient desiring only APPIAN BPM DEVELOPER care. History of Present Illness History of Present Illness Chief Complaint: Intractable, ripping back pain status post aortic aneurysm repair Narrative: This is an 79-year-old male patient with a recent history of hospitalization at [facility] [place] for repair of abdominal aortic aneurysm which was very large. He was hesitant to have intervention but his family convinced him to follow through with the surgery. At [facility] [place] he did have complications with his endovascular repair and stent placement of his lower aorta and to the iliac arteries requiring open procedure because of hemorrhage. During the process he went into rapid ventricular response atrial fibrillation and had an embolic left cerebral stroke. He has not been doing well the last week at home and having some back discomfort but prior to presentation had excruciating, ripping back pain and came to the ED with his family and acute distress. He was adamant that he did not want any further interventions and his family was agreeable. He wanted only comfort measures with pain management and to be kept comfortable to . He has been expressing wishes to have been on an intervention with his family even before his last hospitalization at [facility] [place]. I had a long discussion with the family who were agreeable to admission for comfort measures and consultation with palliative care and placement on hospice if he survives this hospitalization. His chronic medical problems will not be addressed or treated and he wants only pain management. He was adamant about not having IV medications for his medical problems and did refuse Dilaudid infusion which would have been more reliable for comfort measures. He will be in the ICU on [facility] level of care for adjustment of his comfort measures. Prognosis is poor long-term. He is a DNR/DNI. Review of Systems Narrative: 13 point review of systems otherwise unrevealing or stable. PFSH All Active Problems (Updated 04/04/25 @ 22:24 by Riley Lopez) Abdominal aortic aneurysm dissection (Acute) Hemorrhagic shock (Acute) AAA (abdominal aortic aneurysm, ruptured) (Acute) Pain, joint, foot, right (Acute) Venous insufficiency (Acute) Diabetes mellitus with neuropathy (Acute) Peripheral neuropathy (Acute) Pain in right ankle (Acute) Right ankle sprain (Acute) Left carotid stenosis (Acute) Paroxysmal A-fib (Chronic) Stroke (Chronic) Lesion of pancreas (Acute) Dehydration (Acute) Fever (Acute) Medical History Chronic kidney disease Aortic aneurysm Hypertension Diabetes Surgical History S/P hip replacement S/P AAA repair Social History Smoking/Tobacco Use Status: Former Tobacco Use Smoking risk assessment performed?: Yes Alcohol Intake: never Drug use: Never Substance use type: does not use Household members: spouse Housing: house Number of Children: 1 Do you feel safe at home: Yes Do you feel safe in your relationship?: Yes Meds Allergies and Home Medications Allergies Allergy/AdvReac Type Severity Reaction Status Date / Time No Known Allergies Allergy Verified 04/04/25 18:16 Home Medications Medication Instructions Recorded Confirmed Type atenolol 50 mg tablet 50 mg PO DAILY 12/14/15 03/08/25 History aspirin 81 mg tablet,delayed 81 mg PO DAILY 11/17/23 03/08/25 History release (Adult Aspirin Regimen) atorvastatin 40 mg tablet 40 mg PO DAILY 11/17/23 03/08/25 History insulin glargine 100 unit/mL (3 10 unit subcut QPM 11/17/23 03/08/25 History mL) subcutaneous pen (Lantus Solostar U-100 Insulin) metformin 1,000 mg tablet 500 mg PO BID 11/17/23 03/08/25 History cephalexin 500 mg capsule 500 mg PO BID 04/28/24 03/08/25 History apixaban 2.5 mg tablet 2.5 mg PO BID #180 tabs 11/15/24 03/08/25 Rx Exam Narrative Exam Narrative: General: The patient appears in moderate to severe distress with his back pain but does become sleeping with IV Dilaudid. He is alert and oriented to person, place at least. HEENT: Normocephalic, coarse and facial features, left facial droop, eyes with pupils equal and reactive to light symmetrically, extraocular movement appears intact. Sclera anicteric. Oropharynx with dry mucosa and poor dentition. Neck: Supple without JVD. Back: Not examined with patient supine and not able to sit up. Lungs: Fair aeration with bronchovesicular breath sound diffusely, no focalizing rales or rhonchi and no expiratory wheeze. Heart: Regular rate and rhythm with distant heart sounds and quiet systolic murmur over left arm border. No gallop appreciated. Abdomen: Obese contour and slightly protuberant, soft palpation without guarding or rebound but generalized discomfort with well-healed midline scar over his lower abdomen. Sutures have been removed. No appreciable hepatosplenomegaly. Bowel sounds are decreased but positive in all quadrants. Genitalia/rectal: Exam deferred. Extremities: Without clubbing, cyanosis or pitting edema. Chronic skin changes lower extremities. Fair capillary refill. Skin: Pale, warm and dry. Neuro: Slight left facial droop and right hemiparesis by exam. Cranial nerves II through XII appear grossly intact. No tremor. Psych: Agitated affect and anxious when awake with depressed mood. He states repeatedly that he does not want to be alive anymore or deal with his chronic medical problems. He is adamant that he wants pain management alone and symptom management with no further testing, labs, or his chronic meds at this time. He has requested change in CODE STATUS. When awake, his thought processes are clear and memory is intact enough for self determination decision making. His family is agreeable with his decision. Results Imaging Imaging Studies: Exam: CTA Chest With Contrast CTA Abdomen and Pelvis With Contrast Exam date and time: 04/04/2025 7:01 PM Age: 79 years old Clinical indication: Other: Chest/back pain; Prior surgery; Surgery date: <1 month; Surgery type: Recent aaa graft/rupture on 03/08; Additional info: Recent aaa graft/rupture on 03/08, chest/back pain COMPARISON: CT THORAX ABD/PEL CTA 03/08/2025 11:28 PM FINDINGS: VASCULATURE: Pulmonary arteries: No evidence of pulmonary embolus to the segmental level. Aorta: Unruptured aneurysm of the ascending aorta 4 cm. No dissection of the aorta. 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 This was present on the prior study. Lucency in the proximal SMA artery could indicate a short segment of dissection. (Series 10, image [id number] ). This was present on the prior study. Renal arteries: No occlusion or significant stenosis. 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 Bibasilar atelectasis Pleural spaces: Unremarkable. No pneumothorax. No pleural effusion. Heart: Unremarkable. No cardiomegaly. No pericardial effusion. Coronary arteries: Coronary artery calcifications may indicate coronary artery disease. ABDOMEN AND PELVIS: Liver: No mass. Gallbladder and biliary ducts: Multiple gallstones in a distended gallbladder. Gallbladder measures 11 cm. No pericholecystic inflammatory changes. Pancreas: Unremarkable. No mass. No ductal dilation. Spleen: Unremarkable. No splenomegaly. Adrenal glands: Unremarkable. No mass. Kidneys and ureters: 2.1 cm simple cyst right kidney. . No follow-up imaging recommended . There is no evidence of renal or ureteral calcifications. Stomach and bowel: Unremarkable. No obstruction. No mucosal thickening. Appendix: No evidence of appendicitis. Intraperitoneal space: Mild free fluid in the right paracolic gutter Urinary bladder: Unremarkable. No mass. Reproductive: Unremarkable as visualized. Lymph nodes: Unremarkable. No enlarged lymph nodes. Bones/joints: Right total hip replacement Soft tissues: Unremarkable. Other findings: Aortoiliac bypass. The picayune aneurysm measures 8.68 x 10 cm. It contains a 5.5 x 2.3 x7cm collection of air which represent postoperative sequelae versus infection.. IMPRESSION: 1. Aortoiliac bypass. The picayune aneurysm measures 8.68 x 10 cm. It contains a 5.5 x 2.3 x7cm collection of air which represent postoperative sequelae versus infection.. 2. No evidence of pulmonary embolus to the segmental level. 3. Unruptured aneurysm of the ascending aorta 4 cm. 4. No dissection of the aorta. 5. Multiple gallstones in a distended gallbladder. Gallbladder measures 11 cm. No pericholecystic inflammatory changes. This could represent acute cholecystitis 6. 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 This was present on the prior study. 7. Lucency in the proximal SMA artery could indicate a short segment of dissection. (Series 10, image [id number] ). This was present on the prior study. Labs 04/04/25 19:17 04/04/25 19:17 Labs: Laboratory Results - last 24 hr 04/04/25 04/04/25 19:17 20:20 WBC 9.79 RBC 3.75 L Hgb 11.1 L Hct 35.0 L MCV 93 MCH 29.6 MCHC 31.7 L RDW 15.5 H Plt Count 240 MPV 9.5 Immature Gran % 0.2 Neutrophils % 81.6 Lymphocytes % 9.5 Monocytes % 6.8 Eosinophils % 1.6 Basophils % 0.3 Nucleated RBC % 0.0 Absolute Neutrophils 7.98 H Absolute Lymphocytes 0.93 L Absolute Monocytes 0.67 Absolute Eosinophils 0.16 Absolute Basophils 0.03 VBG Lactate 1.7 Sodium 135 L Potassium 4.2 Chloride 104 Carbon Dioxide 28.4 Anion Gap 2.6 L BUN 21 Creatinine 1.0 Est GFR (CKD-EPI 2020) 74.23 Glucose 129 H Calcium 8.3 Total Bilirubin 0.70 AST 24 ALT 14 Alkaline Phosphatase 118 H Troponin I 15 17 Total Protein 6.5 Albumin 3.5 Lipase 30 Last Vital Signs Temp 36.3 C L 04/04/25 18:08 Pulse 86 04/04/25 18:08 Resp 18 04/04/25 19:53 BP 210/110 H 04/04/25 18:08 Pulse Ox 96 04/04/25 18:08 Time Spent Time spent with Patient: >75 minutes Time was spent: preparing to see the patient(eg.review tests), obtaining and/or reviewing separately otained hiistory, ordering medications,tests, procedures, indepentently interpreting results, counseling the patient, care coordination and other (More than 20-minute discussion with patient's and daughter as to withdrawing medical care and monitoring. Also reviewed APPIAN BPM DEVELOPER care and patient of care consult for hospice application if patient survives.)
[2025-04-04] MEDS: HYDROmorphone 2 MG/ML SYR 0.5 MG IVP ×2 (21:12→22:18)
[2025-04-04] MEDS: HYDROmorphone 2 MG/ML SYR 1 MG IVP (23:55)
[2025-04-05] MEDS: HYDROmorphone 2 MG/ML SYR 1 MG IVP ×7 (01:00→11:42)
[2025-04-05] MEDS: Normal Saline Flush 10 ML SYR IVP ×6 (07:24→23:31)
--- NOTE | 2025-04-05 08:10 | INITIAL_ITS ---
Date of service: 04/05/25 Time of Service: 08:11 Care Management Initial Assmt Initial Assessment Reason for Hospitalization: Abdominal aortic aneurysm with dissection Functional Status/Living Situation Patient Presentation: Sebastien was dx with an Abdominal aortic aneurysm with dissection that he does not want treatment for. 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 He met with Palliative and is planning to remain at [facility] for End of life care. Family are pleasant and have been supportive. There is a hospice cart set up in the room for family comfort. CM will follow. Resides with: Spouse (Debbie Cloud) Advance Directives Advance Directives: Do you have an Advance Directive: Y , 23:58 AD On File at [facility]: N 0603/[id number], 08:26 Date Asked 01/12/25 01/12/25, 07:45 AD Date Reviewed COLST On File at [facility] COLST Date Scanned Code Status Resuscitation Status DNR/DNI Care Team Visit Care Team Role Provider Type Taye Cadena MD MD [facility] STAFF PHYSICIAN Debbie Lopez Primary Care Provider NON-[facility] STAFF PHYSICIAN NORBERT Smith Emergency Provider PH[employer]ICIANS SEX CRIMES DETECTIVE Riley Lopez Admit Provider NON-[facility] STAFF PHYSICIAN Attending Provider Social Determinants of Health Screening Will the Patient Participate in the Screening?: Declined to provide PFSH All Active Problems (Updated 04/05/25 @ 11:05 by Carina Nuñez NP) ACP (advance care planning) (Acute) Palliative care patient (Acute) End of life care (Acute) Pain (Acute) Hiccups (Acute) Abdominal aortic aneurysm dissection (Acute) Hemorrhagic shock (Acute) AAA (abdominal aortic aneurysm, ruptured) (Acute) Pain, joint, foot, right (Acute) Venous insufficiency (Acute) Diabetes mellitus with neuropathy (Acute) Peripheral neuropathy (Acute) Pain in right ankle (Acute) Right ankle sprain (Acute) Left carotid stenosis (Acute) Paroxysmal A-fib (Chronic) Stroke (Chronic) Lesion of pancreas (Acute) Dehydration (Acute) Fever (Acute) Medical History Chronic kidney disease Aortic aneurysm Hypertension Diabetes Surgical History S/P hip replacement S/P AAA repair Social History Smoking/Tobacco Use Status: Former Tobacco Use Smoking risk assessment performed?: Yes Alcohol Intake: never Drug use: Never Substance use type: does not use Household members: spouse Housing: house Number of Children: 1 Do you feel safe at home: Yes Do you feel safe in your relationship?: Yes
--- NOTE | 2025-04-05 10:07 | W.PALLCONSUL ---
Date of service: 04/05/25 Time of Service: 09:00 History of Present Illness Narrative: Mr. Crowe is an 79 y/o M currently hospitalized 2/2 rupture of endovascular graft (placed 03/08 d/t AAA at and w/CVA, d/c'd 03/24); present today Debbie and daughter Carin [facility] Course: Sebastien presented to ED on 04/04 w/ sudden onset chest and back pain, ED work up found air surrounding aortic graft w/11mm distended gallbladder; vascular consult recommended tranfer to tertiary facility, family and pt opted for no transfer and transition to comfort directed care; Recent History: family has been watching Sebastien suffer for 3 weeks, since placement of his graft, he has been stating consistently he does not want his life prolonged and he does not want this. Pain: family reports no effect w/fentanyl or morphine for pain, was getting better relief w/Dilaudid; to date he has refused continuous infusion of pain medication, family would want this to help get control over pain, PRN meds are not occurring frequently to control his pain; above all they want to avoid additional pain and suffering - Sebastien reports he does not want IV continuous medications bc he does not want it to go on and on, he indicates he means he does to be given things that will prolong his life Hiccups: has had intractable hiccups, not new, causing distress and discomfort; has been occurring since graft surgery; worse when he is awake Appetite: he has not been very hungry; family wonders if he can eat; he does best w/small bite sized foods; they are worried about aspiration concerns; he likes pasta, vanilla ice cream Urine: he refused urinary catheter; he is incontinent of urine and having frequent urination; requesting urinal bottle w/in reach ACP: Family wants his pain controlled above all else; they would want a continuous pain medication, Dilaudid preference, to help him get comfortable; they have been sitting watching him suffer for weeks w/him reporting he doesn't want this; they feel his refusal for continuous IV is d/t fear of prolonging life, something he has been adamant he does not want; they wonder about options to help relief his suffering as quickly as possible - defer Chief Pilot consult at this time - report have DNR/I form, provided to [facility] staff; did complete a long AD form, on file at ; report that Debbie is primary [facility] and Carin is co-agent; they have copies of both of these forms Assessment and Plan Assessment and plan (1) Abdominal aortic aneurysm dissection: Status: Acute Assessment and plan: preference for DECISION SUPPORT ANALYST; no transfer (2) Hiccups: Status: Acute Assessment and plan: recommend benzodiazepam - midazolam w/good effect continue PRN (3) Pain: Status: Acute Assessment and plan: [facility] consent to continuous pain pump; pts previous concerns that IV pump would make it go on and on, expressed wishes to family does not want life prolonged, they are concerned he is fearful that is what pump does - pain management most serious concern for family; he has been suffering for 3 wks hydromorphone SC inf ordered today, starting basal rate at 0.5mg bolus 0.5mg, increase basal rate pending bolus PRN use, increase bolus rate to match 50% of basal pending response (4) End of life care: Status: Acute Assessment and plan: Sebastien will remain at [facility] for EOL care; life expectancy hours to days - transition from ICU to MS post 1st visit w/improved pain and hiccups resolved; some agonal breathing, recommend trial morphine pending start of CADD pump known ruptured endovascular graft w/sxs correlating; preference for no further interventions continue EOL sxs management: pain, secretions, incontinence, hiccups and holistic care - hydromorphone CADD, start scopolamine, continue midazolam; expect reduced urine output; other comfort meds ordered comfort cart in room for family - family would like notification if suspect closer to EOL if they are not home; suspect he may pass when they leave bc he kept telling them to leave and go home when more awake (5) Palliative care patient: Status: Acute Assessment and plan: PC may f/u on Thursday pending Sebastien's status - family would want to consider palliative sedation if sxs remain unmanaged, please call Palliative Care office at [phone] for MD consult (6) ACP (advance care planning): Status: Acute Assessment and plan: reviewed on 1st visit Sebastien's concerns for not wanting IV pump for pain, concerns w/prolonging life, he was not able to complete this conversation d/t fatigue; reviewed AD, [place] via [place] [facility] [place] [facility] [place] preference for comfort directed care, [facility] Debbie and Carin; reviewed COLST, DNR/I - submitted to medical records reviewed sxs management, see above; reviewed in brief requirements for palliative sedation, need for exhausting all other options reviewed life expectancy, what to expect, communication preferences spent 35m w/ACP Review of Systems Narrative: as per HPI pt limited d/t mental status PFSH All Active Problems (Updated 04/05/25 @ 11:05 by Carina Nuñez NP) ACP (advance care planning) (Acute) Palliative care patient (Acute) End of life care (Acute) Pain (Acute) Hiccups (Acute) Abdominal aortic aneurysm dissection (Acute) Hemorrhagic shock (Acute) AAA (abdominal aortic aneurysm, ruptured) (Acute) Pain, joint, foot, right (Acute) Venous insufficiency (Acute) Diabetes mellitus with neuropathy (Acute) Peripheral neuropathy (Acute) Pain in right ankle (Acute) Right ankle sprain (Acute) Left carotid stenosis (Acute) Paroxysmal A-fib (Chronic) Stroke (Chronic) Lesion of pancreas (Acute) Dehydration (Acute) Fever (Acute) Medical History Chronic kidney disease Aortic aneurysm Hypertension Diabetes Surgical History S/P hip replacement S/P AAA repair Social History Smoking/Tobacco Use Status: Former Tobacco Use Smoking risk assessment performed?: Yes Alcohol Intake: never Drug use: Never Substance use type: does not use Household members: spouse Housing: house Number of Children: 1 Do you feel safe at home: Yes Do you feel safe in your relationship?: Yes Exam Narrative Exam Narrative: General: older adult male, 1st visit in ICU room; hiccups intermittent around every 10s; intermittent eyes closed, interacts intermittently w/conversation; grimace/groan throughout HEENT: normocephalic, atraumatic, hearing appropriate w/face to face conversation; Resp: normal resp effort w/hiccups intermittent; shallow; no cough or audible wheeze : requests urinal x3 during 15m visit; urinal between legs on 2nd two requests Psych: MS altered; mood intermittent paranoia; affect blunted; attitude guarded; thought process loose association, impoverished, circumstantial; insight fair to limited, judgment limited 2nd visit: pt lying in MS bed; and daughter at bedside; not awake or alert, did not attempt to wake; resp regular w/periods of shallow, agonal, no breath rattle sounds; hiccups resolved Results Last Vital Signs Temp 97.7 F 04/04/25 23:45 Pulse 116 H 04/04/25 23:45 Resp 22 04/04/25 23:45 BP 158/98 H 04/04/25 23:45 Pulse Ox 95 04/04/25 21:51 Labs 04/04/25 19:17 04/04/25 19:17 Labs: Laboratory Results - last 24 hr 04/04/25 04/04/25 04/04/25 19:17 20:20 21:22 WBC 9.79 RBC 3.75 L Hgb 11.1 L Hct 35.0 L MCV 93 MCH 29.6 MCHC 31.7 L RDW 15.5 H Plt Count 240 MPV 9.5 Immature Gran % 0.2 Neutrophils % 81.6 Lymphocytes % 9.5 Monocytes % 6.8 Eosinophils % 1.6 Basophils % 0.3 Nucleated RBC % 0.0 Absolute Neutrophils 7.98 H Absolute Lymphocytes 0.93 L Absolute Monocytes 0.67 Absolute Eosinophils 0.16 Absolute Basophils 0.03 VBG Lactate 1.7 Sodium 135 L Potassium 4.2 Chloride 104 Carbon Dioxide 28.4 Anion Gap 2.6 L BUN 21 Creatinine 1.0 Est GFR (CKD-EPI 2020) 74.23 Glucose 129 H Calcium 8.3 Total Bilirubin 0.70 AST 24 ALT 14 Alkaline Phosphatase 118 H Troponin I 15 17 Cancelled Total Protein 6.5 Albumin 3.5 Lipase 30 ABO/Rh A Positive Antibody Screen NEGATIVE Time Spent Time Spent with Patient Time Spent(min): 120
[2025-04-05] MEDS: Midazolam 2 MG/2 ML VIAL 1 MG IVP ×3 (10:08→23:31)
--- NOTE | 2025-04-05 10:14 | W.PC.ACHO ---
Registration Status: ADM IN Primary Language: Preferred Language: Unable to Obtain ED Information & Data Chief Complaint Chest Pain 04/04/25 20:48 Triage Note increased chest and back 04/04/25 18:08 pain HX AAA Medical / Surgical History (Last Reviewed 12/13/24 @ 10:52 by Patricia Sam DPM) Chronic kidney disease Aortic aneurysm Hypertension Diabetes (Last Reviewed 12/13/24 @ 10:52 by Patricia Sam DPM) S/P hip replacement S/P AAA repair Most Recent Vital Signs Temperature 36.5 C 04/04/25 23:45 Temperature Source Temporal Artery Scan 04/04/25 23:45 Pulse 116 H 04/04/25 23:45 Pulse 81 04/04/25 21:51 Respiratory Rate 22 04/04/25 23:45 Respiratory Effort Normal, Non-Labored 04/04/25 23:45 Respiratory Depth Normal 04/04/25 23:45 Respiratory Pattern Normal 04/04/25 23:45 Blood Pressure 158/98 H 04/04/25 23:45 Blood Pressure Mean 118 04/04/25 23:45 Pulse Oximetry 95 04/04/25 21:51 Oxygen Delivery Method Room Air 04/04/25 23:45 Oxygen Flow Rate 0 04/04/25 23:45 Pain Level 8 04/05/25 01:00 Allergies No Known Allergies Allergy (Verified 04/04/25 18:16) Active Medications Generic Name Dose Route Start Last Admin Trade Name Freq PRN Reason Stop Dose Admin Docusate Sodium 100 mg 04/05/25 08:30 04/05/25 07:56 Docusate Sodium 100 Mg Cap PO Not Given BID ALOK Midazolam HCl 1 mg 04/05/25 09:51 04/05/25 10:08 Midazolam 2 Mg/2 Ml Vial IVP 1 mg Q4H PRN PRN Administration Scopolamine HBr 1 mg 04/04/25 23:21 04/04/25 23:48 Scopolamine 1 Mg/3 Days Patch TD Not Given Q72H ALOK Sodium Chloride 0 ml 04/04/25 18:34 04/04/25 23:56 Normal Saline Flush 10 Ml Syr IVP 80 ml PRN PRN Administration Sodium Chloride 0 ml 04/05/25 08:30 04/05/25 07:24 Normal Saline Flush 10 Ml Syr IVP 60 ml BID ALOK Administration IV IV Catheter Type [Left Saline Lock Antecubital] IV Catheter Type [Right Saline Lock Antecubital] IV Catheter Gauge [Left 20 Antecubital] IV Catheter Gauge [Right 18 Antecubital] Diet Orders Category Date Time Status Diabetes Consistent CHO/Heart Healthy [DIET] Nutrition 04/05/25 Breakfast Active Diagnostics 04/04/25 04/04/25 04/04/25 Range/Units 21:22 20:20 19:17 WBC 9.79 (4.4-10.8) 10^3/uL RBC 3.75 L (4.36-5.78) 10^6/uL Hgb 11.1 L (13.5-17.5) g/dL Hct 35.0 L (40.0-50.0) % MCV 93 (80-95) fL MCH 29.6 (27.0-33.0) pg MCHC 31.7 L (32.0-36.0) % RDW 15.5 H (11.8-14.1) % Plt Count 240 (130-400) 10^3/uL MPV 9.5 (8.0-11.0) fL Immature Gran % 0.2 % Neutrophils % 81.6 % Lymphocytes % 9.5 % Monocytes % 6.8 % Eosinophils % 1.6 % Basophils % 0.3 % Nucleated RBC % 0.0 (0.0-0.3) % Absolute Neutrophils 7.98 H (1.2-6.7) 10^3/uL Absolute Lymphocytes 0.93 L (1.2-3.4) 10^3/uL Absolute Monocytes 0.67 (0.1-0.8) 10^3/uL Absolute Eosinophils 0.16 (0.0-0.7) 10^3/uL Absolute Basophils 0.03 (0.0-0.2) 10^3/uL VBG Lactate 1.7 (<or=2.0) mmol/L Sodium 135 L (136-145) mmol/L Potassium 4.2 (3.5-5.1) mmol/L Chloride 104 (98-107) mmol/L Carbon Dioxide 28.4 (20.0-31.0) mmol/L Anion Gap 2.6 L (3-11) mmol/L BUN 21 (9-23) mg/dL Creatinine 1.0 (0.73-1.18) mg/dL Est GFR (CKD-EPI 2020) 74.23 (mL/min/1.73m2) Glucose 129 H (74-106) mg/dL Calcium 8.3 (8.3-10.6) mg/dL Total Bilirubin 0.70 (0.2-1.2) mg/dL AST 24 (<34) U/L ALT 14 (10-49) U/L Alkaline Phosphatase 118 H (46-116) U/L Troponin I Cancelled 17 15 (<54) ng/L Total Protein 6.5 (5.7-8.2) g/dL Albumin 3.5 (3.4-5.0) g/dL Lipase 30 (<53) U/L ABO/Rh A Positive Antibody Screen NEGATIVE Intake and Output - 24 Hour Total 04/04/25 17:57 thru 04/05/25 09:55 Intake Total 36.947 Output Total 225 Balance -188.053 Weight 90.673 kg Intake: IV 36.947 Output: Urine 225 Other: Urine Color Light Digna Urine Appearance Clear Comment pt was also incontinent Falls Risk Assessment History of Falls No History 04/04/25 23:45 Contributing Factors Impairments 04/04/25 23:45 Ambulatory Aids Uses ambulatory device + 04/04/25 23:45 Tubes/Lines With any additional score 04/04/25 23:45 Gait Evaluation W/any additional score 04/04/25 23:45 Cognition No cognitive impairment 04/04/25 23:45 Fall Total Score 73 04/04/25 23:45 Level of Risk High Risk 04/04/25 23:45 Problems (Last Reviewed 12/13/24 @ 10:52 by Patricia Sam DPM) Abdominal aortic aneurysm dissection (Acute) Paroxysmal A-fib (Chronic) Stroke (Chronic) Attestation Statement: By documenting the first initial, last name, and credentials of the reporting nurse below, both parties acknowledge that all relevant information regarding the patient handoff has been communicated, and that all questions have been addressed to ensure continuity and safety of care. Additional Patient Information/Comments: Pt is a/o x 2-3. Pt is being transfered from ICU to [facility] floor for comfort care. Orders have been placed for comfort medications. Report Received From: Gillian
--- NOTE | 2025-04-05 11:18 | PHA.REVIEW2 ---
Pharmacy Admission Review Admission Clinical Review Admission Pharmacy Review: ACP (advance care planning) (Acute) Palliative care patient (Acute) End of life care (Acute) Pain (Acute) Hiccups (Acute) Abdominal aortic aneurysm dissection (Acute) No Known Allergies Allergy (Verified 04/04/25 18:16) Resuscitation Status DNR/DNI Height 5 ft 7 in Weight 90.673 kg Comments Comments/Follow Ups: Watch for addition of Dilaudid CADD infusion Pharmacy Admission Review Renal Dosing Renal Dosing: BUN 21 mg/dL (9-23) 04/04/25 19:17 Creatinine 1.0 mg/dL (0.73-1.18) 04/04/25 19:17 Medications needing adjustments: Reviewed (CrCl 62.22 mL/min) List of meds needing interventions: Current medications are okay Anticoagulation Anticoagulation: Hgb 11.1 g/dL (13.5-17.5) L 04/04/25 19:17 Hct 35.0 % (40.0-50.0) L 04/04/25 19:17 Plt Count 240 10^3/uL (130-400) 04/04/25 19:17 Creatinine 1.0 mg/dL (0.73-1.18) 04/04/25 19:17 DVT Prophylaxis: N/A (SENIOR STOCK PLAN ADMINISTRATOR) Opiate Usage Evaluate Pain Scale/Pains Meds: Reviewed (hydromorphone 1mg IVP q15min PRN - likely changing to continuous infusion per palliative provider) Scheduled Bowel Reg ordered if on Opiates?: Yes (docusate/Senna) Relevant Labs Relevant Labs: Sodium 135 mmol/L (136-145) L 04/04/25 19:17 Potassium 4.2 mmol/L (3.5-5.1) 04/04/25 19:17 Chloride 104 mmol/L (98-107) 04/04/25 19:17 Electrolytes, C-Reactive P, ESR: Reviewed Cardiac Review Cardiac Review: Troponin I Cancelled 04/04/25 21:22 BP, HR, EF%: N/A (No VS recorded - SENIOR STOCK PLAN ADMINISTRATOR) QTc Review QTc: Reviewed (480 from 04/04/25) IV to PO Switch IV Medications: Reviewed Home Meds Home Med List reviewed: Reviewed Current Meds Current Medication Order Review: Reviewed Comments Comments/Follow Ups: Watch for addition of Dilaudid CADD infusion
[2025-04-05] MEDS: Refresh PLUS Eye Drops 0.4ml 2 EACH OU ×3 (11:42→23:31)
[2025-04-05] MEDS: HYDROmorphone 100 MG in Normal Saline 240 ML IV_INF (13:34)
[2025-04-05] MEDS: Scopolamine 1 MG/3 DAYS PATCH TD (13:50)
--- NOTE | 2025-04-05 15:43 | CHAPLAIN ---
Sebastien was moved out of the ICU this morning to med/surg and is currently on comfort measures. He is responsive if you say his name directly to him, and he startles for a second and then relaxes. He didn't engage in conversation. I brought in a prayer shawl this morning and visited again this afternoon. I have missed meeting his family, but will continue to visit.
--- NOTE | 2025-04-05 16:04 | PGE_ITS ---
Date of Service Date of service: 04/05/25 Time of Service: 08:00 Assessment and Plan Assessment and plan (1) End of life care: Status: Acute Assessment and plan: Interventions minimized Appreciate palliative care Continuing pain burden, started hydromorphone infusion Subjective Subjective Interval history since last seen: Mr Cloud is unresponsive. Family at bedside. Exam Narrative Exam Narrative: General: This is an unresponsive man in bed, appears comfortable. HEENT: Normocephalic, atraumatic CV: RRR Resp: CTAB Abd: soft, NTND MSK: normal tone, some response to stimuli Neuro: unresponsive Objective Last Vital Signs Temp 36.5 C 04/04/25 23:45 Pulse 116 H 04/04/25 23:45 Resp 22 04/04/25 23:45 BP 158/98 H 04/04/25 23:45 Pulse Ox 95 04/04/25 21:51 Laboratory Results - last 24 hr 04/04/25 04/04/25 04/04/25 19:17 20:20 21:22 WBC 9.79 RBC 3.75 L Hgb 11.1 L Hct 35.0 L MCV 93 MCH 29.6 MCHC 31.7 L RDW 15.5 H Plt Count 240 MPV 9.5 Immature Gran % 0.2 Neutrophils % 81.6 Lymphocytes % 9.5 Monocytes % 6.8 Eosinophils % 1.6 Basophils % 0.3 Nucleated RBC % 0.0 Absolute Neutrophils 7.98 H Absolute Lymphocytes 0.93 L Absolute Monocytes 0.67 Absolute Eosinophils 0.16 Absolute Basophils 0.03 VBG Lactate 1.7 Sodium 135 L Potassium 4.2 Chloride 104 Carbon Dioxide 28.4 Anion Gap 2.6 L BUN 21 Creatinine 1.0 Est GFR (CKD-EPI 2020) 74.23 Glucose 129 H Calcium 8.3 Total Bilirubin 0.70 AST 24 ALT 14 Alkaline Phosphatase 118 H Troponin I 15 17 Cancelled Total Protein 6.5 Albumin 3.5 Lipase 30 ABO/Rh A Positive Antibody Screen NEGATIVE Time Spent with Patient Time Spent with Patient: 25-34 minutes Time was spent: preparing to see the patient(eg.review tests), obtaining and/or reviewing separately otained hiistory, ordering medications,tests, procedures, referring, communicating with other health home care associate, indepentently interpreting results, counseling the patient and care coordination
--- NOTE | 2025-04-06 07:02 | W.PM.DDS ---
Date of service: 04/06/25 Time of Service: 07:02 Discharge Plan Disposition Patient Disposition: Discharge Details Reason For Visit: Abdominal Aortic Aneurysm with Dissection Admit Date/Time: 04/04/25 22:09 Admit Provider: Riley Lopez Attending Provider: Riley Lopez Primary Care Provider: Debbie Lopez Hospital Course Hospital Course: This is an 79-year-old gentleman who had complications of an abdominal aortic aneurysm repair status post endovascular repair with stenting which then ruptured requiring open aortic aneurysm repair with postoperative hemorrhage. He has not done well for the 3 weeks since this surgery and especially over the last week has been failing according to daughter with an acute onset of ripping back pain. In the ED, CTA of the abdomen revealed air surrounding the large aneurysm in his abdominal aorta possibilities of infection and clinically he had a dissecting aneurysm. He wanted all treatment stopped except comfort measures. He even refused an IV Dilaudid infusion thinking that we would be giving him medicines to treat other than pain. He was comfortable with IV Dilaudid and family at bedside with a short stay on comfort measures only with palliative care consultation, change in DNR/DNI status upon this admission by his wishes and family's wishes and minimizing interaction other than discussing comfort. He comfortably with his family at his bedside. I spoke to the daughter who was at his bedside and time of . He was pronounced at 06:36 by the RN. His body was released to the morgue. Discharge Data Cause of : Abdominal aortic aneurysm (AAA) greater than 5.5 cm in diameter in male Discharge Date/Time-TO BE ENTERED AT DEPARTURE: 04/06/25 09:43 Discharge Sum: Prov Provider Primary care physician: Debbie Lopez Admitting clinician: Riley Lopez Attending physician on admission: Riley Lopez Consults: 04/04/25 22:09 Palliative Care Consult [CONS] Routine Consultation Status:: Follow-up needed Clarification:: Manage/follow per spec. Reason for consult:: Patient with multiple complications of cardiovascular disease with atrial fibrillation RVR, stroke after attempted endovascular repair of AAA which ruptured with bleed requiring open procedure now with ripping back pain and possible dissection. Patient and family want him to be kept comfortable with no medical interventions other than comfort measures only. They do wish to talk about hospice if he is surviving and could go home on comfort treatment. Pronouncing clinician: Riley Lopez Discharge Sum: Diag PCOD Cause of : Abdominal aortic aneurysm (AAA) greater than 5.5 cm in diameter in male Contributing Factors (1) End of life care: Contributing factors: CVA, PAF, NIDDM with neuropathy Discharge Sum: Summary Date and Time Admission Date: 04/04/25 Date of : 04/06/25 Time of : 06:36 Summary Details: See hospital course. Additional Data Confirmation of as documented by pronouncing clinician: no pulse, no respirations, no heart sounds and pupils fixed and dilated Family: at bedside Attending/PCP notified?: No Attending Physician: Debbie Lopez Was code activated?: No Autopsy requested?: No Advance directives: Yes Hospice patient?: No
--- NOTE | 2025-04-06 08:26 | PDOC.CMPRO ---
Date of service: 04/06/25 Time of Service: 08:26 Social Determinants of Health Screening Will the Patient Participate in the Screening?: Declined to provide
--- NOTE | 2025-04-06 10:13 | CHAPLAIN ---
I was notified about 8:30 am by nursing staff that Sebastien had around 6:30 am. His daughter was present when he , his arrived later and asked for a prayer with the pilot fuel engineer. I offered a prayer and the family left soon after.
== END 2025-04-06 09:43 | disposition expired | DRG 300 ==
LOC: ER 21:39 → ICU 23:13 → MS 04-05 10:27
PROVIDERS: Admitting Provider Family Medicine; Emergency Provider Physician Assistant; PCP Family Medicine; Responsible Provider Family Medicine; Visit Provider Family Medicine
DX: I71.02 Dissection of abdominal aorta (principal); I48.0 Paroxysmal atrial fibrillation; E11.42 Type 2 diabetes mellitus with diabetic polyneuropathy; Z79.4 Long term (current) use of insulin; I69.351 Hemiplegia and hemiparesis following cerebral infarction affecting right dominant side; Z51.5 Encounter for palliative care; Z66 Do not resuscitate; I87.8 Other specified disorders of veins; I65.22 Occlusion and stenosis of left carotid artery; E86.0 Dehydration; N18.9 Chronic kidney disease, unspecified; I12.9 Hypertensive chronic kidney disease with stage 1 through stage 4 chronic kidney disease, or unspecified chronic kidney disease; Z79.84 Long term (current) use of oral hypoglycemic drugs; Z79.01 Long term (current) use of anticoagulants; R29.810 Facial weakness
CPT/HCPCS: 00123; 36415; 71275; 80053; 83690; 86850; 86900; 86901; 93005; 96365; 96366; 96375; 96376; 99285; 74174; 83605; 84484; 85025; 93010; 99223; 99232; J1171; J1805; J2250; J2270; J3010; J3490